=== PATIENT | male | born 1945 | race Caucasian/White ===

== ENCOUNTER 2020-10-13 09:28 | Emergency (ER) | payer MEDICAID, OTHER ==
[~2020-10-13] VITALS: Ht 177.8 cm; Wt 55.0 kg
--- NOTE | 2020-10-13 09:38 | ED Dyspnea ---
General Stated Complaint: SOA Source of Information: Patient Exam Limitations: No Limitations History of Present Illness Date Seen by Provider: Oct 13, 2020 Time Seen by Provider: 09:45 Initial Comments 75-year-old male presents with shortness of breath. Patient has known COPD and is on home oxygen. Patient started getting short of breath Tuesday. He is also not had a bowel movement since Tuesday. Patient states normally he drinks a sixpack of beer and they both get better. Patient has subjective fever last night. He reports this morning his temperature was 94.8. Patient has not uses inhalers today. No increasing cough. No nausea or vomiting. Allergies and Home Medications Allergies Coded Allergies: No Known Drug Allergies (Unverified , 10/13/20) Home Medications Albuterol Sulfate 1 Puff Puff, 2 PUFF INH Q4H 1 PUFF = 90 MCG Prescribed by: YASMIN VAUGHAN on 10/13/20 111 Azithromycin 250 Mg Tablet, 250 MG PO DAILY Prescribed by: YASMIN VAUGHAN on 10/13/20 1112 Prednisone 20 Mg Tab, 40 MG PO DAILY Prescribed by: YASMIN VAUGHAN on 10/13/20 1112 Patient Home Medication List Home Medication List Reviewed: Yes Review of Systems Review of Systems Constitutional: see HPI; No diaphoresis, No dizziness, No weakness Respiratory: cough (chronic), short of breath, wheezing Cardiovascular: No chest pain, No palpitations Gastrointestinal: No abdominal pain; constipation; No nausea, No vomiting Musculoskeletal: no symptoms reported Skin: no symptoms reported Psychiatric/Neurological: No Symptoms Reported Endocrine: No Symptoms Reported Hematologic/Lymphatic: No Symptoms Reported Past Ykfgpej-Yoaevt-Tevbag Hx Past Med/Social Hx: Reviewed Nursing Past Med/Soc Hx Physical Exam Vital Signs Vital Signs - First Documented 10/13/20 09:45 Temp 39.1 Pulse 123 Resp 24 B/P (MAP) 121/78 (92) Pulse Ox 100 O2 Delivery Nasal Cannula O2 Flow Rate 3.00 Capillary Refill : Height, Weight, BMI Height: '" Weight: lbs. oz. 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 Norm as Tested Skin: Normal Color, Warm/Dry Progress/Results/Core Measures Results/Orders Lab Results Laboratory Tests Test 10/13/20 10:00 10/13/20 10:25 Range/Units White Blood Count 10.0 4.3-11.0 10^3/uL Red Blood Count 4.05 L 4.35-5.85 10^6/uL Hemoglobin 10.8 L 13.3-17.7 G/DL Hematocrit 35 L 40-54 % Mean Corpuscular Volume 87 80-99 FL Mean Corpuscular Hemoglobin 27 25-34 PG Mean Corpuscular Hemoglobin Concent 31 L 32-36 G/DL Red Cell Distribution Width 15.8 H 10.0-14.5 % Platelet Count 161 130-400 10^3/uL Mean Platelet Volume 11.6 H 7.4-10.4 FL Immature Granulocyte % (Auto) 1 % Neutrophils (%) (Auto) 78 H 42-75 % Lymphocytes (%) (Auto) 14 12-44 % Monocytes (%) (Auto) 7 0-12 % Eosinophils (%) (Auto) 1 0-10 % Basophils (%) (Auto) 0 0-10 % Neutrophils # (Auto) 7.7 1.8-7.8 X 10^3 Lymphocytes # (Auto) 1.4 1.0-4.0 X 10^3 Monocytes # (Auto) 0.7 0.0-1.0 X 10^3 Eosinophils # (Auto) 0.1 0.0-0.3 10^3/uL Basophils # (Auto) 0.0 0.0-0.1 10^3/uL Immature Granulocyte # (Auto) 0.1 0.0-0.1 10^3/uL Sodium Level 142 135-145 MMOL/L Potassium Level 3.1 L 3.6-5.0 MMOL/L Chloride Level 103 98-107 MMOL/L Carbon Dioxide Level 27 21-32 MMOL/L Anion Gap 12 5-14 MMOL/L Blood Urea Nitrogen 8 7-18 MG/DL Creatinine 0.79 0.60-1.30 MG/DL Estimat Glomerular Filtration Rate > 60 BUN/Creatinine Ratio 10 Glucose Level 114 H 70-105 MG/DL Calcium Level 9.9 8.5-10.1 MG/DL Corrected Calcium 9.9 8.5-10.1 MG/DL Total Bilirubin 0.4 0.1-1.0 MG/DL Aspartate Amino Transf (AST/SGOT) 25 5-34 U/L Alanine Aminotransferase (ALT/SGPT) 13 0-55 U/L Alkaline Phosphatase 57 40-136 U/L C-Reactive Protein 4.43 H <0.50 MG/DL Total Protein 6.7 6.4-8.2 GM/DL Albumin 4.0 3.2-4.5 GM/DL Micro Results Microbiology 10/13/20 Influenza Types A,B Antigen (REMY) - Final, Complete My Orders Orders - YASMIN VAUGHAN L DO Albuterol/Ipra Inhalation Soln (Duoneb I (10/13/20 10:00) Dexamethasone Injection (Decadron Inje (10/13/20 10:00) Svn Small Volume Nebulizer (10/13/20 09:48) Cbc With Automated Diff (10/13/20 09:48) Comprehensive Metabolic Panel (10/13/20 09:48) Procalcitonin (Pct) (10/13/20 09:48) Ekg Tracing (10/13/20 09:48) Influenza A And B Antigens (10/13/20 09:48) Coronavirus Sars-Cov-2 So 2018 (10/13/20 09:48) Chest 1 View Ap/Pa Only (10/13/20 09:48) Abdomen (Kub) 1 View (10/13/20 09:48) Acetaminophen Tablet/Caplet (Tylenol T (10/13/20 10:45) Crp Fs (10/13/20 10:00) Medications Given in ED Current Medications Medications Dose Ordered Sig/Linda Route Start Time Stop Time Status Last Admin Dose Admin Acetaminophen 650 mg ONCE ONCE PO 10/13/20 10:45 10/13/20 10:46 DC 10/13/20 10:55 650 MG Albuterol/ Ipratropium 3 ml ONCE ONCE INH 10/13/20 10:00 10/13/20 10:01 DC 10/13/20 10:23 3 ML Dexamethasone Sodium Phosphate 10 mg ONCE ONCE IV 10/13/20 10:00 10/13/20 10:01 DC 10/13/20 10:23 10 MG Vital Signs/I&O 10/13/20 10/13/20 09:45 10:55 Temp 39.1 39.1 Pulse 123 Resp 24 B/P (MAP) 121/78 (92) Pulse Ox 100 O2 Delivery Nasal Cannula O2 Flow Rate 3.00 Progress Progress Note : Time: 10:56 Progress Note Patient felt signally better following breathing treatments. No x-ray shows no pneumonia and no significant constipation on x-ray. Patient will be discharged home with azithromycin, steroids and an albuterol MDI. He has a nebulizer but is out of his MDI. Patient should follow-up with his primary care provider in 4-5 days for recheck in today symptoms. Patient should follow COVID isolation guidelines since he was tested. Patient is discharged home in stable condition. He should continue uses home oxygen as previously prescribed Initial ECG Impression Date: Oct 13, 2020 Initial ECG Impression Time: 10:27 Initial ECG Rate: 106 Initial ECG Rhythm: S.Tach Initial ECG Intervals: Normal Comment sinus Tach, Hr 106, no acute finding Diagnostic Imaging Diagonstic Imaging: Xray Plain Films/CT/US/NM/MRI: chest, abdomen Comments [facility] [place] [place] NAME: RYDER RINCON [employer] REC#: [id number] PT STATUS: REG ER : 1945 PHYSICIAN: YASMIN VAUGHAN DO ADMIT DATE: 10/13/20/ER FS Draft Date of Exam:10/13/20 CHEST 1 VIEW AP/PA ONLY INDICATION: COPD and shortness of breath. TIME OF EXAM: 10:12 AM No prior studies are available for comparison. FINDINGS: The heart size is normal. The pulmonary vascularity is unremarkable. The lungs are clear. No infiltrate, effusion or pneumothorax is detected. IMPRESSION: No acute cardiopulmonary process is detected. Dictated on workstation # [id number] Dict: 10/13/20 1029 Trans: 10/13/20 1030 [id number] Interpreted by: DONITA HUI MD Electronically signed by: [facility] [place], [place] NAME: SERGEYRYDER [employer] REC#: [id number] PT STATUS: REG ER : 1945 PHYSICIAN: YASMIN VAUGHAN DO ADMIT DATE: 10/13/20/ER FS Draft Date of Exam:10/13/20 ABDOMEN (KUB) 1 VIEW INDICATION: Shortness of breath and constipation. TIME OF EXAM: 10:15 AM Bowel gas pattern is nonobstructed. No significant stool load is identified. There is no pathologic calcifications. No free air is identified. IMPRESSION: No acute abnormality is detected. Dictated on workstation # [id number] Dict: 10/13/20 1032 Trans: 10/13/20 1034 [id number] [id number] Interpreted by: DONITA HUI MD Electronically signed by: Reviewed: Reviewed by Me, Reviewed/Discussed Departure Impression Primary Impression: COPD exacerbation Additional Impression: Viral syndrome Disposition: 01 HOME, SELF-CARE Condition: Stable Departure-Patient Inst. Referrals: EMILE WILKS MD (PCP/Family) Primary Care Physician Patient Instructions: Chronic Obstructive Pulmonary Disease (COPD), Including Emphysema, Coronavirus Disease 2019 (COVID-19) Overview, Exacerbation of COPD (DC), Viral Upper Respiratory Infection, Adult (DC) Add. Discharge Instructions: Please follow-up with your primary care provider and 3-4 days for recheck of today symptoms Use your inhaler every 4 hours while awake for 36 hours then as needed Scripts Albuterol Sulfate (VENTOLIN HFA) 1 Puff Puff 2 PUFF INH Q4H, #1 INHALER 1 PUFF = 90 MCG Prov: YASMIN VAUGHAN DO 10/13/20 Prednisone (Prednisone) 20 Mg Tab 40 MG PO DAILY, #6 TAB 0 Refills Prov: YASMIN VAUGHAN DO 10/13/20 Azithromycin (Azithromycin) 250 Mg Tablet 250 MG PO DAILY, #4 TAB 0 Refills Prov: YASMIN VAUGHAN DO 10/13/20 YASMIN VAUGHAN DO Oct 13, 2020 09:38
[2020-10-13] MEDS ORDERED: RT-ALBUTEROL/IPRATROPIUM 3 ML (DUONEB) VIAL INH ONE (10:00)
[2020-10-13 10:22] LABS: HEMATOCRIT 35 % (40-54); HEMOGLOBIN 10.8 G/DL (13.3-17.7); LYMPHOCYTES % (AUTO) 14 % (12-44); MEAN CORPUSCULAR HEMOGLOBIN 27 PG (25-34); MEAN CORPUSCULAR HGB CONC 31 G/DL (32-36); MEAN CORPUSCULAR VOLUME 87 FL (80-99); MEAN PLATELET VOLUME 11.6 FL (7.4-10.4); MONOCYTES % (AUTO) 7 % (0-12); NEUTROPHILS % (AUTO) 78 % (42-75); PLATELET COUNT 161 10^3/uL (130-400)
[2020-10-13 10:23] LABS: BASOPHILS % (AUTO) 0 % (0-10); EOSINOPHILS # (AUTO) 0.1 10^3/uL (0.0-0.3); EOSINOPHILS % (AUTO) 1 % (0-10); LYMPHOCYTES # (AUTO) 1.4 X 10^3 (1.0-4.0); MONOCYTES # (AUTO) 0.7 X 10^3 (0.0-1.0); NEUTROPHILS # (AUTO) 7.7 X 10^3 (1.8-7.8)
--- NOTE | 2020-10-13 10:31 | Diagnostic Imaging Report ---
INDICATION: COPD and shortness of breath. TIME OF EXAM: 10:12 AM No prior studies are available for comparison. FINDINGS: The heart size is normal. The pulmonary vascularity is unremarkable. The lungs are clear. No infiltrate, effusion or pneumothorax is detected. IMPRESSION: No acute cardiopulmonary process is detected. Dictated by: Dictated on workstation # [id number]
--- NOTE | 2020-10-13 10:34 | Diagnostic Imaging Report ---
INDICATION: Shortness of breath and constipation. TIME OF EXAM: 10:15 AM Bowel gas pattern is nonobstructed. No significant stool load is identified. There is no pathologic calcifications. No free air is identified. IMPRESSION: No acute abnormality is detected. Dictated by: Dictated on workstation # [id number]
[2020-10-13 10:39] LABS: ALANINE AMINOTRANSFERASE 13 U/L (0-55); ALKALINE PHOSPHATASE 57 U/L (40-136); BILIRUBIN,TOTAL 0.4 MG/DL (0.1-1.0); BUN/CREATININE RATIO 10; CALCIUM 9.9 MG/DL (8.5-10.1); CARBON DIOXIDE 27 MMOL/L (21-32); CHLORIDE 103 MMOL/L (98-107); CREATININE SERUM 0.79 MG/DL (0.60-1.30); GFR ESTIMATED > 60; GLUCOSE 114 MG/DL (70-105); POTASSIUM 3.1 MMOL/L (3.6-5.0); SODIUM 142 MMOL/L (135-145)
[2020-10-13 10:40] LABS: TOTAL PROTEIN 6.7 GM/DL (6.4-8.2)
[2020-10-13] MEDS ORDERED: ACETAMINOPHEN 325 MG TABLET PO ONE (10:45)
[2020-10-13 11:10] VITALS: BP 114/67
[2020-10-13] MEDS ORDERED: PRD20T PO (11:12)
[2020-10-13] MEDS ORDERED: AZIT250T12 PO (11:12)
[2020-10-13] MEDS ORDERED: RT-ALBUINH INH (11:12)
== END 2020-10-13 11:10 | disposition home or self-care (01) ==
LOC: ER FS 09:31
DX: J44.1 Chronic obstructive pulmonary disease with (acute) exacerbation (principal); B34.9 Viral infection, unspecified; Z20.828 Contact with and (suspected) exposure to other viral communicable diseases; Z79.52 Long term (current) use of systemic steroids
CPT/HCPCS: 36415; 71045; 74018; 80053; 84145; 85025; 86141; 87804 ×2; 93005; 94640; 99284; U0002; 87635

== ENCOUNTER → 2021-01-26 | Outpatient (CLI) | payer MEDICAID ==
[~2021-01-26] MED LIST: AZIT250T12 PO; PRD20T PO; RT-ALBUINH INH
[2021-01-26 10:25] LABS: BUN/CREATININE RATIO 17; CARBON DIOXIDE 30 MMOL/L (21-32); CHLORIDE 101 MMOL/L (98-107); CREATININE SERUM 0.88 MG/DL (0.60-1.30); GFR ESTIMATED > 60; POTASSIUM 3.9 MMOL/L (3.6-5.0); SODIUM 140 MMOL/L (135-145)
[2021-01-26 10:26] LABS: ALANINE AMINOTRANSFERASE 16 U/L (0-55); ALBUMIN 4.2 GM/DL (3.2-4.5); ALKALINE PHOSPHATASE 51 U/L (40-136); BILIRUBIN,TOTAL 0.4 MG/DL (0.1-1.0); CALCIUM 9.5 MG/DL (8.5-10.1); GLUCOSE 108 MG/DL (70-105); TOTAL PROTEIN 6.9 GM/DL (6.4-8.2)
[2021-01-26 15:08] LABS: CHOLESTEROL 115 MG/DL (< 200); HDL CHOLESTEROL 44 MG/DL (40-60); TRIGLYCERIDES 136 MG/DL (<150); VLDL CHOLESTEROL 27 MG/DL (5-40)
== END ==
LOC: LAB FS 09:41
PROVIDERS: ATTEND Family Medicine
DX: E78.2 Mixed hyperlipidemia (principal)
CPT/HCPCS: 36415; 80053; 80061

== ENCOUNTER 2021-05-19 04:40 | Emergency (ER) | payer MEDICAID ==
[2021-05-19] MEDS ORDERED: RT-ALBUTEROL/IPRATROPIUM 3 ML (DUONEB) VIAL INH ONE (04:45)
--- NOTE | 2021-05-19 04:54 | ED Dyspnea ---
General Stated Complaint: SOB Source of Information: Patient, EMS, Old Records History of Present Illness Date Seen by Provider: May 19, 2021 Time Seen by Provider: 04:40 Initial Comments 75 yo male presenting with complaint of shortness of breath, increased cough and subjective fever/chills in last 2 days. He reports that he has been so chilled that he has been turning on the heater at home. He has had increased cough and not really bringing up much when he coughs. He has been trying breathing treatments and medication at home without significant improvement. He uses oxygen 24/7 at 3 to 4 Lpm. He has a history of a heart attack and cardiac problems. Activities at Onset: None Associated Symptoms: Anxiety, Cough, Fever, Wheezing Allergies and Home Medications Allergies Coded Allergies: No Known Drug Allergies (Unverified , 10/13/20) Home Medications Albuterol Sulfate 1 Puff Puff, 2 PUFF INH Q4H 1 PUFF = 90 MCG Prescribed by: YASMIN VAUGHAN on 10/13/20 1112 Azithromycin 250 Mg Tablet, 250 MG PO DAILY Prescribed by: GERMAIN MADDEN on 05/19/21619 Guaifenesin 1,200 Mg Tab.er.12h, 1,200 MG PO BID Prescribed by: GERMAIN VEGART on 05/19/21620 Prednisone 20 Mg Tab, 40 MG PO DAILY Prescribed by: GERMAIN VEGART on 05/19/21619 Patient Home Medication List Home Medication List Reviewed: Yes Review of Systems Review of Systems Constitutional: chills, fever EENTM: no symptoms reported Respiratory: cough, short of breath; No stridor; wheezing Cardiovascular: No chest pain Gastrointestinal: no symptoms reported Genitourinary: no symptoms reported Musculoskeletal: no symptoms reported Skin: no symptoms reported Psychiatric/Neurological: Anxiety Past Rvziwhn-Sldoiw-Roalom Hx Patient Social History Tobacco Use?: Yes Tobacco type used: Cigarettes Smoking Status: Current Everyday Smoker Past Medical History Respiratory: Yes COPD Cardiac: Yes Coronary Artery Disease, Heart Attack, High Cholesterol, Hypertension Neurological: Yes Stroke Genitourinary: No Gastrointestinal: No Musculoskeletal: Yes Arthritis Endocrine: No Physical Exam Vital Signs Vital Signs - First Documented 05/19/21 04:40 Temp 37.7 Pulse 125 Resp 26 B/P (MAP) 124/63 (83) Pulse Ox 99 O2 Delivery Nasal Cannula O2 Flow Rate 3.00 Capillary Refill : Height, Weight, BMI Height: '" Weight: lbs. oz. kg; 17.00 BMI Method: General Appearance: Anxious, Chronically ill, Moderate Distress HEENT: PERRL/EOMI, Pharynx Normal Neck: Full Range of Motion, Supple Respiratory: Chest Non Tender, Accessory Muscle Use, Decreased Breath Sounds, Wheezing Cardiovascular: Regular Rate, Rhythm, Normal Peripheral Pulses Gastrointestinal: Normal Bowel Sounds, No Pulsatile Mass, Non Tender, Soft Rectal: Deferred Extremity: Normal Capillary Refill, Normal Inspection, No Pedal Edema Neurologic/Psychiatric: Alert, Oriented x3, No Motor/Sensory Deficits Skin: Warm/Dry Focused Exam Lactate Level 05/19/21 04:55: Lactic Acid Level 1.90 Lactic Acid Level Laboratory Tests Test 05/19/21 04:55 Lactic Acid Level 1.90 MMOL/L (0.50-2.00) Progress/Results/Core Measures Results/Orders Lab Results Laboratory Tests Test 05/19/21 04:55 05/19/21 05:00 Range/Units White Blood Count 13.1 H 4.3-11.0 10^3/uL Red Blood Count 4.08 L 4.35-5.85 10^6/uL Hemoglobin 11.8 L 13.3-17.7 G/DL Hematocrit 38 L 40-54 % Mean Corpuscular Volume 93 80-99 FL Mean Corpuscular Hemoglobin 29 25-34 PG Mean Corpuscular Hemoglobin Concent 31 L 32-36 G/DL Red Cell Distribution Width 14.8 H 10.0-14.5 % Platelet Count 223 130-400 10^3/uL Mean Platelet Volume 10.8 H 7.4-10.4 FL Immature Granulocyte % (Auto) 1 % Neutrophils (%) (Auto) 73 42-75 % Lymphocytes (%) (Auto) 19 12-44 % Monocytes (%) (Auto) 7 0-12 % Eosinophils (%) (Auto) 1 0-10 % Basophils (%) (Auto) 0 0-10 % Neutrophils # (Auto) 9.5 H 1.8-7.8 X 10^3 Lymphocytes # (Auto) 2.6 1.0-4.0 X 10^3 Monocytes # (Auto) 0.9 0.0-1.0 X 10^3 Eosinophils # (Auto) 0.1 0.0-0.3 10^3/uL Basophils # (Auto) 0.0 0.0-0.1 10^3/uL Immature Granulocyte # (Auto) 0.1 0.0-0.1 10^3/uL Sodium Level 142 135-145 MMOL/L Potassium Level 3.9 3.6-5.0 MMOL/L Chloride Level 101 98-107 MMOL/L Carbon Dioxide Level 28 21-32 MMOL/L Anion Gap 13 5-14 MMOL/L Blood Urea Nitrogen 14 7-18 MG/DL Creatinine 0.71 0.60-1.30 MG/DL Estimat Glomerular Filtration Rate > 60 BUN/Creatinine Ratio 20 Glucose Level 111 H 70-105 MG/DL Lactic Acid Level 1.90 0.50-2.00 MMOL/L Calcium Level 9.3 8.5-10.1 MG/DL Corrected Calcium 9.3 8.5-10.1 MG/DL Magnesium Level 1.6 1.6-2.4 MG/DL Total Bilirubin 0.3 0.1-1.0 MG/DL Aspartate Amino Transf (AST/SGOT) 22 5-34 U/L Alanine Aminotransferase (ALT/SGPT) 23 0-55 U/L Alkaline Phosphatase 74 40-136 U/L Troponin I < 0.30 <0.30 NG/ML C-Reactive Protein 1.04 H <0.50 MG/DL Pro-B-Type Natriuretic Peptide 433.9 H <75.0 PG/ML Total Protein 6.5 6.4-8.2 GM/DL Albumin 4.0 3.2-4.5 GM/DL Blood Gas Puncture Site RT. RADIAL Blood Gas Patient Temperature 37.7 Arterial Blood pH 7.42 7.37-7.43 Arterial Blood Partial Pressure CO2 49 H 35-45 MMHG Arterial Blood Partial Pressure O2 141 H 79-93 MMHG Arterial Blood HCO3 32 H 23-27 MMOL/L Arterial Blood Total CO2 33.3 H 21.0-31.0 MMOL/L Arterial Blood Oxygen Saturation 99 94-100 % Arterial Blood Base Excess 6.2 H -2.5-2.5 MMOL/L [place] Test YES-POS Blood Gas Ventilator Setting NO Blood Gas Inspired Oxygen 3 L My Orders Orders - GERMAIN MADDEN MD Cbc With Automated Diff (05/19/21 04:45) Comprehensive Metabolic Panel (05/19/21 04:45) Blood Culture (05/19/21 04:45) Chest 1 View Ap/Pa Only (05/19/21 04:45) Albuterol/Ipra Inhalation Soln (Duoneb I (05/19/21 04:45) Magnesium (05/19/21 04:45) Ekg Tracing (05/19/21 04:45) O2 (05/19/21 04:45) Ed Iv/Invasive Line Start (05/19/21 04:45) Sputum Culture (05/19/21 04:45) Monitor-Rhythm Ecg Trace Only (05/19/21 04:45) Crp Fs (05/19/21 04:45) Lactic Acid Analyzer (05/19/21 04:45) Svn Small Volume Nebulizer (05/19/21 04:45) Troponin I Fs (05/19/21 04:45) Probnp Fs (05/19/21 04:45) Digoxin (05/19/21 04:54) Arterial Blood Gas (05/19/21 05:08) Azithromycin Tablet (Zithromax Tablet) (05/19/21 06:07) Albuterol/Ipra Inhalation Soln (Duoneb I (05/19/21 06:08) Svn Small Volume Nebulizer (05/19/21 06:08) Medications Given in ED Current Medications Medications Dose Ordered Sig/Linda Route Start Time Stop Time Status Last Admin Dose Admin Albuterol/ Ipratropium 3 ml ONCE ONCE INH 05/19/21 04:45 05/19/21 04:49 DC 05/19/21 05:00 3 ML Vital Signs/I&O 05/19/21 05/19/21 05/19/21 04:40 04:40 06:22 Temp 37.7 Pulse 125 103 Resp 26 20 B/P (MAP) 124/63 (83) 115/64 Pulse Ox 99 99 98 O2 Delivery Nasal Cannula Nasal Cannula Nasal Cannula O2 Flow Rate 3.00 3.00 Progress Progress Note #1: Progress Note Obtain labs as well as blood cultures and lactic acid since he has an elevated temperature with chills at home. His breathing has improved with the Solu- Medrol and breathing treatment by EMS but he is still coughing and having a lot of wheezing so a repeat DuoNeb breathing treatment was ordered here on arrival to the ED. Obtain a blood gas to evaluate his oxygenation and CO2 retention. Chest x-ray to look for pneumonia or mass or effusion. Electrocardiogram to loo k for myocardial infarction or arrhythmia or conduction abnormality. The differential diagnosis includes COPD exacerbation, pneumonia, sinusitis, lung cancer, myocardial infarction, CHF exacerbation, cardiac arrhythmia Progress Note #2: Time: 05:54 Progress Note pt reports feeling much better after treatments and steroid. He still has some cough but it has improved since arrival as well. Labs show mild elevation of WBC count but Lactic acid is less than 2. Troponin negative. Chemistry otherwise no acute significant abnormality. On my review of his 1 view CXR it appears similar to Oct 13, 2020 without acute infiltrate or effusion. As he is doing better and no definite pneumonia on CXR and no effusion will treat for COPD exacerbation and use Zithromax and Steroids. He plans to call [facility] about his nebulizer to make sure his machine is working properly because he feels it was not giving his breathing medicine to him. Will use Mucinex to help with cough. Check with clinic if not improving or return for worsening symptoms but he states he does not feel bad enough to go to the hospital and feels he has improved enough he could go home and use his medicine. Initial ECG Impression Date: May 19, 2021 Initial ECG Impression Time: 04:46 Initial ECG Rate: 115 Initial ECG Rhythm: S.Tach Initial ECG Comparisson: Unchanged Comment Sinus tachycardia with a heart rate of 115 bpm. CO interval 116 ms. QT interval 340 ms with a QTc interval of 471 ms. He does have some ventricular trigeminy which is new from September 2020 with his last EKG. He has no ST elevation. Diagnostic Imaging Diagonstic Imaging: Xray Plain Films/CT/US/NM/MRI: chest Comments On my review of his 1 view chest x-ray there is no acute infiltrate or effusion. Appears stable from October 13, 2020 Reviewed: Reviewed by Me Departure Impression Primary Impression: COPD exacerbation Disposition: 01 HOME, SELF-CARE Condition: Improved Departure-Patient Inst. Decision time for Depature: 06:21 Referrals: EMILE WILKS MD (PCP/Family) Primary Care Physician Patient Instructions: COPD Exacerbation, Adult ED, COPD Diet Add. Discharge Instructions: Use the Zithromax antibiotic to treat for infection that might be flaring up the COPD/Emphysema. Use the steroid to help with inflammation and your breathing. Check with [facility] about your Nebulizer machine to ensure it is working ok. Use Mucinex (Guaifenesin) twice a day to help with cough and congestion. If not improving or worsening then return or check with Dr. Wilks in clinic. Scripts Guaifenesin (Mucinex) 1,200 Mg Tab.er.12h 1200 MG PO BID for COPD exacerbation for 7 Days, #14 TAB 0 Refills Prov: GERMAIN MADDEN MD 05/19/21 Prednisone (Prednisone) 20 Mg Tab 40 MG PO DAILY for COPD exacerbation for 5 Days, #10 TAB 0 Refills Prov: GERMAIN MADDEN MD 05/19/21 Azithromycin (Azithromycin) 250 Mg Tablet 250 MG PO DAILY, #4 TAB 0 Refills Prov: GERMAIN MADDEN MD 05/19/21 GERMAIN MADDEN MD May 19, 2021 04:54
[2021-05-19 05:27] LABS: ABG BASE EXCESS 6.2 MMOL/L (-2.5-2.5); ABG OXYGEN SATURATION 99 % (94-100); ABG PCO2 49 MMHG (35-45); ABG PH 7.42 (7.37-7.43); ABG PO2 141 MMHG (79-93); ABG TCO2 33.3 MMOL/L (21.0-31.0); ALLENS TEST YES-POS
[2021-05-19 05:28] LABS: INSPIRED O2 3 L; VENTILATOR NO
[2021-05-19 05:29] LABS: PATIENT TEMP 37.7
[2021-05-19 05:32] LABS: HEMATOCRIT 38 % (40-54); HEMOGLOBIN 11.8 G/DL (13.3-17.7); MEAN CORPUSCULAR HEMOGLOBIN 29 PG (25-34); WHITE BLOOD COUNT 13.1 10^3/uL (4.3-11.0)
[2021-05-19 05:33] LABS: BASOPHILS % (AUTO) 0 % (0-10); EOSINOPHILS # (AUTO) 0.1 10^3/uL (0.0-0.3); EOSINOPHILS % (AUTO) 1 % (0-10); LYMPHOCYTES # (AUTO) 2.6 X 10^3 (1.0-4.0); LYMPHOCYTES % (AUTO) 19 % (12-44); MEAN CORPUSCULAR HGB CONC 31 G/DL (32-36); MEAN CORPUSCULAR VOLUME 93 FL (80-99); MEAN PLATELET VOLUME 10.8 FL (7.4-10.4); MONOCYTES # (AUTO) 0.9 X 10^3 (0.0-1.0); MONOCYTES % (AUTO) 7 % (0-12); NEUTROPHILS # (AUTO) 9.5 X 10^3 (1.8-7.8); NEUTROPHILS % (AUTO) 73 % (42-75); PLATELET COUNT 223 10^3/uL (130-400)
[2021-05-19 05:49] LABS: ALANINE AMINOTRANSFERASE 23 U/L (0-55); ALKALINE PHOSPHATASE 74 U/L (40-136); BILIRUBIN,TOTAL 0.3 MG/DL (0.1-1.0); BUN/CREATININE RATIO 20; CALCIUM 9.3 MG/DL (8.5-10.1); CARBON DIOXIDE 28 MMOL/L (21-32); CHLORIDE 101 MMOL/L (98-107); CREATININE SERUM 0.71 MG/DL (0.60-1.30); GFR ESTIMATED > 60; GLUCOSE 111 MG/DL (70-105); MAGNESIUM 1.6 MG/DL (1.6-2.4); POTASSIUM 3.9 MMOL/L (3.6-5.0); SODIUM 142 MMOL/L (135-145); TOTAL PROTEIN 6.5 GM/DL (6.4-8.2)
[2021-05-19] MEDS ORDERED: AZITHROMYCIN 250 MG TAB (ZITHROMAX) PO STA (06:07)
[2021-05-19] MEDS ORDERED: RT-ALBUTEROL/IPRATROPIUM 3 ML (DUONEB) VIAL INH STA (06:08)
[2021-05-19] MEDS ORDERED: PRD20T PO (06:20)
[2021-05-19] MEDS ORDERED: AZIT250T12 PO (06:20)
[2021-05-19] MEDS ORDERED: GUAI120013 PO (06:21)
[2021-05-19 06:22] VITALS: BP 115/64
--- NOTE | 2021-05-19 07:15 | Diagnostic Imaging Report ---
EXAM: CHEST 1 VIEW AP/PA ONLY INDICATION: Cough. Shortness of air. Fever. Chills. COMPARISON: Chest radiograph 10/13/2020. FINDINGS: Normal heart size and pulmonary vascularity. No dense consolidation, pleural effusion or pneumothorax. No acute osseous findings. IMPRESSION: No acute cardiopulmonary findings. Dictated by: Dictated on workstation # [id number]
== END 2021-05-19 07:06 | disposition home or self-care (01) ==
LOC: EDUNIT# 04:40 → ER FS 04:41
DX: J44.1 Chronic obstructive pulmonary disease with (acute) exacerbation (principal); I25.2 Old myocardial infarction; I10 Essential (primary) hypertension; F17.210 Nicotine dependence, cigarettes, uncomplicated; Z86.73 Personal history of transient ischemic attack (TIA), and cerebral infarction without residual deficits
CPT/HCPCS: 36415; 71045; 80053; 80162; 82805; 83605; 83735; 83880; 84484; 85025; 86141; 87040; 93005; 93041

== ENCOUNTER 2021-09-11 23:36 | Emergency (ER) | payer MEDICAID ==
[~2021-09-11] VITALS: Ht 177.8 cm; Wt 65.0 kg
[~2021-09-11 23:36] MED LIST changes: +GUAI120013 PO
--- OUTSIDE RECORDS SUMMARY | 2021-09-11 23:44 | XMS REPORT | Clinical Summary ---
Author Author [facility] Organization [facility] Address Unknown Phone Unavailable Care Team Providers [employer] Sander Tender Name Role Phone PCP Unavailable Allergies Not on File Medications Not on file Active Problems Not on file Social History Date Tobacco Use Types Packs/Day Years Used Never Assessed Sex Assigned at Date Recorded Not on file Last Filed Vital Signs Not on file Plan of Treatment Not on file Results Not on filefrom Last 3 Months
[2021-09-11] MEDS ORDERED: NS IV 1000 ML 1,000 ML IV STA (23:51)
--- NOTE | 2021-09-11 23:55 | ED Fall/Injury ---
General Chief Complaint: Trauma-Non Activation Stated Complaint: FALL Source: patient, family, old records History of Present Illness Date Seen by Provider: Sep 11, 2021 Time Seen by Provider: 23:36 Initial Comments 75 yo male presenting with family from home after he reports drinking several beers and he went to stand up to go to the bathroom and he fell to the ground. He is not sure why he fell to the ground. He denies having any chest pain, nausea, vomiting. He had some bleeding from his right elbow with a small skin tear. He states he did not think he lost consciousness. He denies headache. Initially family called 911 but rather than wait for EMS to arrive they brought him in their own vehicle to the ED. Occurred: just prior to arrival Severity: mild Injuries/Pain Location: upper extremity (small skin tear to right elbow) Context: unknown (reports falling to the ground when he had gotten up from chair to go to the bathroom after he had been drinking several beers) Loss of Consciousness: no loss of consciousness Associated Symptoms (Fall): No Abdominal Pain, No Chest Pain, No Confusion, No Dizziness, No Headache, No Lightheadedness, No Muscle Spasms, No Nausea/Vomiting, No Neck Pain, No Ringing in Ears, No Seizures, No Shortness of Air, No Slurred Speech, No Vision Changes Allergies and Home Medications Allergies Coded Allergies: No Known Drug Allergies (Unverified , 10/13/20) Patient Home Medication List Home Medication List Reviewed: Yes Albuterol Sulfate (Ventolin Hfa) 1 Puff Puff, 2 PUFF INH Q4H Prescribed by: YASMIN VAUGHAN on 10/13/20 1112 Azithromycin (Azithromycin) 250 Mg Tablet, 250 MG PO DAILY Prescribed by: GERMAIN MADDEN on 05/19/21619 Guaifenesin (Mucinex) 1,200 Mg Tab.er.12h, 1,200 MG PO BID Prescribed by: GERMAIN MADDEN on 05/19/21620 Prednisone (Prednisone) 20 Mg Tab, 40 MG PO DAILY Prescribed by: GERMAIN MADDEN on 05/19/21619 Review of Systems Review of Systems Constitutional: No chills, No fever Eyes: Denies Blurred Vision, Denies Vision Changes Ears, Nose, Mouth, Throat: no symptoms reported Respiratory: no symptoms reported Cardiovascular: No chest pain, No palpitations; syncope Gastrointestinal: No nausea, No vomiting Genitourinary: no symptoms reported Musculoskeletal: no symptoms reported Skin: see HPI Psychiatric/Neurological: Denies Headache; Weakness (general) Past Rkjrbbq-Cwxawu-Itjwbd Hx Patient Social History Tobacco Use?: Yes Alcohol Use?: Yes Alcohol type: Beer Alcohol Frequency: Daily Past Medical History Respiratory: Yes COPD Cardiac: Yes Coronary Artery Disease, Heart Attack, High Cholesterol, Hypertension Neurological: Yes Stroke Genitourinary: No Gastrointestinal: No Musculoskeletal: Yes Arthritis Endocrine: No Physical Exam Vital Signs Vital Signs - First Documented Capillary Refill : Height, Weight, BMI Height: '" Weight: lbs. oz. kg; 17.00 BMI Method: General Appearance: other (appears chronically ill) HEENT: PERRL/EOMI, pharynx normal, other (negative zuluaga sign. negative raccoon sign. no CSF otorrhea or rhinorrhea) Neck: non-tender, full range of motion, supple, normal inspection Cardiovascular: normal peripheral pulses, regular rate, rhythm Respiratory: chest non-tender, no respiratory distress, no accessory muscle use, decreased breath sounds Gastrointestinal: normal bowel sounds, non tender, soft, no pulsatile mass Extremities: normal range of motion, non-tender, normal capillary refill Neurologic/Psychiatric: certified diabetes educator II-XII nml as tested, alert, oriented x 3 Skin: warm/dry, other (2 mm skin tear to right elbow with dried blood on elbow and forearm 2 mm skin tear at wrist) Chuck Coma Score Best Eye Response: (4) Open Spontaneously Best Verbal Response: (5) Oriented Best Motor Response: (6) Obeys Commands [place] Total: 15 Progress/Results/Core Measures Results/Orders Lab Results Laboratory Tests Test 09/11/21 23:54 09/12/21 00:20 Range/Units White Blood Count 6.8 4.3-11.0 10^3/uL Red Blood Count 4.14 L 4.30-5.52 10^6/uL Hemoglobin 11.5 L 13.3-17.7 g/dL Hematocrit 37 L 40-54 % Mean Corpuscular Volume 89 80-99 fL Mean Corpuscular Hemoglobin 28 25-34 pg Mean Corpuscular Hemoglobin Concent 31 L 32-36 g/dL Red Cell Distribution Width 14.8 H 10.0-14.5 % Platelet Count 227 130-400 10^3/uL Mean Platelet Volume 10.0 9.0-12.2 fL Immature Granulocyte % (Auto) 0 % Neutrophils (%) (Auto) 59 42-75 % Lymphocytes (%) (Auto) 33 12-44 % Monocytes (%) (Auto) 7 0-12 % Eosinophils (%) (Auto) 1 0-10 % Basophils (%) (Auto) 0 0-10 % Neutrophils # (Auto) 4.1 1.8-7.8 X 10^3 Lymphocytes # (Auto) 2.2 1.0-4.0 X 10^3 Monocytes # (Auto) 0.5 0.0-1.0 X 10^3 Eosinophils # (Auto) 0.0 0.0-0.3 10^3/uL Basophils # (Auto) 0.0 0.0-0.1 10^3/uL Immature Granulocyte # (Auto) 0.0 0.0-0.1 10^3/uL Prothrombin Time 12.0 L 12.2-14.7 SEC INR Comment 0.9 0.8-1.4 Activated Partial Thromboplast Time 26 24-35 SEC Sodium Level 135 135-145 MMOL/L Potassium Level 4.3 3.6-5.0 MMOL/L Chloride Level 98 98-107 MMOL/L Carbon Dioxide Level 23 21-32 MMOL/L Anion Gap 14 5-14 MMOL/L Blood Urea Nitrogen 12 7-18 MG/DL Creatinine 0.70 0.60-1.30 MG/DL Estimat Glomerular Filtration Rate 110 BUN/Creatinine Ratio 17 Glucose Level 112 H 70-105 MG/DL Calcium Level 9.4 8.5-10.1 MG/DL Corrected Calcium 9.0 8.5-10.1 MG/DL Magnesium Level 2.0 1.6-2.4 MG/DL Total Bilirubin 0.2 0.1-1.0 MG/DL Aspartate Amino Transf (AST/SGOT) 48 H 5-34 U/L Alanine Aminotransferase (ALT/SGPT) 26 0-55 U/L Alkaline Phosphatase 73 40-136 U/L Troponin I < 0.30 <0.30 NG/ML Total Protein 7.5 6.4-8.2 GM/DL Albumin 4.5 3.2-4.5 GM/DL Lipase 44 8-78 U/L Serum Alcohol 229 H <10 MG/DL Urine Color STRAW Urine Clarity CLEAR Urine pH 5.5 5-9 Urine Specific [place] <=1.005 1.016-1.022 Urine Protein NEGATIVE NEGATIVE Urine Glucose (UA) NEGATIVE NEGATIVE Urine Ketones NEGATIVE NEGATIVE Urine Nitrite NEGATIVE NEGATIVE Urine Bilirubin NEGATIVE NEGATIVE Urine Urobilinogen 0.2 < = 1.0 MG/DL Urine Leukocyte Esterase NEGATIVE NEGATIVE Urine RBC (Auto) TRACE-I H NEGATIVE Urine RBC 2-5 H /HPF Urine WBC NONE /HPF Urine Squamous Epithelial Cells NONE /HPF Urine Crystals NONE /LPF Urine Leucine Crystals /LPF Urine Bacteria NEGATIVE /HPF Urine Casts NONE /LPF Urine Mucus NEGATIVE /LPF Urine Culture Indicated NO Urine Opiates Screen NEGATIVE NEGATIVE Urine Oxycodone Screen NEGATIVE NEGATIVE Urine Methadone Screen NEGATIVE NEGATIVE Urine Propoxyphene Screen NEGATIVE NEGATIVE Urine Barbiturates Screen NEGATIVE NEGATIVE Ur Tricyclic Antidepressants Screen NEGATIVE NEGATIVE Urine Phencyclidine Screen NEGATIVE NEGATIVE Urine Amphetamines Screen NEGATIVE NEGATIVE Urine Methamphetamines Screen NEGATIVE NEGATIVE Urine Benzodiazepines Screen NEGATIVE NEGATIVE Urine Cocaine Screen NEGATIVE NEGATIVE Urine Cannabinoids Screen NEGATIVE NEGATIVE My Orders Orders - GERMAIN MADDEN MD Cbc With Automated Diff (09/11/21 23:49) Magnesium (09/11/21 23:49) Chest 1 View Ap/Pa Only (09/11/21 23:49) Ekg Tracing (09/11/21 23:49) Comprehensive Metabolic Panel (09/11/21 23:49) Protime With Inr (09/11/21 23:49) Partial Thromboplastin Time (09/11/21 23:49) O2 (09/11/21 23:49) Monitor-Rhythm Ecg Trace Only (09/11/21 23:49) Ed Iv/Invasive Line Start (09/11/21 23:49) Lipase (09/11/21 23:49) Troponin I Fs (09/11/21 23:49) Alcohol (09/11/21 23:49) Ua Culture If Indicated (09/11/21 23:49) Drug Screen Stat (Urine) (09/11/21 23:49) Elbow 3 View Right (09/11/21 23:49) Ns Iv 1000 Ml (Sodium Chloride 0.9%) (09/11/21 23:51) Wound Dressing-Ed (09/12/21 00:34) Vital Signs/I&O 09/11/21 09/11/21 23:38 23:38 Temp 36.0 36.4 Pulse 91 100 Resp 17 16 B/P (MAP) 133/78 (96) 133/78 (96) Pulse Ox 98 98 O2 Delivery Room Air Room Air Progress Progress Note #1: Progress Note Obtain ECG with labs and troponin. Image his head and cervical spine since he reports falling and drinking beers tonight. Check alcohol level and Urine with UDS. Give 1 L NS IVF bolus for hydration. CXR to evaluate for pneumonia, effusion, cardiomegaly. Differential diagnosis includes alcohol intoxication, dehydration, stroke, heart attack, vasovagal syncope, UTI, cardiac arrhythmia Progress Note #2: Progress Note ECG appears similar to prior tracings. Pt refused head and cervical spine CT scan as he reports he can not lay flat for imaging due to long standing spine issues. He Had stable chest xray showing COPD changes but no iniltrate or effusion. He had stable CBC and chemistry without acute significant abnormality. Alcohol level was up to 229. He had no sign of infection in urine and drug screen was negative. Troponin negative. Pt did request oxygen as he states he is on it 06/06 at home. He had O2 sat 96-99% on room air here. Counseled that he likely had vasovagal episode with the high alcohol level and standing up too fast to go urinate. Advised to stand slowly and give his body a minute to adjust and compensate before he starts walking. Check back with clinic for continued concerns. Keep skin tears clean and covered until healed. Family is planning on staying with him for rest of the night to help monitor him and get him up if need be until his alcohol level comes down and he is more sober. Initial ECG Impression Date: Sep 12, 2021 Initial ECG Impression Time: 23:37 Initial ECG Rate: 97 Initial ECG Rhythm: Normal Sinus Initial ECG Comparisson: Unchanged Comment Normal sinus rhythm with a rate of 97 bpm. KS interval 146 ms. QT interval 391 ms with a borderline prolonged QTc interval of 497 ms. There is wander and artifact on the tracing. No acute ST elevation. Appears similar to prior tracings in the system Diagnostic Imaging Diagonstic Imaging: Xray Plain Films/CT/US/NM/MRI: elbow Comments On review of the 3 views of his right elbow he has no acute fracture or dislocation Reviewed: Reviewed by Me Diagonstic Imaging: Xray Plain Films/CT/US/NM/MRI: chest Comments On my review of the 1 view chest x-ray he has no acute infiltrate or effusion. Appears chronic and stable COPD changes from x-ray in May. Reviewed: Reviewed by Me Departure Impression Primary Impression: Skin tear of right elbow without complication Qualified Codes: S51.011A - Laceration without foreign body of right elbow, initial encounter Additional Impressions: Alcohol intoxication Qualified Codes: F10.920 - Alcohol use, unspecified with intoxication, uncomplicated Fall at home Qualified Codes: W19.XXXA - Unspecified fall, initial encounter; Y92.009 - Unspecified place in unspecified non-institutional (private) residence as the place of occurrence of the external cause Disposition: HOME, SELF-CARE Condition: Stable Departure-Patient Inst. Decision time for Depature: 00:33 Referrals: EMILE WILKS MD (PCP/Family) Primary Care Physician Patient Instructions: Preventing Falls ED, Alcohol Intoxication ED, Wound Care ED Add. Discharge Instructions: Do not drink alcohol to excess. Keep skin tear/abrasion on right arm clean with soap and water. May cover with a bandage/dressing to help it heal without bleeding more Check back with clinic and your primary provider for continued concerns. All discharge instructions reviewed with patient and/or family. Voiced understanding. GERMAIN MADDEN MD Sep 11, 2021 23:55
[2021-09-11 23:57] LABS: BASOPHILS % (AUTO) 0 % (0-10); EOSINOPHILS % (AUTO) 1 % (0-10); HEMATOCRIT 37 % (40-54); HEMOGLOBIN 11.5 g/dL (13.3-17.7); LYMPHOCYTES # (AUTO) 2.2 X 10^3 (1.0-4.0); LYMPHOCYTES % (AUTO) 33 % (12-44); MEAN CORPUSCULAR HEMOGLOBIN 28 pg (25-34); MEAN CORPUSCULAR HGB CONC 31 g/dL (32-36); MEAN CORPUSCULAR VOLUME 89 fL (80-99); MONOCYTES # (AUTO) 0.5 X 10^3 (0.0-1.0); MONOCYTES % (AUTO) 7 % (0-12); NEUTROPHILS # (AUTO) 4.1 X 10^3 (1.8-7.8); NEUTROPHILS % (AUTO) 59 % (42-75); PLATELET COUNT 227 10^3/uL (130-400); WHITE BLOOD COUNT 6.8 10^3/uL (4.3-11.0)
[2021-09-12 00:08] LABS: INR 0.9 (0.8-1.4)
[2021-09-12 00:16] LABS: CREATININE SERUM 0.7 MG/DL (0.60-1.30); POTASSIUM 4.3 MMOL/L (3.6-5.0)
[2021-09-12 00:17] LABS: ALBUMIN 4.5 GM/DL (3.2-4.5); BILIRUBIN,TOTAL 0.2 MG/DL (0.1-1.0); CALCIUM 9.4 MG/DL (8.5-10.1); TOTAL PROTEIN 7.5 GM/DL (6.4-8.2)
[2021-09-12 00:27] LABS: CLARITY,URINE CLEAR; COLOR,URINE STRAW
[2021-09-12 00:30] LABS: PH,URINE 5.5 (5-9)
[2021-09-12 00:31] LABS: BACTERIA,URINE NEGATIVE /HPF; BILIRUBIN,URINE NEGATIVE (NEGATIVE); GLUCOSE, URINE (UA) NEGATIVE (NEGATIVE); KETONES,URINE NEGATIVE (NEGATIVE); LEUKOCYTE ESTERASE ,URINE NEGATIVE (NEGATIVE); NITRITE,URINE NEGATIVE (NEGATIVE); PROTEIN,URINE NEGATIVE (NEGATIVE)
[2021-09-12 00:36] LABS: AMPHETAMINE SCREEN, URINE NEGATIVE (NEGATIVE); BARBITURATE SCREEN URINE NEGATIVE (NEGATIVE); BENZODIAZEPINES SCREEN URINE NEGATIVE (NEGATIVE); CANNABINOID SCREEN, URINE NEGATIVE (NEGATIVE); COCAINE SCREEN URINE NEGATIVE (NEGATIVE); METHADONE STAT NEGATIVE (NEGATIVE); METHAMPHETAMINE SCREEN URINE S NEGATIVE (NEGATIVE); OPIATE SCREEN URINE NEGATIVE (NEGATIVE); OXYCODONE STAT NEGATIVE (NEGATIVE); PROPOXYPHENE STAT NEGATIVE (NEGATIVE); TRICYCLIC ANTIDEPRESSANTS SCRE NEGATIVE (NEGATIVE)
[2021-09-12 00:55] VITALS: BP 133/78
--- NOTE | 2021-09-12 05:55 | Diagnostic Imaging Report ---
HISTORY: Syncope, injury to the right elbow TECHNIQUE: 3 views of the right elbow COMPARISON: None FINDINGS: No acute fracture or dislocation is seen in the right elbow. Alignment appears normal. Joint spaces are preserved. There is no significant joint effusion. There is an olecranon enthesophyte. IMPRESSION: 1. No acute osseous abnormality is seen in the right elbow. Dictated by: Dictated on workstation # [id number]
--- NOTE | 2021-09-12 06:45 | Diagnostic Imaging Report ---
Clinical Indication: Patient passed out and fell. Exam: Portable chest x-ray upright view. Comparisons: Chest x-ray dated 05/19/2021. Findings: Lungs/pleura: Lungs are clear. There is no pneumothorax. There is no pleural effusion. Mediastinum: Unremarkable. Pulmonary vasculature: Unremarkable. Heart: Unremarkable. Bones/extrathoracic soft tissue: Unremarkable. Impression: There is no radiographic evidence of acute cardiopulmonary process. Dictated by: Dictated on workstation # [id number]
== END 2021-09-12 00:55 | disposition home or self-care (01) ==
LOC: EDUNIT# 23:36 → ER FS 23:41
DX: S51.011A Laceration without foreign body of right elbow, initial encounter (principal); S61.511A Laceration without foreign body of right wrist, initial encounter; F10.129 Alcohol abuse with intoxication, unspecified; J44.9 Chronic obstructive pulmonary disease, unspecified; I10 Essential (primary) hypertension; I25.2 Old myocardial infarction; Z72.0 Tobacco use; Z86.73 Personal history of transient ischemic attack (TIA), and cerebral infarction without residual deficits; Z79.52 Long term (current) use of systemic steroids; W18.30XA Fall on same level, unspecified, initial encounter; Y92.009 Unspecified place in unspecified non-institutional (private) residence as the place of occurrence of the external cause
CPT/HCPCS: 36415; 71045; 73080; 80053; 80306; 81000; 83690; 83735; 84484; 85025; 85610; 85730; 93005; 93041; 99284; G0480; 80320

== ENCOUNTER 2021-12-14 11:05 | Inpatient (IN) | payer MEDICAID ==
[~2021-12-14] VITALS: Ht 177.8 cm; Wt 61.1 kg
[2021-12-14] MEDS ORDERED: NS IV 1000 ML 1,000 ML IV SCH (11:30)
--- NOTE | 2021-12-14 11:34 | ED General ---
General Chief Complaint: COVID19 Suspect/Confirmed Stated Complaint: FEVER; SOB Source of Information: Patient, Old Records History of Present Illness Date Seen by Provider: Dec 14, 2021 Time Seen by Provider: 11:08 Initial Comments 76-year-old male presenting with complaints of shortness of breath and coughing up sputum more than usual. He states this is been going on for several days. He lives by himself and was brought in by friends. He has a history of COPD and cardiac disease. He does use oxygen at 2 L/min via nasal cannula chronically and increases it at night when he is sleeping. He does not have any known ill contact exposures. He states that he had some leg swelling a few days ago. He has no nausea, vomiting, diarrhea, pain with urination. He follows with Dr. Wilks in the clinic. Timing/Duration: 3-4 Days Severity: Moderate Modifying Factors: worse with Movement (Easily winded with movement and exertio n) Associated Systoms: No Chest Pain; Cough; No Diaphoresis, No Fever/Chills; Headaches, Loss of Appetite, Malaise; No Nausea/Vomiting, No Rash, No Seizure; Shortness of Air (Chronic but worse than usual); No Syncope; Weakness (Genera lized) Allergies and Home Medications Allergies Coded Allergies: No Known Drug Allergies (Unverified , 10/13/20) Patient Home Medication List Home Medication List Reviewed: Yes Albuterol Sulfate (Ventolin Hfa) 1 Puff Puff, 2 PUFF INH Q4H Prescribed by: YASMIN VAUGHAN on 10/13/20 1112 Azithromycin (Azithromycin) 250 Mg Tablet, 250 MG PO DAILY Prescribed by: GERMAIN MADDEN on 05/19/21619 Guaifenesin (Mucinex) 1,200 Mg Tab.er.12h, 1,200 MG PO BID Prescribed by: GERMAIN MADDEN on 05/19/21620 Prednisone (Prednisone) 20 Mg Tab, 40 MG PO DAILY Prescribed by: GERMAIN MADDEN on 05/19/21619 Review of Systems Review of Systems Constitutional: see HPI EENTM: no symptoms reported Respiratory: see HPI Cardiovascular: No chest pain Gastrointestinal: see HPI Genitourinary: No dysuria Musculoskeletal: no symptoms reported Skin: No rash Psychiatric/Neurological: Weakness (Feels weak overall) Past Rgodkcv-Hgoyes-Whivzu Hx Immunizations Up To Date First/Initial COVID19 Vaccinat: na Second COVID19 Vaccination Jose: na Third COVID19 Vaccination Date: na Past Medical History Surgery/Hospitalization HX: COPD, coronary artery disease, high cholesterol, hypertension, stents in his heart, chronic O2 use Surgeries: Yes Coronary Stent Respiratory: Yes COPD Cardiac: Yes Coronary Artery Disease, Heart Attack, High Cholesterol, Hypertension Neurological: Yes Stroke Genitourinary: No Gastrointestinal: No Musculoskeletal: Yes Arthritis Endocrine: No Physical Exam Vital Signs Vital Signs - First Documented 12/14/21 11:10 Temp 37.1 Pulse 74 Resp 18 B/P (MAP) 120/59 (79) Pulse Ox 100 O2 Delivery Nasal Cannula O2 Flow Rate 3.00 FiO2 100 Capillary Refill : Height, Weight, BMI Height: '" Weight: lbs. oz. kg; 20.00 BMI Method: General Appearance: No Apparent Distress, Chronically ill, Other (Appears older than stated age) HEENT: Pharynx Normal, Moist Mucous Membranes Neck: Non Tender, Supple Respiratory: Chest Non Tender, No Accessory Muscle Use, No Respiratory Distress, Decreased Breath Sounds, Rhonci; No Stridor; Wheezing Cardiovascular: Normal Peripheral Pulses, Irregularly Irregular, Tachycardia Gastrointestinal: Normal Bowel Sounds, No Pulsatile Mass, Non Tender, Soft Rectal: Deferred Extremity: Normal Capillary Refill, Normal Inspection, No Pedal Edema Neurologic/Psychiatric: Alert, Oriented x3 Skin: Normal Color, Warm/Dry Focused Exam Lactate Level 12/14/21 11:19: Lactic Acid Level 2.22*H 12/14/21 13:36: Lactic Acid Level 0.49L Lactic Acid Level Laboratory Tests Test 12/14/21 11:19 12/14/21 13:36 Lactic Acid Level 2.22 MMOL/L (0.50-2.00) *H 0.49 MMOL/L (0.50-2.00) L Progress/Results/Core Measures Suspected Sepsis SIRS Temperature: Pulse: Respiratory Rate: Laboratory Tests 12/14/21 11:19: White Blood Count 7.8 Blood Pressure / Mean: 12/14/21 11:19: Lactic Acid Level 2.22*H 12/14/21 13:36: Lactic Acid Level 0.49L Laboratory Tests 12/14/21 11:19: Creatinine 1.39H, INR Comment 0.9, Platelet Count 191, Total Bilirubin 0.3 Results/Orders Lab Results Laboratory Tests Test 12/14/21 11:19 12/14/21 11:23 12/14/21 11:45 12/14/21 13:36 Range/Units White Blood Count 7.8 4.3-11.0 10^3/uL Red Blood Count 4.84 4.30-5.52 10^6/uL Hemoglobin 12.0 L 13.3-17.7 g/dL Hematocrit 41 40-54 % Mean Corpuscular Volume 84 80-99 fL Mean Corpuscular Hemoglobin 25 25-34 pg Mean Corpuscular Hemoglobin Concent 30 L 32-36 g/dL Red Cell Distribution Width 15.9 H 10.0-14.5 % Platelet Count 191 130-400 10^3/uL Mean Platelet Volume 10.2 9.0-12.2 fL Immature Granulocyte % (Auto) 1 % Neutrophils (%) (Auto) 71 42-75 % Lymphocytes (%) (Auto) 22 12-44 % Monocytes (%) (Auto) 6 0-12 % Eosinophils (%) (Auto) 0 0-10 % Basophils (%) (Auto) 0 0-10 % Neutrophils # (Auto) 5.5 1.8-7.8 10^3/uL Lymphocytes # (Auto) 1.7 1.0-4.0 10^3/uL Monocytes # (Auto) 0.5 0.0-1.0 10^3/uL Eosinophils # (Auto) 0.0 0.0-0.3 10^3/uL Basophils # (Auto) 0.0 0.0-0.1 10^3/uL Immature Granulocyte # (Auto) 0.0 0.0-0.1 10^3/uL Prothrombin Time 13.0 12.2-14.7 SEC INR Comment 0.9 0.8-1.4 Activated Partial Thromboplast Time 30 24-35 SEC Sodium Level 134 L 135-145 MMOL/L Potassium Level 4.3 3.6-5.0 MMOL/L Chloride Level 93 L 98-107 MMOL/L Carbon Dioxide Level 25 21-32 MMOL/L Anion Gap 16 H 5-14 MMOL/L Blood Urea Nitrogen 26 H 7-18 MG/DL Creatinine 1.39 H 0.60-1.30 MG/DL Estimat Glomerular Filtration Rate 53 BUN/Creatinine Ratio 19 Glucose Level 151 H 70-105 MG/DL Lactic Acid Level 2.22 *H 0.49 L 0.50-2.00 MMOL/L Calcium Level 10.4 H 8.5-10.1 MG/DL Corrected Calcium 10.6 H 8.5-10.1 MG/DL Total Bilirubin 0.3 0.1-1.0 MG/DL Aspartate Amino Transf (AST/SGOT) 44 H 5-34 U/L Alanine Aminotransferase (ALT/SGPT) 24 0-55 U/L Alkaline Phosphatase 51 40-136 U/L Troponin I < 0.30 <0.30 NG/ML C-Reactive Protein 5.19 H <0.50 MG/DL Pro-B-Type Natriuretic Peptide 936.1 H <75.0 PG/ML Total Protein 7.5 6.4-8.2 GM/DL Albumin 3.8 3.2-4.5 GM/DL Serum Alcohol < 10 <10 MG/DL Blood Gas Puncture Site L RADIAL Blood Gas Patient Temperature 37.1 Arterial Blood pH 7.47 H 7.37-7.43 Arterial Blood Partial Pressure CO2 38 35-45 MMHG Arterial Blood Partial Pressure O2 91 79-93 MMHG Arterial Blood HCO3 28 H 23-27 MMOL/L Arterial Blood Total CO2 28.9 21.0-31.0 MMOL/L Arterial Blood Oxygen Saturation 98 94-100 % Arterial Blood Base Excess 3.9 H -2.5-2.5 MMOL/L [place] Test NA Blood Gas Ventilator Setting NO Blood Gas Inspired Oxygen 3 L Influenza Type A Antigen NEGATIVE NEGATIVE Influenza Type B Antigen NEGATIVE NEGATIVE Urine Color YELLOW Urine Clarity CLOUDY Urine pH 6.0 5-9 Urine Specific [place] 1.020 1.016-1.022 Urine Protein 1+ H NEGATIVE Urine Glucose (UA) NEGATIVE NEGATIVE Urine Ketones 1+ H NEGATIVE Urine Nitrite NEGATIVE NEGATIVE Urine Bilirubin 2+ H NEGATIVE Urine Urobilinogen 0.2 < = 1.0 MG/DL Urine Leukocyte Esterase NEGATIVE NEGATIVE Urine RBC (Auto) NEGATIVE NEGATIVE Urine RBC 2-5 H /HPF Urine WBC 5-10 H /HPF Urine Squamous Epithelial Cells NONE /HPF Urine Crystals NONE /LPF Urine Bacteria FEW H /HPF Urine Casts PRESENT /LPF Urine Hyaline Casts >50 H /LPF Urine Granular Casts 2-5 H /LPF Urine White Blood Cell Casts RARE H /LPF Urine Mucus MODERATE H /LPF Urine Culture Indicated YES My Orders Orders - GERMAIN MADDEN MD Monitor-Rhythm Ecg Trace Only (12/14/21 11:23) Ed Iv/Invasive Line Start (12/14/21 11:23) Cbc With Automated Diff (12/14/21 11:23) Comprehensive Metabolic Panel (12/14/21 11:23) Crp Fs (12/14/21 11:23) Troponin I Fs (12/14/21 11:23) Protime With Inr (12/14/21 11:23) Partial Thromboplastin Time (12/14/21 11:23) Ekg Tracing (12/14/21 11:23) Arterial Blood Gas (12/14/21 11:23) Ns Iv 1000 Ml (Sodium Chloride 0.9%) (12/14/21 11:30) Blood Culture (12/14/21 11:23) Covid 19 Inhouse Test (12/14/21 11:23) Influenza A & B Antigens (12/14/21 11:23) O2 (12/14/21 11:23) Ua Culture If Indicated (12/14/21 11:23) Lactic Acid Analyzer (12/14/21 11:23) Isolation Central Supply Req (12/14/21 11:23) Probnp Fs (12/14/21 11:23) Dexamethasone Injection (Decadron Inje (12/14/21 11:27) Sputum Culture (12/14/21 11:27) Chest 1 View Ap/Pa Only (12/14/21 11:36) Alcohol (12/14/21 12:01) Diltiazem Injection (Cardizem Injection) (12/14/21 12:01) Ceftriaxone 1 Gm Pre-Mix (Rocephin 1 Gm (12/14/21 12:15) Azithromycin Injection (Zithromax Inject (12/14/21 12:15) Urine Culture (12/14/21 11:45) Ns Iv 1000 Ml (Sodium Chloride 0.9%) (12/14/21 12:38) Diltiazem Drip Pre-Mix (Cardizem Drip Pr (12/14/21 12:56) Enoxaparin Injection (Lovenox Injection) (12/14/21 12:56) Ed Admission (Communication) (1/31/22 12:58) Ns Iv 1000 Ml (Sodium Chloride 0.9%) (12/14/21 15:26) Vital Signs/I&O 12/14/21 12/14/21 12/14/21 12/14/21 11:10 11:10 11:21 14:36 Temp 37.1 Pulse 74 123 Resp 18 20 B/P (MAP) 120/59 (79) 104/61 Pulse Ox 100 100 O2 Delivery Nasal Cannula Nasal Cannula Nasal Cannula Room Air O2 Flow Rate 3.00 3.00 3.00 FiO2 100 Capillary Refill : Progress Note #1: Progress Note Obtain labs including blood cultures and lactic acid. Chest x-ray to look for signs of pneumonia. Blood gas to document how well he is oxygenating. Give IV fluids 1 L normal saline for hydration. Give Decadron 10 mg IV for COPD and shortness of breath. Obtain swab for Covid and influenza. If he coughs anything up will send sputum for culture. Differential diagnosis includes pneumonia, COPD exacerbation, Covid, influenza, congestive heart failure, coronary artery disease Progress Note #2: Time: 12:23 Progress Note CBC does not have acute elevation of the white blood cell count. The ABG fito ears stable for him with pH of 7.47, PCO2 of 38, PO2 of 91 on 3 L for an oxygen saturation of 99%. The influenza swab was negative. The chest x-ray shows infiltrate in the right lung. His electrocardiogram and shellacker shows atrial fibrillation which is new for him. His lactic acid came back at 2.2. Antibiotics of Rocephin and Zithromax were ordered for pneumonia. 10 mg IV bolus of diltiazem was ordered for the atrial fibrillation with tachycardia. If his heart rate and blood pressure don't improve with hydration and the diltiazem he may additionally need a diltiazem drip. Progress Note #3: Progress Note His troponin was less than 0.3. His proBNP was elevated to 936. His CRP was elevated a little over 5. His lactic acid was 2.22 so will be repeated after the fluids have been infused. His labs also show an elevated BUN and creatinine about twice what he normally runs. His BUN was 25 with a creatinine of 1.39. [address] Peck for the hospitalist service since patient follows with Dr. Wilks and he accepted patient for admission. [address] Rose for cardiology about consult and management of the new onset atrial fibrillation with RVR ECG Initial ECG Impression Date: Dec 14, 2021 Initial ECG Impression Time: 11:29 Initial ECG Rate: 165 Initial ECG Rhythm: A Fib/Flutter Initial ECG Comparisson: Changed Comment Computer read electrocardiogram as supraventricular tachycardia with a rate of 165 however it looks more like atrial fibrillation on my review of the tracing. He had no acute ST elevation. There is some artifact on the tracing. His QT interval was 274 ms with a QTc interval 454 ms. Previous tracings had been either sinus rhythm or sinus tachycardia. Diagnostic Imaging Diagonstic Imaging: Xray Plain Films/CT/US/NM/MRI: chest Comments NAME: [facility] REC#: [id number] PT STATUS: REG ER : 1945 PHYSICIAN: GERMAIN MADDEN MD ADMIT DATE: 12/14/21/ER FS Draft Date of Exam:12/14/21 CHEST 1 VIEW AP/PA ONLY INDICATION: Cough and shortness of breath Portable chest 11:44 AM There is some interstitial infiltrate in the periphery of the right lung that is new compared to prior exam dated 09/11/2021. Heart size and pulmonary vascularity are normal. There are no effusions or pneumothoraces. IMPRESSION: Interstitial infiltrate periphery of the right lung. Dictated on workstation # [id number] Dict: 12/14/21 1159 Trans: 12/14/21 1201 CV [id number] Interpreted by: CAROLYN FIKN MD Electronically signed by: Reviewed: Reviewed by Me Departure Communication (Admissions) Time/Spoke to Admitting Phy: 12:[address] Peck for the hospitalist service since patient follows with Dr. Wilks. Will admit for new onset atrial fibrillation with RVR, pneumonia, COPD exacerbation. Will consult Dr. Rose with cardiology but likely have pat ient on a diltiazem drip Time/Spoke to Consulting Phy: 12:[address] Rose for cardiology. He advised to start the patient on diltiazem drip after bolus and Lovenox at 1 mg/kg every 12 hours for anticoagulation. Impression Primary Impression: Person under investigation for COVID-19 Additional Impressions: Shortness of breath COPD exacerbation Pneumonia of right lung due to infectious organism Qualified Codes: J18.9 - Pneumonia, unspecified organism New onset atrial fibrillation Atrial fibrillation with RVR Disposition: 30 STILL A PATIENT Condition: Stable Admissions Decision to Admit Reason: Admit from ER (General) Decision to Admit/Date: Dec 14, 2021 Time/Decision to Admit Time: 12:52 Departure-Patient Inst. Referrals: EMILE WILKS MD (PCP/Family) Primary Care Physician GERMAIN MADDEN MD Dec 14, 2021 11:34
[2021-12-14 11:35] LABS: BASOPHILS % (AUTO) 0 % (0-10); EOSINOPHILS % (AUTO) 0 % (0-10); HEMATOCRIT 41 % (40-54); LYMPHOCYTES # (AUTO) 1.7 10^3/uL (1.0-4.0); LYMPHOCYTES % (AUTO) 22 % (12-44); MEAN CORPUSCULAR HEMOGLOBIN 25 pg (25-34); MEAN CORPUSCULAR HGB CONC 30 g/dL (32-36); MEAN CORPUSCULAR VOLUME 84 fL (80-99); MEAN PLATELET VOLUME 10.2 fL (9.0-12.2); MONOCYTES # (AUTO) 0.5 10^3/uL (0.0-1.0); MONOCYTES % (AUTO) 6 % (0-12); NEUTROPHILS # (AUTO) 5.5 10^3/uL (1.8-7.8); NEUTROPHILS % (AUTO) 71 % (42-75); PLATELET COUNT 191 10^3/uL (130-400); WHITE BLOOD COUNT 7.8 10^3/uL (4.3-11.0)
[2021-12-14 11:51] LABS: CLARITY,URINE CLOUDY; COLOR,URINE YELLOW; GLUCOSE, URINE (UA) NEGATIVE (NEGATIVE); KETONES,URINE 1+ (NEGATIVE); LEUKOCYTE ESTERASE ,URINE NEGATIVE (NEGATIVE); NITRITE,URINE NEGATIVE (NEGATIVE); PROTEIN,URINE 1+ (NEGATIVE)
[2021-12-14 11:58] LABS: ABG BASE EXCESS 3.9 MMOL/L (-2.5-2.5); ABG OXYGEN SATURATION 98 % (94-100); ABG PCO2 38 MMHG (35-45); ABG PH 7.47 (7.37-7.43); ABG PO2 91 MMHG (79-93); ABG TCO2 28.9 MMOL/L (21.0-31.0); INSPIRED O2 3 L
[2021-12-14 11:59] LABS: PATIENT TEMP 37.1; VENTILATOR NO
[2021-12-14 12:01] LABS: INR 0.9 (0.8-1.4)
--- NOTE | 2021-12-14 12:01 | Diagnostic Imaging Report ---
INDICATION: Cough and shortness of breath Portable chest 11:44 AM There is some interstitial infiltrate in the periphery of the right lung that is new compared to prior exam dated 09/11/2021. Heart size and pulmonary vascularity are normal. There are no effusions or pneumothoraces. IMPRESSION: Interstitial infiltrate periphery of the right lung. Dictated by: Dictated on workstation # [id number]
[2021-12-14 12:15] LABS: BACTERIA,URINE FEW /HPF
[2021-12-14] MEDS ORDERED: cefTRIAXone 1 GM PRE-MIX 50 ML IV STA (12:15)
[2021-12-14] MEDS ORDERED: AZITHROMYCIN INJECTION 500 MG in NS (IVPB) 250 ML IV STA (12:15)
[2021-12-14 12:16] LABS: HYALINE CASTS, URINE >50 /LPF; WHITE BLOOD CELL CASTS, URINE RARE /LPF
[2021-12-14 12:20] LABS: BILIRUBIN,URINE 2+ (NEGATIVE)
[2021-12-14 12:24] LABS: BUN/CREATININE RATIO 19; CARBON DIOXIDE 25 MMOL/L (21-32); CHLORIDE 93 MMOL/L (98-107); CREATININE SERUM 1.39 MG/DL (0.60-1.30); GFR ESTIMATED 53; POTASSIUM 4.3 MMOL/L (3.6-5.0); SODIUM 134 MMOL/L (135-145)
[2021-12-14 12:25] LABS: ALANINE AMINOTRANSFERASE 24 U/L (0-55); ALBUMIN 3.8 GM/DL (3.2-4.5); ALKALINE PHOSPHATASE 51 U/L (40-136); BILIRUBIN,TOTAL 0.3 MG/DL (0.1-1.0); CALCIUM 10.4 MG/DL (8.5-10.1); GLUCOSE 151 MG/DL (70-105); TOTAL PROTEIN 7.5 GM/DL (6.4-8.2)
[2021-12-14] MEDS ORDERED: NS IV 1000 ML 1,000 ML IV STA (12:38)
[2021-12-14] MEDS ORDERED: ENOXAPARIN 100 MG/1 ML (LOVENOX) SYR SC STA (12:56)
[2021-12-14] MEDS ORDERED: dilTIAZem DRIP PRE-MIX 125 ML IV STA (12:56)
[2021-12-14] MEDS ORDERED: polyethylene glycoL POWDER 17 GM (MIRALAX) PACK PO PRN (16:45)
[2021-12-14] MEDS ORDERED: ONDANSETRON 4 MG/2 ML (SDV) Z0FRAN IV PRN (16:45)
[2021-12-14] MEDS ORDERED: MELATONIN 3 MG TABLET PO PRN (16:45)
[2021-12-14] MEDS ORDERED: ONDANSETRON 4 MG (ZOFRAN) ORAL DISSOLVE TAB PO PRN (16:45)
[2021-12-14] MEDS ORDERED: ENOXAPARIN 100 MG/1 ML (LOVENOX) SYR SC SCH (16:45)
[2021-12-14] MEDS ORDERED: ANTACID SUSP 30 ML UDC (MYLANTA) PO PRN (16:45)
--- NOTE | 2021-12-14 17:37 | Tele-ICU Progress Note ---
Subjective Date Seen by a Provider: Dec 14, 2021 Time Seen by a Provider: 17:36 Sepsis Event Evaluation Height, Weight, BMI Height: '" Weight: lbs. oz. kg; 19.35 BMI Method: Focused Exam Lactate Level 12/14/21 11:19: Lactic Acid Level 2.22*H 12/14/21 13:36: Lactic Acid Level 0.49L Exam Exam Patient acknowledged, consented, and participated in this virtual visit which was conducted using real time audio/video Vital Signs Date Time Temp Pulse Resp B/P (MAP) Pulse Ox O2 Delivery O2 Flow Rate FiO2 12/14/21 17:00 37.4 130 33 109/60 97 Nasal Cannula 2.00 12/14/21 16:50 37.4 114 26 96/61 99 Nasal Cannula 2.00 12/14/21 16:50 95 Nasal Cannula 3.00 12/14/21 16:45 148 12/14/21 14:36 123 20 104/61 Room Air 12/14/21 11:21 Nasal Cannula 3.00 12/14/21 11:10 100 Nasal Cannula 3.00 100 12/14/21 11:10 37.1 74 18 120/59 (79) 100 Nasal Cannula 3.00 Height & Weight Height: '" Weight: lbs. oz. kg; 19.35 BMI Method: General Appearance: No Apparent Distress, Chronically ill, Other (Appears older than stated age) HEENT: Pharynx Normal, Moist Mucous Membranes Neck: Non Tender, Supple Respiratory: Chest Non Tender, No Accessory Muscle Use, No Respiratory Distress, Decreased Breath Sounds, Rhonci; No Stridor; Wheezing Cardiovascular: Normal Peripheral Pulses, Irregularly Irregular, Tachycardia Capillary Refill: Less Than 3 Seconds Extremity: Normal Capillary Refill, Normal Inspection, No Pedal Edema Neurologic/Psychiatric: Alert, Oriented x3 Skin: Normal Color, Warm/Dry Results Lab Laboratory Tests 12/14/21 11:19 Assessment/Plan Assessment/Plan (Tele-ICU Physician , consultation) Available chart/ vitals / labs / Images reviewed H&P is from ER notes Patient's information available about PMH, Shx, Fhx allergy reviewed in EMR. ROS as per chart and RN report Now in ICU, hemodynamically stable Video assessment done using teleICU camera, rest of exam as per RN Discussed with RN. Consultants: cards Hospital course: 12/14- to ER with SOB - new a fib RVR A/P A fib RVR - new onset - as per cards - on cardizem gtt -AC with lovenox -Echo Dyspnea - AECOPD + a fib AECOPD - prn br dilators - steroids modest dose - for possible covis and for COPD - to follow - started on ABX - tofollow OLIVERIO - gentle hydration COPD- - with chronic hypoxia - on O2 2L PUI - pending Lines : perip (Central Line Necessity Reviewed) Rao: OG: Nutrition: Analgesia: Anxiety/ delirium VTE Prophylaxis: michelle 60 bid Stress Ulcer Prophylaxis: po Plans in collaboration with bedside consultants and IM MDs. Discussd with RN to reach out if any questions or concerns A total of 31 minutes of critical care time was devoted to this patient today, required to treat and/or prevent further deterioration of critical care condition ( as above ) . KEIRA YBARRA MD Dec 14, 2021 17:37
[2021-12-14] MEDS ORDERED: PANTOPRAZOLE 40 MG (PROTONIX) TAB PO ONE ×3 (20:12→20:32)
[2021-12-14 20:21] VITALS: BP 120/59
[2021-12-14] MEDS: NS IV 1000 ML 1,000 ML IV SCH (20:25)
--- NOTE | 2021-12-14 20:34 | History & Physical-Hospitalist ---
History of Present Illness HPI/Chief Complaint David Robbins is a 76 year old male with PMH HTN, HLD, CAD, COPD, tobacco abuse, who presented with shortness of breath. He reports that a few days ago he was working and was feeling fatigued. That night he had chest pain and took a nitroglycerin which resolved his symptoms. He then had chest pain again the next night that resolved again with nitroglycerin. He also reports feeling short of breath. He has a chronic cough. He denies any change in his cough or sputum production. He denies palpitations. He reports nausea, vomiting, and diarrhea for the past month. He has not been able to eat or drink well. He is a current pack and a half per day smoker. He drinks alcohol occasionally. He does not use illicit drugs. Source: patient Exam Limitations: no limitations Date Seen 12/14/21 Time Seen by a Provider: 19:45 Attending Physician Danica Bazan MD PCP Nargis Andrea MD Referring Physician Date of Admission Dec 14, 2021 at 16:25 Home Medications & Allergies Home Medications Reviewed patient Home Medication Reconciliation performed by pharmacy medication reconciliations durability technician and/or nursing. Patients Allergies have been reviewed. Allergies Allergies Coded Allergies No Known Drug Allergies ([id number]/30/20) Past Fmcetuz-Tinnkc-Pfabkw Hx Patient Social History Tobacco Use?: Yes Smoking Status: Current Everyday Smoker Smokeless Tobacco Frequency: Never a User Use of E-Cig and/or Vaping dev: No Substance use?: No Alcohol Use?: Yes Pt feels they are or have been: No Immunizations Up To Date Date of Influenza Vaccine: Sep 02, 2021 First/Initial COVID19 Vaccinat: na Second COVID19 Vaccination Jose: na Current Status Advance Directives: No Communicates: Verbally Primary Language: Brazilian Preferred Spoken Language: Brazilian Is interpretation needed?: No Sensory deficits: Hearing impairment Past Medical History Surgeries: Coronary Stent COPD Coronary Artery Disease, Heart Attack, High Cholesterol, Hypertension Stroke Arthritis Family Medical History No Pertinent Family Hx Review of Systems Constitutional: malaise, weakness EENTM: no symptoms reported Respiratory: cough, short of breath Cardiovascular: chest pain Gastrointestinal: diarrhea, nausea, vomiting Genitourinary: no symptoms reported Musculoskeletal: no symptoms reported Skin: no symptoms reported Psychiatric/Neurological: No Symptoms Reported Physical Exam Physical Exam Vital Signs Vital Signs - First Documented 12/14/21 11:10 Temp 37.1 Pulse 74 Resp 18 B/P (MAP) 120/59 (79) Pulse Ox 100 O2 Delivery Nasal Cannula O2 Flow Rate 3.00 FiO2 100 Capillary Refill : Less Than 3 Seconds Height, Weight, BMI Height: '" Weight: lbs. oz. kg; 19.35 BMI Method: General Appearance: No Apparent Distress, Thin HEENT: PERRL/EOMI, Pharynx Normal Neck: Normal Inspection, Supple Respiratory: Decreased Breath Sounds, Wheezing Cardiovascular: No Edema, No Murmur, Irregularly Irregular, Tachycardia Gastrointestinal: Normal Bowel Sounds, Non Tender, Soft Extremity: Normal Inspection, Non Tender, No Pedal Edema Neurologic/Psychiatric: Alert, Oriented x3, Normal Mood/Affect Skin: Normal Color, Warm/Dry Results Results/Procedures Labs Laboratory Tests 12/14/21 11:19 Patient resulted labs reviewed. Imaging: Reviewed Imaging Report Assessment/Plan Admission Diagnosis AFib with RVR Admission Status: Inpatient Order (span 2 midnights) Reason for Inpatient Admission: IV antiarrhythmics Assessment and Plan AFib with RVR IV Cardizefarhan [facility] Cardiology consulted Echo COPD with acute exacerbation Chronic respiratory failure with hypoxia PNA Person under investigation of COVID-19 Decadron MAT protocol Rocephin and Azithromycin COVID pending Lactic acidosis OLIVERIO Gentle IV fluids HTN HLD CAD Continue home meds Critical Care Critically Ill Patient Diagnosis/Problems Diagnosis/Problems (1) Atrial fibrillation with RVR Status: Acute (2) COPD exacerbation Status: Acute (3) Chronic respiratory failure with hypoxia Status: Chronic (4) OLIVERIO (acute kidney injury) Status: Acute (5) Lactic acidosis Status: Acute DANICA BAZAN MD Dec 14, 2021 20:33
[2021-12-14] MEDS ORDERED: NICOTINE 14 MG (NICODERM) PATCH TD ONE (20:45)
[2021-12-14] MEDS: RT-ALBUTEROL HFA 8.5 GM INHALER IH SCH (21:43)
[2021-12-14] MEDS: RT-ALBUTEROL HFA 8.5 GM INHALER IH PRN (21:43)
[2021-12-15] MEDS ORDERED: dilTIAZem DRIP PRE-MIX 125 ML IV ONE
[2021-12-15] MEDS: dilTIAZem DRIP PRE-MIX 125 ML IV SCH ×2 (00:30→20:02)
[2021-12-15] MEDS: ENOXAPARIN 60 MG/0.6 ML (LOVENOX) SYR SC SCH ×2 (01:05→13:52)
[2021-12-15] MEDS: RT-ALBUTEROL HFA 8.5 GM INHALER IH SCH ×4 (02:38→21:34)
[2021-12-15 05:05] LABS: BASOPHILS % (AUTO) 0 % (0-10); EOSINOPHILS % (AUTO) 0 % (0-10); HEMATOCRIT 34 % (40-54); HEMOGLOBIN 10.1 g/dL (13.3-17.7); LYMPHOCYTES # (AUTO) 0.6 10^3/uL (1.0-4.0); LYMPHOCYTES % (AUTO) 18 % (12-44); MEAN CORPUSCULAR HEMOGLOBIN 25 pg (25-34); MEAN CORPUSCULAR HGB CONC 30 g/dL (32-36); MEAN CORPUSCULAR VOLUME 84 fL (80-99); MEAN PLATELET VOLUME 10.6 fL (9.0-12.2); MONOCYTES # (AUTO) 0.3 10^3/uL (0.0-1.0); MONOCYTES % (AUTO) 8 % (0-12); NEUTROPHILS # (AUTO) 2.2 10^3/uL (1.8-7.8); NEUTROPHILS % (AUTO) 73 % (42-75); PLATELET COUNT 163 10^3/uL (130-400); WHITE BLOOD COUNT 3.1 10^3/uL (4.3-11.0)
[2021-12-15 05:26] LABS: CALCIUM 8.2 MG/DL (8.5-10.1)
[2021-12-15 05:30] LABS: PHOSPHORUS 2.6 MG/DL (2.3-4.7)
[2021-12-15 05:31] LABS: CREATININE SERUM 0.82 MG/DL (0.60-1.30)
[2021-12-15 05:33] LABS: MAGNESIUM 1.8 MG/DL (1.6-2.4)
[2021-12-15] MEDS: KCL 20 MEQ TAB (K-DUR) PO SCH (05:40)
[2021-12-15] MEDS: POTASSIUM CL 10MEQ/50ML IVPB 50 ML IV SCH (05:40)
[2021-12-15] MEDS: MAGNESIUM 1 GM/100 ML IVPB 100 ML IV SCH (05:40)
[2021-12-15] MEDS: NS IV 1000 ML 1,000 ML IV STA (06:12)
[2021-12-15] MEDS: NS IV 1000 ML 1,000 ML IV SCH ×2 (06:20→16:54)
[2021-12-15] MEDS: NICOTINE 14 MG (NICODERM) PATCH TD SCH (08:13)
[2021-12-15] MEDS: CLOPIDOGREL 75 MG (PLAVIX) TABLET PO SCH (08:14)
[2021-12-15] MEDS: AZITHROMYCIN 250 MG TAB (ZITHROMAX) PO SCH (08:14)
[2021-12-15] MEDS: PANTOPRAZOLE 40 MG (PROTONIX) TAB PO SCH (08:14)
[2021-12-15] MEDS: cefTRIAXone 1 GM PRE-MIX 50 ML IV SCH (08:14)
--- NOTE | 2021-12-15 08:27 | Consultation-Cardiology ---
HPI-Cardiology Cardiology Consultation Date of Consultation 12/15/21 Date of Admission Time Seen by Provider: 08:21 Indication: Atrial fibrillation HPI 76-year-old gentleman with history of hypertension, hyperlipidemia, COPD, tobacco abuse and coronary artery disease. Patient came into the emergency room for increasing dyspnea, fatigue, and chest pain. He took nitroglycerin for his chest pain with appropriate resolution of his symptoms. On arrival to the emergency room he was noted to be in atrial fibrillation with rapid ventricular response, chest x-ray showed infiltrate, started on pneumonia protocol, tested positive for COVID-19. To limit the exposure to COVID-19, I did not walk into the room, I reviewed the record and visited with the nurse. Observed the patient but did not examine him Home Medications & Allergies Allergies: Coded Allergies: No Known Drug Allergies (Unverified , 10/13/20) Home Medication List Reviewed: Yes [id number] Hx Patient Social History Smoking Status: Current Everyday Smoker Type Used: Cigarettes 2nd Hand Smoke Exposure: Yes Have you traveled recently?: No Alcohol Use?: Yes Immunizations Up To Date Date of Influenza Vaccine: Sep 02, 2021 Past Medical History Discussed below Family Medical History Significant Family History: No Pertinent Family Hx Family Medical Hx Noncontributory Review of Systems-General Review of Systems Constitutional: malaise, weakness EENTM: no symptoms reported Respiratory: cough, short of breath Cardiovascular: chest pain Gastrointestinal: diarrhea, nausea, vomiting Genitourinary: no symptoms reported Musculoskeletal: no symptoms reported Skin: no symptoms reported Psychiatric/Neurological: No Symptoms Reported Reviewed Test Results Reviewed Test Results Lab Laboratory Tests Test 12/14/21 11:19 12/14/21 11:23 12/14/21 11:45 12/14/21 13:36 Range/Units White Blood Count 7.8 4.3-11.0 10^3/uL Red Blood Count 4.84 4.30-5.52 10^6/uL Hemoglobin 12.0 L 13.3-17.7 g/dL Hematocrit 41 40-54 % Mean Corpuscular Volume 84 80-99 fL Mean Corpuscular Hemoglobin 25 25-34 pg Mean Corpuscular Hemoglobin Concent 30 L 32-36 g/dL Red Cell Distribution Width 15.9 H 10.0-14.5 % Platelet Count 191 130-400 10^3/uL Mean Platelet Volume 10.2 9.0-12.2 fL Immature Granulocyte % (Auto) 1 % Neutrophils (%) (Auto) 71 42-75 % Lymphocytes (%) (Auto) 22 12-44 % Monocytes (%) (Auto) 6 0-12 % Eosinophils (%) (Auto) 0 0-10 % Basophils (%) (Auto) 0 0-10 % Neutrophils # (Auto) 5.5 1.8-7.8 10^3/uL Lymphocytes # (Auto) 1.7 1.0-4.0 10^3/uL Monocytes # (Auto) 0.5 0.0-1.0 10^3/uL Eosinophils # (Auto) 0.0 0.0-0.3 10^3/uL Basophils # (Auto) 0.0 0.0-0.1 10^3/uL Immature Granulocyte # (Auto) 0.0 0.0-0.1 10^3/uL Prothrombin Time 13.0 12.2-14.7 SEC INR Comment 0.9 0.8-1.4 Activated Partial Thromboplast Time 30 24-35 SEC Sodium Level 134 L 135-145 MMOL/L Potassium Level 4.3 3.6-5.0 MMOL/L Chloride Level 93 L 98-107 MMOL/L Carbon Dioxide Level 25 21-32 MMOL/L Anion Gap 16 H 5-14 MMOL/L Blood Urea Nitrogen 26 H 7-18 MG/DL Creatinine 1.39 H 0.60-1.30 MG/DL Estimat Glomerular Filtration Rate 53 BUN/Creatinine Ratio 19 Glucose Level 151 H 70-105 MG/DL Lactic Acid Level 2.22 *H 0.49 L 0.50-2.00 MMOL/L Calcium Level 10.4 H 8.5-10.1 MG/DL Corrected Calcium 10.6 H 8.5-10.1 MG/DL Total Bilirubin 0.3 0.1-1.0 MG/DL Aspartate Amino Transf (AST/SGOT) 44 H 5-34 U/L Alanine Aminotransferase (ALT/SGPT) 24 0-55 U/L Alkaline Phosphatase 51 40-136 U/L Troponin I < 0.30 <0.30 NG/ML C-Reactive Protein 5.19 H <0.50 MG/DL Pro-B-Type Natriuretic Peptide 936.1 H <75.0 PG/ML Total Protein 7.5 6.4-8.2 GM/DL Albumin 3.8 3.2-4.5 GM/DL Serum Alcohol < 10 <10 MG/DL Blood Gas Puncture Site L RADIAL Blood Gas Patient Temperature 37.1 Arterial Blood pH 7.47 H 7.37-7.43 Arterial Blood Partial Pressure CO2 38 35-45 MMHG Arterial Blood Partial Pressure O2 91 79-93 MMHG Arterial Blood HCO3 28 H 23-27 MMOL/L Arterial Blood Total CO2 28.9 21.0-31.0 MMOL/L Arterial Blood Oxygen Saturation 98 94-100 % Arterial Blood Base Excess 3.9 H -2.5-2.5 MMOL/L [place] Test NA Blood Gas Ventilator Setting NO Blood Gas Inspired Oxygen 3 L Coronavirus (COVID-19)(PCR) Positive H Negative Influenza Type A Antigen NEGATIVE NEGATIVE Influenza Type B Antigen NEGATIVE NEGATIVE Urine Color YELLOW Urine Clarity CLOUDY Urine pH 6.0 5-9 Urine Specific [place] 1.020 1.016-1.022 Urine Protein 1+ H NEGATIVE Urine Glucose (UA) NEGATIVE NEGATIVE Urine Ketones 1+ H NEGATIVE Urine Nitrite NEGATIVE NEGATIVE Urine Bilirubin 2+ H NEGATIVE Urine Urobilinogen 0.2 < = 1.0 MG/DL Urine Leukocyte Esterase NEGATIVE NEGATIVE Urine RBC (Auto) NEGATIVE NEGATIVE Urine RBC 2-5 H /HPF Urine WBC 5-10 H /HPF Urine Squamous Epithelial Cells NONE /HPF Urine Crystals NONE /LPF Urine Bacteria FEW H /HPF Urine Casts PRESENT /LPF Urine Hyaline Casts >50 H /LPF Urine Granular Casts 2-5 H /LPF Urine White Blood Cell Casts RARE H /LPF Urine Mucus MODERATE H /LPF Urine Culture Indicated YES Test 12/14/21 18:46 12/15/21 04:55 Range/Units Procalcitonin 0.15 H <0.10 NG/ML White Blood Count 3.1 L 4.3-11.0 10^3/uL Red Blood Count 4.06 L 4.30-5.52 10^6/uL Hemoglobin 10.1 L 13.3-17.7 g/dL Hematocrit 34 L 40-54 % Mean Corpuscular Volume 84 80-99 fL Mean Corpuscular Hemoglobin 25 25-34 pg Mean Corpuscular Hemoglobin Concent 30 L 32-36 g/dL Red Cell Distribution Width 15.7 H 10.0-14.5 % Platelet Count 163 130-400 10^3/uL Mean Platelet Volume 10.6 9.0-12.2 fL Immature Granulocyte % (Auto) 1 % Neutrophils (%) (Auto) 73 42-75 % Lymphocytes (%) (Auto) 18 12-44 % Monocytes (%) (Auto) 8 0-12 % Eosinophils (%) (Auto) 0 0-10 % Basophils (%) (Auto) 0 0-10 % Neutrophils # (Auto) 2.2 1.8-7.8 10^3/uL Lymphocytes # (Auto) 0.6 L 1.0-4.0 10^3/uL Monocytes # (Auto) 0.3 0.0-1.0 10^3/uL Eosinophils # (Auto) 0.0 0.0-0.3 10^3/uL Basophils # (Auto) 0.0 0.0-0.1 10^3/uL Immature Granulocyte # (Auto) 0.0 0.0-0.1 10^3/uL Sodium Level 137 135-145 MMOL/L Potassium Level 4.0 3.6-5.0 MMOL/L Chloride Level 106 98-107 MMOL/L Carbon Dioxide Level 19 L 21-32 MMOL/L Anion Gap 12 5-14 MMOL/L Blood Urea Nitrogen 20 H 7-18 MG/DL Creatinine 0.82 0.60-1.30 MG/DL Estimat Glomerular Filtration Rate 92 BUN/Creatinine Ratio 24 Glucose Level 148 H 70-105 MG/DL Calcium Level 8.2 L 8.5-10.1 MG/DL Phosphorus Level 2.6 2.3-4.7 MG/DL Magnesium Level 1.8 1.6-2.4 MG/DL B-Type Natriuretic Peptide 274.6 H <100.0 PG/ML Physical Exam Physical Exam Vital Signs Vital Signs - First Documented 12/14/21 11:10 Temp 37.1 Pulse 74 Resp 18 B/P (MAP) 120/59 (79) Pulse Ox 100 O2 Delivery Nasal Cannula O2 Flow Rate 3.00 FiO2 100 Capillary Refill : Less Than 3 Seconds Height, Weight, BMI Height: '" Weight: lbs. oz. kg; 19.35 BMI Method: General Appearance: No Apparent Distress, Thin Neck: Normal Inspection Respiratory: Wheezing Cardiovascular: No Edema, No Murmur, Irregularly Irregular, Tachycardia Rectal: Deferred Neurologic/Psychiatric: Alert Skin: Normal Color, Warm/Dry A/P-Cardiology Admission Diagnosis COVID-19 pneumonia Atrial fibrillation Hypotension Sepsis Assessment/Plan COVID-19 pneumonia with questionable superimposed bacterial infection, shortness of breath, receiving antibiotic, managed by medical team. Atrial fibrillation with rapid ventricular response, started on Lovenox and IV Cardizem, had few episodes of hypotension, we will use fluid boluses and continue on Cardizem if patient can tolerate it. COPD, active smoker, acute exacerbation due to pneumonia Sepsis, hypotension, receiving IV fluids, monitor closely Lactic acidosis, septic protocol initiated, receiving IV fluid. Continue to monitor closely Acute renal insufficiency, continue to monitor renal function Coronary artery disease by history. Clinically stable at this time. Continue to monitor Hypertension, having few episodes of hypotension while on Cardizem drip. Started on IV fluid aggressively and monitor blood pressure Questionable congestive heart failure, mild elevation in and BNP, no signs of heart failure at this time. Continue IV fluid and monitor Hyperlipidemia, monitor lipids BART MEJIA MD Dec 15, 2021 08:27
--- NOTE | 2021-12-15 09:28 | Tele-ICU Progress Note ---
Subjective Date Seen by a Provider: Dec 15, 2021 Time Seen by a Provider: 09:28 Sepsis Event Evaluation Height, Weight, BMI Height: '" Weight: lbs. oz. kg; 19.35 BMI Method: Focused Exam Lactate Level 12/14/21 11:19: Lactic Acid Level 2.22*H 12/14/21 13:36: Lactic Acid Level 0.49L Exam Exam Patient acknowledged, consented, and participated in this virtual visit which was conducted using real time audio/video Vital Signs Date Time Temp Pulse Resp B/P (MAP) Pulse Ox O2 Delivery O2 Flow Rate FiO2 12/15/21 09:00 116 18 91/71 96 Nasal Cannula 2.00 12/15/21 08:00 101 26 114/74 97 Nasal Cannula 2.00 12/15/21 07:00 96 24 89/70 97 Nasal Cannula 2.00 12/15/21 07:00 109 12/15/21 06:00 90 24 100/81 97 Nasal Cannula 2.00 12/15/21 05:15 95 27 118/70 98 Nasal Cannula 2.00 12/15/21 05:00 118 27 75/61 91 Nasal Cannula 2.00 12/15/21 04:00 98 Nasal Cannula 2.00 12/15/21 04:00 110 25 93/52 95 Nasal Cannula 2.00 12/15/21 03:30 105 14 93/72 95 Nasal Cannula 2.00 12/15/21 02:45 128 16 114/59 89 Nasal Cannula 2.00 12/15/21 02:39 95 Nasal Cannula 3.00 12/15/21 01:00 70 25 97/67 92 Nasal Cannula 2.00 12/15/21 01:00 70 12/15/21 01:00 37.0 12/15/21 00:00 112 22 103/67 95 Nasal Cannula 2.00 12/14/21 23:59 98 Nasal Cannula 2.00 12/14/21 23:00 124 10 101/88 94 Nasal Cannula 2.00 12/14/21 22:15 115 18 144/90 96 Nasal Cannula 2.00 12/14/21 21:00 123 22 109/89 94 Nasal Cannula 2.00 12/14/21 20:21 37.1 74 100 32 12/14/21 20:00 125 37 109/85 94 Nasal Cannula 2.00 12/14/21 20:00 98 Nasal Cannula 2.00 100 12/14/21 19:45 36.4 12/14/21 19:00 114 12/14/21 19:00 114 27 97/62 97 Nasal Cannula 2.00 12/14/21 18:00 151 26 108/99 94 Nasal Cannula 2.00 12/14/21 17:00 37.4 130 33 109/60 97 Nasal Cannula 2.00 12/14/21 16:50 37.4 114 26 96/61 99 Nasal Cannula 2.00 12/14/21 16:50 95 Nasal Cannula 3.00 12/14/21 16:45 148 12/14/21 14:36 123 20 104/61 Room Air 12/14/21 11:21 Nasal Cannula 3.00 12/14/21 11:10 100 Nasal Cannula 3.00 100 12/14/21 11:10 37.1 74 18 120/59 (79) 100 Nasal Cannula 3.00 I & O 12/15/21 07:00 Intake Total 780 ml Output Total 1050 ml Balance -270 ml Height & Weight Height: '" Weight: lbs. oz. kg; 19.35 BMI Method: General Appearance: No Apparent Distress, Thin Neck: Normal Inspection Respiratory: Wheezing Cardiovascular: No Edema, No Murmur, Irregularly Irregular, Tachycardia Capillary Refill: Less Than 3 Seconds Neurologic/Psychiatric: Alert Skin: Normal Color, Warm/Dry Results Lab Laboratory Tests 12/14/21 11:19 12/15/21 04:55 Assessment/Plan Assessment/Plan (Tele-ICU Physician , Progress Note ) Available chart/ vitals / labs / Images reviewed Video assessment done using teleICU camera, rest of exam as per RN Discussed with RN , EXAM PER RN Events overnight : Afebrile FiO2 - 2l I/O = Drips: Pressors: , hemodynamically stable Consultants: shantelle Hospital course: 12/14- to ER with SOB - new a fib RVR A/P A fib RVR - new onset - as per cards - on cardizem gtt -AC with lovenox -Echo Dyspnea - AECOPD + a fib COVID COVID - dx 12/14, unvaccinated - cont decadrone - cont abx for now AECOPD - prn br dilators - steroids modest dose - for possible covis and for COPD - to follow - started on ABX - tofollow OLIVERIO - gentle hydration - IMPROVED COPD- - with chronic hypoxia - on O2 2L Lines : perip (Central Line Necessity Reviewed) Rao: OG: Nutrition: Analgesia: Anxiety/ delirium VTE Prophylaxis: michelle 60 bid Stress Ulcer Prophylaxis: po Plans in collaboration with bedside consultants and IM MDs. Discussd with RN to reach out if any questions or concerns A total of 31 minutes of critical care time was devoted to this patient today, required to treat and/or prevent further deterioration of critical care condition ( as above ) . KEIRA YBARRA MD Dec 15, 2021 09:28
[2021-12-15] MEDS ORDERED: IPRA0.2S51 NEB (15:59)
[2021-12-15] MEDS ORDERED: BENZ-36 PO (15:59)
[2021-12-15] MEDS ORDERED: HYDR-700 PO (15:59)
[2021-12-15] MEDS ORDERED: ATOR40TA70 PO (15:59)
[2021-12-15] MEDS ORDERED: CLOP75TA28 PO (15:59)
[2021-12-15] MEDS ORDERED: DIGO125T3 PO (15:59)
[2021-12-15] MEDS ORDERED: BUDE10.26 INH (15:59)
[2021-12-15] MEDS ORDERED: CLOB15OI2 TOP (15:59)
[2021-12-15] MEDS ORDERED: PRED5TAB PO (15:59)
[2021-12-15] MEDS ORDERED: PANT40TA52 PO (15:59)
[2021-12-15] MEDS ORDERED: ALBU18HF2 INH (15:59)
[2021-12-15] MEDS ORDERED: BETA15CR14 TOP (15:59)
--- NOTE | 2021-12-15 18:11 | Progress Note - Hospitalist ---
Subjective HPI/CC On Admission Date Seen by Provider: Dec 15, 2021 Time Seen by Provider: 08:20 David Robbins is a 76 year old male with PMH HTN, HLD, CAD, COPD, tobacco abuse, who presented with shortness of breath. He reports that a few days ago he was working and was feeling fatigued. That night he had chest pain and took a nitrog lycerin which resolved his symptoms. He then had chest pain again the next night that resolved again with nitroglycerin. He also reports feeling short of breath. He has a chronic cough. He denies any change in his cough or sputum production. He denies palpitations. He reports nausea, vomiting, and diarrhea for the past month. He has not been able to eat or drink well. He is a current pack and a delatorre lf per day smoker. He drinks alcohol occasionally. He does not use illicit drugs. Subjective/Events-last exam He is feeling better today. He denies chest pain and palpitations. He is not short of breath. Focused Exam Lactate Level 12/14/21 11:19: Lactic Acid Level 2.22*H 12/14/21 13:36: Lactic Acid Level 0.49L Objective Exam Vital Signs Vital Signs Date Time Temp Pulse Resp B/P (MAP) Pulse Ox O2 Delivery O2 Flow Rate FiO2 12/15/21 17:00 114 36 97/88 92 Nasal Cannula 2.00 12/15/21 16:00 36.8 12/14/21 20:21 32 Capillary Refill : Less Than 3 Seconds General Appearance: No Apparent Distress, Chronically ill Respiratory: No Respiratory Distress, Decreased Breath Sounds Cardiovascular: Irregularly Irregular, Tachycardia Gastrointestinal: Normal Bowel Sounds, Soft Extremity: Normal Inspection, No Pedal Edema Neurologic/Psychiatric: Alert, Oriented x3, No Motor/Sensory Deficits, Normal Mood/Affect Skin: Normal Color, Warm/Dry Results/Procedures Lab Laboratory Tests 12/15/21 04:55 Patient resulted labs reviewed. Imaging: Reviewed Imaging Report Assessment/Plan Assessment and Plan Assess & Plan/Chief Complaint AFib with RVR IV Cardizem Lovenox Cardiology consulted COVID-19 COPD with acute exacerbation Chronic respiratory failure with hypoxia PNA Decadron MAT protocol Rocephin and Azithromycin HTN HLD CAD Continue home meds Lactic acidosis, resolved OLIVERIO, resolved Critical Care Critically Ill Patient Diagnosis/Problems Diagnosis/Problems (1) Atrial fibrillation with RVR Status: Acute (2) COPD exacerbation Status: Acute (3) Chronic respiratory failure with hypoxia Status: Chronic (4) OLIVERIO (acute kidney injury) Status: Resolved Resolution Date/Time: 12/15/21 @ 18:11 (5) Lactic acidosis Status: Resolved Resolution Date/Time: 12/15/21 @ 18:11 (6) COVID-19 Status: Acute DANICA BAZAN MD Dec 15, 2021 18:11
[2021-12-15] MEDS: ACETAMINOPHEN 325 MG TABLET PO PRN (18:59)
[2021-12-16] MEDS: RT-ALBUTEROL HFA 8.5 GM INHALER IH SCH ×4 (03:09→22:08)
[2021-12-16] MEDS: NS IV 1000 ML 1,000 ML IV SCH ×2 (03:19→12:15)
[2021-12-16] MEDS: ENOXAPARIN 60 MG/0.6 ML (LOVENOX) SYR SC SCH ×2 (03:19→13:44)
[2021-12-16] MEDS: ACETAMINOPHEN 325 MG TABLET PO PRN ×2 (03:21→08:30)
[2021-12-16] MEDS: dilTIAZem DRIP PRE-MIX 125 ML IV SCH ×3 (03:29→17:54)
[2021-12-16] MEDS: NS IV 1000 ML 1,000 ML IV STA (03:57)
[2021-12-16 05:11] LABS: BASOPHILS % (AUTO) 0 % (0-10); EOSINOPHILS % (AUTO) 0 % (0-10); HEMATOCRIT 35 % (40-54); HEMOGLOBIN 10.4 g/dL (13.3-17.7); LYMPHOCYTES # (AUTO) 0.7 10^3/uL (1.0-4.0); LYMPHOCYTES % (AUTO) 9 % (12-44); MEAN CORPUSCULAR HEMOGLOBIN 25 pg (25-34); MEAN CORPUSCULAR HGB CONC 30 g/dL (32-36); MEAN CORPUSCULAR VOLUME 82 fL (80-99); MEAN PLATELET VOLUME 10.9 fL (9.0-12.2); MONOCYTES # (AUTO) 0.5 10^3/uL (0.0-1.0); MONOCYTES % (AUTO) 6 % (0-12); NEUTROPHILS % (AUTO) 85 % (42-75); PLATELET COUNT 218 10^3/uL (130-400); WHITE BLOOD COUNT 8.2 10^3/uL (4.3-11.0)
[2021-12-16 05:30] LABS: POTASSIUM 3.8 MMOL/L (3.6-5.0)
[2021-12-16 05:31] LABS: CALCIUM 8.2 MG/DL (8.5-10.1)
[2021-12-16 05:35] LABS: PHOSPHORUS 1.3 MG/DL (2.3-4.7)
[2021-12-16 05:36] LABS: CREATININE SERUM 0.77 MG/DL (0.60-1.30)
[2021-12-16 05:38] LABS: MAGNESIUM 1.9 MG/DL (1.6-2.4)
[2021-12-16] MEDS: KCL 20 MEQ TAB (K-DUR) PO SCH (06:06)
[2021-12-16] MEDS: POTASSIUM CL 10MEQ/50ML IVPB 50 ML IV SCH (06:06)
[2021-12-16] MEDS: MAGNESIUM 1 GM/100 ML IVPB 100 ML IV SCH (06:06)
[2021-12-16] MEDS ORDERED: SODIUM PHOSPHATE INJ 15 MM in D5W 100 ML IVPB 100 ML IV ONE (08:00)
[2021-12-16] MEDS: AZITHROMYCIN 250 MG TAB (ZITHROMAX) PO SCH (08:30)
[2021-12-16] MEDS: PANTOPRAZOLE 40 MG (PROTONIX) TAB PO SCH (08:30)
[2021-12-16] MEDS: NICOTINE 14 MG (NICODERM) PATCH TD SCH (08:31)
[2021-12-16] MEDS: CLOPIDOGREL 75 MG (PLAVIX) TABLET PO SCH (08:31)
[2021-12-16] MEDS: cefTRIAXone 1 GM PRE-MIX 50 ML IV SCH (08:31)
[2021-12-16] MEDS ORDERED: meTOprolol 5 MG/5 ML (LOPRESSOR) VIAL ONE (08:59)
[2021-12-16] MEDS ORDERED: meTOprolol 5 MG/5 ML (LOPRESSOR) VIAL IV ONE (09:00)
--- NOTE | 2021-12-16 10:13 | Cardiology Progress Note ---
Subjective Date Seen by Provider: Dec 16, 2021 Time Seen by Provider: 10:10 Subjective/Events-last exam Patient was seen and examined, laying down in bed, having significant dyspnea. Having active cough. No chest pain was reported. Still borderline tachycardic Review of Systems General: No Chills, No Night Sweats; Fatigue, Malaise; No Appetite, No Other HEENT: No Head Aches, No Visual Changes, No Eye Pain, No Ear Pain, No Dysphasia, No Sinus Congestion, No Post Nasal Drip, No Sore Throat, No Other Pulmonary: Dyspnea, Cough; No Pleuritic Chest Pain, No Other Cardiovascular: No: Chest Pain, Palpitations, Orthopnea, Paroxysmal Noc. Dyspnea, Edema, Lt Headedness, Other Focused Exam Lactate Level 12/14/21 11:19: Lactic Acid Level 2.22*H 12/14/21 13:36: Lactic Acid Level 0.49L Objective-Cardiology Exam Last Set of Vital Signs Vital Signs 12/14/21 12/16/21 12/16/21 20:21 07:00 09:17 Pulse 118 Resp 27 B/P (MAP) 133/89 Pulse Ox 90 O2 Delivery Nasal Cannula O2 Flow Rate 3.00 FiO2 32 I&O Intake and Output 12/16/21 00:00 Intake Total 950 ml Output Total 1500 ml Balance -550 ml Intake Oral 950 ml Output Urine Total 1500 ml # Voids 1 # Bowel Movements 1 General: Alert, Oriented X3, Cooperative HEENT: Atraumatic, PERRLA Neck: Supple, No JVD, No Thyromegaly Lungs: Normal Air Movement, Other (Bilateral rhonchi) Heart: Normal S1, Normal S2, No Murmurs, Other (Tachycardia) Abdomen: Normal Bowel Sounds, Soft, No Tenderness, No Hepatosplenomegaly, No Masses Extremities: No Clubbing, No Cyanosis, No Edema, Normal Pulses, No Tenderness/Swelling Skin: No Rashes, No Breakdown, No Significant Lesion Neuro: Normal Gait, Normal Speech, Strength at 5/5 X4 Ext, Normal Tone, Sensation Intact Psych/Mental Status: Mental Status NL, Mood NL Results Lab Laboratory Tests 12/16/21 04:47 A/P-Cardiology Admission Diagnosis COVID-19 pneumonia Atrial fibrillation Hypotension Sepsis Assessment/Plan COVID-19 pneumonia with questionable superimposed bacterial infection, shortness of breath, receiving antibiotic, managed by medical team. Atrial fibrillation with rapid ventricular response, started on Lovenox and IV Cardizem, had few episodes of hypotension, blood pressure is better today, still having episodes of tachycardia. I will add beta-blockers and evaluate tolerance and response COPD, active smoker, acute exacerbation due to pneumonia Sepsis, hypotension, blood pressure is better today. Continue to monitor Lactic acidosis, septic protocol initiated, receiving IV fluid. Continue to monitor closely Acute renal insufficiency, continue to monitor renal function Coronary artery disease, following with a check services clerk in [place], reporting 2 myocardial infarction in the past last heart attack was in 2017. 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 Hypertension, having few episodes of hypotension while on Cardizem drip. Started on IV fluid aggressively and monitor blood pressure Questionable congestive heart failure, mild elevation in and BNP, no signs of heart failure at this time. Continue IV fluid and monitor Hyperlipidemia, monitor lipids BART MEJIA MD Dec 16, 2021 10:13
[2021-12-16] MEDS ORDERED: OXYBUTYNIN (DITROPAN) 5 MG TAB PO NR (10:30)
--- NOTE | 2021-12-16 10:52 | Tele-ICU Progress Note ---
Subjective Date Seen by a Provider: Dec 16, 2021 Time Seen by a Provider: 10:51 Sepsis Event Evaluation Height, Weight, BMI Height: '" Weight: lbs. oz. kg; 19.35 BMI Method: Focused Exam Lactate Level 12/14/21 11:19: Lactic Acid Level 2.22*H 12/14/21 13:36: Lactic Acid Level 0.49L Exam Exam Patient acknowledged, consented, and participated in this virtual visit which was conducted using real time audio/video Vital Signs Date Time Temp Pulse Resp B/P (MAP) Pulse Ox O2 Delivery O2 Flow Rate FiO2 12/16/21 10:00 96 32 130/84 93 Nasal Cannula 4.00 12/16/21 09:17 90 Nasal Cannula 3.00 12/16/21 09:00 137 138/90 74 Nasal Cannula 4.00 12/16/21 08:00 140 35 128/90 94 Nasal Cannula 4.00 12/16/21 08:00 36.5 12/16/21 07:00 118 12/16/21 07:00 121 27 133/89 93 Nasal Cannula 4.00 12/16/21 06:15 130 35 140/87 92 Nasal Cannula 4.00 12/16/21 05:00 142 15 132/85 94 Nasal Cannula 4.00 12/16/21 04:00 37.2 12/16/21 04:00 112 17 116/85 96 Nasal Cannula 4.00 12/16/21 04:00 94 Nasal Cannula 4.00 12/16/21 03:09 94 Nasal Cannula 3.00 12/16/21 03:00 122 16 110/87 92 Nasal Cannula 4.00 12/16/21 02:00 108 30 98/75 96 Nasal Cannula 4.00 12/16/21 01:00 95 12/16/21 01:00 95 19 93/55 95 Nasal Cannula 4.00 12/16/21 00:00 82 15 102/68 96 Nasal Cannula 4.00 12/15/21 23:59 97 Nasal Cannula 2.00 12/15/21 23:00 97 26 124/84 95 Nasal Cannula 4.00 12/15/21 22:00 92 32 128/82 96 Nasal Cannula 4.00 12/15/21 21:35 96 Nasal Cannula 3.00 12/15/21 21:00 101 16 133/90 96 Nasal Cannula 4.00 12/15/21 20:00 96 25 126/87 85 Nasal Cannula 4.00 12/15/21 20:00 36.6 12/15/21 20:00 97 Nasal Cannula 2.00 12/15/21 19:00 139 24 106/84 87 Nasal Cannula 4.00 12/15/21 19:00 139 12/15/21 18:00 101 23 124/82 93 Nasal Cannula 2.00 12/15/21 17:00 114 36 97/88 92 Nasal Cannula 2.00 12/15/21 16:00 97 Nasal Cannula 2.00 12/15/21 16:00 36.8 12/15/21 16:00 118 23 104/79 94 Nasal Cannula 2.00 12/15/21 15:00 135 22 113/99 94 Nasal Cannula 2.00 12/15/21 14:58 95 Nasal Cannula 2.00 12/15/21 14:00 142 20 105/78 95 Nasal Cannula 2.00 12/15/21 13:00 118 27 129/100 94 Nasal Cannula 2.00 12/15/21 12:57 131 12/15/21 12:00 125 31 104/83 97 Nasal Cannula 2.00 12/15/21 12:00 96 Nasal Cannula 2.00 12/15/21 12:00 36.8 12/15/21 11:00 130 14 115/88 97 Nasal Cannula 2.00 12/15/21 10:53 98 Nasal Cannula 2.00 I & O 12/16/21 06:59 Intake Total 1450 ml Output Total 1500 ml Balance -50 ml Height & Weight Height: '" Weight: lbs. oz. kg; 19.35 BMI Method: General Appearance: No Apparent Distress, Chronically ill Neck: Normal Inspection Respiratory: No Respiratory Distress, Decreased Breath Sounds Cardiovascular: Irregularly Irregular, Tachycardia Capillary Refill: Less Than 3 Seconds Extremity: Normal Inspection, No Pedal Edema Neurologic/Psychiatric: Alert, Oriented x3, No Motor/Sensory Deficits, Normal Mood/Affect Skin: Normal Color, Warm/Dry Results Lab Laboratory Tests 12/14/21 11:19 12/15/21 04:55 12/16/21 04:47 Assessment/Plan Assessment/Plan (Tele-ICU Physician , Progress Note ) Available chart/ vitals / labs / Images reviewed Video assessment done using teleICU camera, rest of exam as per RN Discussed with RN , EXAM PER RN Events overnight : Afebrile FiO2 - 2l I/O = Drips: Pressors: , hemodynamically stable Consultants: shantelle Hospital course: 12/14- to ER with SOB - new a fib RVR 2/2- cardizem 20 gtt, 3l O2 A/P A fib RVR - new onset - as per cards - on cardizem gtt 20 -AC with lovenox -Echo ? Hypoxia , resp insufficiency - AECOPD + a fib + COVID - stop IVF COVID - dx 12/14, unvaccinated - cont decadrone - cont abx for now AECOPD - prn br dilators - steroids modest dose - for possible covis and for COPD - to follow - started on ABX - tofollow OLIVERIO - gentle hydration- stop 12/16 - IMPROVED COPD- - with chronic hypoxia - on O2 2L Anxiety - xanax started Lines : perip (Central Line Necessity Reviewed) Rao: 12/16 OG: Nutrition: po Analgesia: Anxiety/ delirium VTE Prophylaxis: michelle 60 bid Stress Ulcer Prophylaxis: po Plans in collaboration with bedside consultants and IM MDs. Discussd with RN to reach out if any questions or concerns A total of 31 minutes of critical care time was devoted to this patient today, required to treat and/or prevent further deterioration of critical care condition ( as above ) . KEIRA YBARRA MD Dec 16, 2021 10:52
[2021-12-16] MEDS: meTOprolol TARTRATE 25 MG (LOPRESSOR) TABLET PO SCH ×2 (11:38→22:12)
[2021-12-16] MEDS ORDERED: ALPRAZolam 0.5 MG (XANAX) TAB ONE (11:44)
[2021-12-16] MEDS ORDERED: ALPRAZolam 0.5 MG (XANAX) TAB PO PRN (11:45)
[2021-12-16] MEDS ORDERED: FUROSEMIDE 40 MG/4 ML INJ (LASIX) IVP NR (13:30)
[2021-12-16 13:59] VITALS: BP 122/102
[2021-12-16 14:02] VITALS: BP 122/102
[2021-12-16 18:51] VITALS: BP 111/72
--- NOTE | 2021-12-16 18:57 | Progress Note - Hospitalist ---
Subjective HPI/CC On Admission Date Seen by Provider: Dec 16, 2021 Time Seen by Provider: 09:00 David Robbins is a 76 year old male with PMH HTN, HLD, CAD, COPD, tobacco abuse, who presented with shortness of breath. He reports that a few days ago he was working and was feeling fatigued. That night he had chest pain and took a nitrog lycerin which resolved his symptoms. He then had chest pain again the next night that resolved again with nitroglycerin. He also reports feeling short of breath. He has a chronic cough. He denies any change in his cough or sputum production. He denies palpitations. He reports nausea, vomiting, and diarrhea for the past month. He has not been able to eat or drink well. He is a current pack and a delatorre lf per day smoker. He drinks alcohol occasionally. He does not use illicit drugs. Subjective/Events-last exam He is short of breath. He denies chest pain and palpitations. He has been anxious. Focused Exam Lactate Level 12/14/21 11:19: Lactic Acid Level 2.22*H 12/14/21 13:36: Lactic Acid Level 0.49L Objective Exam Vital Signs Vital Signs Date Time Temp Pulse Resp B/P (MAP) Pulse Ox O2 Delivery O2 Flow Rate FiO2 12/16/21 18:00 73 96/78 92 NIV Bilevel 25.00 12/16/21 16:00 30 12/16/21 15:50 36.3 12/16/21 14:02 100 Capillary Refill : Less Than 3 Seconds General Appearance: Chronically ill, Mild Distress (tachypnea), Thin Respiratory: Decreased Breath Sounds, Respiratory Distress (tachypnea) Cardiovascular: Irregularly Irregular, Tachycardia Gastrointestinal: Normal Bowel Sounds, Soft Extremity: Normal Inspection, No Pedal Edema Neurologic/Psychiatric: Alert, No Motor/Sensory Deficits Skin: Normal Color, Warm/Dry Results/Procedures Lab Laboratory Tests 12/16/21 04:47 Patient resulted labs reviewed. Imaging: Reviewed Imaging Report Assessment/Plan Assessment and Plan Assess & Plan/Chief Complaint AFib with RVR IV Cardizem Lovenox Cardiology following COVID-19 COPD with acute exacerbation Chronic respiratory failure with hypoxia PNA Decadron MAT protocol Rocephin and Azithromycin TeleICU following HTN HLD CAD Continue home meds Lactic acidosis, resolved OLIVERIO, resolved Critical Care Critically Ill Patient Diagnosis/Problems Diagnosis/Problems (1) Atrial fibrillation with RVR Status: Acute (2) COPD exacerbation Status: Acute (3) Chronic respiratory failure with hypoxia Status: Chronic (4) OLIVERIO (acute kidney injury) Status: Resolved Resolution Date/Time: 12/15/21 @ 18:11 (5) Lactic acidosis Status: Resolved Resolution Date/Time: 12/15/21 @ 18:11 (6) COVID-19 Status: Acute DANICA BAZAN MD Dec 16, 2021 18:57
[2021-12-16] MEDS ORDERED: ALPRAZolam 0.5 MG (XANAX) TAB PO SCH (21:00)
[2021-12-16 22:09] VITALS: BP 141/87
[2021-12-16] MEDS: OXYBUTYNIN (DITROPAN) 5 MG TAB PO SCH (22:12)
[2021-12-17] MEDS ORDERED: LORazepam INJ 2 MG/ML (ATIVAN) VIAL ONE ×2 (00:45→01:17)
[2021-12-17] MEDS ORDERED: LORazepam 1 MG (ATIVAN) TAB PO PRN (01:15)
[2021-12-17] MEDS ORDERED: 1/2 NS IV SOLUTION 1,000 ML IV PRN (01:15)
[2021-12-17] MEDS ORDERED: LORazepam INJ 2 MG/ML (ATIVAN) VIAL IV PRN (01:15)
[2021-12-17] MEDS ORDERED: D5 1/2 NS 1000 ML IV SOLUTION 1,000 ML IV PRN (01:15)
[2021-12-17] MEDS ORDERED: LORazepam INJ 2 MG/ML (ATIVAN) VIAL IM/IV PRN (01:15)
[2021-12-17] MEDS: ENOXAPARIN 60 MG/0.6 ML (LOVENOX) SYR SC SCH ×2 (01:19→12:54)
[2021-12-17] MEDS ORDERED: HALOPERIDOL 5 MG/ML (HALDOL) VIAL ONE (01:38)
[2021-12-17] MEDS ORDERED: DexMEDEtomidine 250 ML DRIP 250 ML IV ONE ×2 (01:38→20:07)
[2021-12-17] MEDS ORDERED: DexMEDEtomidine 250 ML DRIP 250 ML IV SCH (01:45)
[2021-12-17] MEDS ORDERED: HALOPERIDOL 5 MG/ML (HALDOL) VIAL IV ONE (01:45)
[2021-12-17 02:14] LABS: ABG BASE EXCESS -2.6 MMOL/L (-2.5-2.5); ABG OXYGEN SATURATION 100 % (94-100); ABG PCO2 35 MMHG (35-45); ABG PO2 331 MMHG (79-93); ABG TCO2 22.5 MMOL/L (21.0-31.0)
[2021-12-17 02:17] LABS: ALLENS TEST POSITIVE; INSPIRED O2 100% BIPAP; PATIENT TEMP 36.8; VENTILATOR NO
[2021-12-17] MEDS: NS IV 1000 ML 1,000 ML IV SCH ×3 (03:13→16:34)
[2021-12-17 04:35] LABS: BASOPHILS % (AUTO) 0 % (0-10); EOSINOPHILS % (AUTO) 0 % (0-10); HEMATOCRIT 35 % (40-54); HEMOGLOBIN 10.2 g/dL (13.3-17.7); LYMPHOCYTES # (AUTO) 1.3 10^3/uL (1.0-4.0); LYMPHOCYTES % (AUTO) 12 % (12-44); MEAN CORPUSCULAR HEMOGLOBIN 25 pg (25-34); MEAN CORPUSCULAR HGB CONC 29 g/dL (32-36); MEAN CORPUSCULAR VOLUME 84 fL (80-99); MEAN PLATELET VOLUME 10.7 fL (9.0-12.2); MONOCYTES # (AUTO) 0.7 10^3/uL (0.0-1.0); MONOCYTES % (AUTO) 6 % (0-12); NEUTROPHILS # (AUTO) 8.6 10^3/uL (1.8-7.8); NEUTROPHILS % (AUTO) 81 % (42-75); PLATELET COUNT 227 10^3/uL (130-400); WHITE BLOOD COUNT 10.6 10^3/uL (4.3-11.0)
[2021-12-17 04:50] LABS: POTASSIUM 4.3 MMOL/L (3.6-5.0)
[2021-12-17 04:56] LABS: CREATININE SERUM 0.91 MG/DL (0.60-1.30); PHOSPHORUS 2.8 MG/DL (2.3-4.7)
[2021-12-17 04:58] LABS: MAGNESIUM 2.1 MG/DL (1.6-2.4)
[2021-12-17] MEDS: MAGNESIUM 1 GM/100 ML IVPB 100 ML IV SCH (05:00)
[2021-12-17] MEDS: KCL 20 MEQ TAB (K-DUR) PO SCH (05:00)
[2021-12-17] MEDS: POTASSIUM CL 10MEQ/50ML IVPB 50 ML IV SCH (05:00)
[2021-12-17 07:46] VITALS: BP 85/66
[2021-12-17] MEDS: RT-ALBUTEROL HFA 8.5 GM INHALER IH SCH ×5 (07:46→22:39)
[2021-12-17] MEDS: cefTRIAXone 1 GM PRE-MIX 50 ML IV SCH (08:30)
--- NOTE | 2021-12-17 09:40 | Diagnostic Imaging Report ---
EXAMINATION: Chest 1 view HISTORY: Covid-19. COMPARISON: 12/14/2021 FINDINGS: There has been an increase in the moderate airspace opacities predominantly in the right lung. No pleural effusion or pneumothorax. Heart size is normal. IMPRESSION: 1. Increase in bilateral airspace opacities predominantly in the right lung consistent with pneumonia. Dictated by: Dictated on workstation # [id number]
[2021-12-17] MEDS: meTOprolol TARTRATE 25 MG (LOPRESSOR) TABLET PO SCH ×2 (10:02→20:48)
--- NOTE | 2021-12-17 10:41 | Cardiology Progress Note ---
Subjective Date Seen by Provider: Dec 17, 2021 Time Seen by Provider: 10:39 Subjective/Events-last exam Patient had worsening dyspnea, currently on BiPAP. I did not examine the patient, I have visited with the nurse and reviewed his record today Focused Exam Lactate Level 12/14/21 11:19: Lactic Acid Level 2.22*H 12/14/21 13:36: Lactic Acid Level 0.49L Objective-Cardiology Exam Last Set of Vital Signs Vital Signs 12/17/21 12/17/21 12/17/21 12/17/21 06:00 07:46 08:00 08:30 Temp 36.0 Pulse 56 Resp 24 B/P (MAP) 102/64 Pulse Ox 97 O2 Delivery NIV Bilevel O2 Flow Rate 30.00 FiO2 30 I&O Intake and Output 12/17/21 00:00 Intake Total 1650 ml Output Total 1775 ml Balance -125 ml Intake Oral 1650 ml Output Urine Total 1775 ml # Bowel Movements 3 General: Alert, Oriented X3, Cooperative HEENT: Atraumatic, PERRLA Neck: Supple, No Thyromegaly Heart: Other (Atrial fibrillation) Extremities: No Clubbing Skin: No Significant Lesion Neuro: Normal Speech Psych/Mental Status: Other (Anxious today) Results Lab Laboratory Tests 12/17/21 04:25 A/P-Cardiology Admission Diagnosis COVID-19 pneumonia Atrial fibrillation Hypotension Sepsis Assessment/Plan COVID-19 pneumonia with questionable superimposed bacterial infection, worsening dyspnea, currently on BiPAP, managed by medical team. Atrial fibrillation, heart rate is better controlled on Cardizem drip. Continue on current medication and continue to monitor COPD, active smoker, acute exacerbation due to pneumonia Sepsis, hypotension, blood pressure is better today. Continue to monitor Lactic acidosis, septic protocol initiated, receiving IV fluid. Continue to monitor closely Acute renal insufficiency, continue to monitor renal function Coronary artery disease, following with a oil pipeline dispatcher in [place], reporting 2 myocardial infarction in the past last heart attack was in 2017. 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 Hypertension, having few episodes of hypotension while on Cardizem drip. Started on IV fluid aggressively and monitor blood pressure Questionable congestive heart failure, mild elevation in and BNP, no signs of heart failure at this time. Continue IV fluid and monitor Hyperlipidemia, monitor lipids BART MEJIA MD Dec 17, 2021 10:41
[2021-12-17] MEDS: AZITHROMYCIN 250 MG TAB (ZITHROMAX) PO SCH (10:48)
[2021-12-17] MEDS: OXYBUTYNIN (DITROPAN) 5 MG TAB PO SCH ×2 (10:48→20:48)
[2021-12-17] MEDS: PANTOPRAZOLE 40 MG (PROTONIX) TAB PO SCH (10:48)
[2021-12-17] MEDS: NICOTINE 14 MG (NICODERM) PATCH TD SCH (10:48)
[2021-12-17 11:12] VITALS: BP 98/76
--- NOTE | 2021-12-17 11:39 | Tele-ICU Progress Note ---
Subjective Date Seen by a Provider: Dec 17, 2021 Time Seen by a Provider: 10:23 Sepsis Event Evaluation Height, Weight, BMI Height: '" Weight: lbs. oz. kg; 19.35 BMI Method: Focused Exam Lactate Level 12/14/21 13:36: Lactic Acid Level 0.49L Exam Exam Patient acknowledged, consented, and participated in this virtual visit which was conducted using real time audio/video Vital Signs Date Time Temp Pulse Resp B/P (MAP) Pulse Ox O2 Delivery O2 Flow Rate FiO2 12/17/21 11:12 71 30 97 25.00 12/17/21 11:00 74 23 89/61 98 NIV Bilevel 30.00 12/17/21 10:00 73 15 116/59 85 NIV Bilevel 30.00 12/17/21 09:00 45 25 89/66 99 NIV Bilevel 30.00 12/17/21 08:30 NIV Bilevel 30 12/17/21 08:00 36.0 12/17/21 08:00 55 55 105/86 95 NIV Bilevel 30.00 12/17/21 07:46 56 24 97 30.00 12/17/21 07:00 NIV Bilevel 30.00 12/17/21 07:00 65 12/17/21 07:00 62 25 85/66 97 NIV Bilevel 30.00 12/17/21 06:00 36 28 102/64 97 NIV Bilevel 50.00 12/17/21 05:00 68 32 84/67 96 NIV Bilevel 50.00 12/17/21 04:00 90 NIV Bilevel 30 12/17/21 04:00 37.0 12/17/21 04:00 68 20 91/67 95 NIV Bilevel 50.00 12/17/21 03:00 67 33 89/62 94 NIV Bilevel 50.00 12/17/21 02:00 71 38 94/62 100 NIV Bilevel 50.00 12/17/21 01:46 81 127/108 12/17/21 01:00 94 12/17/21 01:00 90 29 99/82 92 NIV Bilevel 50.00 12/17/21 00:42 NIV Bilevel 50.00 12/17/21 00:00 79 22 113/94 92 NIV Bilevel 30.00 12/17/21 00:00 90 NIV Bilevel 50 12/17/21 00:00 36.8 12/16/21 23:00 79 22 108/79 96 NIV Bilevel 30.00 12/16/21 22:09 94 31 92 25.00 12/16/21 22:00 89 18 113/80 94 NIV Bilevel 30.00 12/16/21 21:00 84 18 118/95 93 NIV Bilevel 30.00 12/16/21 20:00 94 NIV Bilevel 25 12/16/21 20:00 87 19 101/75 94 NIV Bilevel 25.00 12/16/21 19:00 102 12/16/21 19:00 102 19 121/71 95 NIV Bilevel 25.00 12/16/21 18:51 82 34 93 25.00 12/16/21 18:00 73 96/78 92 NIV Bilevel 25.00 12/16/21 17:00 84 107/73 97 NIV Bilevel 45.00 12/16/21 16:00 71 30 106/73 95 NIV Bilevel 45.00 12/16/21 15:50 36.3 12/16/21 15:16 90 NIV Bilevel 12/16/21 15:00 73 22 134/101 81 NIV Bilevel 45.00 12/16/21 14:30 NIV Bilevel 45.00 12/16/21 14:02 36.5 69 96 100 12/16/21 14:00 69 17 151/100 80 Nasal Cannula 4.00 12/16/21 13:59 69 33 96 100.00 12/16/21 13:00 75 12/16/21 13:00 73 25 122/102 86 Nasal Cannula 4.00 12/16/21 12:00 36.5 12/16/21 12:00 90 Nasal Cannula 4.00 12/16/21 12:00 112 27 133/99 87 Nasal Cannula 4.00 I & O 12/17/21 07:00 Intake Total 1250 ml Output Total 1350 ml Balance -100 ml Height & Weight Height: '" Weight: lbs. oz. kg; 19.35 BMI Method: General Appearance: Chronically ill, Mild Distress (tachypnea), Thin Neck: Normal Inspection Respiratory: Decreased Breath Sounds, Respiratory Distress (tachypnea) Cardiovascular: Irregularly Irregular, Tachycardia Capillary Refill: Less Than 3 Seconds Extremity: Normal Inspection, No Pedal Edema Neurologic/Psychiatric: Alert, No Motor/Sensory Deficits Skin: Normal Color, Warm/Dry Results Lab Laboratory Tests 12/16/21 04:47 12/17/21 04:25 Assessment/Plan Assessment/Plan (Tele-ICU Physician , Progress Note ) Available chart/ vitals / labs / Images reviewed Video assessment done using teleICU camera, rest of exam as per RN Discussed with RN , EXAM PER RN Events overnight : agitated , started on precedex ( after having paradoxical reaction Afebrile FiO2 - I/O = Drips: Pressors: , hemodynamically stable Consultants: shantelle Hospital course: 12/14- to ER with SOB - new a fib RVR 12/16- cardizem 20 gtt, 3l O2 12/17 - severe agitation/confusion , off cardizem gtt, BIPAP 12/6 30 % rr20, tv700 MV14L A/P Agitation . confusion at 2/2 night - ? ETOH widwl vs owning - given ativan/haldol - with paradoxical increase of agitation - started on precedex -> very sedated --> off precedex now - ? seroquil tonight Acurte resp failure - 12/16 placed on BIPAP 12/6 30 % rr20, tv700 MV14L after agitation/precedex - will stop precedex and follow resp status A fib RVR - new onset - as per cards - OFF cardizem gtt -AC with lovenox -Echo ? after covid Hypoxia , resp insufficiency - AECOPD + a fib + COVID - stop IVF , monitor for today COVID - dx 12/14, unvaccinated - cont decadrone - cont abx for now AECOPD - prn br dilators - steroids dose - for covid - started on ABX - to follow OLIVERIO - normalized - gentle hydration- stop 12/16 COPD- - with chronic hypoxia - on O2 2L Anxiety - xanax started Agitation . confusion at 2/2 night - ? ETOH widwl vs sundowning - given ativan/haldol - with paradoxical increase of agitation - started on precedex -> very sedated --> off precedex now - ? seroquil tonight Lines : perip (Central Line Necessity Reviewed) Rao: 12/16 OG: Nutrition: po Analgesia: Anxiety/ delirium VTE Prophylaxis: michelle 60 bid Stress Ulcer Prophylaxis: po Plans in collaboration with bedside consultants and IM MDs. Discussd with RN to reach out if any questions or concerns A total of 35 minutes of critical care time was devoted to this patient today, required to treat and/or prevent further deterioration of critical care condition ( as above ) . KEIRA YBARRA MD Dec 17, 2021 11:39
[2021-12-17] MEDS: CLOPIDOGREL 75 MG (PLAVIX) TABLET PO SCH (12:09)
--- NOTE | 2021-12-17 17:20 | Progress Note - Hospitalist ---
Subjective HPI/CC On Admission Date Seen by Provider: Dec 17, 2021 Time Seen by Provider: 09:35 David Robbins is a 76 year old male with PMH HTN, HLD, CAD, COPD, tobacco abuse, who presented with shortness of breath. He reports that a few days ago he was working and was feeling fatigued. That night he had chest pain and took a nitrog lycerin which resolved his symptoms. He then had chest pain again the next night that resolved again with nitroglycerin. He also reports feeling short of breath. He has a chronic cough. He denies any change in his cough or sputum production. He denies palpitations. He reports nausea, vomiting, and diarrhea for the past month. He has not been able to eat or drink well. He is a current pack and a delatorre lf per day smoker. He drinks alcohol occasionally. He does not use illicit drugs. Subjective/Events-last exam He is sleeping and sedated. He is wearing BiPAP. Objective Exam Vital Signs Vital Signs Date Time Temp Pulse Resp B/P (MAP) Pulse Ox O2 Delivery O2 Flow Rate FiO2 12/17/21 16:00 36.6 12/17/21 16:00 86 28 88/55 100 Nasal Cannula 2.00 12/17/21 08:30 30 Capillary Refill : Less Than 3 Seconds General Appearance: No Apparent Distress, Thin Respiratory: Lungs Clear, No Respiratory Distress, Other (wearing BiPAP) Cardiovascular: No Murmur, Bradycardia Gastrointestinal: Normal Bowel Sounds, Soft Extremity: Normal Inspection, No Pedal Edema Skin: Normal Color, Warm/Dry Results/Procedures Lab Laboratory Tests 12/17/21 04:25 Patient resulted labs reviewed. Imaging: Reviewed Imaging Report Assessment/Plan Assessment and Plan Assess & Plan/Chief Complaint AFib with RVR IV Cardizem Lovenox Cardiology following COVID-19 COPD with acute exacerbation Acute on chronic respiratory failure with hypoxia PNA Delirium Required Ativan and Haldol overnight Now on Precedex Wearing BiPAP Decadron MAT protocol Rocephin and Azithromycin TeleICU following HTN HLD CAD Continue home meds Lactic acidosis, resolved OLIVERIO, resolved Critical Care Critically Ill Patient Diagnosis/Problems Diagnosis/Problems (1) Atrial fibrillation with RVR Status: Acute (2) COPD exacerbation Status: Acute (3) Chronic respiratory failure with hypoxia Status: Chronic (4) OLIVERIO (acute kidney injury) Status: Resolved Resolution Date/Time: 12/15/21 @ 18:11 (5) Lactic acidosis Status: Resolved Resolution Date/Time: 12/15/21 @ 18:11 (6) COVID-19 Status: Acute DANICA BAZAN MD Dec 17, 2021 17:20
[2021-12-17] MEDS: dilTIAZem DRIP PRE-MIX 125 ML IV SCH (20:48)
[2021-12-17] MEDS: ACETAMINOPHEN 325 MG TABLET PO PRN (21:21)
[2021-12-18] MEDS: ENOXAPARIN 60 MG/0.6 ML (LOVENOX) SYR SC SCH (02:03)
[2021-12-18] MEDS: RT-ALBUTEROL HFA 8.5 GM INHALER IH SCH ×6 (02:42→22:39)
[2021-12-18] MEDS: NS IV 1000 ML 1,000 ML IV SCH ×3 (04:56→23:59)
[2021-12-18 05:27] LABS: BASOPHILS % (AUTO) 0 % (0-10); EOSINOPHILS % (AUTO) 0 % (0-10); HEMATOCRIT 34 % (40-54); HEMOGLOBIN 10.1 g/dL (13.3-17.7); LYMPHOCYTES % (AUTO) 11 % (12-44); MEAN CORPUSCULAR HEMOGLOBIN 25 pg (25-34); MEAN CORPUSCULAR HGB CONC 30 g/dL (32-36); MEAN CORPUSCULAR VOLUME 84 fL (80-99); MEAN PLATELET VOLUME 10.5 fL (9.0-12.2); MONOCYTES # (AUTO) 0.4 10^3/uL (0.0-1.0); MONOCYTES % (AUTO) 5 % (0-12); NEUTROPHILS % (AUTO) 82 % (42-75); PLATELET COUNT 275 10^3/uL (130-400); WHITE BLOOD COUNT 8.5 10^3/uL (4.3-11.0)
[2021-12-18 05:29] LABS: POTASSIUM 3.4 MMOL/L (3.6-5.0)
[2021-12-18 05:31] LABS: CALCIUM 8.1 MG/DL (8.5-10.1)
[2021-12-18] MEDS: POTASSIUM CL 10MEQ/50ML IVPB 50 ML IV SCH ×2 (05:34→06:19)
[2021-12-18] MEDS: KCL 20 MEQ TAB (K-DUR) PO SCH (05:34)
[2021-12-18 05:35] LABS: CREATININE SERUM 0.76 MG/DL (0.60-1.30); PHOSPHORUS 1.6 MG/DL (2.3-4.7)
[2021-12-18 05:38] LABS: MAGNESIUM 2.1 MG/DL (1.6-2.4)
[2021-12-18] MEDS: MAGNESIUM 1 GM/100 ML IVPB 100 ML IV SCH (06:16)
[2021-12-18] MEDS: PANTOPRAZOLE 40 MG (PROTONIX) TAB PO SCH (08:36)
[2021-12-18] MEDS: cefTRIAXone 1 GM PRE-MIX 50 ML IV SCH (08:37)
[2021-12-18] MEDS: CLOPIDOGREL 75 MG (PLAVIX) TABLET PO SCH (08:37)
[2021-12-18] MEDS: AZITHROMYCIN 250 MG TAB (ZITHROMAX) PO SCH (08:37)
[2021-12-18] MEDS: NICOTINE 14 MG (NICODERM) PATCH TD SCH (08:37)
[2021-12-18] MEDS: OXYBUTYNIN (DITROPAN) 5 MG TAB PO SCH ×2 (08:37→21:37)
[2021-12-18] MEDS: meTOprolol TARTRATE 25 MG (LOPRESSOR) TABLET PO SCH ×2 (08:37→21:36)
[2021-12-18] MEDS: dilTIAZem DRIP PRE-MIX 125 ML IV SCH (09:36)
[2021-12-18] MEDS: ACETAMINOPHEN 325 MG TABLET PO PRN ×3 (09:37→21:37)
--- NOTE | 2021-12-18 10:27 | Tele-ICU Progress Note ---
Subjective Date Seen by a Provider: Dec 18, 2021 Time Seen by a Provider: 10:27 Sepsis Event Evaluation Height, Weight, BMI Height: '" Weight: lbs. oz. kg; 19.35 BMI Method: Exam Exam Patient acknowledged, consented, and participated in this virtual visit which was conducted using real time audio/video Vital Signs Date Time Temp Pulse Resp B/P (MAP) Pulse Ox O2 Delivery O2 Flow Rate FiO2 12/18/21 09:42 Nasal Cannula 2.00 12/18/21 09:37 37.8 12/18/21 09:00 95 36 97/68 97 Nasal Cannula 4.00 12/18/21 08:04 37.7 12/18/21 08:00 88 32 86/51 97 Nasal Cannula 4.00 12/18/21 07:45 91 Nasal Cannula 4.00 12/18/21 07:00 89 12/18/21 07:00 93 21 118/108 96 Nasal Cannula 4.00 12/18/21 06:00 110 35 101/93 98 Nasal Cannula 4.00 12/18/21 05:00 121 36 98/71 92 Nasal Cannula 4.00 12/18/21 04:55 37.6 12/18/21 04:00 115 31 83/62 100 Nasal Cannula 4.00 12/18/21 04:00 95 Nasal Cannula 4.00 12/18/21 03:09 37.2 Nasal Cannula 4.00 12/18/21 03:00 135 33 81/54 98 Nasal Cannula 3.00 12/18/21 02:42 94 Nasal Cannula 4.00 12/18/21 02:00 100 34 109/92 96 Nasal Cannula 3.00 12/18/21 01:00 110 12/18/21 01:00 93 33 102/60 97 Nasal Cannula 3.00 12/18/21 00:00 89 30 99/58 98 Nasal Cannula 3.00 12/17/21 23:39 96 Nasal Cannula 3.00 12/17/21 23:36 37.3 Nasal Cannula 3.00 12/17/21 23:00 85 33 103/61 100 Nasal Cannula 3.00 12/17/21 22:39 97 Nasal Cannula 4.00 12/17/21 22:00 82 32 84/57 99 Nasal Cannula 3.00 12/17/21 21:00 142 32 121/95 90 Nasal Cannula 3.00 12/17/21 20:00 98 Nasal Cannula 2.00 12/17/21 20:00 128 31 104/77 96 Nasal Cannula 3.00 12/17/21 20:00 37.5 12/17/21 19:10 97 Nasal Cannula 4.00 12/17/21 19:00 Nasal Cannula 3.00 12/17/21 19:00 150 12/17/21 19:00 146 31 95/67 93 Nasal Cannula 3.00 12/17/21 18:00 100 31 95/65 100 Nasal Cannula 2.00 12/17/21 17:00 88 28 89/57 100 Nasal Cannula 2.00 12/17/21 16:20 Nasal Cannula 2.00 12/17/21 16:00 36.6 12/17/21 16:00 86 28 88/55 100 Nasal Cannula 2.00 12/17/21 15:00 86 28 83/54 96 Nasal Cannula 2.00 12/17/21 14:44 97 Nasal Cannula 2.00 12/17/21 14:00 79 26 91/59 99 Nasal Cannula 2.00 12/17/21 13:00 79 23 95/66 91 Nasal Cannula 2.00 12/17/21 13:00 77 12/17/21 12:30 Nasal Cannula 2.00 12/17/21 12:07 98 Nasal Cannula 2.00 12/17/21 12:00 80 32 101/76 72 NIV Bilevel 30.00 12/17/21 11:12 71 30 97 25.00 12/17/21 11:00 74 23 89/61 98 NIV Bilevel 30.00 I & O 12/18/21 07:00 Intake Total 535 ml Output Total 1235 ml Balance -700 ml Height & Weight Height: '" Weight: lbs. oz. kg; 19.35 BMI Method: General Appearance: No Apparent Distress, Thin Neck: Normal Inspection Respiratory: Lungs Clear, No Respiratory Distress, Other (wearing BiPAP) Cardiovascular: No Murmur, Bradycardia Capillary Refill: Less Than 3 Seconds Extremity: Normal Inspection, No Pedal Edema Neurologic/Psychiatric: Alert, No Motor/Sensory Deficits Skin: Normal Color, Warm/Dry Results Lab Laboratory Tests 12/17/21 04:25 12/18/21 04:52 Assessment/Plan Assessment/Plan (Tele-ICU Physician , Progress Note ) Available chart/ vitals / labs / Images reviewed Video assessment done using teleICU camera, rest of exam as per RN Discussed with RN , EXAM PER RN Events overnight : Afebrile FiO2 - 4l I/O = neg 400 Drips: Pressors: , hemodynamically stable Consultants: shantelle Hospital course: 12/14- to ER with SOB - new a fib RVR 2/2- cardizem 20 gtt, 3l O2 / - severe agitation/confusion , off cardizem gtt, BIPAP 12/6 30 % rr20, tv700 MV14L 12/18 - off precedex back on cardizem - taperimng A/P Agitation . confusion at 2/2 night - ? ETOH widwl vs owning - given ativan/haldol - with paradoxical increase of agitation - started on precedex 2/3 off today -> very sedated --> off precedex now - ? seroquil tonight Acurte resp failure - 12/16 placed on BIPAP 12/6 30 % rr20, tv700 MV14L after agitation/precedex - will stop precedex and follow resp status A fib RVR - new onset - as per cards - OFF cardizem gtt -AC with lovenox -Echo ? after covid Hypoxia , resp insufficiency - AECOPD + a fib + COVID - stop IVF , monitor for today COVID - dx 12/14, unvaccinated - cont decadrone - cont abx for now AECOPD - prn br dilators - steroids dose - for covid - started on ABX - to follow OLIVERIO - normalized - gentle hydration- stop 12/16 COPD- - with chronic hypoxia - on O2 2L Anxiety - xanax started Agitation . confusion at 22 night - ? ETOH widwl vs sundowning - given ativan/haldol - with paradoxical increase of agitation - started on precedex -> very sedated --> off precedex now - ? seroquil tonight Lines : perip (Central Line Necessity Reviewed) Rao: 12/16 OG: Nutrition: po Analgesia: Anxiety/ delirium VTE Prophylaxis: michelle 60 bid Stress Ulcer Prophylaxis: po Plans in collaboration with bedside consultants and IM MDs. Discussd with RN to reach out if any questions or concerns A total of 35 minutes of critical care time was devoted to this patient today, required to treat and/or prevent further deterioration of critical care condition ( as above ) . KEIRA YBARRA MD Dec 18, 2021 10:27
[2021-12-18] MEDS ORDERED: ZINC OXIDE 40% (Butt Paste MAX/Desitin) 57 gm TOP PRN (11:45)
--- NOTE | 2021-12-18 13:25 | Cardiology Progress Note ---
Subjective Date Seen by Provider: Dec 18, 2021 Time Seen by Provider: 13:21 Subjective/Events-last exam Patient is laying down in bed, on nasal cannula, better today. Still confused. I did not examine the patient, I visited with the nurse and reviewed his record and evaluated him without entering the room Review of Systems General: Other (Did not provide review of system) Objective-Cardiology Exam Last Set of Vital Signs Vital Signs 12/17/21 12/18/21 12/18/21 12/18/21 12/18/21 08:30 10:30 12:00 12:15 12:40 Temp 37.4 Pulse 92 Resp 35 B/P (MAP) 95/46 Pulse Ox 95 O2 Delivery Nasal Cannula O2 Flow Rate 2.00 FiO2 30 I&O Intake and Output0 12/18/21 00:00 Intake Total 495 ml Output Total 1075 ml Balance -580 ml Intake Oral 320 ml IV Total 175 ml Output Urine Total 1075 ml # Bowel Movements 6 General: Alert, Oriented X3, Cooperative HEENT: Atraumatic, PERRLA Neck: Supple, No Thyromegaly Heart: Other (Atrial fibrillation) Extremities: No Clubbing Skin: No Significant Lesion Neuro: Normal Speech Psych/Mental Status: Other (Anxious today) Results Lab Laboratory Tests 12/18/21 04:52 A/P-Cardiology Admission Diagnosis COVID-19 pneumonia Atrial fibrillation Hypotension Sepsis Assessment/Plan COVID-19 pneumonia with questionable superimposed bacterial infection, was on BiPAP, currently on nasal cannula, improving slowly, managed by medical team. Atrial fibrillation, heart rate is better controlled on Cardizem drip. Was off Cardizem drip last night, restarted. Currently not requiring the drip. COPD, active smoker, acute exacerbation due to pneumonia Sepsis, status post hypotension, blood pressure is better at this time. Co ntinue to monitor Lactic acidosis, septic protocol initiated, receiving IV fluid. Continue to monitor closely Acute renal insufficiency, continue to monitor renal function Coronary artery disease, following with a picker feeder in [place], reporting 2 myocardial infarction in the past last heart attack was in 2017. 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 Hypertension, having few episodes of hypotension while on Cardizem drip. Started on IV fluid aggressively and monitor blood pressure Questionable congestive heart failure, mild elevation in and BNP, no signs of heart failure at this time. Continue IV fluid and monitor Hyperlipidemia, monitor lipids BART MEJIA MD Dec 18, 2021 13:25
[2021-12-18] MEDS: guaiFENesin/DM (ROBITUSSIN DM) 10 ML UDC PO PRN ×2 (14:30→21:38)
[2021-12-18] MEDS: LOPERAMIDE 2 MG (IMODIUM) TABLET PO PRN (18:08)
[2021-12-18] MEDS: RIVAROXABAN 20 MG TABLET (XARELTO) PO SCH (18:08)
[2021-12-18] MEDS ORDERED: DIGOXIN 0.25 MG/ML (LANOXIN) 2 ML AMP ONE (18:39)
--- NOTE | 2021-12-18 18:40 | Progress Note - Hospitalist ---
Subjective HPI/CC On Admission Date Seen by Provider: Dec 18, 2021 Time Seen by Provider: 09:20 David Robbins is a 76 year old male with PMH HTN, HLD, CAD, COPD, tobacco abuse, who presented with shortness of breath. He reports that a few days ago he was working and was feeling fatigued. That night he had chest pain and took a nitrog lycerin which resolved his symptoms. He then had chest pain again the next night that resolved again with nitroglycerin. He also reports feeling short of breath. He has a chronic cough. He denies any change in his cough or sputum production. He denies palpitations. He reports nausea, vomiting, and diarrhea for the past month. He has not been able to eat or drink well. He is a current pack and a delatorre lf per day smoker. He drinks alcohol occasionally. He does not use illicit drugs. Subjective/Events-last exam He is sleeping on my arrival. He easily awakens. He denies shortness of breath. He denies pain. Objective Exam Vital Signs Vital Signs Date Time Temp Pulse Resp B/P (MAP) Pulse Ox O2 Delivery O2 Flow Rate FiO2 12/18/21 18:00 130 12 118/71 97 Nasal Cannula 2.00 12/18/21 16:00 37.0 12/17/21 08:30 30 Capillary Refill : Less Than 3 Seconds General Appearance: No Apparent Distress, Chronically ill, Thin Respiratory: No Respiratory Distress, Decreased Breath Sounds Cardiovascular: No Murmur, Irregularly Irregular Gastrointestinal: Normal Bowel Sounds, Soft Extremity: Normal Inspection, No Pedal Edema Neurologic/Psychiatric: Alert, No Motor/Sensory Deficits, Depressed Affect Skin: Warm/Dry, Pallor Results/Procedures Lab Laboratory Tests 12/18/21 04:52 Patient resulted labs reviewed. Imaging: Reviewed Imaging Report Assessment/Plan Assessment and Plan Assess & Plan/Chief Complaint AFib with RVR IV Cardizem Xarelto Cardiology following COVID-19 COPD with acute exacerbation Acute on chronic respiratory failure with hypoxia PNA Wean off Precedex Off BiPAP Oxygen requirement at baseline Decadron MAT protocol Rocephin and Azithromycin TeleICU following HTN HLD CAD Continue home meds Lactic acidosis, resolved OLIVERIO, resolved Delirium, resolved Critical Care Critically Ill Patient Diagnosis/Problems Diagnosis/Problems (1) Atrial fibrillation with RVR Status: Acute (2) COPD exacerbation Status: Acute (3) Chronic respiratory failure with hypoxia Status: Chronic (4) OLIVERIO (acute kidney injury) Status: Resolved Resolution Date/Time: 12/15/21 @ 18:11 (5) Lactic acidosis Status: Resolved Resolution Date/Time: 12/15/21 @ 18:11 (6) COVID-19 Status: Acute DANICA BAZAN MD Dec 18, 2021 18:39
[2021-12-18] MEDS ORDERED: DIGOXIN 0.25 MG/ML (LANOXIN) 2 ML AMP IV ONE (18:45)
[2021-12-18] MEDS ORDERED: DIGOXIN 0.25 MG/ML (LANOXIN) 2 ML AMP IV PRN (19:00)
[2021-12-18] MEDS: MICONAZOLE 2% POWDER (DESENEX AF) 90 GM TOP SCH (21:37)
[2021-12-19] MEDS: dilTIAZem DRIP PRE-MIX 125 ML IV SCH ×3 (00:32→15:46)
[2021-12-19] MEDS: RT-ALBUTEROL HFA 8.5 GM INHALER IH SCH ×6 (03:09→22:02)
[2021-12-19] MEDS: guaiFENesin/DM (ROBITUSSIN DM) 10 ML UDC PO PRN ×3 (03:49→21:10)
[2021-12-19] MEDS: ACETAMINOPHEN 325 MG TABLET PO PRN ×3 (03:50→21:10)
[2021-12-19 05:41] LABS: BASOPHILS % (AUTO) 0 % (0-10); EOSINOPHILS % (AUTO) 0 % (0-10); HEMATOCRIT 30 % (40-54); LYMPHOCYTES # (AUTO) 0.7 10^3/uL (1.0-4.0); LYMPHOCYTES % (AUTO) 9 % (12-44); MEAN CORPUSCULAR HEMOGLOBIN 25 pg (25-34); MEAN CORPUSCULAR HGB CONC 30 g/dL (32-36); MEAN CORPUSCULAR VOLUME 83 fL (80-99); MEAN PLATELET VOLUME 10.6 fL (9.0-12.2); MONOCYTES # (AUTO) 0.5 10^3/uL (0.0-1.0); MONOCYTES % (AUTO) 6 % (0-12); NEUTROPHILS # (AUTO) 6.8 10^3/uL (1.8-7.8); NEUTROPHILS % (AUTO) 84 % (42-75); PLATELET COUNT 251 10^3/uL (130-400); WHITE BLOOD COUNT 8.1 10^3/uL (4.3-11.0)
[2021-12-19 05:53] LABS: POTASSIUM 3.2 MMOL/L (3.6-5.0)
[2021-12-19 05:58] LABS: PHOSPHORUS 1.4 MG/DL (2.3-4.7)
[2021-12-19 05:59] LABS: CREATININE SERUM 0.72 MG/DL (0.60-1.30)
[2021-12-19] MEDS: POTASSIUM CL 10MEQ/50ML IVPB 50 ML IV SCH (06:13)
[2021-12-19] MEDS: MAGNESIUM 1 GM/100 ML IVPB 100 ML IV SCH (06:13)
[2021-12-19] MEDS: KCL 20 MEQ TAB (K-DUR) PO SCH (06:13)
[2021-12-19] MEDS: NICOTINE 14 MG (NICODERM) PATCH TD SCH (08:50)
[2021-12-19] MEDS: PANTOPRAZOLE 40 MG (PROTONIX) TAB PO SCH (08:51)
[2021-12-19] MEDS: MICONAZOLE 2% POWDER (DESENEX AF) 90 GM TOP SCH ×2 (08:51→21:11)
[2021-12-19] MEDS: CLOPIDOGREL 75 MG (PLAVIX) TABLET PO SCH (08:51)
[2021-12-19] MEDS: OXYBUTYNIN (DITROPAN) 5 MG TAB PO SCH ×2 (08:51→21:10)
[2021-12-19] MEDS: meTOprolol TARTRATE 25 MG (LOPRESSOR) TABLET PO SCH ×2 (08:51→21:10)
[2021-12-19] MEDS ORDERED: KCL 20 MEQ TAB (K-DUR) PO ONE (09:00)
[2021-12-19] MEDS ORDERED: POTASSIUM PHOSPHATE INJ 15 MM in NS (IVPB) 250 ML IV ONE (09:30)
[2021-12-19] MEDS: NS IV 1000 ML 1,000 ML IV SCH (09:47)
--- NOTE | 2021-12-19 10:51 | Tele-ICU Progress Note ---
Subjective Date Seen by a Provider: Dec 19, 2021 Time Seen by a Provider: 09:52 Subjective/Events-last exam This virtual visit was conducted using real time audio/video. Thank you for asking us to see this patient for respiratory insufficiency due to Covid pna. Also afib w RVR. PE: VSS. O2 sat 95% on 2 LPM NC. HEENT: No obvious masses, adenopathy or JVD. Chest: clear to auscultation. Diminished. CV: Irreg. S1 S2 No murmur or added sounds. Abd: Non-tender. Bowel sounds Y. : Unremarkable. Rao N. SOCIAL SCIENCES RESEARCH SCIENTIST/psychiatric: Grossly intact. No obvious focal findings. Extremities: No edema. Capillary refill < 3 seconds. Skin: unremarkable. Results: Decreased Hb 9.0, K 3.2. CXR: B infilts. Available chart/ vitals / labs / images reviewed. Video assessment done using teleICU camera, rest of exam as per RN. A/P: Respiratory insufficiency: Continue present management with NC, PRN BDs Monitor for increasing oxygenation needs and/or need for intubation. Critical Care: critically ill patient. Cont. Cardizem, Xarelto, Dex., Rocephin, AZT, Galen. Replace K. OK to transfer once IV Cardizem finished. Discussed with RN Edna. Asked RN to reach out to eICU if any questions or concerns later. Time spent with patient/coordination of care with other health professionals (mins): 20 Sepsis Event Evaluation Height, Weight, BMI Height: '" Weight: lbs. oz. kg; 19.35 BMI Method: Exam Exam Patient acknowledged, consented, and participated in this virtual visit which was conducted using real time audio/video Vital Signs Date Time Temp Pulse Resp B/P (MAP) Pulse Ox O2 Delivery O2 Flow Rate FiO2 12/19/21 10:21 93 Nasal Cannula 2.00 12/19/21 10:00 80 24 100/65 95 Nasal Cannula 2.00 12/19/21 09:00 109 20 128/70 93 Nasal Cannula 2.00 12/19/21 08:00 94 Nasal Cannula 2.00 12/19/21 08:00 89 23 102/59 95 Nasal Cannula 2.00 12/19/21 07:58 36.2 12/19/21 07:19 92 94 28 12/19/21 07:00 87 2/5/22 07:00 84 13 102/59 95 Nasal Cannula 2.00 12/19/21 06:48 95 Nasal Cannula 2.00 12/19/21 06:00 88 24 99/46 96 Nasal Cannula 2.00 12/19/21 05:00 91 22 89/51 95 Nasal Cannula 2.00 12/19/21 04:00 96 Nasal Cannula 2.00 12/19/21 04:00 98 25 103/58 96 Nasal Cannula 2.00 12/19/21 03:09 95 Nasal Cannula 2.00 12/19/21 03:03 37.4 Nasal Cannula 2.00 12/19/21 03:00 88 19 101/61 96 Nasal Cannula 2.00 12/19/21 02:00 89 23 109/73 97 Nasal Cannula 2.00 12/19/21 01:00 101 12/19/21 01:00 94 19 100/63 95 Nasal Cannula 2.00 12/19/21 00:00 97 Nasal Cannula 2.00 12/19/21 00:00 86 17 92/64 97 Nasal Cannula 2.00 12/18/21 23:00 37.0 Nasal Cannula 2.00 12/18/21 23:00 88 16 101/66 97 Nasal Cannula 2.00 12/18/21 22:39 95 Nasal Cannula 2.00 12/18/21 22:07 37.0 12/18/21 22:00 96 16 109/66 96 Nasal Cannula 2.00 12/18/21 21:37 38.1 12/18/21 21:00 111 19 128/78 97 Nasal Cannula 2.00 12/18/21 20:00 37.8 12/18/21 20:00 113 23 111/87 94 Nasal Cannula 2.00 12/18/21 19:52 96 Nasal Cannula 2.00 12/18/21 19:00 128 12/18/21 19:00 Nasal Cannula 2.00 12/18/21 19:00 117 27 114/78 94 Nasal Cannula 2.00 12/18/21 18:51 94 Nasal Cannula 2.00 12/18/21 18:00 130 12 118/71 97 Nasal Cannula 2.00 12/18/21 17:00 124 30 113/72 98 Nasal Cannula 2.00 12/18/21 16:15 98 Nasal Cannula 2.00 12/18/21 16:00 37.0 12/18/21 16:00 116 19 118/94 96 Nasal Cannula 2.00 12/18/21 15:08 96 Nasal Cannula 2.00 12/18/21 15:00 97 38 94/73 98 Nasal Cannula 2.00 12/18/21 14:00 98 25 94/54 98 Nasal Cannula 2.00 12/18/21 13:00 91 17 102/61 98 Nasal Cannula 2.00 12/18/21 12:40 92 12/18/21 12:15 95 Nasal Cannula 2.00 12/18/21 12:00 93 35 95/46 94 Nasal Cannula 2.00 12/18/21 11:00 90 30 92/60 96 Nasal Cannula 2.00 I & O 12/19/21 07:00 Intake Total 1360 ml Output Total 1080 ml Balance 280 ml Height & Weight Height: '" Weight: lbs. oz. kg; 19.35 BMI Method: General Appearance: No Apparent Distress, Chronically ill, Thin Neck: Normal Inspection Respiratory: No Respiratory Distress, Decreased Breath Sounds Cardiovascular: No Murmur, Irregularly Irregular Capillary Refill: Less Than 3 Seconds Extremity: Normal Inspection, No Pedal Edema Neurologic/Psychiatric: Alert, No Motor/Sensory Deficits, Depressed Affect Skin: Warm/Dry, Pallor Results Lab Laboratory Tests 12/18/21 04:52 12/19/21 05:02 Assessment/Plan Assessment/Plan See free text. Critical Care: Critically Ill Patient ODILON PALMER MD Dec 19, 2021 10:51
--- NOTE | 2021-12-19 13:18 | Progress Note - Cardiology ---
Cardiology SOAP Progress Note Subjective: He has not been reporting any symptoms other than cough and diarrhea to the providers Objective: I&O/Vital Signs 12/19/21 12/19/21 12/19/21 12/19/21 02:00 03:00 03:03 03:09 Temp 37.4 Pulse 89 88 Resp 23 19 B/P (MAP) 109/73 101/61 Pulse Ox 97 96 95 O2 Delivery Nasal Cannula Nasal Cannula Nasal Cannula Nasal Cannula O2 Flow Rate 2.00 2.00 2.00 2.00 12/19/21 12/19/21 12/19/21 12/19/21 04:00 04:00 05:00 06:00 Pulse 98 91 88 Resp 25 22 24 B/P (MAP) 103/58 89/51 99/46 Pulse Ox 96 96 95 96 O2 Delivery Nasal Cannula Nasal Cannula Nasal Cannula Nasal Cannula O2 Flow Rate 2.00 2.00 2.00 2.00 12/19/21 12/19/21 12/19/21 12/19/21 06:48 07:00 07:00 07:19 Pulse 84 87 92 Resp 13 B/P (MAP) 102/59 Pulse Ox 95 95 94 O2 Delivery Nasal Cannula Nasal Cannula O2 Flow Rate 2.00 2.00 FiO2 28 12/19/21 12/19/21 12/19/21 12/19/21 07:58 08:00 08:00 09:00 Temp 36.2 Pulse 89 109 Resp 23 20 B/P (MAP) 102/59 128/70 Pulse Ox 95 94 93 O2 Delivery Nasal Cannula Nasal Cannula Nasal Cannula O2 Flow Rate 2.00 2.00 2.00 12/19/21 12/19/21 12/19/21 12/19/21 10:00 10:21 11:00 11:59 Temp 36.2 Pulse 80 79 Resp 24 24 B/P (MAP) 100/65 93/59 Pulse Ox 95 93 100 O2 Delivery Nasal Cannula Nasal Cannula Nasal Cannula O2 Flow Rate 2.00 2.00 2.00 12/19/21 12/19/21 12/19/21 12:00 12:53 13:00 Pulse 78 96 85 Resp 26 14 B/P (MAP) 97/66 100/64 Pulse Ox 95 92 O2 Delivery Nasal Cannula Nasal Cannula O2 Flow Rate 2.00 2.00 12/19/21 00:00 Intake Total 590 ml Output Total 530 ml Balance 60 ml Results/Procedures: Labs Laboratory Tests 12/19/21 05:02: White Blood Count 8.1, Red Blood Count 3.60L, Hemoglobin 9.0L, Hematocrit 30L, Mean Corpuscular Volume 83, Mean Corpuscular Hemoglobin 25, Mean Corpuscular Hemoglobin Concent 30L, Red Cell Distribution Width 16.1H, Platelet Count 251, Mean Platelet Volume 10.6, Immature Granulocyte % (Auto) 2, Neutrophils (%) (Auto) 84H, Lymphocytes (%) (Auto) 9L, Monocytes (%) (Auto) 6, Eosinophils (%) (Auto) 0, Basophils (%) (Auto) 0, Neutrophils # (Auto) 6.8, Lymphocytes # (Auto) 0.7L, Monocytes # (Auto) 0.5, Eosinophils # (Auto) 0.0, Basophils # (Auto) 0.0, Immature Granulocyte # (Auto) 0.1, Sodium Level 136, Potassium Level 3.2L, Chloride Level 103, Carbon Dioxide Level 21, Anion Gap 12, Blood Urea Nitrogen 14, Creatinine 0.72, Estimat Glomerular Filtration Rate 95, BUN/Creatinine Ratio 19, Glucose Level 138H, Calcium Level 8.0L, Phosphorus Level 1.4L, Magnesium Level 2.0 Microbiology 12/14/21 MRSA Screen - Final, Complete MRSA not isolated 12/14/21 Blood Culture - Preliminary, Resulted No growth 12/14/21 Urine Culture - Final, Complete Gram Pos Mixed Bacterial Kacie Laboratory Tests 12/18/21 04:52 12/19/21 05:02 A/P: Assessment: COVID-19 pneumonia and resp failure Atrial fibrillation of unknown age, associated with RVR - stroke prophylaxis with rivaroxaban H/o COPD due to chronic tobacco smoking Sepsis at admission Coronary artery disease, following with a food safety coordinator in [place], reporting 2 myocardial infarction in the past last heart attack was in 2017. 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 To reduce COVID-19 exposure, I did not examine the patient * He had been having a rapid vent response to A Fib yesterday. We added dig. T hat has brought the rate under control * Continue valarie 0.125 mg daily * Replenish K * Monitor labs RENE ORDOÑEZ MD FACP [facility] Dec 19, 2021 13:18
[2021-12-19] MEDS: DIGOXIN 0.125 MG (LANOXIN) TAB PO SCH (14:23)
[2021-12-19] MEDS: RT-ALBUTEROL HFA 8.5 GM INHALER IH PRN (15:17)
[2021-12-19] MEDS: RIVAROXABAN 20 MG TABLET (XARELTO) PO SCH (17:04)
--- NOTE | 2021-12-19 20:54 | Progress Note - Hospitalist ---
Subjective HPI/CC On Admission Date Seen by Provider: Dec 19, 2021 Time Seen by Provider: 10:55 David Robbins is a 76 year old male with PMH HTN, HLD, CAD, COPD, tobacco abuse, who presented with shortness of breath. He reports that a few days ago he was working and was feeling fatigued. That night he had chest pain and took a nitrog lycerin which resolved his symptoms. He then had chest pain again the next night that resolved again with nitroglycerin. He also reports feeling short of breath. He has a chronic cough. He denies any change in his cough or sputum production. He denies palpitations. He reports nausea, vomiting, and diarrhea for the past month. He has not been able to eat or drink well. He is a current pack and a delatorre lf per day smoker. He drinks alcohol occasionally. He does not use illicit drugs. Subjective/Events-last exam He has no complaints or concerns. He does not feel short of breath. He has been coughing up phlegm. Objective Exam Vital Signs Vital Signs Date Time Temp Pulse Resp B/P (MAP) Pulse Ox O2 Delivery O2 Flow Rate FiO2 12/19/21 20:26 36.6 12/19/21 19:00 114 12/19/21 18:21 92 Nasal Cannula 3.00 12/19/21 18:00 18 95/87 12/19/21 07:19 28 Capillary Refill : Less Than 3 Seconds General Appearance: No Apparent Distress, Chronically ill, Thin Respiratory: No Respiratory Distress, Decreased Breath Sounds Cardiovascular: Irregularly Irregular, Tachycardia Gastrointestinal: Normal Bowel Sounds, Soft Extremity: Normal Inspection, No Pedal Edema Neurologic/Psychiatric: Alert, No Motor/Sensory Deficits Skin: Normal Color, Warm/Dry Results/Procedures Lab Laboratory Tests 12/19/21 05:02 Patient resulted labs reviewed. Imaging: Reviewed Imaging Report Assessment/Plan Assessment and Plan Assess & Plan/Chief Complaint AFib with RVR IV Cardizem Metoprolol Digoxin Xarelto Cardiology following COVID-19 COPD with acute exacerbation Acute on chronic respiratory failure with hypoxia PNA Oxygen requirement at baseline Decadron MAT protocol Rocephin and Azithromycin TeleICU following HTN HLD CAD Continue home meds Lactic acidosis, resolved OLIVERIO, resolved Delirium, resolved Critical Care Critically Ill Patient Diagnosis/Problems Diagnosis/Problems (1) Atrial fibrillation with RVR Status: Acute (2) COPD exacerbation Status: Acute (3) Chronic respiratory failure with hypoxia Status: Chronic (4) OLIVERIO (acute kidney injury) Status: Resolved Resolution Date/Time: 12/15/21 @ 18:11 (5) Lactic acidosis Status: Resolved Resolution Date/Time: 12/15/21 @ 18:11 (6) COVID-19 Status: Acute DANICA BAZAN MD Dec 19, 2021 20:54
[2021-12-20] MEDS: RT-ALBUTEROL HFA 8.5 GM INHALER IH SCH ×5 (03:03→18:49)
[2021-12-20] MEDS: dilTIAZem DRIP PRE-MIX 125 ML IV SCH (05:06)
[2021-12-20 05:28] LABS: BASOPHILS % (AUTO) 0 % (0-10); EOSINOPHILS % (AUTO) 0 % (0-10); HEMATOCRIT 30 % (40-54); HEMOGLOBIN 8.8 g/dL (13.3-17.7); LYMPHOCYTES # (AUTO) 0.5 10^3/uL (1.0-4.0); LYMPHOCYTES % (AUTO) 7 % (12-44); MEAN CORPUSCULAR HEMOGLOBIN 25 pg (25-34); MEAN CORPUSCULAR HGB CONC 30 g/dL (32-36); MEAN CORPUSCULAR VOLUME 83 fL (80-99); MEAN PLATELET VOLUME 10.5 fL (9.0-12.2); MONOCYTES # (AUTO) 0.5 10^3/uL (0.0-1.0); MONOCYTES % (AUTO) 7 % (0-12); NEUTROPHILS # (AUTO) 6.8 10^3/uL (1.8-7.8); NEUTROPHILS % (AUTO) 85 % (42-75); PLATELET COUNT 266 10^3/uL (130-400)
[2021-12-20 05:40] LABS: POTASSIUM 3.9 MMOL/L (3.6-5.0)
[2021-12-20 05:41] LABS: CALCIUM 8.3 MG/DL (8.5-10.1)
[2021-12-20 05:45] LABS: CREATININE SERUM 0.73 MG/DL (0.60-1.30); PHOSPHORUS 1.9 MG/DL (2.3-4.7)
[2021-12-20 05:48] LABS: MAGNESIUM 2.2 MG/DL (1.6-2.4)
[2021-12-20] MEDS: MAGNESIUM 1 GM/100 ML IVPB 100 ML IV SCH (06:18)
[2021-12-20] MEDS: KCL 20 MEQ TAB (K-DUR) PO SCH (06:18)
[2021-12-20] MEDS: POTASSIUM CL 10MEQ/50ML IVPB 50 ML IV SCH (06:18)
[2021-12-20] MEDS: CLOPIDOGREL 75 MG (PLAVIX) TABLET PO SCH (07:44)
[2021-12-20] MEDS: NICOTINE 14 MG (NICODERM) PATCH TD SCH (07:44)
[2021-12-20] MEDS: OXYBUTYNIN (DITROPAN) 5 MG TAB PO SCH ×2 (07:44→20:42)
[2021-12-20] MEDS: meTOprolol TARTRATE 25 MG (LOPRESSOR) TABLET PO SCH ×2 (07:44→20:42)
[2021-12-20] MEDS: DIGOXIN 0.125 MG (LANOXIN) TAB PO SCH (07:44)
[2021-12-20] MEDS: PANTOPRAZOLE 40 MG (PROTONIX) TAB PO SCH (07:44)
[2021-12-20] MEDS: guaiFENesin/DM (ROBITUSSIN DM) 10 ML UDC PO PRN ×2 (07:44→20:43)
[2021-12-20] MEDS: MICONAZOLE 2% POWDER (DESENEX AF) 90 GM TOP SCH ×2 (07:45→20:48)
--- NOTE | 2021-12-20 10:04 | Tele-ICU Progress Note ---
Subjective Date Seen by a Provider: Dec 20, 2021 Time Seen by a Provider: 08:15 Subjective/Events-last exam This virtual visit was conducted using real time audio/video. Thank you for asking us to see this patient for respiratory insufficiency due to AE COPD,Covid pna. Also afib w RVR. PE: VSS. O2 sat 94% on 2 LPM NC. HEENT: No obvious masses, adenopathy or JVD. Chest: clear to auscultation. Diminished. CV: Irreg. 100-105. S1 S2 No murmur or added sounds. Abd: Non-tender. Bowel sounds Y. : Unremarkable. Rao N. SECTIONAL BELT MOLD ASSEMBLER/psychiatric: Grossly intact. No obvious focal findings. Extremities: No edema. Capillary refill < 3 seconds. Skin: unremarkable. Results: Decreased Hb 8.8, PO4 1.9. CXR: B infilts. Available chart/ vitals / labs / images reviewed. Video assessment done using teleICU camera, rest of exam as per RN. A/P: Respiratory insufficiency: Continue present management with NC, PRN BDs, ni cotine patch. Monitor for increasing oxygenation needs and/or need for intubation. Critical Care: critically ill patient. Cont. Cardizem, Digoxin, Xarelto, Dex., Rocephin, AZT, Galen. Replace PO4. OK to transfer once IV Cardizem finished. Discussed with YOHANNES Boggs. Asked RN to reach out to eICU if any questions or concerns later. Time spent with patient/coordination of care with other health professionals (mins): 20 Sepsis Event Evaluation Height, Weight, BMI Height: '" Weight: lbs. oz. kg; 19.35 BMI Method: Exam Exam Patient acknowledged, consented, and participated in this virtual visit which was conducted using real time audio/video Vital Signs Date Time Temp Pulse Resp B/P (MAP) Pulse Ox O2 Delivery O2 Flow Rate FiO2 12/20/21 08:00 36.4 12/20/21 08:00 115 23 110/80 96 Nasal Cannula 2.00 12/20/21 08:00 98 Nasal Cannula 2.00 12/20/21 07:00 115 12/20/21 07:00 126 23 90/61 96 Nasal Cannula 2.00 12/20/21 06:34 96 Nasal Cannula 3.00 12/20/21 06:00 101 23 102/73 92 Nasal Cannula 2.00 12/20/21 05:00 102 19 107/60 98 Nasal Cannula 2.00 12/20/21 04:24 97 Nasal Cannula 2.00 12/20/21 04:00 100 24 100/52 96 Nasal Cannula 2.00 12/20/21 03:04 98 Nasal Cannula 3.00 12/20/21 03:00 84 22 90/58 97 Nasal Cannula 2.00 12/20/21 02:00 96 22 101/59 98 Nasal Cannula 2.00 12/20/21 01:00 90 12/20/21 01:00 93 21 95/62 98 Nasal Cannula 2.00 12/20/21 00:06 36.8 Nasal Cannula 2.00 12/20/21 00:05 96 Nasal Cannula 2.00 12/20/21 00:00 89 21 101/63 98 Nasal Cannula 2.00 12/19/21 23:00 94 22 101/89 96 Nasal Cannula 2.00 12/19/21 22:02 94 Nasal Cannula 3.00 12/19/21 22:00 98 19 89/56 94 Nasal Cannula 2.00 12/19/21 21:00 113 18 121/77 95 Nasal Cannula 2.00 12/19/21 20:26 36.6 12/19/21 20:00 82 23 116/67 97 Nasal Cannula 2.00 12/19/21 20:00 95 Nasal Cannula 2.00 12/19/21 19:00 114 12/19/21 19:00 Nasal Cannula 2.00 12/19/21 19:00 96 23 123/67 93 Nasal Cannula 2.00 12/19/21 18:21 92 Nasal Cannula 3.00 12/19/21 18:00 83 18 95/87 91 Nasal Cannula 2.00 12/19/21 17:00 85 24 114/73 95 Nasal Cannula 2.00 12/19/21 16:00 103 14 108/67 91 Nasal Cannula 2.00 12/19/21 16:00 94 Nasal Cannula 2.00 12/19/21 15:52 36.3 12/19/21 15:19 95 Nasal Cannula 3.00 12/19/21 15:00 88 24 103/70 96 Nasal Cannula 2.00 12/19/21 14:00 85 27 102/64 93 Nasal Cannula 2.00 12/19/21 13:00 85 14 100/64 92 Nasal Cannula 2.00 12/19/21 12:53 96 12/19/21 12:00 94 Nasal Cannula 2.00 12/19/21 12:00 78 26 97/66 95 Nasal Cannula 2.00 12/19/21 11:59 36.2 12/19/21 11:00 79 24 93/59 100 Nasal Cannula 2.00 12/19/21 10:21 93 Nasal Cannula 2.00 I & O 12/20/21 07:00 Intake Total 2105 ml Output Total 1100 ml Balance 1005 ml Height & Weight Height: '" Weight: lbs. oz. kg; 19.35 BMI Method: General Appearance: No Apparent Distress, Chronically ill, Thin Neck: Normal Inspection Respiratory: No Respiratory Distress, Decreased Breath Sounds Cardiovascular: Irregularly Irregular, Tachycardia Capillary Refill: Less Than 3 Seconds Extremity: Normal Inspection, No Pedal Edema Neurologic/Psychiatric: Alert, No Motor/Sensory Deficits Skin: Normal Color, Warm/Dry Results Lab Laboratory Tests 12/19/21 05:02 12/20/21 05:09 Assessment/Plan Assessment/Plan See free text. Critical Care: Critically Ill Patient ODILON PALMER MD Dec 20, 2021 10:04
[2021-12-20] MEDS: RT-ALBUTEROL HFA 8.5 GM INHALER IH PRN ×2 (10:30→22:37)
[2021-12-20] MEDS ORDERED: POTASSIUM PHOSPHATE INJ 30 MM in NS (IVPB) 250 ML IV ONE (12:00)
[2021-12-20] MEDS: LOPERAMIDE 2 MG (IMODIUM) TABLET PO PRN ×2 (16:00→20:42)
[2021-12-20] MEDS: RIVAROXABAN 20 MG TABLET (XARELTO) PO SCH (16:00)
--- NOTE | 2021-12-20 16:14 | Progress Note - Cardiology ---
Cardiology SOAP Progress Note Subjective: He has not reported any new symptoms to his providers Objective: I&O/Vital Signs 12/20/21 12/20/21 12/20/21 12/20/21 04:24 05:00 06:00 06:34 Pulse 102 101 Resp 19 23 B/P (MAP) 107/60 102/73 Pulse Ox 97 98 92 96 O2 Delivery Nasal Cannula Nasal Cannula Nasal Cannula Nasal Cannula O2 Flow Rate 2.00 2.00 2.00 3.00 12/20/21 12/20/21 12/20/21 12/20/21 07:00 07:00 08:00 08:00 Pulse 126 115 115 Resp 23 23 B/P (MAP) 90/61 110/80 Pulse Ox 96 98 96 O2 Delivery Nasal Cannula Nasal Cannula Nasal Cannula O2 Flow Rate 2.00 2.00 2.00 12/20/21 12/20/21 12/20/21 12/20/21 08:00 09:00 10:00 10:31 Temp 36.4 Pulse 81 87 Resp 23 20 B/P (MAP) 98/71 101/68 Pulse Ox 96 97 97 O2 Delivery Nasal Cannula Nasal Cannula Nasal Cannula O2 Flow Rate 2.00 2.00 3.00 12/20/21 12/20/21 12/20/21 12/20/21 11:00 12:00 12:12 13:00 Temp 36.0 Pulse 87 138 97 Resp 26 31 16 B/P (MAP) 106/73 101/62 106/78 Pulse Ox 95 96 96 O2 Delivery Nasal Cannula Nasal Cannula Nasal Cannula O2 Flow Rate 2.00 2.00 2.00 12/20/21 12/20/21 12/20/21 12/20/21 13:00 14:00 14:07 15:00 Pulse 116 108 102 Resp 22 12 B/P (MAP) 93/70 105/67 Pulse Ox 96 97 O2 Delivery Nasal Cannula Nasal Cannula Nasal Cannula O2 Flow Rate 2.00 3.00 2.00 12/20/21 12/20/21 15:56 16:00 Temp 36.0 Pulse 118 Resp 19 B/P (MAP) 141/98 Pulse Ox 95 O2 Delivery Nasal Cannula O2 Flow Rate 2.00 12/19/21 23:59 Intake Total 1000 ml Output Total 575 ml Balance 425 ml Results/Procedures: Labs Laboratory Tests 12/20/21 05:09: White Blood Count 8.0, Red Blood Count 3.58L, Hemoglobin 8.8L, Hematocrit 30L, Mean Corpuscular Volume 83, Mean Corpuscular Hemoglobin 25, Mean Corpuscular Hemoglobin Concent 30L, Red Cell Distribution Width 16.3H, Platelet Count 266, Mean Platelet Volume 10.5, Immature Granulocyte % (Auto) 2, Neutrophils (%) (Auto) 85H, Lymphocytes (%) (Auto) 7L, Monocytes (%) (Auto) 7, Eosinophils (%) (Auto) 0, Basophils (%) (Auto) 0, Neutrophils # (Auto) 6.8, Lymphocytes # (Auto) 0.5L, Monocytes # (Auto) 0.5, Eosinophils # (Auto) 0.0, Basophils # (Auto) 0.0, Immature Granulocyte # (Auto) 0.1, Sodium Level 134L, Potassium Level 3.9, Chloride Level 103, Carbon Dioxide Level 22, Anion Gap 9, Blood Urea Nitrogen 17, Creatinine 0.73, Estimat Glomerular Filtration Rate 95, BUN/Creatinine Ratio 23, Glucose Level 158H, Calcium Level 8.3L, Phosphorus Level 1.9L, Magnesium Level 2.2 Microbiology 12/18/21 Stool Culture - Final, Complete 12/14/21 MRSA Screen - Final, Complete MRSA not isolated 12/14/21 Blood Culture - Preliminary, Resulted No growth 12/14/21 Urine Culture - Final, Complete Gram Pos Mixed Bacterial Kacie Laboratory Tests 12/19/21 05:02 12/20/21 05:09 A/P: Assessment: COVID-19 pneumonia and resp failure Atrial fibrillation of unknown age, associated with RVR - stroke prophylaxis with rivaroxaban H/o COPD due to chronic tobacco smoking Sepsis at admission Coronary artery disease, following with a commuter pilot in [place], reporting 2 myocardial infarction in the past last heart attack was in 2017. 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 To reduce COVID-19 exposure, I did not examine the patient * Change diltiazem to oral * Continue dig 0.125 mg daily * Monitor labs RENE ORDOÑEZ MD [facility] Dec 20, 2021 16:14
--- NOTE | 2021-12-20 21:40 | Progress Note - Hospitalist ---
Subjective HPI/CC On Admission Date Seen by Provider: Dec 20, 2021 Time Seen by Provider: 10:30 David oRbbins is a 76 year old male with PMH HTN, HLD, CAD, COPD, tobacco abuse, who presented with shortness of breath. He reports that a few days ago he was working and was feeling fatigued. That night he had chest pain and took a nitrog lycerin which resolved his symptoms. He then had chest pain again the next night that resolved again with nitroglycerin. He also reports feeling short of breath. He has a chronic cough. He denies any change in his cough or sputum production. He denies palpitations. He reports nausea, vomiting, and diarrhea for the past month. He has not been able to eat or drink well. He is a current pack and a delatorre lf per day smoker. He drinks alcohol occasionally. He does not use illicit drugs. Subjective/Events-last exam He is feeling better. He denies shortness of breath. He denies pain. Objective Exam Vital Signs Vital Signs Date Time Temp Pulse Resp B/P (MAP) Pulse Ox O2 Delivery O2 Flow Rate FiO2 12/20/21 19:29 36.0 120 15 90/72 95 Nasal Cannula 2.00 12/19/21 07:19 28 Capillary Refill : Less Than 3 Seconds General Appearance: No Apparent Distress, Chronically ill Respiratory: No Respiratory Distress, Decreased Breath Sounds Cardiovascular: Irregularly Irregular, Tachycardia Gastrointestinal: Normal Bowel Sounds, Soft Extremity: Normal Inspection, No Pedal Edema Neurologic/Psychiatric: Alert, No Motor/Sensory Deficits, Normal Mood/Affect Skin: Normal Color, Warm/Dry Results/Procedures Lab Laboratory Tests 12/20/21 05:09 Patient resulted labs reviewed. Imaging: Reviewed Imaging Report Assessment/Plan Assessment and Plan Assess & Plan/Chief Complaint AFib with RVR IV Cardizem, transitioning to oral Metoprolol Digoxin Xarelto Cardiology following COVID-19 COPD with acute exacerbation Acute on chronic respiratory failure with hypoxia PNA Oxygen requirement at baseline Decadron MAT protocol s/p Rocephin and Azithromycin TeleICU following HTN HLD CAD Continue home meds Lactic acidosis, resolved OLIVERIO, resolved Delirium, resolved Critical Care Critically Ill Patient Diagnosis/Problems Diagnosis/Problems (1) Atrial fibrillation with RVR Status: Acute (2) COPD exacerbation Status: Acute (3) Chronic respiratory failure with hypoxia Status: Chronic (4) OLIVERIO (acute kidney injury) Status: Resolved Resolution Date/Time: 12/15/21 @ 18:11 (5) Lactic acidosis Status: Resolved Resolution Date/Time: 12/15/21 @ 18:11 (6) COVID-19 Status: Acute DANICA BAZAN MD Dec 20, 2021 21:40
[2021-12-21] MEDS: RT-ALBUTEROL HFA 8.5 GM INHALER IH SCH ×6 (02:54→22:15)
[2021-12-21 04:58] LABS: BASOPHILS % (AUTO) 0 % (0-10); EOSINOPHILS % (AUTO) 0 % (0-10); HEMATOCRIT 30 % (40-54); HEMOGLOBIN 9.1 g/dL (13.3-17.7); LYMPHOCYTES # (AUTO) 0.6 10^3/uL (1.0-4.0); LYMPHOCYTES % (AUTO) 8 % (12-44); MEAN CORPUSCULAR HEMOGLOBIN 25 pg (25-34); MEAN CORPUSCULAR HGB CONC 30 g/dL (32-36); MEAN CORPUSCULAR VOLUME 83 fL (80-99); MEAN PLATELET VOLUME 10.6 fL (9.0-12.2); MONOCYTES # (AUTO) 0.6 10^3/uL (0.0-1.0); MONOCYTES % (AUTO) 8 % (0-12); NEUTROPHILS # (AUTO) 6.2 10^3/uL (1.8-7.8); NEUTROPHILS % (AUTO) 81 % (42-75); PLATELET COUNT 280 10^3/uL (130-400); WHITE BLOOD COUNT 7.6 10^3/uL (4.3-11.0)
[2021-12-21 05:22] LABS: POTASSIUM 4.2 MMOL/L (3.6-5.0)
[2021-12-21 05:23] LABS: CALCIUM 8.3 MG/DL (8.5-10.1)
[2021-12-21 05:27] LABS: PHOSPHORUS 2.6 MG/DL (2.3-4.7)
[2021-12-21] MEDS: POTASSIUM CL 10MEQ/50ML IVPB 50 ML IV SCH (05:27)
[2021-12-21 05:28] LABS: CREATININE SERUM 0.73 MG/DL (0.60-1.30)
[2021-12-21 05:30] LABS: MAGNESIUM 2.1 MG/DL (1.6-2.4)
[2021-12-21] MEDS: MAGNESIUM 1 GM/100 ML IVPB 100 ML IV SCH (05:33)
[2021-12-21] MEDS: KCL 20 MEQ TAB (K-DUR) PO SCH (05:33)
[2021-12-21] MEDS: RT-ALBUTEROL HFA 8.5 GM INHALER IH PRN ×3 (07:44→22:27)
[2021-12-21] MEDS: meTOprolol TARTRATE 25 MG (LOPRESSOR) TABLET PO SCH ×2 (09:10→21:02)
[2021-12-21] MEDS: DIGOXIN 0.125 MG (LANOXIN) TAB PO SCH (09:10)
[2021-12-21] MEDS: NICOTINE 14 MG (NICODERM) PATCH TD SCH (09:10)
[2021-12-21] MEDS: CLOPIDOGREL 75 MG (PLAVIX) TABLET PO SCH (09:11)
[2021-12-21] MEDS: OXYBUTYNIN (DITROPAN) 5 MG TAB PO SCH ×2 (09:11→21:02)
[2021-12-21] MEDS: PANTOPRAZOLE 40 MG (PROTONIX) TAB PO SCH ×2 (09:11→21:02)
[2021-12-21] MEDS: MICONAZOLE 2% POWDER (DESENEX AF) 90 GM TOP SCH ×2 (09:14→21:03)
[2021-12-21] MEDS ORDERED: NS IV 1000 ML 1,000 ML IV SCH (09:45)
--- NOTE | 2021-12-21 09:48 | Cardiology Progress Note ---
Subjective Date Seen by Provider: Dec 21, 2021 Time Seen by Provider: 09:44 Subjective/Events-last exam Patient is in bed, was not evaluated today. I visited with the nurse and reviewed his records. Reviewed telemetry Objective-Cardiology Exam Last Set of Vital Signs Vital Signs 12/19/21 12/21/21 07:19 08:00 Temp 37.2 Pulse 133 Resp 20 B/P (MAP) 95/72 Pulse Ox 98 O2 Delivery Nasal Cannula O2 Flow Rate 3.00 FiO2 28 I&O Intake and Output 12/21/21 00:00 Intake Total 1695 ml Output Total 1500 ml Balance 195 ml Intake Oral 1570 ml IV Total 125 ml Output Urine Total 1500 ml # Bowel Movements 2 General: Alert, Cooperative HEENT: Atraumatic, PERRLA Neck: Supple, No Thyromegaly Heart: Other (Atrial fibrillation) Extremities: No Clubbing Skin: No Significant Lesion Neuro: Normal Speech Psych/Mental Status: Other (Anxious today) Results Lab Laboratory Tests 12/21/21 04:04 A/P-Cardiology Admission Diagnosis COVID-19 pneumonia Atrial fibrillation Hypotension Sepsis Assessment/Plan COVID-19 pneumonia with questionable superimposed bacterial infection, was on BiPAP, currently on nasal cannula, doing better Atrial fibrillation, still borderline tachycardic, currently hypotensive, unable to tolerate beta-blockers. We will continue on digoxin, I will use normal saline bolus and monitor tolerance and response COPD, active smoker, acute exacerbation due to pneumonia Sepsis, status post hypotension, blood pressure is better at this time. Continue to monitor Acute renal insufficiency, continue to monitor renal function Coronary artery disease, following with a slackline operator in [place], reporting 2 myocardial infarction in the past last heart attack was in 2017. 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 Hypertension, having few episodes of hypotension while on Cardizem drip. Started on IV fluid aggressively and monitor blood pressure Questionable congestive heart failure, mild elevation in and BNP, no signs of heart failure at this time. Continue IV fluid and monitor Hyperlipidemia, monitor lipids BART MEJIA MD Dec 21, 2021 09:48
[2021-12-21] MEDS ORDERED: BETAMETHASONE DIPRO (AUGMENTED) 0.05% CREAM 15 GM TOP PRN (10:00)
[2021-12-21] MEDS ORDERED: NON-FORMULARY MEDICATION 1 EA EA (Clobetasol Propionate 1 APPLIC) TOP PRN (10:00)
[2021-12-21] MEDS ORDERED: hydrOXYzine (VISTARIL/ATARAX) 25 MG capsule/tablet PO PRN (10:15)
[2021-12-21] MEDS ORDERED: RT-IPRATROPIUM (ATROVENT) 0.5MG/2.5ML AMP IH SCH (11:00)
--- NOTE | 2021-12-21 11:37 | Progress Note - Hospitalist ---
KELLI HERNANDEZVANI U 12/21/21 1137: Subjective HPI/CC On Admission David Robbins is a 76 year old male with PMH HTN, HLD, CAD, COPD, tobacco abuse, who presented with shortness of breath. He reports that a few days ago he was working and was feeling fatigued. That night he had chest pain and took a nitroglycerin which resolved his symptoms. He then had chest pain again the next night that resolved again with nitroglycerin. He also reports feeling short of breath. He has a chronic cough. He denies any change in his cough or sputum production. He denies palpitations. He reports nausea, vomiting, and diarrhea for the past month. He has not been able to eat or drink well. He is a current pack and a half per day smoker. He drinks alcohol occasionally. He does not use illicit drugs. Subjective/Events-last exam Mr. Robbins is laying in bed this morning. He has a persistent productive cough and reports yellow mucous production. He has been able to eat some meals and ambulates very little. He denies chest pain, palpitations, diarrhea, constipation, nausea or vomiting this morning. He still has shortness of breath and is requiring O2 via NC. Review of Systems General: No Chills, No Night Sweats HEENT: No Head Aches, No Visual Changes Pulmonary: Dyspnea, Cough Cardiovascular: No: Chest Pain, Palpitations Gastrointestinal: No: Nausea, Vomiting, Abdominal Pain, Diarrhea, Constipation Genitourinary: No Incontinence Neurological: No: Numbness Objective Exam Vital Signs Vital Signs Date Time Temp Pulse Resp B/P (MAP) Pulse Ox O2 Delivery O2 Flow Rate FiO2 12/21/21 10:46 95 Nasal Cannula 2.00 12/21/21 08:00 37.2 133 20 95/72 12/19/21 07:19 28 Capillary Refill : Less Than 3 Seconds General Appearance: No Apparent Distress, WD/WN HEENT: PERRL/EOMI Neck: Full Range of Motion, Normal Inspection, Non Tender Respiratory: Chest Non Tender, Normal Breath Sounds Cardiovascular: No Edema, No Gallop, No Murmur, Irregularly Irregular Gastrointestinal: Normal Bowel Sounds, Non Tender, Soft Back: Normal Inspection Extremity: No Pedal Edema Neurologic/Psychiatric: Alert, Oriented x3 Skin: Normal Color, Warm/Dry Results/Procedures Lab Laboratory Tests 12/21/21 04:04 Patient resulted labs reviewed. Imaging: Reviewed Imaging Report Assessment/Plan Assessment and Plan Assess & Plan/Chief Complaint Afib with RVR - oral cardizem 240mg - metoprolol tartrate - digoxin - xarelto COPD - Albuterol - restart home atrovent and airduo - robuttusin prn PNA, COVID + - decadron IV CAD - last stent placed in 2017 - atorvastatin 40 - plavix JENNIE CASTANON DO 12/22/21 0514: Subjective HPI/CC On Admission Date Seen by Provider: Dec 21, 2021 Time Seen by Provider: 10:00 Subjective/Events-last exam Pt doing a little better Afib with RVR is still a challenge Appreciate cardiology Exacerbation of COPD managed with meds Pt is Covid positive Very debilitated hasn't been up and around and has become very weak Will initiate PT and OT to at least get in a chair Review of Systems Pulmonary: Dyspnea, Cough Cardiovascular: Palpitations Objective Exam General Appearance: No Apparent Distress, WD/WN, Anxious, Chronically ill, Thin Respiratory: Normal Breath Sounds, Decreased Breath Sounds Cardiovascular: Irregularly Irregular, Tachycardia Neurologic/Psychiatric: Alert, Oriented x3, No Motor/Sensory Deficits, Normal Mood/Affect Assessment/Plan Assessment and Plan Assess & Plan/Chief Complaint Assessment: COVID-19 pneumonia A. fib with RVR Hypoxia Severe weakness Plan: Appreciate cardiology PT and OT Supervisory-Addendum Brief Verification & Attestation Participated in pt care: history, MDM, physical Personally performed: exam, history, MDM, supervision of care Care discussed with: Medical Student Procedures: n/a Results interpretation: Verified all documentation Verification and Attestation of Medical Student E/M Service A medical student performed and documented this service in my presence. I reviewed and verified all information documented by the medical student and made modifications to such information, when appropriate. I personally performed the physical exam and medical decision making. Jennie Castanon, Dec 22, 2021,05:14 JEFFRY HERNANDEZ Dec 21, 2021 11:37 JENNIE CASTANON DO Dec 22, 2021 05:14
--- NOTE | 2021-12-21 11:51 | Occupational Therapy Eval ---
OT Evaluation-General/PLF Medical Diagnosis Admission Date Dec 14, 2021 at 16:25 Medical Diagnosis: Covid 19 + Onset Date: Dec 14, 2021 Therapy Diagnosis Therapy Diagnosis: Impaired balance, endurance, adl status Precautions Precautions/Isolations: Airborne Isolation, Contact Isolation, Aspiration, Droplet Isolation, Seizure, Fall Prevention, Standard Precautions, Pressure Ulcer Referral Referral Reason: Evaluation/Treatment Medical History Pertinent Medical History: CAD, COPD, HTN Current History Presents to ER with SOB. Found to be positive for Covid 19. Pt reports he lives alone in an apartment (ground floor with a ramp entrance). He was indep with adls and does not use any AD for ambulation. He reports that he has a "lady" that does all of his IADLs 3-4x/week, including laundry, grocery shopping, cooking, and cleaning. Reviewed History: Yes Social History Home: Apartment Current Living Status: Alone Entry Into Home: Ramp ADL-Prior Level of Function SCALE: Activities may be completed with or without assistive devices. 4-Aijtbpxwau-amkalzg completes the activity by him/herself with no assistance from a helper. 5-Set-up or Clean-up Assistance-helper sets up or cleans up; patient completes activity. [place] assists only prior to or following the activity. 4-Supervision or Touching Assistance-helper provides verbal cues and/or touching/steadying and/or contact guard assistance as patient completes activity. Assistance may be provided throughout the activity or intermittently. 3-Partial/Moderate Assistance-helper does LESS THAN HALF the effort. [place] lifts, holds or supports trunk or limbs, but provides less than half the effort. 2-Substantial/Maximal Assistance-helper does MORE THAN HALF the effort. [place] lifts or holds trunk or limbs and provides more than half the effort. 6-Mgtbsrbku-aupdks does ALL the effort. Patient does none of the effort to complete the activity. Or, the assistance of 2 or more helpers is required for the patient to complete the activity. If activity was not attempted, code reason: 7-Patient Refused. 9-Not Applicable-not attempted and the patient did not perform the activity before the current illness, exacerbation or injury. 10-Not Attempted due to Environmental Limitations-(lack of equipment, weather restraints, etc.). 88-Not Attempted due to Medical Conditions or Safety Concerns. Self Care: Independent Functional Cognition: Unknown DME/Equipment: Bath Chair, Grab Bars, Shower, Tub/Shower Drive Self: No OT Current Status Subjective Pt denies pain, requests to sit in chair. Appearance Returned to supine in bed, all needs within reach. Mental Status/Objective Patient Orientation: Person, Confused, Situation Attachments: Morin Catheter, IV, Oxygen, Telemetry Current Glasses/Contacts: Yes Hand Dominance: Right Upper Extremity ROM R shoulder flex: ~90 degrees AROM, reports pain L shoulder flex: ~90 degrees AROM, 140 degrees AAROM Elbow-distally WNL Upper Extremity Strength 3/5 grossly ADL-Treatment Oral Hygiene (QC): 4 Lower Body Dressing (QC): 1 (per clinical judgment) On/Off Footwear (QC): 1 Toileting Hygiene (QC): 1 (morin catheter) Pt resting in bed at OT arrival, requests to sit in chair. Min a, cues and extra time to sit EOB. Post transfer, HR 161 bpm. Does not recover with rest. Due to tachycardia, Pt unsafe to stand/transfer at this time. Assist to return to supine. HR in 130's at OT departure. Education OT Patient Education: Correct positioning, Disease process, Modified ADL techniques, Purpose of tx/functional activities, Safety issues, Transfer techniques Teaching Recipient: Patient Teaching Methods: Discussion Response to Teaching: Verbalize Understanding, Reinforcement Needed OT Assisted Goals Pump Attendant Goals Time Frame: Jan 08, 2022 Toileting Hygiene (QC): 4 Upper Body Dressing (QC): 4 Lower Body Dressing (QC): 4 On/Off Footwear (QC): 4 1=Demonstrate adherence to instructed precautions during ADL tasks. 2=Patient will verbalize/demonstrate understanding of assistive devices/modifications for ADL. 3=Patient will improve strength/tolerance for activity to enable patient to perform ADL's. OT Education/Plan Problem List/Assessment Assessment: Decreased Activ Tolerance, Decreased Safety Aware, Decreased UE Strength, Impaired Bed Mobility, Impaired Cognition, Impaired Funct Balance, Impaired Self-Care Skills, Restricted Funct UE ROM Discharge Recommendations Plan/Recommendations: Continue POC Therapy Discharge Recommendati: Post Acute OT Comment ongoing assessment. Pt is very weak and will likely need post acute OT Treatment Plan/Plan of Care Treatment,Training & Education: Yes Patient would benefit from OT for education, treatment and training to promote independence in ADL's, mobility, safety and/or upper extremity function for ADL's. Plan of Care: ADL Retraining, Functional Mobility, Group Exercise/Act as Ind, UE Funct Exercise/Act Treatment Duration: Jan 08, 2022 Frequency: 3 times per week (3-5x/week) Estimated Hrs Per Day: .25 hour per day Agreement: Yes Time/GCodes Start Time: 11:12 Stop Time: 11:32 Total Time Billed (hr/min): 20 Billed Treatment Time 1 visit Lyn Collier OT Dec 21, 2021 11:51
--- NOTE | 2021-12-21 14:09 | Physical Therapy Evaluation ---
PT Evaluation-General Medical Diagnosis Admission Date Dec 14, 2021 at 16:25 Medical Diagnosis: Covid 19 +, afib with RVR Onset Date: Dec 14, 2021 Therapy Diagnosis Therapy Diagnosis: impaired mobility, endurnace Precautions Precautions/Isolations: Airborne Isolation, Contact Isolation, Aspiration, Droplet Isolation, Seizure, Fall Prevention, Standard Precautions, Pressure Ulcer Referral Physician: Jennie Sevilla DO Reason for Referral: Evaluation/Treatment Medical History Pertinent Medical History: CAD, COPD, HTN Additional Medical History Past Medical History Surgeries: Coronary Stent COPD Coronary Artery Disease, Heart Attack, High Cholesterol, Hypertension Stroke Arthritis Reviewed History: Yes Social History Home: Apartment Current Living Status: Alone PT Steps Into Home: 1 Prior Prior Level of Function SCALE: Activities may be completed with or without assistive devices. 8-Pfgellmmof-oiscxki completes the activity by him/herself with no assistance from a helper. 5-Set-up or Clean-up Assistance-helper sets up or cleans up; patient completes activity. [place] assists only prior to or following the activity. 4-Supervision or Touching Assistance-helper provides verbal cues and/or touching/steadying and/or contact guard assistance as patient completes activity. Assistance may be provided throughout the activity or intermittently. 3-Partial/Moderate Assistance-helper does LESS THAN HALF the effort. [place] lifts, holds or supports trunk or limbs, but provides less than half the effort. 2-Substantial/Maximal Assistance-helper does MORE THAN HALF the effort. [place] lifts or holds trunk or limbs and provides more than half the effort. 6-Horeqiche-gqbrni does ALL the effort. Patient does none of the effort to complete the activity. Or, the assistance of 2 or more helpers is required for the patient to complete the activity. If activity was not attempted, code reason: 7-Patient Refused. 9-Not Applicable-not attempted and the patient did not perform the activity before the current illness, exacerbation or injury. 10-Not Attempted due to Environmental Limitations-(lack of equipment, weather restraints, etc.). 88-Not Attempted due to Medical Conditions or Safety Concerns. Bed Mobility: 6 Transfers (B,C,W/C): 6 Gait: 6 Stairs: 6 Indoor Mobility (Ambulation): Independent Stairs: Independent Patient does have a walker that he says he was using before he came to the hospital PT Evaluation-Current Subjective Patient in bed pre tx, agrees to PT, has 10/10 headache. Patient's HR varies from 100-145 bpm at rest during tx. Pt/Family Goals none stated Objective Patient Orientation: Person, Place, Situation Attachments: Oxygen, IV ROM/Strength ROM Lower Extremities WNL Strength Lower Extremities LLE (hip flexion 3+/5, knee flexion 4/5, knee extension 4/5, dorsiflexion 4/5), RLE (hip flexion 3+/5, knee flexion 4/5, knee extension 4/5, dorsiflexion 4/5) Sensory Vision: Wears Glasses Hearing: Functional Hand Dominance: Right Assessment/Needs Patient refuses to try to get out of the bed or even sit on the side of the bed. He says his heart races too much, patient educated on the benefits of even some light activity but he still refuses. He refuses to perform LE exercises saying he already knows what to do and has been doing them. He is shown how to perform ankle pumps, SLR and HS anyway and advised to do 20 of them 3 times in the m orning, afternoon, and evening. Patient agrees but says he can do the heel slides on the right side due to his knee and that his HR is too high. He says he might do something tomorrow if he feels better. Patient in bed post tx with nurse call, phone, tray, all needs met. Rehab Potential: Poor PT Care Home Goals Care Home Goals PT Compress Engineer Goals Time Frame: Dec 28, 2021 Roll Left & Right (QC): 6 Sit to Lying (QC): 6 Lying-Sitting on Side/Bed(QC): 6 Sit to Stand (QC): 4 Chair/Qra-dh-Ocmqd Xfer(QC): 4 Walk 10 feet (QC): 4 PT Plan Problem List Problem List: Activity Tolerance, Functional Strength, Safety, Balance, Gait, Transfer, Bed Mobility, ROM Treatment/Plan Treatment Plan: Continue Plan of Care Treatment Plan: Bed Mobility, Education, Functional Activity [place], Functional Strength, Gait, Safety, Therapeutic Exercise, Transfers Treatment Duration: Dec 28, 2021 Frequency: 6 times per week Estimated Hrs Per Day: .25 hour per day Patient and/or Family Agrees t: Yes Safety Risks/Education Patient Education: Correct Positioning, Safety Issues Teaching Recipient: Patient Teaching Methods: Demonstration, Discussion Response to Teaching: Reinforcement Needed Discharge Recommendations Plan Patient will perform bed mobility and transfer training, balance and endurance training, functional strengthening, stair training, gait training, and education, to improve functional mobility and independence at home. Therapy Discharge Recommendati: Scheduled Assistance, Home & Family, Post Acute PT Time/GCodes Time In: 1350 Time Out: 1400 Total Billed Treatment Time: 10 Total Billed Treatment 1 visit ANDREZ NARVAEZ PT Dec 21, 2021 14:08
[2021-12-21] MEDS: RIVAROXABAN 20 MG TABLET (XARELTO) PO SCH (17:29)
[2021-12-21] MEDS: ACETAMINOPHEN 325 MG TABLET PO PRN (18:27)
[2021-12-21] MEDS: RT--FLUTICASONE/SALMETEROL 232-14 (AIRDUO RespiCLICK) IH SCH (22:27)
[2021-12-22] MEDS: RT-ALBUTEROL HFA 8.5 GM INHALER IH SCH ×6 (02:13→22:03)
[2021-12-22 05:26] LABS: BASOPHILS % (AUTO) 0 % (0-10); EOSINOPHILS % (AUTO) 0 % (0-10); HEMATOCRIT 31 % (40-54); HEMOGLOBIN 9.4 g/dL (13.3-17.7); LYMPHOCYTES # (AUTO) 0.7 10^3/uL (1.0-4.0); LYMPHOCYTES % (AUTO) 8 % (12-44); MEAN CORPUSCULAR HEMOGLOBIN 25 pg (25-34); MEAN CORPUSCULAR HGB CONC 30 g/dL (32-36); MEAN CORPUSCULAR VOLUME 83 fL (80-99); MEAN PLATELET VOLUME 10.3 fL (9.0-12.2); MONOCYTES # (AUTO) 0.7 10^3/uL (0.0-1.0); MONOCYTES % (AUTO) 8 % (0-12); NEUTROPHILS % (AUTO) 80 % (42-75); PLATELET COUNT 293 10^3/uL (130-400); WHITE BLOOD COUNT 8.8 10^3/uL (4.3-11.0)
[2021-12-22 05:48] LABS: POTASSIUM 4.3 MMOL/L (3.6-5.0)
[2021-12-22 05:49] LABS: CALCIUM 8.5 MG/DL (8.5-10.1)
[2021-12-22 05:50] LABS: TOTAL PROTEIN 5.9 GM/DL (6.4-8.2)
[2021-12-22 05:52] LABS: BILIRUBIN,TOTAL 0.4 MG/DL (0.1-1.0)
[2021-12-22 05:53] LABS: PHOSPHORUS 2.8 MG/DL (2.3-4.7)
[2021-12-22 05:54] LABS: CREATININE SERUM 0.75 MG/DL (0.60-1.30)
[2021-12-22 05:56] LABS: MAGNESIUM 2.1 MG/DL (1.6-2.4)
[2021-12-22] MEDS: RT--FLUTICASONE/SALMETEROL 232-14 (AIRDUO RespiCLICK) IH SCH ×2 (07:02→22:03)
--- NOTE | 2021-12-22 08:30 | Cardiology Progress Note ---
Subjective Date Seen by Provider: Dec 22, 2021 Time Seen by Provider: 08:28 Subjective/Events-last exam Patient is in bed, I did not examine the patient, I visited with the nurse and reviewed the record of the labs. Still having some cough and mild shortness of breath. Objective-Cardiology Exam Last Set of Vital Signs Vital Signs 12/19/21 12/22/21 12/22/21 07:19 07:06 07:40 Temp 36.3 Pulse 118 Resp 20 B/P (MAP) 89/74 Pulse Ox 97 O2 Delivery Nasal Cannula O2 Flow Rate 1.00 FiO2 28 I&O Intake and Output 12/21/21 23:59 Intake Total 1400 ml Output Total 2475 ml Balance -1075 ml Intake Oral 1400 ml Output Urine Total 2475 ml # Bowel Movements 1 General: Alert, Cooperative HEENT: Atraumatic Neck: Supple Heart: Other (Atrial fibrillation) Extremities: No Clubbing Skin: No Significant Lesion Neuro: Normal Speech Psych/Mental Status: Other (Anxious today) Results Lab Laboratory Tests 12/22/21 05:15 A/P-Cardiology Admission Diagnosis COVID-19 pneumonia Atrial fibrillation Hypotension Sepsis Assessment/Plan COVID-19 pneumonia with questionable superimposed bacterial infection, was on BiPAP, currently on nasal cannula, doing better Atrial fibrillation, still tachycardic, currently hypotensive, unable to tolerate beta-blockers. I proceeded with giving him a bolus of normal saline and change Cardizem from CD 342 short acting Cardizem 30 mg every 6 hours with parameters to hold for systolic blood pressure less than 100. Monitor tolerance and response COPD, active smoker, acute exacerbation due to pneumonia Sepsis, status post hypotension, blood pressure is better at this time. Continue to monitor Acute renal insufficiency, continue to monitor renal function Coronary artery disease, following with a dairy husbandry teacher in [place], reporting 2 myocardial infarction in the past last heart attack was in 2017. 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 Hypertension, having few episodes of hypotension while on Cardizem drip. Started on IV fluid aggressively and monitor blood pressure Questionable congestive heart failure, mild elevation in and BNP, no signs of heart failure at this time. Continue IV fluid and monitor Hyperlipidemia, monitor lipids BART MEJIA MD Dec 22, 2021 08:30
[2021-12-22] MEDS ORDERED: NS IV 1000 ML 1,000 ML IV ONE (09:00)
[2021-12-22] MEDS: PANTOPRAZOLE 40 MG (PROTONIX) TAB PO SCH ×3 (09:00→20:40)
[2021-12-22] MEDS: NICOTINE 14 MG (NICODERM) PATCH TD SCH (09:00)
[2021-12-22] MEDS: CLOPIDOGREL 75 MG (PLAVIX) TABLET PO SCH (09:03)
[2021-12-22] MEDS: OXYBUTYNIN (DITROPAN) 5 MG TAB PO SCH ×2 (09:03→20:39)
[2021-12-22] MEDS: meTOprolol TARTRATE 25 MG (LOPRESSOR) TABLET PO SCH ×2 (09:03→20:40)
[2021-12-22] MEDS: DIGOXIN 0.125 MG (LANOXIN) TAB PO SCH (09:13)
[2021-12-22] MEDS: MICONAZOLE 2% POWDER (DESENEX AF) 90 GM TOP SCH ×2 (09:13→20:40)
[2021-12-22] MEDS: POTASSIUM CL 10MEQ/50ML IVPB 50 ML IV SCH (09:14)
[2021-12-22] MEDS: MAGNESIUM 1 GM/100 ML IVPB 100 ML IV SCH (09:15)
[2021-12-22] MEDS: KCL 20 MEQ TAB (K-DUR) PO SCH (09:15)
--- NOTE | 2021-12-22 09:15 | Occupational Ther Daily Note ---
OT Current Status-Daily Note Subjective Pt denies pain, difficult to understand at times secondary to mumbled speech. Appearance Left supine in bed, all needs within reach, RN in room at OT departure. Mental Status/Objective Attachments: Morin Catheter, IV, Oxygen, Telemetry ADL-Treatment Therapy Code Descriptions/Definitions Functional [place] Measure: 0=Not Assessed/NA 4=Minimal Assistance 1=Total Assistance 5=Supervision or Setup 2=Maximal Assistance 6=Modified [place] 3=Moderate Assistance 7=Complete IndependenceSCALE: Activities may be completed with or without assistive devices. 2-Xppeddtvtm-pbdplae completes the activity by him/herself with no assistance from a helper. 5-Set-up or Clean-up Assistance-helper sets up or cleans up; patient completes activity. [place] assists only prior to or following the activity. 4-Supervision or Touching Assistance-helper provides verbal cues and/or touching/steadying and/or contact guard assistance as patient completes activity. Assistance may be provided throughout the activity or intermittently. 3-Partial/Moderate Assistance-helper does LESS THAN HALF the effort. [place] lifts, holds or supports trunk or limbs, but provides less than half the effort. 2-Substantial/Maximal Assistance-helper does MORE THAN HALF the effort. [place] lifts or holds trunk or limbs and provides more than half the effort. 5-Euxfuganv-ewhpeg does ALL the effort. Patient does none of the effort to compl ete the activity. Or, the assistance of 2 or more helpers is required for the patient to complete the activity. If activity was not attempted, code reason: 7-Patient Refused. 9-Not Applicable-not attempted and the patient did not perform the activity before the current illness, exacerbation or injury. 10-Not Attempted due to Environmental Limitations-(lack of equipment, weather restraints, etc.). 88-Not Attempted due to Medical Conditions or Safety Concerns. Eating (QC): 4 Oral Hygiene (QC): 4 Toileting Hygiene (QC): 1 (omrin catheter) Pt's resting HR between 150-161 bpm. Not appropriate to transfer EOB at this time. Agreeable to grooming at bed level. Pt completed face washing and oral care (gums) with set up assist. HR 155 bpm at OT departure, RN entering room. Education OT Patient Education: Disease process, Energy conservation, Purpose of tx/functional activities, Safety issues Teaching Recipient: Patient Teaching Methods: Discussion Response to Teaching: Verbalize Understanding OT Cut Off Sawyer Goals Cut Off Sawyer Goals Time Frame: Jan 08, 2022 Toileting Hygiene (QC): 4 Upper Body Dressing (QC): 4 Lower Body Dressing (QC): 4 On/Off Footwear (QC): 4 1=Demonstrate adherence to instructed precautions during ADL tasks. 2=Patient will verbalize/demonstrate understanding of assistive devices/modifications for ADL. 3=Patient will improve strength/tolerance for activity to enable patient to perform ADL's. OT Education/Plan Problem List/Assessment Assessment: Decreased Activ Tolerance, Decreased UE Strength, Impaired Bed Mobility, Impaired Cognition, Impaired Funct Balance, Impaired Self-Care Skills, Restricted Funct UE ROM Discharge Recommendations Plan/Recommendations: Continue POC Treatment Plan/Plan of Care Treatment,Training & Education: Yes Patient would benefit from OT for education, treatment and training to promote independence in ADL's, mobility, safety and/or upper extremity function for ADL's. Plan of Care: ADL Retraining, Functional Mobility, Group Exercise/Act as Ind, UE Funct Exercise/Act Treatment Duration: Jan 08, 2022 Frequency: 3 times per week (3-5x/week) Estimated Hrs Per Day: .25 hour per day Agreement: Yes Rehab Potential: Poor Time/GCodes Start Time: 08:56 Stop Time: 09:05 Total Time Billed (hr/min): 9 Billed Treatment Time 1 visit Lyn Nava OT Dec 22, 2021 09:15
--- NOTE | 2021-12-22 09:18 | Physical Therapy Progress Note ---
Therapy Progress Note Patient refuses physical therapy today. His resting HR was 165 bpm. Patient refuses to perform any exercises in bed. Patient states he already knows what to do and in fact knows just as much as a physical therapist and isn't going to do anything with PT at this time. Will check back tomorrow and if he continues to refuse we will discharge him from PT services. ANDREZ HULL PT Dec 22, 2021 09:18
--- NOTE | 2021-12-22 11:29 | Progress Note - Hospitalist ---
KELLI HERNANDEZVANI U 12/22/21 1129: Subjective HPI/CC On Admission Date Seen by Provider: Dec 22, 2021 Time Seen by Provider: 09:30 David Robbins is a 76 year old male with PMH HTN, HLD, CAD, COPD, tobacco abuse, who presented with shortness of breath. He reports that a few days ago he was working and was feeling fatigued. That night he had chest pain and took a nitroglycerin which resolved his symptoms. He then had chest pain again the next night that resolved again with nitroglycerin. He also reports feeling short of breath. He has a chronic cough. He denies any change in his cough or sputum production. He denies palpitations. He reports nausea, vomiting, and diarrhea for the past month. He has not been able to eat or drink well. He is a current pack and a half per day smoker. He drinks alcohol occasionally. He does not use illicit drugs. Subjective/Events-last exam Pt is laying in bed still with a productive cough. He has coughed up some yellow sputum. He is still in afib with a heart rate in the 120s. He has no complaints this morning. Review of Systems General: No Chills, No Night Sweats HEENT: No Head Aches, No Visual Changes Pulmonary: Dyspnea, Cough Cardiovascular: Palpitations; No: Chest Pain Gastrointestinal: No: Nausea, Vomiting, Diarrhea, Constipation Neurological: No: Numbness Objective Exam Vital Signs Vital Signs Date Time Temp Pulse Resp B/P (MAP) Pulse Ox O2 Delivery O2 Flow Rate FiO2 12/22/21 11:18 120 20 106/65 95 Nasal Cannula 1.00 12/22/21 07:40 36.3 12/19/21 07:19 28 Capillary Refill : Less Than 3 Seconds General Appearance: No Apparent Distress, Thin HEENT: Normal ENT Inspection Neck: Full Range of Motion, Normal Inspection Respiratory: Normal Breath Sounds, No Accessory Muscle Use Cardiovascular: No Gallop, No Murmur, Irregularly Irregular Gastrointestinal: Normal Bowel Sounds, Non Tender, Soft Back: Normal Inspection Extremity: Normal Inspection, Normal Range of Motion Neurologic/Psychiatric: Alert, Oriented x3 Skin: Normal Color, Warm/Dry Results/Procedures Lab Laboratory Tests 12/22/21 05:15 Patient resulted labs reviewed. Imaging: Reviewed Imaging Report Assessment/Plan Assessment and Plan Assess & Plan/Chief Complaint Afib with RVR - oral cardizem 30mg q6h - metoprolol tartrate - digoxin - xarelto - cardiology following COPD - Albuterol - home atrovent and airduo - robuttusin prn PNA, COVID + - decadron IV CAD - last stent placed in 2016 - atorvastatin 40 - plavix JENNIE CASTANON DO 12/23/21 0536: Subjective Subjective/Events-last exam Pt is still tachycardic with afib with RVR in the 160 range Hypotension requiring a gentle IV fluid bolus per cardiology Cardizem 30 mg Q6 is given Pt on Metoprolol Has in home care 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 about discharge planning once that is completed Review of Systems General: Fatigue, Malaise Objective Exam General Appearance: No Apparent Distress, WD/WN, Chronically ill Respiratory: Lungs Clear, Normal Breath Sounds Cardiovascular: Regular Rate, Rhythm Assessment/Plan Assessment and Plan Assess & Plan/Chief Complaint Supportive care Routine Covid precautions Supervisory-Addendum Brief Verification & Attestation Participated in pt care: history, MDM, physical Personally performed: exam, history, MDM, supervision of care Care discussed with: Medical Student Procedures: n/a Results interpretation: Verified all documentation Verification and Attestation of Medical Student E/M Service A medical student performed and documented this service in my presence. I reviewed and verified all information documented by the medical student and made modifications to such information, when appropriate. I personally performed the physical exam and medical decision making. Jennie Castanon, Dec 23, 2021,05:35 JEFFRY HERNANDEZ Dec 22, 2021 11:29 JENNIE CASTANON DO Dec 23, 2021 05:36
[2021-12-22] MEDS: RIVAROXABAN 20 MG TABLET (XARELTO) PO SCH (17:04)
[2021-12-22] MEDS: BENZONATATE 100 MG (TESSALON) CAPSULE PO PRN (20:39)
[2021-12-22] MEDS: LOPERAMIDE 2 MG (IMODIUM) TABLET PO PRN (20:39)
[2021-12-22] MEDS: guaiFENesin/DM (ROBITUSSIN DM) 10 ML UDC PO PRN (20:39)
[2021-12-23] MEDS: RT-ALBUTEROL HFA 8.5 GM INHALER IH PRN (00:24)
[2021-12-23] MEDS: RT-ALBUTEROL HFA 8.5 GM INHALER IH SCH ×6 (02:58→22:10)
[2021-12-23 05:42] LABS: BASOPHILS % (AUTO) 0 % (0-10); EOSINOPHILS % (AUTO) 0 % (0-10); HEMATOCRIT 32 % (40-54); HEMOGLOBIN 9.7 g/dL (13.3-17.7); LYMPHOCYTES # (AUTO) 0.9 10^3/uL (1.0-4.0); LYMPHOCYTES % (AUTO) 11 % (12-44); MEAN CORPUSCULAR HEMOGLOBIN 25 pg (25-34); MEAN CORPUSCULAR HGB CONC 30 g/dL (32-36); MEAN CORPUSCULAR VOLUME 84 fL (80-99); MEAN PLATELET VOLUME 10.6 fL (9.0-12.2); MONOCYTES # (AUTO) 0.6 10^3/uL (0.0-1.0); MONOCYTES % (AUTO) 7 % (0-12); NEUTROPHILS # (AUTO) 6.8 10^3/uL (1.8-7.8); NEUTROPHILS % (AUTO) 77 % (42-75); PLATELET COUNT 287 10^3/uL (130-400); WHITE BLOOD COUNT 8.9 10^3/uL (4.3-11.0)
[2021-12-23 06:01] LABS: POTASSIUM 4.1 MMOL/L (3.6-5.0)
[2021-12-23 06:02] LABS: CALCIUM 8.5 MG/DL (8.5-10.1)
[2021-12-23 06:07] LABS: CREATININE SERUM 0.72 MG/DL (0.60-1.30); PHOSPHORUS 2.4 MG/DL (2.3-4.7)
[2021-12-23 06:09] LABS: MAGNESIUM 2.1 MG/DL (1.6-2.4)
[2021-12-23] MEDS: POTASSIUM CL 10MEQ/50ML IVPB 50 ML IV SCH (06:44)
[2021-12-23] MEDS: KCL 20 MEQ TAB (K-DUR) PO SCH (06:44)
[2021-12-23] MEDS: MAGNESIUM 1 GM/100 ML IVPB 100 ML IV SCH (06:44)
[2021-12-23] MEDS: PANTOPRAZOLE 40 MG (PROTONIX) TAB PO SCH ×3 (08:11→21:10)
--- NOTE | 2021-12-23 08:26 | Occ Therapy Progress Note ---
Therapy Progress Note Attempt at OT treatment. Pt not safe to transfer OOB this date due to resting heart rate of 168 bpm. Pt refuses all bed level adls and UE exercises. OT to attempt again 12-24-21 if medically appropriate. Lyn Munoz OT Dec 23, 2021 08:26
[2021-12-23] MEDS: meTOprolol TARTRATE 25 MG (LOPRESSOR) TABLET PO SCH ×2 (08:42→21:13)
[2021-12-23] MEDS: NICOTINE 14 MG (NICODERM) PATCH TD SCH (08:43)
[2021-12-23] MEDS: DIGOXIN 0.125 MG (LANOXIN) TAB PO SCH (08:43)
[2021-12-23] MEDS: CLOPIDOGREL 75 MG (PLAVIX) TABLET PO SCH (08:43)
[2021-12-23] MEDS: OXYBUTYNIN (DITROPAN) 5 MG TAB PO SCH ×2 (08:43→21:10)
[2021-12-23] MEDS: MICONAZOLE 2% POWDER (DESENEX AF) 90 GM TOP SCH ×2 (08:44→21:11)
[2021-12-23] MEDS ORDERED: NS IV 1000 ML 1,000 ML IV SCH (09:45)
--- NOTE | 2021-12-23 09:57 | Cardiology Progress Note ---
Subjective Date Seen by Provider: Dec 23, 2021 Time Seen by Provider: 09:56 Subjective/Events-last exam Patient is laying down in bed, still having shortness of breath and cough. I did not examine the patient, I visited with the nurse and reviewed the record. No new complaint were reported to me. Objective-Cardiology Exam Last Set of Vital Signs Vital Signs 12/19/21 12/23/21 12/23/21 07:19 08:15 09:00 Temp 36.3 Pulse 140 Resp 20 B/P (MAP) 98/57 Pulse Ox 98 O2 Delivery Nasal Cannula O2 Flow Rate 3.00 FiO2 28 I&O Intake and Output 12/23/21 00:00 Intake Total 2000 ml Output Total 2300 ml Balance -300 ml Intake Oral 1000 ml IV Total 1000 ml Output Urine Total 2300 ml General: Alert, Cooperative HEENT: Atraumatic Neck: Supple Heart: Other (Atrial fibrillation) Extremities: No Clubbing Skin: No Significant Lesion Neuro: Normal Speech Psych/Mental Status: Other (Anxious today) Results Lab Laboratory Tests 12/23/21 05:10 A/P-Cardiology Admission Diagnosis COVID-19 pneumonia Atrial fibrillation Hypotension Sepsis Assessment/Plan COVID-19 pneumonia with questionable superimposed bacterial infection, was on BiPAP, currently on nasal cannula, doing better Atrial fibrillation, still tachycardic, currently hypotensive, difficult to achieve adequate heart rate control. I increased Cardizem to 60 mg every 6 hours with parameters Has been maintained on digoxin 0.125 mg daily, I will evaluate dig level I added amiodarone loading dose orally Started IV fluid to support his blood pressure COPD, active smoker, acute exacerbation due to pneumonia Sepsis, status post hypotension, blood pressure is better at this time. Continue to monitor Acute renal insufficiency, continue to monitor renal function Coronary artery disease, following with a roller inspector and mender in [place], reporting 2 myocardial infarction in the past last heart attack was in 2017. 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 Hypertension, having few episodes of hypotension while on Cardizem drip. Started on IV fluid aggressively and monitor blood pressure Questionable congestive heart failure, mild elevation in and BNP, no signs of heart failure at this time. Continue IV fluid and monitor Hyperlipidemia, monitor lipids BART MEJIA MD Dec 23, 2021 09:57
[2021-12-23] MEDS: RT--FLUTICASONE/SALMETEROL 232-14 (AIRDUO RespiCLICK) IH SCH ×2 (10:10→19:02)
[2021-12-23] MEDS: AMIODARONE 200 MG (CORDARONE) TAB PO SCH ×2 (10:26→21:10)
--- NOTE | 2021-12-23 10:38 | Physical Therapy Progress Note ---
Therapy Progress Note Pt's HR is running high so RN FIELD asked pt to complete EX and pt refused. No tx rendered RICO ROSE PTA Dec 23, 2021 10:38
--- NOTE | 2021-12-23 12:35 | Progress Note - Hospitalist ---
JEFFRY HERNANDEZ U 12/23/21 1235: Subjective HPI/CC On Admission Date Seen by Provider: Dec 23, 2021 Time Seen by Provider: 10:30 David Robbins is a 76 year old male with PMH HTN, HLD, CAD, COPD, tobacco abuse, who presented with shortness of breath. He reports that a few days ago he was working and was feeling fatigued. That night he had chest pain and took a nitroglycerin which resolved his symptoms. He then had chest pain again the next night that resolved again with nitroglycerin. He also reports feeling short of breath. He has a chronic cough. He denies any change in his cough or sputum production. He denies palpitations. He reports nausea, vomiting, and diarrhea for the past month. He has not been able to eat or drink well. He is a current pack and a half per day smoker. He drinks alcohol occasionally. He does not use illicit drugs. Subjective/Events-last exam Patient is laying in bed, he has no complaint this morning. He is still unable to move around but is working with PT/OT. Review of Systems General: No Chills, No Night Sweats HEENT: No Head Aches, No Visual Changes Pulmonary: No Dyspnea; Cough Cardiovascular: No: Chest Pain, Palpitations Gastrointestinal: No: Nausea, Vomiting, Diarrhea, Constipation Genitourinary: No Dysuria, No Frequency Neurological: Weakness; No: Numbness Objective Exam Vital Signs Vital Signs Date Time Temp Pulse Resp B/P (MAP) Pulse Ox O2 Delivery O2 Flow Rate FiO2 12/23/21 12:08 139 12/23/21 10:19 96 2.00 12/23/21 09:00 Nasal Cannula 12/23/21 08:15 36.3 20 98/57 12/19/21 07:19 28 Capillary Refill : Less Than 3 Seconds General Appearance: Chronically ill, Thin HEENT: Normal ENT Inspection Neck: Full Range of Motion, Normal Inspection Respiratory: Lungs Clear, Normal Breath Sounds, No Accessory Muscle Use Cardiovascular: Irregularly Irregular Gastrointestinal: Normal Bowel Sounds, Non Tender, Soft Back: Normal Inspection Extremity: Normal Inspection, Inflammation Neurologic/Psychiatric: Alert Skin: Normal Color, Warm/Dry Results/Procedures Lab Laboratory Tests 12/23/21 05:10 Patient resulted labs reviewed. Imaging: Reviewed Imaging Report Assessment/Plan Assessment and Plan Assess & Plan/Chief Complaint Afib with RVR - oral cardizem 60mg q6h - started on oral amiodorone 400 - hold metoprolol tartrate for low bp - digoxin - xarelto - cardiology following COPD - Albuterol and airduo - hold home atrovent for now - robuttusin prn PNA, COVID + - decadron CAD - last stent placed in 2017 - atorvastatin 40 - plavix Debility - working with PT/OT JENNIE CASTANON DO 12/24/21 0526: Subjective Subjective/Events-last exam Pt about the same Cardizem was increased to 60 Q6 IV fluid initiated due to hypotension Less dyspneic PT and OT working with them HgA1C was 9.7 Overall very debilitated Review of Systems General: Fatigue Pulmonary: Dyspnea Cardiovascular: Palpitations Objective Exam General Appearance: Anxious, Chronically ill, Mild Distress Respiratory: No Accessory Muscle Use, Decreased Breath Sounds Cardiovascular: Irregularly Irregular, Tachycardia Assessment/Plan Assessment and Plan Assess & Plan/Chief Complaint Appreciate cardiology oxygen supplementation Supervisory-Addendum Brief Verification & Attestation Participated in pt care: history, MDM, physical Personally performed: exam, history, MDM, supervision of care Care discussed with: Medical Student Procedures: n/a Results interpretation: Verified all documentation Verification and Attestation of Medical Student E/M Service A medical student performed and documented this service in my presence. I reviewed and verified all information documented by the medical student and made modifications to such information, when appropriate. I personally performed the physical exam and medical decision making. Jennie Castanon, Dec 24, 2021,05:26 JEFFRY HERNANDEZ Dec 23, 2021 12:35 JENNIE CASTANON DO Dec 24, 2021 05:26
[2021-12-23] MEDS: RIVAROXABAN 20 MG TABLET (XARELTO) PO SCH (16:51)
[2021-12-23] MEDS: ACETAMINOPHEN 325 MG TABLET PO PRN (21:09)
[2021-12-23] MEDS: LOPERAMIDE 2 MG (IMODIUM) TABLET PO PRN (21:10)
[2021-12-23] MEDS: guaiFENesin/DM (ROBITUSSIN DM) 10 ML UDC PO PRN (21:11)
[2021-12-23] MEDS: BENZONATATE 100 MG (TESSALON) CAPSULE PO PRN (21:11)
[2021-12-24] MEDS: RT-ALBUTEROL HFA 8.5 GM INHALER IH SCH ×4 (03:05→21:26)
[2021-12-24 05:35] LABS: BASOPHILS % (AUTO) 0 % (0-10); EOSINOPHILS % (AUTO) 0 % (0-10); HEMATOCRIT 35 % (40-54); HEMOGLOBIN 10.4 g/dL (13.3-17.7); LYMPHOCYTES # (AUTO) 0.9 10^3/uL (1.0-4.0); LYMPHOCYTES % (AUTO) 12 % (12-44); MEAN CORPUSCULAR HEMOGLOBIN 25 pg (25-34); MEAN CORPUSCULAR HGB CONC 30 g/dL (32-36); MEAN CORPUSCULAR VOLUME 83 fL (80-99); MEAN PLATELET VOLUME 10.3 fL (9.0-12.2); MONOCYTES # (AUTO) 0.5 10^3/uL (0.0-1.0); MONOCYTES % (AUTO) 6 % (0-12); NEUTROPHILS # (AUTO) 5.7 10^3/uL (1.8-7.8); NEUTROPHILS % (AUTO) 76 % (42-75); PLATELET COUNT 283 10^3/uL (130-400); WHITE BLOOD COUNT 7.5 10^3/uL (4.3-11.0)
[2021-12-24 05:49] LABS: CHLORIDE 102 MMOL/L (98-107); POTASSIUM 3.9 MMOL/L (3.6-5.0); SODIUM 138 MMOL/L (135-145)
[2021-12-24 05:50] LABS: CALCIUM 8.5 MG/DL (8.5-10.1); GLUCOSE 117 MG/DL (70-105)
[2021-12-24 05:52] LABS: CARBON DIOXIDE 24 MMOL/L (21-32)
[2021-12-24 05:54] LABS: CREATININE SERUM 0.75 MG/DL (0.60-1.30); GFR ESTIMATED 94; PHOSPHORUS 3.3 MG/DL (2.3-4.7)
[2021-12-24 05:55] LABS: BUN/CREATININE RATIO 20
[2021-12-24 05:56] LABS: MAGNESIUM 2.2 MG/DL (1.6-2.4)
[2021-12-24] MEDS: KCL 20 MEQ TAB (K-DUR) PO SCH (06:26)
[2021-12-24] MEDS: MAGNESIUM 1 GM/100 ML IVPB 100 ML IV SCH (06:26)
[2021-12-24] MEDS: POTASSIUM CL 10MEQ/50ML IVPB 50 ML IV SCH (06:26)
[2021-12-24] MEDS: DIGOXIN 0.125 MG (LANOXIN) TAB PO SCH (08:46)
[2021-12-24] MEDS: OXYBUTYNIN (DITROPAN) 5 MG TAB PO SCH ×2 (08:46→19:58)
[2021-12-24] MEDS: NICOTINE 14 MG (NICODERM) PATCH TD SCH (08:47)
[2021-12-24] MEDS: AMIODARONE 200 MG (CORDARONE) TAB PO SCH ×2 (08:47→19:58)
[2021-12-24] MEDS: PANTOPRAZOLE 40 MG (PROTONIX) TAB PO SCH ×3 (08:47→19:58)
[2021-12-24] MEDS: CLOPIDOGREL 75 MG (PLAVIX) TABLET PO SCH (08:47)
--- NOTE | 2021-12-24 08:56 | Physical Therapy Progress Note ---
Therapy Progress Note Patient has refused physical therapy for 3 days in a row. Will discharge him from PT services at this time. ANDREZ HULL PT Dec 24, 2021 08:56
--- NOTE | 2021-12-24 09:01 | Cardiology Progress Note ---
Subjective Date Seen by Provider: Dec 24, 2021 Time Seen by Provider: 09:00 Subjective/Events-last exam Patient is in bed. No new complaint Still borderline tachycardic, has been hypotensive receiving IV fluid. Objective-Cardiology Exam Last Set of Vital Signs Vital Signs 12/19/21 12/24/21 07:19 08:00 Temp 36.3 Pulse 151 Resp 15 B/P (MAP) 102/79 Pulse Ox 95 O2 Delivery Nasal Cannula O2 Flow Rate 1.00 FiO2 28 I&O Intake and Output 12/24/21 00:00 Intake Total 1625 ml Output Total 3475 ml Balance -1850 ml Intake Oral 1625 ml Output Urine Total 3475 ml # Voids 2 # Bowel Movements 1 General: Alert, Cooperative HEENT: Atraumatic Neck: Supple Heart: Other (Atrial fibrillation) Extremities: No Clubbing Skin: No Significant Lesion Neuro: Normal Speech Psych/Mental Status: Other (Anxious today) Results Lab Laboratory Tests 12/24/21 05:15 A/P-Cardiology Admission Diagnosis COVID-19 pneumonia Atrial fibrillation Hypotension Sepsis Assessment/Plan COVID-19 pneumonia with questionable superimposed bacterial infection, was on BiPAP, currently on nasal cannula, doing better Atrial fibrillation, still tachycardic, currently hypotensive, difficult to achieve adequate heart rate control. I increased Cardizem to 60 mg every 6 hours with parameters Has been maintained on digoxin 0.125 mg daily, I will evaluate dig level Continue on amiodarone and IV fluid and monitor tolerance and response COPD, active smoker, acute exacerbation due to pneumonia Sepsis, status post hypotension, blood pressure is better at this time. Continue to monitor Acute renal insufficiency, continue to monitor renal function Coronary artery disease, following with a baffle mounter in [place], reporting 2 myocardial infarction in the past last heart attack was in 2017. 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 Still having residual weakness in his lower extr emities. Hypertension, having few episodes of hypotension while on Cardizem drip. Started on IV fluid aggressively and monitor blood pressure Questionable congestive heart failure, mild elevation in and BNP, no signs of heart failure at this time. Continue IV fluid and monitor Hyperlipidemia, monitor lipids BART MEJIA MD Dec 24, 2021 09:01
[2021-12-24] MEDS: meTOprolol TARTRATE 25 MG (LOPRESSOR) TABLET PO SCH ×2 (09:04→19:58)
[2021-12-24] MEDS: MICONAZOLE 2% POWDER (DESENEX AF) 90 GM TOP SCH ×2 (09:05→19:58)
--- NOTE | 2021-12-24 10:52 | Occupational Ther Daily Note ---
OT Current Status-Daily Note Subjective Pt denies pain, states that he wants to go home today. Appearance Left sitting in chair, all needs within reach, RN in room. ADL-Treatment Therapy Code Descriptions/Definitions Functional [place] Measure: 0=Not Assessed/NA 4=Minimal Assistance 1=Total Assistance 5=Supervision or Setup 2=Maximal Assistance 6=Modified [place] 3=Moderate Assistance 7=Complete IndependenceSCALE: Activities may be completed with or without assistive devices. 2-Jrkfnnprym-mnlncnw completes the activity by him/herself with no assistance from a helper. 5-Set-up or Clean-up Assistance-helper sets up or cleans up; patient completes activity. [place] assists only prior to or following the activity. 4-Supervision or Touching Assistance-helper provides verbal cues and/or touching/steadying and/or contact guard assistance as patient completes activity. Assistance may be provided throughout the activity or intermittently. 3-Partial/Moderate Assistance-helper does LESS THAN HALF the effort. [place] lifts, holds or supports trunk or limbs, but provides less than half the effort. 2-Substantial/Maximal Assistance-helper does MORE THAN HALF the effort. [place] lifts or holds trunk or limbs and provides more than half the effort. 3-Kcsxtzjer-vvtfqk does ALL the effort. Patient does none of the effort to complete the activity. Or, the assistance of 2 or more helpers is required for the patient to complete the activity. If activity was not attempted, code reason: 7-Patient Refused. 9-Not Applicable-not attempted and the patient did not perform the activity before the current illness, exacerbation or injury. 10-Not Attempted due to Environmental Limitations-(lack of equipment, weather restraints, etc.). 88-Not Attempted due to Medical Conditions or Safety Concerns. Lower Body Dressing (QC): 2 (per clinical judgment) On/Off Footwear: 1 Toileting Hygiene (QC): 1 Toilet Transfer (QC): 2 Pt resting in bed at OT arrival. Continues to be tachycardic but somewhat better than previous dates. HR ranging between 130's-150's throughout session. Pt's oxygen in low 70's but does not appear to be having any SOB. RN reports that she has been having a difficult time getting accurate reading and will attempt to get a different finger probe. Pt agreeable to sit EOB, min a to elevate trunk. Mild dizziness upon sitting up, but resolves with rest. Dependent to don socks. HR increases to 158 bpm. Pt able to stand with min A, second person nearby for safety. He took 3-4 steps towards recliner with min A and use of walker. Prior to sitting, BLE's knee buckling, requiring assist to remain upright. Education OT Patient Education: Correct positioning, Progress toward Goal/Update tx plan, Purpose of tx/functional activities, Safety issues, Transfer techniques Teaching Recipient: Patient Teaching Methods: Discussion Response to Teaching: Verbalize Understanding, Reinforcement Needed OT Extension Forester Goals Group Home Goals Time Frame: Jan 08, 2022 Toileting Hygiene (QC): 4 Upper Body Dressing (QC): 4 Lower Body Dressing (QC): 4 On/Off Footwear (QC): 4 1=Demonstrate adherence to instructed precautions during ADL tasks. 2=Patient will verbalize/demonstrate understanding of assistive devices/modifications for ADL. 3=Patient will improve strength/tolerance for activity to enable patient to perform ADL's. OT Education/Plan Problem List/Assessment Assessment: Decreased Activ Tolerance, Decreased Safety Aware, Decreased UE Strength, Impaired Bed Mobility, Impaired Cognition, Impaired Coordination, Impaired Funct Balance, Impaired I ADL's, Impaired Self-Care Skills Discharge Recommendations Plan/Recommendations: Continue POC Therapy Discharge Recommendati: Post Acute OT Treatment Plan/Plan of Care Treatment,Training & Education: Yes Patient would benefit from OT for education, treatment and training to promote independence in ADL's, mobility, safety and/or upper extremity function for ADL's. Plan of Care: ADL Retraining, Functional Mobility, Group Exercise/Act as Ind, UE Funct Exercise/Act Treatment Duration: Jan 08, 2022 Frequency: 3 times per week (3-5x/week) Estimated Hrs Per Day: .25 hour per day Agreement: Yes Rehab Potential: Poor Time/GCodes Start Time: 09:18 Stop Time: 09:32 Total Time Billed (hr/min): 14 Billed Treatment Time 1 visit Lyn Caputo OT Dec 24, 2021 10:52
[2021-12-24] MEDS: RT--FLUTICASONE/SALMETEROL 232-14 (AIRDUO RespiCLICK) IH SCH ×2 (11:22→21:56)
--- NOTE | 2021-12-24 12:51 | Progress Note - Hospitalist ---
JEFFRY HERNANDEZ U 12/24/21 1251: Subjective HPI/CC On Admission Date Seen by Provider: Dec 24, 2021 Time Seen by Provider: 11:00 David Robbins is a 76 year old male with PMH HTN, HLD, CAD, COPD, tobacco abuse, who presented with shortness of breath. He reports that a few days ago he was working and was feeling fatigued. That night he had chest pain and took a nitroglycerin which resolved his symptoms. He then had chest pain again the next night that resolved again with nitroglycerin. He also reports feeling short of breath. He has a chronic cough. He denies any change in his cough or sputum production. He denies palpitations. He reports nausea, vomiting, and diarrhea for the past month. He has not been able to eat or drink well. He is a current pack and a half per day smoker. He drinks alcohol occasionally. He does not use illicit drugs. Subjective/Events-last exam Patient is wanting to go home. He is still in Afib with RVR. Cardiology is following. Patient is agreeing to stay at least until Tuesday. He is continuing to work with PT/OT. Review of Systems General: No Chills, No Night Sweats HEENT: No Head Aches, No Visual Changes Pulmonary: Dyspnea; No Cough Cardiovascular: No: Chest Pain, Palpitations Gastrointestinal: No: Nausea, Vomiting, Diarrhea, Constipation Neurological: No: Numbness Objective Exam Vital Signs Vital Signs Date Time Temp Pulse Resp B/P (MAP) Pulse Ox O2 Delivery O2 Flow Rate FiO2 12/24/21 12:00 36.1 141 16 105/66 92 Nasal Cannula 2.00 12/19/21 07:19 28 Capillary Refill : Less Than 3 Seconds General Appearance: No Apparent Distress, Chronically ill, Thin HEENT: Normal ENT Inspection Neck: Normal Inspection, Non Tender Respiratory: Normal Breath Sounds, No Accessory Muscle Use Cardiovascular: Irregularly Irregular Gastrointestinal: Normal Bowel Sounds, Non Tender, Soft Back: Normal Inspection Extremity: Normal Inspection, No Pedal Edema Neurologic/Psychiatric: Alert, Oriented x3 Skin: Normal Color, Warm/Dry Results/Procedures Lab Laboratory Tests 12/24/21 05:15 Patient resulted labs reviewed. Imaging: Reviewed Imaging Report Assessment/Plan Assessment and Plan Assess & Plan/Chief Complaint Afib with RVR - oral cardizem 60mg q6h - started on oral amiodorone 400 - hold metoprolol tartrate if low bp - digoxin 0.125, dig level <0.3 - xarelto 20 - cardiology following COPD - Albuterol and airduo - hold home atrovent for now - robuttusin prn PNA, COVID + - decadron CAD - last stent placed in 2017 - atorvastatin 40 - plavix Debility - working with PT/OT JENNIE CASTANON DO 12/25/21 0521: Subjective Subjective/Events-last exam Pt is about the same Heart rate is 140s On Amiodarone, Cardizem, and Digoxin On 3L of oxygen States he will leave on Tuesday at noon, unsure if he will leave AMA or he will remain until he is medically stable Review of Systems Pulmonary: Dyspnea Objective Exam General Appearance: No Apparent Distress, WD/WN, Chronically ill, Thin Respiratory: Lungs Clear, Normal Breath Sounds Cardiovascular: Irregularly Irregular, Tachycardia Assessment/Plan Assessment and Plan Assess & Plan/Chief Complaint Appreciate cardiology Supervisory-Addendum Brief Verification & Attestation Participated in pt care: history, MDM, physical Personally performed: exam, history, MDM, supervision of care Care discussed with: Medical Student Procedures: n/a Results interpretation: Verified all documentation Verification and Attestation of Medical Student E/M Service A medical student performed and documented this service in my presence. I reviewed and verified all information documented by the medical student and made modifications to such information, when appropriate. I personally performed the physical exam and medical decision making. Jennie Castanon, Dec 25, 2021,05:20 JEFFRY HERNANDEZ Dec 24, 2021 12:51 JENNIE CASTANON DO Dec 25, 2021 05:21
[2021-12-24] MEDS: ACETAMINOPHEN 325 MG TABLET PO PRN ×2 (13:23→19:58)
[2021-12-24] MEDS: RIVAROXABAN 20 MG TABLET (XARELTO) PO SCH (17:52)
[2021-12-25] MEDS: RT-ALBUTEROL HFA 8.5 GM INHALER IH SCH ×2 (02:59→07:59)
[2021-12-25 05:10] LABS: BASOPHILS % (AUTO) 0 % (0-10); EOSINOPHILS % (AUTO) 0 % (0-10); HEMATOCRIT 35 % (40-54); HEMOGLOBIN 10.2 g/dL (13.3-17.7); LYMPHOCYTES % (AUTO) 12 % (12-44); MEAN CORPUSCULAR HEMOGLOBIN 25 pg (25-34); MEAN CORPUSCULAR HGB CONC 29 g/dL (32-36); MEAN CORPUSCULAR VOLUME 84 fL (80-99); MONOCYTES # (AUTO) 0.5 10^3/uL (0.0-1.0); MONOCYTES % (AUTO) 6 % (0-12); NEUTROPHILS # (AUTO) 6.2 10^3/uL (1.8-7.8); NEUTROPHILS % (AUTO) 79 % (42-75); PLATELET COUNT 277 10^3/uL (130-400); WHITE BLOOD COUNT 7.9 10^3/uL (4.3-11.0)
[2021-12-25] MEDS: KCL 20 MEQ TAB (K-DUR) PO SCH (05:16)
[2021-12-25] MEDS: POTASSIUM CL 10MEQ/50ML IVPB 50 ML IV SCH (05:16)
[2021-12-25] MEDS: MAGNESIUM 1 GM/100 ML IVPB 100 ML IV SCH (05:16)
[2021-12-25 05:18] LABS: CALCIUM 8.7 MG/DL (8.5-10.1)
[2021-12-25 05:23] LABS: CREATININE SERUM 0.74 MG/DL (0.60-1.30); PHOSPHORUS 3.2 MG/DL (2.3-4.7)
[2021-12-25] MEDS: RT--FLUTICASONE/SALMETEROL 232-14 (AIRDUO RespiCLICK) IH SCH ×2 (07:58→20:40)
[2021-12-25] MEDS: PANTOPRAZOLE 40 MG (PROTONIX) TAB PO SCH ×3 (08:17→19:52)
[2021-12-25] MEDS: OXYBUTYNIN (DITROPAN) 5 MG TAB PO SCH ×2 (08:18→19:52)
[2021-12-25] MEDS: AMIODARONE 200 MG (CORDARONE) TAB PO SCH ×2 (08:18→19:52)
[2021-12-25] MEDS: CLOPIDOGREL 75 MG (PLAVIX) TABLET PO SCH (08:18)
[2021-12-25] MEDS: NICOTINE 14 MG (NICODERM) PATCH TD SCH (08:19)
[2021-12-25] MEDS: MICONAZOLE 2% POWDER (DESENEX AF) 90 GM TOP SCH ×2 (08:19→19:52)
--- NOTE | 2021-12-25 08:24 | Cardiology Progress Note ---
Subjective Date Seen by Provider: Dec 25, 2021 Time Seen by Provider: 08:20 Subjective/Events-last exam Patient is in bed. I did not examine the patient, I visited with the nurse and reviewed his record and made adjustment to his medication Objective-Cardiology Exam Last Set of Vital Signs Vital Signs 12/19/21 12/25/21 07:19 07:43 Temp 35.8 Pulse 69 Resp 16 B/P (MAP) 104/71 FiO2 28 I&O Intake and Output 12/25/21 00:00 Intake Total 3190 ml Output Total 4475 ml Balance -1285 ml Intake Oral 3190 ml Output Urine Total 4475 ml General: Alert, Cooperative HEENT: Atraumatic Neck: Supple Heart: Other (Atrial fibrillation) Extremities: No Clubbing Skin: No Significant Lesion Neuro: Normal Speech Psych/Mental Status: Other (Anxious today) Results Lab Laboratory Tests 12/25/21 04:50 A/P-Cardiology Admission Diagnosis COVID-19 pneumonia Atrial fibrillation Hypotension Sepsis Assessment/Plan COVID-19 pneumonia with questionable superimposed bacterial infection, was on BiPAP, currently on nasal cannula, doing better Paroxysmal atrial fibrillation, was difficult to control with multiple medication. Appeared that he responded to amiodarone and converted to sinus rhythm. He has been on Xarelto since admission. Continue on Xarelto at this point I will stop metoprolol and digoxin Change Cardizem to Cardizem CD 120 mg daily with parameters and monitor blood pressure Labile blood pressure with hypotension probably secondary to all his medication. I am cutting down his medication and using IV fluid and monitor his tolerance and response COPD, active smoker, acute exacerbation due to pneumonia Sepsis, status post hypotension, blood pressure is better at this time. Continue to monitor Acute renal insufficiency, continue to monitor renal function Coronary artery disease, following with a application counselor in [place], reporting 2 myocardial infarction in the past last heart attack was in 2017. 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 Hypertension, having few episodes of hypotension while on Cardizem drip. Started on IV fluid aggressively and monitor blood pressure Questionable congestive heart failure, mild elevation in and BNP, no signs of heart failure at this time. Continue IV fluid and monitor Hyperlipidemia, monitor lipids BART MEJIA MD Dec 25, 2021 08:24
[2021-12-25] MEDS: ACETAMINOPHEN 325 MG TABLET PO PRN ×2 (08:34→19:52)
--- NOTE | 2021-12-25 09:55 | Occupational Ther Daily Note ---
OT Current Status-Daily Note Subjective Denies pain, requesting to sit in chair. Appearance Pt left sitting in chair, RN in room, all needs within reach. Mental Status/Objective Attachments: Morin Catheter, IV, Oxygen, Telemetry ADL-Treatment Therapy Code Descriptions/Definitions Functional [place] Measure: 0=Not Assessed/NA 4=Minimal Assistance 1=Total Assistance 5=Supervision or Setup 2=Maximal Assistance 6=Modified [place] 3=Moderate Assistance 7=Complete IndependenceSCALE: Activities may be completed with or without assistive devices. 8-Pijyhtpngc-szjbmii completes the activity by him/herself with no assistance from a helper. 5-Set-up or Clean-up Assistance-helper sets up or cleans up; patient completes activity. Miller assists only prior to or following the activity. 4-Supervision or Touching Assistance-helper provides verbal cues and/or touching/steadying and/or contact guard assistance as patient completes activity . Assistance may be provided throughout the activity or intermittently. 3-Partial/Moderate Assistance-helper does LESS THAN HALF the effort. Miller lifts, holds or supports trunk or limbs, but provides less than half the effort. 2-Substantial/Maximal Assistance-helper does MORE THAN HALF the effort. Miller lifts or holds trunk or limbs and provides more than half the effort. 5-Trcabgcus-twzepu does ALL the effort. Patient does none of the effort to complete the activity. Or, the assistance of 2 or more helpers is required for the patient to complete the activity. If activity was not attempted, code reason: 7-Patient Refused. 9-Not Applicable-not attempted and the patient did not perform the activity before the current illness, exacerbation or injury. 10-Not Attempted due to Environmental Limitations-(lack of equipment, weather restraints, etc.). 88-Not Attempted due to Medical Conditions or Safety Concerns. Upper Body Dressing (QC): 3 On/Off Footwear: 1 Toileting Hygiene (QC): 1 (morin catheter) Toilet Transfer (QC): 3 Pt requesting to sit in chair at OT arrival. Appears to have soiled gown. SBA and extra time to sit EOB. Dependent to don socks, poor effort. Sit<>stand: min A. Pt ambulated ~4-5 steps to chair with use of walker. Bilateral knees buckling x2, requiring min assist to remain upright. New gown donned while seated in chair. Pt declines all other adls. Pt's HR between 77-83 bpm during session. Difficulty getting accurate reading on o2. 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 2=Patient will verbalize/demonstrate understanding of assistive devices/modifications for ADL. 3=Patient will improve strength/tolerance for activity to enable patient to perform ADL's. OT Education/Plan Problem List/Assessment Assessment: Decreased Activ Tolerance, Decreased Safety Aware, Decreased UE Strength, Impaired Cognition, Impaired Funct Balance, Impaired I ADL's, Impaired Self-Care Skills, Restricted Funct UE ROM Discharge Recommendations Plan/Recommendations: Continue POC Treatment Plan/Plan of Care Treatment,Training & Education: Yes Patient would benefit from OT for education, treatment and training to promote independence in ADL's, mobility, safety and/or upper extremity function for ADL's. Plan of Care: ADL Retraining, Functional Mobility, Group Exercise/Act as Ind, UE Funct Exercise/Act Treatment Duration: Jan 08, 2022 Frequency: 3 times per week (3-5x/week) Estimated Hrs Per Day: .25 hour per day Agreement: Yes Rehab Potential: Poor Time/GCodes Start Time: 09:23 Stop Time: 09:34 Total Time Billed (hr/min): 11 Billed Treatment Time 1, Lyn Caputo OT Dec 25, 2021 09:55
[2021-12-25] MEDS: dilTIAZem120 MG (CARDIZEM CD) CAP PO SCH (10:50)
--- NOTE | 2021-12-25 11:50 | Progress Note - Hospitalist ---
JEFFRY HERNANDEZ U 12/25/21 1150: Subjective HPI/CC On Admission Date Seen by Provider: Dec 25, 2021 Time Seen by Provider: 10:00 David Robbins is a 76 year old male with PMH HTN, HLD, CAD, COPD, tobacco abuse, who presented with shortness of breath. He reports that a few days ago he was working and was feeling fatigued. That night he had chest pain and took a nitroglycerin which resolved his symptoms. He then had chest pain again the next night that resolved again with nitroglycerin. He also reports feeling short of breath. He has a chronic cough. He denies any change in his cough or sputum production. He denies palpitations. He reports nausea, vomiting, and diarrhea for the past month. He has not been able to eat or drink well. He is a current pack and a half per day smoker. He drinks alcohol occasionally. He does not use illicit drugs. Subjective/Events-last exam Patient is laying comfortably in bed. He still wants to go home, his heart rate is much better and he is in NSR now. No other concerns from the patient. Review of Systems General: No Chills, No Night Sweats HEENT: No Head Aches, No Visual Changes Pulmonary: No Dyspnea, No Cough Cardiovascular: No: Chest Pain, Palpitations Gastrointestinal: No: Nausea, Vomiting, Abdominal Pain, Diarrhea, Constipation Genitourinary: No Dysuria, No Frequency Neurological: No: Numbness, Confusion Objective Exam Vital Signs Vital Signs Date Time Temp Pulse Resp B/P (MAP) Pulse Ox O2 Delivery O2 Flow Rate FiO2 12/25/21 11:37 36.0 79 23 112/100 99 Nasal Cannula 1.00 12/19/21 07:19 28 Capillary Refill : Less Than 3 Seconds General Appearance: No Apparent Distress, Chronically ill HEENT: Normal ENT Inspection Neck: Full Range of Motion, Non Tender Respiratory: Lungs Clear, Normal Breath Sounds, No Accessory Muscle Use Cardiovascular: Regular Rate, Rhythm Gastrointestinal: Normal Bowel Sounds, Non Tender, Soft Rectal: Deferred Back: Normal Inspection Extremity: Normal Inspection, Normal Range of Motion Neurologic/Psychiatric: Alert, Oriented x3 Skin: Normal Color, Warm/Dry Results/Procedures Lab Laboratory Tests 12/25/21 04:50 Patient resulted labs reviewed. Imaging: Reviewed Imaging Report Assessment/Plan Assessment and Plan Assess & Plan/Chief Complaint Afib with RVR - now in NSR, HR better - oral cardizem 120mg daily - oral amiodorone 400 bid - hold metoprolol tartrate for low bps - xarelto 20 - cardiology following COPD - Albuterol and airduo - hold home atrovent for now - robuttusin prn PNA, COVID + - decadron CAD - last stent placed in 2017 - atorvastatin 40 - plavix Debility - working with PT/OT JENNIE CASTANON DO 12/26/21 0529: Subjective Subjective/Events-last exam Patient converted to sinus rhythm Reviewed for discharge tomorrow Remove catheter today Objective Exam General Appearance: No Apparent Distress, WD/WN, Chronically ill, Thin Respiratory: Lungs Clear Cardiovascular: Regular Rate, Rhythm Assessment/Plan Assessment and Plan Assess & Plan/Chief Complaint Discharge tomorrow Supervisory-Addendum Brief Verification & Attestation Participated in pt care: history, MDM, physical Personally performed: exam, history, MDM, supervision of care Care discussed with: Medical Student Procedures: n/a Results interpretation: Verified all documentation Verification and Attestation of Medical Student E/M Service A medical student performed and documented this service in my presence. I rev iewed and verified all information documented by the medical student and made modifications to such information, when appropriate. I personally performed the physical exam and medical decision making. Jennie Castanon, Dec 26, 2021,05:25 JEFFRY HERNANDEZ Dec 25, 2021 11:50 JENNIE CASTANON DO Dec 26, 2021 05:29
--- NOTE | 2021-12-25 12:00 | D/C HH Face to Face Order ---
D/C Face to Face Orders Reconcile Patient Problems Problems Reviewed?: Yes Instructions for Patient Via [facility], Patient Instructions/FollowUp: PCP 1 week Physician to follow Patient: PCP Discharge Diet for Home: No Restrictions Patient Problems: A fib COVID Patient Data-Allergies,Ht & Wt Patient Allergies: Coded Allergies: No Known Drug Allergies (Unverified , 10/13/20) Home Health Need/Face to Face Date of Face to Face: Dec 25, 2021 Clinical Findings: Generalized weakness and fatigue, Instability, Muscle weakness, Pain with ambulation, Shortness of breath, Unsteady gait I have seen Pt [id number]: Yes Discharged To: Home Diagnosis/Conditions: Debility Patient is Homebound due to: CognItive deficits, Cesar fall risk due to instabilty, Muscle weakness, Shortness of breath/distress Homebound Status Due to the above stated illness, injury or surgical procedure (medical condition or diagnosis) and associated clinical findings, the patient is homebound because of his/her inability to leave home except with aid of a supportive device and/or person AND leaving the home requires a considerable and taxing effort or is medically contraindicated. Pt req the following assistanc: Walker Home Health Nursing Orders Home Health Services Order: Nursing Services, Senior Packaging Engineer-Evaluate & Treat, Physical Therapy-Evaluate & Treat Home Health Infusion Therapy Line Start Date: Dec 14, 2021 Certify Stmt I certify that this patient is under my care and that I, a nurse practitioner or a physician; a administrative assistant working with me, had a face to face encounter that - meets the physician face to face encounter requirements with this patient as dated. DENVER CASTANON DO Dec 25, 2021 12:00
[2021-12-25] MEDS ORDERED: OXYB5TAB13 PO (12:03)
[2021-12-25] MEDS ORDERED: RIVA20TA2 PO (12:03)
[2021-12-25] MEDS ORDERED: NICO1PAT38 TD (12:03)
[2021-12-25] MEDS ORDERED: ATOR40TA70 PO (12:03)
[2021-12-25] MEDS ORDERED: AMIO200T65 PO (12:03)
[2021-12-25] MEDS ORDERED: DILT-27 PO (12:03)
[2021-12-25] MEDS: RIVAROXABAN 20 MG TABLET (XARELTO) PO SCH (16:20)
[2021-12-25] MEDS ORDERED: RT-ALBUTEROL HFA 8.5 GM INHALER IH SCH (21:00)
[2021-12-26 04:50] LABS: BASOPHILS % (AUTO) 0 % (0-10); EOSINOPHILS % (AUTO) 0 % (0-10); HEMATOCRIT 39 % (40-54); HEMOGLOBIN 11.5 g/dL (13.3-17.7); LYMPHOCYTES # (AUTO) 1.1 10^3/uL (1.0-4.0); LYMPHOCYTES % (AUTO) 13 % (12-44); MEAN CORPUSCULAR HEMOGLOBIN 25 pg (25-34); MEAN CORPUSCULAR HGB CONC 30 g/dL (32-36); MEAN CORPUSCULAR VOLUME 84 fL (80-99); MEAN PLATELET VOLUME 10.4 fL (9.0-12.2); MONOCYTES # (AUTO) 0.5 10^3/uL (0.0-1.0); MONOCYTES % (AUTO) 6 % (0-12); NEUTROPHILS # (AUTO) 6.4 10^3/uL (1.8-7.8); NEUTROPHILS % (AUTO) 79 % (42-75); PLATELET COUNT 284 10^3/uL (130-400); WHITE BLOOD COUNT 8.2 10^3/uL (4.3-11.0)
[2021-12-26 05:02] LABS: ALBUMIN 3.1 GM/DL (3.2-4.5); POTASSIUM 4.4 MMOL/L (3.6-5.0)
[2021-12-26 05:03] LABS: CALCIUM 8.9 MG/DL (8.5-10.1)
[2021-12-26 05:06] LABS: BILIRUBIN,TOTAL 0.6 MG/DL (0.1-1.0)
[2021-12-26 05:08] LABS: CREATININE SERUM 0.76 MG/DL (0.60-1.30)
[2021-12-26] MEDS: POTASSIUM CL 10MEQ/50ML IVPB 50 ML IV SCH (05:38)
[2021-12-26] MEDS: MAGNESIUM 1 GM/100 ML IVPB 100 ML IV SCH (05:39)
[2021-12-26] MEDS: KCL 20 MEQ TAB (K-DUR) PO SCH (05:39)
--- NOTE | 2021-12-26 06:41 | Discharge Summary ---
Discharge Summary Hospital Course Was the Problem List Reviewed?: Yes Problems/Dx: (1) Atrial fibrillation with RVR Status: Acute (2) COPD exacerbation Status: Acute (3) Chronic respiratory failure with hypoxia Status: Chronic (4) OLIVERIO (acute kidney injury) Status: Resolved (5) Lactic acidosis Status: Resolved (6) COVID-19 Status: Acute Hospital Course Date of Admission: Dec 14, 2021 at 16:25 Admission Diagnosis : Family Physician/Provider: Nargis Andrea MD Date of Discharge: 12/26/21 Discharge Diagnosis: A. fib with RVR, acute hypoxic respiratory failure, COVID-19 pneumonia Hospital Course: Patient had a very lengthy hospital course after he was admitted for acute hypoxic respiratory failure due to COVID-19 and atrial fibrillation with rapid ventricular response. Patient was stabilized and placed on protocol meds. Cardiology required multiple medication changes and finally converted to normal sinus rhythm the day before discharge. He was very weak and this is a chronic ongoing status of the patient and he already had home care and he was discharged in improved condition. Overall prognosis poor given his frail status. Labs and Pending Lab Test: Laboratory Tests 12/26/21 04:31: White Blood Count 8.2, Red Blood Count 4.61, Hemoglobin 11.5L, Hematocrit 39L, Mean Corpuscular Volume 84, Mean Corpuscular Hemoglobin 25, Mean Corpuscular Hemoglobin Concent 30L, Red Cell Distribution Width 16.7H, Platelet Count 284, Mean Platelet Volume 10.4, Immature Granulocyte % (Auto) 2, Neutrophils (%) (Auto) 79H, Lymphocytes (%) (Auto) 13, Monocytes (%) (Auto) 6, Eosinophils (%) (Auto) 0, Basophils (%) (Auto) 0, Neutrophils # (Auto) 6.4, Lymphocytes # (Auto) 1.1, Monocytes # (Auto) 0.5, Eosinophils # (Auto) 0.0, Basophils # (Auto) 0.0, Immature Granulocyte # (Auto) 0.2H, Sodium Level 136, Potassium Level 4.4, Chloride Level 99, Carbon Dioxide Level 27, Anion Gap 10, Blood Urea Nitrogen 2 2H, Creatinine 0.76, Estimat Glomerular Filtration Rate 94, BUN/Creatinine Ratio 29, Glucose Level 111H, Calcium Level 8.9, Corrected Calcium 9.6, Total Bilirubin 0.6, Aspartate Amino Transf (AST/SGOT) 20, Alanine Aminotransferase (ALT/SGPT) 25, Alkaline Phosphatase 54, Total Protein 6.0L, Albumin 3.1L Microbiology 12/18/21 Stool Culture - Final, Complete 12/14/21 MRSA Screen - Final, Complete MRSA not isolated 12/14/21 Blood Culture - Final, Complete No growth 12/14/21 Urine Culture - Final, Complete Gram Pos Mixed Bacterial Kacie Home Meds Active Oxybutynin Chloride 5 Mg Tablet 5 Mg PO BID Diltiazem 24Hr ER (Diltiazem HCl) 120 Mg Cap.er.24h 120 Mg PO DAILY Amiodarone HCl 200 Mg Tablet 200 Mg PO BID Xarelto Tablet (Rivaroxaban) 20 Mg Tablet 20 Mg PO DAILY@1700 Nicoderm Cq (Nicotine) 1 Each Patch.td24 14 Mg TD DAILY@0900 Atorvastatin Calcium 40 Mg Tablet 40 Mg PO HS LAST FILLED 08-07-2021 #90/90 DAY SUPPLY Reported Ventolin Hfa (Albuterol Sulfate) 18 Gm Hfa.aer.ad 2 Puff INH Q6H PRN Budesonide-Formoterol 160-4.5 (Budesonide/Formoterol Fumarate) 10.2 Gm Hfa.aer.ad 2 Puff INH BID Clopidogrel (Clopidogrel Bisulfate) 75 Mg Tablet 75 Mg PO DAILY Pantoprazole Sodium 40 Mg Tablet.dr 40 Mg PO BID Ipratropium Loop 0.2 Mg/1 Ml Solution 1 Ml NEB QID Clobetasol Propionate 15 Gm Oint...g. 1 Applic TOP BID PRN Betamethasone Dp Aug 0.05% Crm (Betamethasone/Propylene Glyc) 15 Gm Cream..g. 1 Applic TOP BID PRN Benzonatate 100 Mg Capsule 100 Mg PO TID PRN Digoxin 125 Mcg Tablet 125 Mcg PO DAILY Prednisone 5 Mg Tablet 5 Mg PO DAILY Hydroxyzine HCl 25 Mg Tablet 25 Mg PO TID PRN Assessment/Pt Instructions PCP in 1 week Discharge Planning: <30 minutes discharge planning Discharge Instructions Discharge Diet: No Restrictions Discharge Physical Examination Vital Signs Vital Signs Date Time Temp Pulse Resp B/P (MAP) Pulse Ox O2 Delivery O2 Flow Rate FiO2 12/26/21 04:00 36.3 111 15 110/87 96 Nasal Cannula 2.00 12/25/21 13:07 24 General Appearance: No Apparent Distress, WD/WN, Chronically ill, Thin Allergies: Coded Allergies: No Known Drug Allergies (Unverified , 10/13/20) Discharge Summary Date of Admission Dec 14, 2021 at 16:25 Date of Discharge Discharge Date: Dec 26, 2021 Admission Diagnosis AFib with RVR Discharge Diagnosis Discharge tomorrow (1) Atrial fibrillation with RVR Status: Acute (2) COPD exacerbation Status: Acute (3) Chronic respiratory failure with hypoxia Status: Chronic (4) OLIVERIO (acute kidney injury) Status: Resolved (5) Lactic acidosis Status: Resolved (6) COVID-19 Status: Acute DENVER CASTANON DO Dec 26, 2021 06:41
[2021-12-26] MEDS: AMIODARONE 200 MG (CORDARONE) TAB PO SCH (08:33)
[2021-12-26] MEDS: PANTOPRAZOLE 40 MG (PROTONIX) TAB PO SCH ×2 (08:33)
[2021-12-26] MEDS: OXYBUTYNIN (DITROPAN) 5 MG TAB PO SCH (08:33)
[2021-12-26] MEDS: CLOPIDOGREL 75 MG (PLAVIX) TABLET PO SCH (08:33)
[2021-12-26] MEDS: dilTIAZem120 MG (CARDIZEM CD) CAP PO SCH (08:33)
[2021-12-26] MEDS: MICONAZOLE 2% POWDER (DESENEX AF) 90 GM TOP SCH (08:34)
--- NOTE | 2021-12-29 12:52 | Physician Query Clarification ---
PQ-Uncertain Diagnosis Admission/Discharge Admission Date: Dec 14, 2021 at 16:25 Discharge Date: Dec 26, 2021 at 09:30 Dr. Sevilla, The medical record reflects the following clinical scenario: History/Risk Factors: Covid, pneumonia, acute on chronic hypoxic respiratory failure, COPDAE Clinical Findings: T 37.1, P 148, R 26, WBC 7.8, Lactic acide 2.22 Treatment: IV Cefriaxone, PO Zithromax Question: Is sepsis a clinically valid diagnosis? Sepsis was documented in Dr. Rose's consult and PN's with no further docu mentation in the medical record. Please document a response in Progress Note or Discharge Summary. 1. Yes, clinically valid, condition resolved. 2. No, condition ruled out. 3. Other, with explanation of clinical findings. 4. Undetermined, no explanation for clinical findings. PHYSICIAN RESPONSE Diagnosis clinically valid: Yes, Conditon resolved Please remember a lack of response to the above will prompt a phone page by CDI/Coding staff. In responding to this query, please exercise your independent professional judgment. The purpose of this communication is to more accurately reflect the complexity of your patients condition. The fact that a question is asked does not imply that any particular answer is desired or expected. Thank you for your timely response to this clarification. Requestors name: Isael 4 THIS PHYSICIAN QUERY FORM IS A PERMANENT PART OF THE MEDICAL RECORD ISAEL OWUSU Dec 29, 2021 12:52 DENVER SEVILLA DO Dec 29, 2021 19:05
== END 2021-12-26 09:30 | disposition home health service (06) | DRG 871 ==
LOC: EDUNIT# 11:05 → ER FS 11:07 → ICU 16:25 → CSD 12-20 18:38
PROVIDERS: ADMIT Internal Medicine; ATTEND Internal Medicine
PROC: 8E0ZXY6 Isolation (ICD-10-PCS; principal; 2021-12-14)
DX: A41.9 Sepsis, unspecified organism (principal); U07.1 COVID-19; J12.82 Pneumonia due to coronavirus disease 2019; J96.21 Acute and chronic respiratory failure with hypoxia; J44.1 Chronic obstructive pulmonary disease with (acute) exacerbation; J44.0 Chronic obstructive pulmonary disease with (acute) lower respiratory infection; N17.9 Acute kidney failure, unspecified; E87.2 Acidosis; I48.91 Unspecified atrial fibrillation; R41.0 Disorientation, unspecified; F17.210 Nicotine dependence, cigarettes, uncomplicated; I25.10 Atherosclerotic heart disease of native coronary artery without angina pectoris; E78.00 Pure hypercholesterolemia, unspecified; E78.5 Hyperlipidemia, unspecified; I10 Essential (primary) hypertension; M19.91 Primary osteoarthritis, unspecified site; H91.90 Unspecified hearing loss, unspecified ear; F41.9 Anxiety disorder, unspecified; Z99.81 Dependence on supplemental oxygen; Z95.5 Presence of coronary angioplasty implant and graft; I25.2 Old myocardial infarction; Z79.52 Long term (current) use of systemic steroids
CPT/HCPCS: 36415; 71045; 80048; 80053; 80162; 80320; 81000; 82805; 83605; 83735; 83880; 84100; 84145; 84439; 84443; 84484; 85025; 85610; 85730; 86141; 87015; 87040; 87045; 87046; 87070; 87081; 87088; 87205; 87635; 87804; 87899; 93005; 93041; 94640; 94660; 94664; 94760; 94761; 96372; 96374; 96375; 99291

== ENCOUNTER → 2022-01-18 | Outpatient (CLI) | payer MEDICAID ==
[~2022-01-18] MED LIST changes: +ALBU18HF2 INH; +AMIO200T65 PO; +ATOR40TA70 PO; +BENZ-36 PO; +BETA15CR14 TOP; +BUDE10.26 INH; +CLOB15OI2 TOP; +CLOP75TA28 PO; +DIGO125T3 PO; +DILT-27 PO; +HYDR-700 PO; +IPRA0.2S51 NEB; +NICO1PAT38 TD; +OXYB5TAB13 PO; +PANT40TA52 PO; +PRED5TAB PO; +RIVA20TA2 PO
[2022-01-18 16:45] LABS: CREATININE SERUM 0.69 MG/DL (0.60-1.30); POTASSIUM 3.5 MMOL/L (3.6-5.0)
[2022-01-18 16:46] LABS: ALBUMIN 3.3 GM/DL (3.2-4.5); BILIRUBIN,TOTAL 0.4 MG/DL (0.1-1.0); CALCIUM 8.5 MG/DL (8.5-10.1); TOTAL PROTEIN 6.9 GM/DL (6.4-8.2)
--- NOTE | 2022-01-18 17:05 | Diagnostic Imaging Report ---
EXAMINATION: Chest 2 view HISTORY: DYSPNEA COMPARISON: 12/17/2021 FINDINGS: There are coarse interstitial opacities seen within both lungs. Heart size and pulmonary vasculature are stable. Opacities are decreased on the right lung compared to 12/17/2021. No significant pleural effusion or pneumothorax. The osseous structures are intact. IMPRESSION: 1. Coarse interstitial opacities seen within the lungs. Consolidation is decreased from 12/17/2021. Findings may represent background chronic lung disease or residual edema/infection. Dictated by: Dictated on workstation # [id number]
== END ==
LOC: LAB FS 15:13
PROVIDERS: ATTEND Registered Nurse Emergency
DX: R91.8 Other nonspecific abnormal finding of lung field (principal); R06.00 Dyspnea, unspecified; R60.0 Localized edema
CPT/HCPCS: 36415; 71046; 80053; 83880; 85379

== ENCOUNTER 2022-03-12 21:55 | Inpatient (IN) | payer MEDICAID ==
[~2022-03-12] VITALS: Ht 177.8 cm; Wt 66.4 kg
[2022-03-12] MEDS ORDERED: RT-ALBUTEROL SULF 2.5 MG/3 ML PRE-MIX VIAL INH STA ×3 (21:57→22:56)
[2022-03-12] MEDS ORDERED: ASPIRIN 81 MG CHEW (CHILDREN'S ASA) PO ONE (22:00)
[2022-03-12 22:03] LABS: BASOPHILS % (AUTO) 0 % (0-10); EOSINOPHILS % (AUTO) 0 % (0-10); HEMATOCRIT 26 % (40-54); HEMOGLOBIN 7.5 g/dL (13.3-17.7); LYMPHOCYTES # (AUTO) 3.3 10^3/uL (1.0-4.0); LYMPHOCYTES % (AUTO) 43 % (12-44); MEAN CORPUSCULAR HEMOGLOBIN 23 pg (25-34); MEAN CORPUSCULAR HGB CONC 29 g/dL (32-36); MEAN CORPUSCULAR VOLUME 79 fL (80-99); MEAN PLATELET VOLUME 9.3 fL (9.0-12.2); MONOCYTES # (AUTO) 0.7 10^3/uL (0.0-1.0); MONOCYTES % (AUTO) 9 % (0-12); NEUTROPHILS # (AUTO) 3.6 10^3/uL (1.8-7.8); NEUTROPHILS % (AUTO) 48 % (42-75); PLATELET COUNT 332 10^3/uL (130-400); WHITE BLOOD COUNT 7.6 10^3/uL (4.3-11.0)
[2022-03-12 22:12] LABS: ABG OXYGEN SATURATION 98 % (94-100); ABG PCO2 33 MMHG (35-45); ABG PH 7.34 (7.37-7.43); ABG PO2 119 MMHG (79-93); ABG TCO2 18.8 MMOL/L (21.0-31.0)
[2022-03-12 22:15] LABS: INSPIRED O2 4
[2022-03-12] MEDS ORDERED: methylPREDNISolone 125 MG (Solu-MEDROL) VIAL IV STA (22:17)
[2022-03-12 22:25] LABS: PATIENT TEMP 36.7; VENTILATOR NO
[2022-03-12 22:27] LABS: POTASSIUM 4.1 MMOL/L (3.6-5.0)
[2022-03-12 22:28] LABS: ALBUMIN 4.2 GM/DL (3.2-4.5); BILIRUBIN,TOTAL 0.2 MG/DL (0.1-1.0); CALCIUM 9.7 MG/DL (8.5-10.1); CREATININE SERUM 0.8 MG/DL (0.60-1.30); MAGNESIUM 2.1 MG/DL (1.6-2.4); TOTAL PROTEIN 7.1 GM/DL (6.4-8.2)
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
[2022-03-12] MEDS ORDERED: RT-ALBUTEROL/IPRATROPIUM 3 ML (DUONEB) VIAL INH ONE (23:00)
[2022-03-12] MEDS ORDERED: RT-ALBUTEROL SULF 2.5 MG/3 ML PRE-MIX VIAL ONE (23:04)
[2022-03-13 00:10] LABS: PROTHROMBIN TIME PATIENT 13.4 SEC (12.2-14.7)
[2022-03-13] MEDS ORDERED: PANTOPRAZOLE 40 MG (PROTONIX) VIAL IV SCH (00:30)
[2022-03-13 00:43] VITALS: BP 109/54
[2022-03-13] MEDS: NS IV 1000 ML 1,000 ML IV SCH ×4 (01:15→17:10)
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
[2022-03-13 01:32] LABS: ABG BASE EXCESS -10.1 MMOL/L (-2.5-2.5); ABG OXYGEN SATURATION 64 % (94-100); ABG PCO2 32 MMHG (35-45); ABG PO2 41 MMHG (79-93); ABG TCO2 16.2 MMOL/L (21.0-31.0)
[2022-03-13 01:35] LABS: ABG PH 7.29 (7.37-7.43)
[2022-03-13 01:36] LABS: ALLENS TEST YES-POS; INSPIRED O2 2L; PATIENT TEMP 36.9; VENTILATOR NO
[2022-03-13] MEDS ORDERED: RT-ALBUTEROL SULF 2.5 MG/3 ML PRE-MIX VIAL INH PRN (02:30)
[2022-03-13 03:10] LABS: BASOPHILS % (AUTO) 0 % (0-10); EOSINOPHILS % (AUTO) 0 % (0-10); HEMATOCRIT 24 % (40-54); LYMPHOCYTES # (AUTO) 0.3 10^3/uL (1.0-4.0); LYMPHOCYTES % (AUTO) 3 % (12-44); MEAN CORPUSCULAR HEMOGLOBIN 23 pg (25-34); MEAN CORPUSCULAR HGB CONC 29 g/dL (32-36); MEAN CORPUSCULAR VOLUME 82 fL (80-99); MEAN PLATELET VOLUME 9.6 fL (9.0-12.2); MONOCYTES # (AUTO) 0.2 10^3/uL (0.0-1.0); MONOCYTES % (AUTO) 2 % (0-12); NEUTROPHILS # (AUTO) 9.9 10^3/uL (1.8-7.8); NEUTROPHILS % (AUTO) 94 % (42-75); PLATELET COUNT 283 10^3/uL (130-400); WHITE BLOOD COUNT 10.6 10^3/uL (4.3-11.0)
[2022-03-13 03:16] LABS: ABG BASE EXCESS -9.2 MMOL/L (-2.5-2.5); ABG OXYGEN SATURATION 55 % (94-100); ABG PCO2 35 MMHG (35-45); ABG PH 7.28 (7.37-7.43); ABG TCO2 17.3 MMOL/L (21.0-31.0)
[2022-03-13 03:17] LABS: ABG PO2 36 MMHG (79-93)
[2022-03-13 03:17] LABS: POTASSIUM 4.1 MMOL/L (3.6-5.0)
[2022-03-13 03:18] LABS: CALCIUM 9.3 MG/DL (8.5-10.1)
[2022-03-13 03:19] LABS: ALLENS TEST YES-POS; INSPIRED O2 4L; PATIENT TEMP 36.8; VENTILATOR NO
[2022-03-13 03:19] LABS: TOTAL PROTEIN 6.4 GM/DL (6.4-8.2)
[2022-03-13 03:21] LABS: BILIRUBIN,TOTAL 0.1 MG/DL (0.1-1.0)
[2022-03-13 03:22] LABS: PHOSPHORUS 3.3 MG/DL (2.3-4.7)
[2022-03-13 03:23] LABS: CREATININE SERUM 0.91 MG/DL (0.60-1.30)
[2022-03-13 03:25] LABS: MAGNESIUM 1.9 MG/DL (1.6-2.4)
[2022-03-13 03:36] LABS: BAND NEUTROPHILS 3 %; LYMPHOCYTES % (MANUAL) 4 %; MONOCYTES % (MANUAL) 3 %; NEUTROPHILS % (MANUAL) 90 %; POLYCHROMASIA SLIGHT
[2022-03-13] MEDS ORDERED: methylPREDNISolone 40 MG/ML (Solu-MEDROL) VIAL IV SCH (04:00)
[2022-03-13] MEDS ORDERED: RT-ALBUTEROL/IPRATROPIUM 3 ML (DUONEB) VIAL INH SCH ×2 (04:00→06:00)
[2022-03-13] MEDS: methylPREDNISolone 40 MG/ML (Solu-MEDROL) VIAL IV SCH ×4 (05:26→21:06)
[2022-03-13] MEDS: RT-ALBUTEROL SULF 2.5 MG/3 ML PRE-MIX VIAL INH SCH ×5 (06:44→21:49)
[2022-03-13] MEDS ORDERED: ENOXAPARIN 40 MG/0.4 ML (LOVENOX) SYR SC SCH (07:45)
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
[2022-03-13 08:28] LABS: ABG OXYGEN SATURATION 99 % (94-100); ABG PCO2 30 MMHG (35-45); ABG PH 7.38 (7.37-7.43); ABG PO2 122 MMHG (79-93); ABG TCO2 18.1 MMOL/L (21.0-31.0)
[2022-03-13 08:31] LABS: PATIENT TEMP 36.8; VENTILATOR NO
--- NOTE | 2022-03-13 08:38 | Diagnostic Imaging Report ---
INDICATION: Shortness of breath COMPARISON: 03/12/2022 TECHNIQUE: Single radiograph of the chest dated 03/13/2022. FINDINGS: The cardiac silhouette is within normal limits in size. No significant pulmonary vascular congestion. Chronic background interstitial lung markings are again identified. No new focal pulmonary opacity. No pleural effusion. No pneumothorax. No acute osseous abnormality. IMPRESSION: Similar-appearing examination demonstrating background chronic interstitial lung changes without adverse change when compared to prior exam. Dictated by: Dictated on workstation # [id number]
[2022-03-13] MEDS ORDERED: SODIUM BICARB 8.4% 50 MEQ/50 ML (ABBOTT) SYR IV ONE (08:45)
[2022-03-13] MEDS: PANTOPRAZOLE 40 MG (PROTONIX) TAB PO SCH (08:57)
[2022-03-13] MEDS: dilTIAZem120 MG (CARDIZEM CD) CAP PO SCH (09:56)
[2022-03-13] MEDS: AMIODARONE 200 MG (CORDARONE) TAB PO SCH ×2 (09:57→21:06)
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
[2022-03-13] MEDS: NICOTINE 14 MG (NICODERM) PATCH TD SCH (15:51)
[2022-03-13] MEDS: RIVAROXABAN 20 MG TABLET (XARELTO) PO SCH (17:10)
[2022-03-13] MEDS: inSUlin ASPART (NovoLOG) 1 UNIT/0.01 ML (CHARGE PER UNIT) SC SCH (18:31)
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
[2022-03-14] MEDS: inSUlin ASPART (NovoLOG) 1 UNIT/0.01 ML (CHARGE PER UNIT) SC SCH ×6 (00:13→20:18)
[2022-03-14] MEDS: RT-ALBUTEROL SULF 2.5 MG/3 ML PRE-MIX VIAL INH SCH ×6 (02:53→21:44)
[2022-03-14] MEDS: NS IV 1000 ML 1,000 ML IV SCH ×2 (04:43→16:27)
[2022-03-14] MEDS: methylPREDNISolone 40 MG/ML (Solu-MEDROL) VIAL IV SCH ×2 (04:43→09:38)
[2022-03-14 05:05] LABS: BASOPHILS % (AUTO) 0 % (0-10); EOSINOPHILS % (AUTO) 0 % (0-10); HEMATOCRIT 21 % (40-54); LYMPHOCYTES # (AUTO) 0.3 10^3/uL (1.0-4.0); LYMPHOCYTES % (AUTO) 4 % (12-44); MEAN CORPUSCULAR HEMOGLOBIN 23 pg (25-34); MEAN CORPUSCULAR HGB CONC 28 g/dL (32-36); MEAN CORPUSCULAR VOLUME 81 fL (80-99); MEAN PLATELET VOLUME 9.6 fL (9.0-12.2); MONOCYTES # (AUTO) 0.4 10^3/uL (0.0-1.0); MONOCYTES % (AUTO) 5 % (0-12); NEUTROPHILS # (AUTO) 7.2 10^3/uL (1.8-7.8); NEUTROPHILS % (AUTO) 90 % (42-75); PLATELET COUNT 288 10^3/uL (130-400)
[2022-03-14 05:12] LABS: ALBUMIN 3.4 GM/DL (3.2-4.5); POTASSIUM 4.2 MMOL/L (3.6-5.0)
[2022-03-14 05:14] LABS: CALCIUM 8.5 MG/DL (8.5-10.1)
[2022-03-14 05:15] LABS: TOTAL PROTEIN 5.5 GM/DL (6.4-8.2)
[2022-03-14 05:17] LABS: BILIRUBIN,TOTAL 0.2 MG/DL (0.1-1.0)
[2022-03-14 05:18] LABS: PHOSPHORUS 2.9 MG/DL (2.3-4.7)
[2022-03-14 05:19] LABS: CREATININE SERUM 0.77 MG/DL (0.60-1.30)
[2022-03-14 05:21] LABS: MAGNESIUM 2.3 MG/DL (1.6-2.4)
[2022-03-14] MEDS: PATCH REMOVAL TP SCH (08:15)
[2022-03-14] MEDS: NICOTINE 14 MG (NICODERM) PATCH TD SCH (08:15)
[2022-03-14] MEDS: PANTOPRAZOLE 40 MG (PROTONIX) TAB PO SCH (08:15)
[2022-03-14] MEDS: dilTIAZem120 MG (CARDIZEM CD) CAP PO SCH (08:15)
[2022-03-14] MEDS: AMIODARONE 200 MG (CORDARONE) TAB PO SCH ×2 (08:15→20:18)
[2022-03-14] MEDS ORDERED: NS IV 500 ML 500 ML IV SCH (09:30)
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
[2022-03-14] MEDS ORDERED: predniSONE 20 MG TAB PO ONE (10:30)
[2022-03-14] MEDS ORDERED: PANTOPRAZOLE 40 MG (PROTONIX) VIAL IV ONE (10:30)
[2022-03-14 12:12] VITALS: BP 114/67
[2022-03-14 12:27] VITALS: BP 113/62
[2022-03-14 14:20] VITALS: BP 123/32
[2022-03-14 16:15] VITALS: BP 135/68
[2022-03-14] MEDS: RIVAROXABAN 20 MG TABLET (XARELTO) PO SCH (16:29)
[2022-03-14 16:47] LABS: HEMOGLOBIN 7.3 g/dL (13.3-17.7)
[2022-03-14 20:09] VITALS: BP 139/76
[2022-03-14] MEDS: PANTOPRAZOLE 40 MG (PROTONIX) VIAL IV SCH (20:18)
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
[2022-03-15 00:32] VITALS: BP 118/61
[2022-03-15] MEDS: RT-ALBUTEROL SULF 2.5 MG/3 ML PRE-MIX VIAL INH SCH ×6 (02:02→22:10)
[2022-03-15] MEDS: SIMETHICONE 80 MG (MYLICON) CHEW PO PRN ×3 (03:01→19:59)
[2022-03-15 03:52] VITALS: BP 134/62
[2022-03-15] MEDS: inSUlin ASPART (NovoLOG) 1 UNIT/0.01 ML (CHARGE PER UNIT) SC SCH ×4 (05:34→20:04)
[2022-03-15 06:27] LABS: BASOPHILS % (AUTO) 0 % (0-10); EOSINOPHILS % (AUTO) 0 % (0-10); HEMATOCRIT 26 % (40-54); HEMOGLOBIN 7.5 g/dL (13.3-17.7); LYMPHOCYTES # (AUTO) 0.9 10^3/uL (1.0-4.0); LYMPHOCYTES % (AUTO) 8 % (12-44); MEAN CORPUSCULAR HEMOGLOBIN 24 pg (25-34); MEAN CORPUSCULAR HGB CONC 29 g/dL (32-36); MEAN CORPUSCULAR VOLUME 82 fL (80-99); MONOCYTES # (AUTO) 0.9 10^3/uL (0.0-1.0); MONOCYTES % (AUTO) 8 % (0-12); NEUTROPHILS # (AUTO) 9.6 10^3/uL (1.8-7.8); NEUTROPHILS % (AUTO) 84 % (42-75); PLATELET COUNT 302 10^3/uL (130-400); WHITE BLOOD COUNT 11.4 10^3/uL (4.3-11.0)
[2022-03-15] MEDS: NS IV 1000 ML 1,000 ML IV SCH (06:34)
[2022-03-15] MEDS: predniSONE 20 MG TAB PO SCH (06:35)
[2022-03-15 06:36] LABS: POTASSIUM 4.2 MMOL/L (3.6-5.0)
[2022-03-15 06:37] LABS: CALCIUM 8.5 MG/DL (8.5-10.1)
[2022-03-15 06:41] LABS: CREATININE SERUM 0.81 MG/DL (0.60-1.30)
[2022-03-15] MEDS: KCL 20 MEQ TAB (K-DUR) PO SCH (06:53)
[2022-03-15] MEDS: POTASSIUM CL 10MEQ/50ML IVPB 50 ML IV SCH (06:53)
[2022-03-15] MEDS: MAGNESIUM 1 GM/100 ML IVPB 100 ML IV SCH (07:16)
[2022-03-15] MEDS ORDERED: diphenhydrAMINE 50 MG/ML INJ (BENADRYL) IV PRN (08:00)
[2022-03-15] MEDS ORDERED: EPINEPHrine INJECTION 1 MG/ML AMP IM PRN (08:00)
[2022-03-15] MEDS ORDERED: RT-ALBUTEROL SULF 2.5 MG/3 ML PRE-MIX VIAL IH PRN (08:00)
[2022-03-15] MEDS ORDERED: HYDROCORTISONE 100 MG/2 ML (Solu-CORTEF) VIAL IV PRN (08:00)
[2022-03-15] MEDS ORDERED: IRON DEXTRAN INJECTION 25 MG in NS (IVPB) 5.75 ML IV ONE (08:00)
[2022-03-15 08:02] VITALS: BP 125/69
[2022-03-15] MEDS ORDERED: IRON DEXTRAN INJECTION 1,000 MG in NS (IVPB) 250 ML IV ONE (08:15)
[2022-03-15] MEDS: PANTOPRAZOLE 40 MG (PROTONIX) VIAL IV SCH ×2 (09:28→20:00)
[2022-03-15] MEDS: NICOTINE 14 MG (NICODERM) PATCH TD SCH (09:28)
[2022-03-15] MEDS: AMIODARONE 200 MG (CORDARONE) TAB PO SCH ×2 (09:29→20:00)
[2022-03-15] MEDS: dilTIAZem120 MG (CARDIZEM CD) CAP PO SCH (09:29)
[2022-03-15] MEDS: NS IV 500 ML 500 ML IV SCH (09:30)
[2022-03-15] MEDS: PATCH REMOVAL TP SCH (09:31)
[2022-03-15 11:00] VITALS: BP 125/68
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
[2022-03-15 15:22] VITALS: BP 123/68
[2022-03-15] MEDS: RIVAROXABAN 20 MG TABLET (XARELTO) PO SCH (17:35)
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
[2022-03-15 19:44] VITALS: BP 113/68
[2022-03-16 00:18] VITALS: BP 118/62
[2022-03-16] MEDS: NS IV 500 ML 500 ML IV SCH ×2 (00:40→17:13)
[2022-03-16] MEDS: RT-ALBUTEROL SULF 2.5 MG/3 ML PRE-MIX VIAL INH SCH ×4 (02:38→14:11)
[2022-03-16 04:38] VITALS: BP 102/55
[2022-03-16 04:54] LABS: BASOPHILS % (AUTO) 0 % (0-10); EOSINOPHILS % (AUTO) 0 % (0-10); HEMATOCRIT 26 % (40-54); HEMOGLOBIN 7.3 g/dL (13.3-17.7); LYMPHOCYTES # (AUTO) 0.9 10^3/uL (1.0-4.0); LYMPHOCYTES % (AUTO) 15 % (12-44); MEAN CORPUSCULAR HEMOGLOBIN 24 pg (25-34); MEAN CORPUSCULAR HGB CONC 29 g/dL (32-36); MEAN CORPUSCULAR VOLUME 83 fL (80-99); MEAN PLATELET VOLUME 9.6 fL (9.0-12.2); MONOCYTES # (AUTO) 0.5 10^3/uL (0.0-1.0); MONOCYTES % (AUTO) 7 % (0-12); NEUTROPHILS # (AUTO) 4.7 10^3/uL (1.8-7.8); NEUTROPHILS % (AUTO) 76 % (42-75); PLATELET COUNT 245 10^3/uL (130-400); WHITE BLOOD COUNT 6.2 10^3/uL (4.3-11.0)
[2022-03-16 05:04] LABS: POTASSIUM 3.4 MMOL/L (3.6-5.0)
[2022-03-16 05:05] LABS: CALCIUM 8.6 MG/DL (8.5-10.1)
[2022-03-16 05:09] LABS: CREATININE SERUM 0.75 MG/DL (0.60-1.30)
[2022-03-16] MEDS: POTASSIUM CL 10MEQ/50ML IVPB 50 ML IV SCH (05:11)
[2022-03-16] MEDS: inSUlin ASPART (NovoLOG) 1 UNIT/0.01 ML (CHARGE PER UNIT) SC SCH ×3 (05:12→17:12)
[2022-03-16] MEDS: MAGNESIUM 1 GM/100 ML IVPB 100 ML IV SCH (05:12)
[2022-03-16] MEDS: KCL 20 MEQ TAB (K-DUR) PO SCH (05:12)
[2022-03-16] MEDS: predniSONE 20 MG TAB PO SCH (05:56)
[2022-03-16 08:00] VITALS: BP 125/67
[2022-03-16] MEDS: NICOTINE 14 MG (NICODERM) PATCH TD SCH (09:07)
[2022-03-16] MEDS: dilTIAZem120 MG (CARDIZEM CD) CAP PO SCH (09:07)
[2022-03-16] MEDS: AMIODARONE 200 MG (CORDARONE) TAB PO SCH (09:07)
[2022-03-16] MEDS: PANTOPRAZOLE 40 MG (PROTONIX) VIAL IV SCH (09:07)
[2022-03-16] MEDS: PATCH REMOVAL TP SCH (09:07)
[2022-03-16] MEDS ORDERED: ACETAMINOPHEN 500 MG TAB (TYLENOL) PO PRN (09:45)
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
[2022-03-16] MEDS ORDERED: PRED10TA22 PO (11:46)
--- NOTE | 2022-03-16 11:54 | Discharge Inst-Simple/Standard ---
Discharge Inst-Standard Discharge Medications New, Converted or Re-Newed RX: Transmitted to Pharmacy Patient Instructions/Follow Up Plan of Care/Instructions/FU: Please continue to take your medications as written. Please quit smoking especially near your oxygen equipment. Please follow-up with your primary care doctor to follow-up this hospital stay. Activity as Tolerated: Yes Discharge Diet: No Restrictions Return to The Hospital For: Chest pain, shortness of breath, weakness, confusion, if you feel you are getting worse. PEGGY TIPTON MD March 16, 2022 11:54
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
[2022-03-16 12:00] VITALS: BP 103/64
[2022-03-16 16:00] VITALS: BP 120/58
[2022-03-16] MEDS: RIVAROXABAN 20 MG TABLET (XARELTO) PO SCH (17:13)
== END 2022-03-16 17:30 | disposition home or self-care (01) | DRG 917 ==
LOC: ER FS 21:55 → EDUNIT# 21:55 → ICU 23:53 → 4TH 03-14 11:09
PROVIDERS: ADMIT Internal Medicine; ATTEND Internal Medicine
DX: T59.811A Toxic effect of smoke, accidental (unintentional), initial encounter (principal); J96.21 Acute and chronic respiratory failure with hypoxia; J44.1 Chronic obstructive pulmonary disease with (acute) exacerbation; E87.1 Hypo-osmolality and hyponatremia; E87.2 Acidosis; J70.5 Respiratory conditions due to smoke inhalation; T24.211A Burn of second degree of right thigh, initial encounter; T31.0 Burns involving less than 10% of body surface; F17.210 Nicotine dependence, cigarettes, uncomplicated; R55 Syncope and collapse; I25.10 Atherosclerotic heart disease of native coronary artery without angina pectoris; E78.00 Pure hypercholesterolemia, unspecified; E78.5 Hyperlipidemia, unspecified; I10 Essential (primary) hypertension; I48.0 Paroxysmal atrial fibrillation; M19.91 Primary osteoarthritis, unspecified site; D50.9 Iron deficiency anemia, unspecified; N40.0 Benign prostatic hyperplasia without lower urinary tract symptoms; H54.7 Unspecified visual loss; Z99.81 Dependence on supplemental oxygen; Z86.16 Personal history of COVID-19; Z88.8 Allergy status to other drugs, medicaments and biological substances; Z95.5 Presence of coronary angioplasty implant and graft; X04.XXXA Exposure to ignition of highly flammable material, initial encounter; Y92.008 Other place in unspecified non-institutional (private) residence as the place of occurrence of the external cause
CPT/HCPCS: 36415; 71045; 80048; 80053; 82274; 82375; 82728; 82805; 82947; 83540; 83550; 83605; 83735; 83874; 84100; 84484; 85007; 85014; 85018; 85025; 85027; 85610; 85730; 86850; 86900; 86901; 86920; 87081; 93005; 93041; 94640; 94760; 94761

== ENCOUNTER 2022-08-25 12:35 | Inpatient (IN) | payer MEDICAID ==
[~2022-08-25] VITALS: Ht 177.8 cm; Wt 79.3 kg
[~2022-08-25 12:35] MED LIST changes: +PRED10TA22 PO
--- NOTE | 2022-08-25 12:53 | ED Chest Pain ---
General Stated Complaint: CHEST PAINS History of Present Illness Date Seen by Provider: Aug 25, 2022 Time Seen by Provider: 12:53 Initial Comments 76-year-old male with PMH of CAD with 2 stents placed in 2017/gastritis/alcoholism/chronic anemia/COPD/ CHF, is here with complaints of chest pain which has been going on for 2 weeks but has increased in intensity today. Patient states that chest pain is intermittent and on the lower left side of his chest. Patient also complains of epigastric pain and feels like it may be an extension of his chest pain. Denies SOB, fever, nausea and vomiting, diarrhea, headache, hematemesis, melena, hematochezia, dysuria or hematuria. Allergies and Home Medications Allergies Coded Allergies: No Known Drug Allergies (Unverified , 10/13/20) Patient Home Medication List Home Medication List Reviewed: Yes Albuterol Sulfate (Ventolin Hfa) 18 Gm Hfa.aer.ad, 2 PUFF INH Q6H PRN for WHEEZING, (Reported) Entered as Reported by: KO GARIBAY on 12/15/211558 Amiodarone HCl (Amiodarone HCl) 200 Mg Tablet, 200 MG PO BID Prescribed by: DENVER CASTANON on 12/25/21 1203 Benzonatate (Benzonatate) 100 Mg Capsule, 100 MG PO TID PRN for COUGH, (Reported) Entered as Reported by: KO GARIBAY on 12/15/211558 Betamethasone/Propylene Glyc (Betamethasone Dp Aug 0.05% Crm) 15 Gm Cream..g., 1 APPLIC TOP BID PRN for RASH, (Reported) Entered as Reported by: KO GARIBAY on 12/15/211558 Budesonide/Formoterol Fumarate (Budesonide-Formoterol 160-4.5) 10.2 Gm Hfa.aer.ad, 2 PUFF INH BID, (Reported) Entered as Reported by: KO GARIBAY on 12/15/211558 Clobetasol Propionate (Clobetasol Propionate) 15 Gm Oint...g., 1 APPLIC TOP BID PRN for RASH, (Reported) Entered as Reported by: KO GARIBAY on 12/15/211558 Clopidogrel Bisulfate (Clopidogrel) 75 Mg Tablet, 75 MG PO DAILY, (Reported) Entered as Reported by: KO GARIBAY on 12/15/21 155 Diltiazem HCl (Diltiazem 24Hr ER) 120 Mg Cap.er.24h, 120 MG PO DAILY Prescribed by: DENVER CASTANON on 12/25/21 120 Hydroxyzine HCl (Hydroxyzine HCl) 25 Mg Tablet, 25 MG PO TID PRN for ANXIETY, (Reported) Entered as Reported by: KO GARIBAY on 12/15/21 155 Ipratropium Jean (Ipratropium Jean) 0.2 Mg/1 Ml Solution, 1 ML NEB QID, (Reported) Entered as Reported by: KO GARIBAY on 12/15/21 155 Nicotine (Nicoderm Cq) 1 Each Patch.td24, 14 MG TD DAILY@0900 Prescribed by: DENVER CASTANON on 12/25/21 120 Oxybutynin Chloride (Oxybutynin Chloride) 5 Mg Tablet, 5 MG PO BID Prescribed by: DENVER CASTANON on 12/25/21 120 Pantoprazole Sodium (Pantoprazole Sodium) 40 Mg Tablet.dr, 40 MG PO BID, (Reported) Entered as Reported by: KO GARIBAY on 12/15/21 155 Prednisone (Prednisone) 5 Mg Tablet, 5 MG PO DAILY, (Reported) Entered as Reported by: KO GARIBAY on 12/15/211558 Prednisone (Prednisone) 10 Mg Tab.ds.pk, 10 MG PO DAILY Prescribed by: PEGGY TIPTON on 03/16/22 1146 Rivaroxaban (Xarelto Tablet) 20 Mg Tablet, 20 MG PO DAILY@1700 Prescribed by: DENVER CASTANON on 12/25/21 120 Review of Systems Review of Systems Constitutional: no symptoms reported EENTM: No Symptoms Reported Respiratory: No Symptoms Reported Cardiovascular: Chest Pain Gastrointestinal: Abdominal Pain Genitourinary: No Symptoms Reported Musculoskeletal: no symptoms reported Skin: no symptoms reported Psychiatric/Neurological: No Symptoms Reported Endocrine: No Symptoms Reported Hematologic/Lymphatic: No Symptoms Reported Past Xstwamy-Drgauq-Xqxgpa Hx Immunizations Up To Date First/Initial COVID19 Vaccinat: na Second COVID19 Vaccination Jose: na Third COVID19 Vaccination Date: na Past Medical History Surgery/Hospitalization HX: COPD, coronary artery disease, high cholesterol, hypertension, stents in his heart, chronic O2 use Surgeries: Yes Coronary Stent Respiratory: Yes COPD Cardiac: Yes Coronary Artery Disease, Heart Attack, High Cholesterol, Hypertension Neurological: Yes Stroke Genitourinary: No Gastrointestinal: No Musculoskeletal: Yes Arthritis Endocrine: No Family Medical History No Pertinent Family Hx Physical Exam Vital Signs Vital Signs - First Documented 08/25/22 12:35 Temp 36.8 Pulse 92 Resp 19 B/P (MAP) 99/49 (66) Pulse Ox 100 O2 Delivery Room Air Capillary Refill : Height, Weight, BMI Height: '" Weight: lbs. oz. kg; 21.00 BMI Method: General Appearance: Cachetic, Mild Distress, Thin HEENT: PERRL/EOMI Neck: Full Range of Motion, Normal Inspection Respiratory: Chest Non Tender, Lungs Clear, Normal Breath Sounds Cardiovascular: Regular Rate, Rhythm (intermittnetly heart rate goes into low 100's), No Edema, Normal Peripheral Pulses Gastrointestinal: Normal Bowel Sounds, Soft, Tenderness (in epigastric region) Extremity: Normal Range of Motion Neurologic/Psychiatric: Alert, Oriented x3, No Motor/Sensory Deficits Skin: Pallor Progress/Results/Core Measures Results/Orders Lab Results Laboratory Tests Test 08/25/22 12:53 08/25/22 13:19 Range/Units White Blood Count 3.2 L 4.3-11.0 10^3/uL Red Blood Count 2.37 L 4.30-5.52 10^6/uL Hemoglobin 4.6 *L 13.3-17.7 g/dL Hematocrit 18 *L 40-54 % Mean Corpuscular Volume 74 L 80-99 fL Mean Corpuscular Hemoglobin 19 L 25-34 pg Mean Corpuscular Hemoglobin Concent 26 L 32-36 g/dL Red Cell Distribution Width 19.9 H 10.0-14.5 % Platelet Count 370 130-400 10^3/uL Mean Platelet Volume 10.3 9.0-12.2 fL Immature Granulocyte % (Auto) 1 % Neutrophils (%) (Auto) 56 42-75 % Lymphocytes (%) (Auto) 30 12-44 % Monocytes (%) (Auto) 13 H 0-12 % Eosinophils (%) (Auto) 1 0-10 % Basophils (%) (Auto) 0 0-10 % Neutrophils # (Auto) 1.8 1.8-7.8 10^3/uL Lymphocytes # (Auto) 1.0 1.0-4.0 10^3/uL Monocytes # (Auto) 0.4 0.0-1.0 10^3/uL Eosinophils # (Auto) 0.0 0.0-0.3 10^3/uL Basophils # (Auto) 0.0 0.0-0.1 10^3/uL Immature Granulocyte # (Auto) 0.0 0.0-0.1 10^3/uL Prothrombin Time 22.9 H 12.2-14.7 SEC INR Comment 2.0 H 0.8-1.4 Activated Partial Thromboplast Time 48 H 24-35 SEC D-Dimer 0.31 0.00-0.49 UG/ML Sodium Level 142 135-145 MMOL/L Potassium Level 3.0 L 3.6-5.0 MMOL/L Chloride Level 101 98-107 MMOL/L Carbon Dioxide Level 25 21-32 MMOL/L Anion Gap 16 H 5-14 MMOL/L Blood Urea Nitrogen 13 7-18 MG/DL Creatinine 0.84 0.60-1.30 MG/DL Estimat Glomerular Filtration Rate 91 BUN/Creatinine Ratio 15 Glucose Level 131 H 70-105 MG/DL Calcium Level 8.6 8.5-10.1 MG/DL Corrected Calcium 8.9 8.5-10.1 MG/DL Magnesium Level 1.8 1.6-2.4 MG/DL Total Bilirubin 0.2 0.1-1.0 MG/DL Aspartate Amino Transf (AST/SGOT) 13 5-34 U/L Alanine Aminotransferase (ALT/SGPT) 11 0-55 U/L Alkaline Phosphatase 53 40-136 U/L Troponin I < 0.30 <0.30 NG/ML Pro-B-Type Natriuretic Peptide 1499.0 H <450.0 PG/ML Total Protein 5.8 L 6.4-8.2 GM/DL Albumin 3.6 3.2-4.5 GM/DL Serum Alcohol < 10 <10 MG/DL Urine Color YELLOW Urine Clarity CLEAR Urine pH 5.5 5-9 Urine Specific Lefor 1.015 L 1.016-1.022 Urine Protein NEGATIVE NEGATIVE Urine Glucose (UA) NEGATIVE NEGATIVE Urine Ketones NEGATIVE NEGATIVE Urine Nitrite NEGATIVE NEGATIVE Urine Bilirubin NEGATIVE NEGATIVE Urine Urobilinogen 0.2 < = 1.0 MG/DL Urine Leukocyte Esterase NEGATIVE NEGATIVE Urine RBC (Auto) NEGATIVE NEGATIVE Urine RBC NONE /HPF Urine WBC RARE /HPF Urine Squamous Epithelial Cells RARE /HPF Urine Crystals NONE /LPF Urine Bacteria NEGATIVE /HPF Urine Casts PRESENT /LPF Urine Hyaline Casts RARE /LPF Urine Mucus NEGATIVE /LPF Urine Culture Indicated NO Urine Opiates Screen NEGATIVE NEGATIVE Urine Oxycodone Screen NEGATIVE NEGATIVE Urine Methadone Screen NEGATIVE NEGATIVE Urine Propoxyphene Screen NEGATIVE NEGATIVE Urine Barbiturates Screen NEGATIVE NEGATIVE Ur Tricyclic Antidepressants Screen NEGATIVE NEGATIVE Urine Phencyclidine Screen NEGATIVE NEGATIVE Urine Amphetamines Screen NEGATIVE NEGATIVE Urine Methamphetamines Screen NEGATIVE NEGATIVE Urine Benzodiazepines Screen NEGATIVE NEGATIVE Urine Cocaine Screen NEGATIVE NEGATIVE Urine Cannabinoids Screen NEGATIVE NEGATIVE My Orders Orders - HUYEN VARELA MD Cbc With Automated Diff (08/25/22 12:55) Magnesium (08/25/22 12:55) Chest 1 View Ap/Pa Only (08/25/22 12:55) Ekg Tracing (08/25/22 12:55) Comprehensive Metabolic Panel (08/25/22 12:55) Protime With Inr (08/25/22 12:55) Partial Thromboplastin Time (08/25/22 12:55) O2 (08/25/22 12:55) Monitor-Rhythm Ecg Trace Only (08/25/22 12:55) Aspirin Chewable Tablet (Baby Aspirin Ch (08/25/22 13:00) Ed Iv/Invasive Line Start (08/25/22 12:55) Fibrin Degradation Products (08/25/22 12:55) Troponin I Fs (08/25/22 12:55) Probnp Fs (08/25/22 12:55) Alcohol (08/25/22 12:55) Drug Screen Stat (Urine) (08/25/22 12:55) Ua Culture If Indicated (08/25/22 12:55) Ed Iv/Invasive Line Start (08/25/22 12:58) Ns Iv 1000 Ml (Sodium Chloride 0.9%) (08/25/22 13:00) Ct Abdomen/Pelvis W (08/25/22 13:31) Occult Blood Stool (08/25/22 13:31) Fecal Occult Bedside (08/25/22 13:31) Pantoprazole Injection (Protonix Injecti (08/25/22 13:45) Ns (Ivpb) (Sodium C... W/Pantoprazole In (08/25/22 13:32) Iohexol Injection (Omnipaque 350 Mg/Ml 1 (08/25/22 13:45) Received Contrast (Hold Metformin- Contr (08/25/22 13:45) Ns (Ivpb) (Sodium Chloride 0.9% Ivpb Bag (08/25/22 13:45) Potassium Cl 10meq/50ml Ivpb (Kcl 10 Meq (08/25/22 13:48) Ed Admission (Communication) (08/25/22 14:38) Medications Given in ED Current Medications Medications Dose Ordered Sig/Linda Route Start Time Stop Time Status Last Admin Dose Admin Aspirin 324 mg ONCE ONCE PO 08/25/22 13:00 08/25/22 13:01 DC 08/25/22 13:18 324 MG Iohexol 100 ml ONCE ONCE IV 08/25/22 13:45 08/25/22 13:46 DC 08/25/22 14:16 70 ML Pantoprazole 80 mg ONCE ONCE IV 08/25/22 13:45 08/25/22 13:46 DC 08/25/22 14:29 80 MG Sodium Chloride 100 ml ONCE ONCE IV 08/25/22 13:45 08/25/22 13:46 DC 08/25/22 14:16 100 ML Vital Signs/I&O 08/25/22 12:35 Temp 36.8 Pulse 92 Resp 19 B/P (MAP) 99/49 (66) Pulse Ox 100 O2 Delivery Room Air Progress Progress Note : Progress Note 1. CHEST PAIN/ ABDOMINAL PAIN: - CXR: normal - CT ABD & PELVIS: no acute findings, see report - Troponin: undetected - BNP: 1,499 - ASA 324mg given when pt first came in presenting with only chest pain 2. ACUTE ON CHRONIC ANEMIA: - Hb is 4.6 - Pt states he had 2 transfusions recently, and does not know the reason for his anemia - BP on lower end - No known history of GI bleed - Occult blood: - Protonix bolus and drip STAT in ER - Pt needs blood transfusion as soon as possible. Will admit to ICU. Discussed with hospitalist, Dr Pekc 3. HYPOKALEMIA: - s. K is 3.0 - Potassium repletion with 20mEq iv potassium Diagnostic Imaging Diagonstic Imaging: Xray, CT Plain Films/CT/US/NM/MRI: chest, abdomen Comments [facility] [place] NAME: RYDER RINCON [facility] REC#: [id number] PT STATUS: REG ER : 1945 PHYSICIAN: HUYEN VARELA MD ADMIT DATE: 08/25/22/ER FS Draft Date of Exam:08/25/22 CT ABDOMEN/PELVIS W PROCEDURE: CT abdomen and pelvis with contrast. TECHNIQUE: Multiple contiguous axial images were obtained through the abdomen and pelvis after administration of intravenous contrast. Auto Exposure Controls were utilized during the CT exam to meet ALARA standards for radiation dose reduction. All CT scans use one or more of the following dose optimizing techniques: automated exposure control, MA and/or KvP adjustment based on patient size and exam type or iterative reconstruction. INDICATION: Abdominal pain. FINDINGS: Images of the lung bases reveal air trapping which may be due to emphysema. No suspicious hepatic, gallbladder, pancreatic, adrenal gland or splenic lesion is identified. There is mild hiatal hernia present. There is no focal renal lesion. No hydronephrosis or hydroureter is identified. There is no free fluid within the abdomen or pelvis. No pathologically enlarged adenopathy is identified. Unopacified bladder is unremarkable. IMPRESSION: No definite acute abnormality is identified, although there is mild hiatal hernia present. Note is also made of probable emphysema as visualized in the lung bases. Dictated on workstation # [id number] Dict: 08/25/22 1427 Trans: 08/25/22 1433 [id number] Interpreted by: MAGNUS SNYDER MD Electronically signed by: [facility] [place] NAME: RYDER RINCON [facility] REC#: [id number] PT STATUS: REG ER : 1945 PHYSICIAN: HUYEN VARELA MD ADMIT DATE: 08/25/22/ER FS Draft Date of Exam:08/25/22 CHEST 1 VIEW AP/PA ONLY INDICATION: Chest pain. COMPARISON: 03/13/2022. FINDINGS: Heart size is stable. The lungs are clear. No failure pattern, effusion, or pneumothorax. No change from comparison. IMPRESSION: Stable chest, no acute finding. Dictated on workstation # [id number] Dict: 08/25/22 1311 Trans: 08/25/22 1320 [id number] Interpreted by: MAGNUS MC Electronically signed by: Departure Communication (Admissions) Time/Spoke to Admitting Phy: 14:30 Dr Peck Impression Primary Impression: Severe anemia Additional Impressions: Chest pain Qualified Codes: R07.9 - Chest pain, unspecified Epigastric pain Disposition: 30 STILL A PATIENT Condition: Critical Admissions Decision to Admit Reason: Admit from ER (General) Decision to Admit/Date: Aug 25, 2022 Time/Decision to Admit Time: 13:30 Transfer Transfer Reason: Exceeds level of care Method of Transfer: EMS Departure-Patient Inst. Referrals: EMILE WILKS MD (PCP/Family) Primary Care Physician HUYEN VARELA MD Aug 25, 2022 12:53
[2022-08-25] MEDS ORDERED: NS IV 1000 ML 1,000 ML IV SCH (13:00)
[2022-08-25] MEDS ORDERED: ASPIRIN 81 MG CHEW (CHILDREN'S ASA) PO ONE (13:00)
[2022-08-25 13:14] LABS: BASOPHILS % (AUTO) 0 % (0-10); EOSINOPHILS % (AUTO) 1 % (0-10); LYMPHOCYTES % (AUTO) 30 % (12-44); MEAN CORPUSCULAR HEMOGLOBIN 19 pg (25-34); MEAN CORPUSCULAR HGB CONC 26 g/dL (32-36); MEAN CORPUSCULAR VOLUME 74 fL (80-99); MEAN PLATELET VOLUME 10.3 fL (9.0-12.2); MONOCYTES # (AUTO) 0.4 10^3/uL (0.0-1.0); MONOCYTES % (AUTO) 13 % (0-12); NEUTROPHILS # (AUTO) 1.8 10^3/uL (1.8-7.8); NEUTROPHILS % (AUTO) 56 % (42-75); PLATELET COUNT 370 10^3/uL (130-400); WHITE BLOOD COUNT 3.2 10^3/uL (4.3-11.0)
--- NOTE | 2022-08-25 13:20 | Diagnostic Imaging Report ---
INDICATION: Chest pain. COMPARISON: 03/13/2022. FINDINGS: Heart size is stable. The lungs are clear. No failure pattern, effusion, or pneumothorax. No change from comparison. IMPRESSION: Stable chest, no acute finding. Dictated by: Dictated on workstation # [id number]
[2022-08-25 13:24] LABS: HEMOGLOBIN 4.6 g/dL (13.3-17.7)
[2022-08-25 13:25] LABS: HEMATOCRIT 18 % (40-54)
[2022-08-25 13:27] LABS: BILIRUBIN,URINE NEGATIVE (NEGATIVE); CLARITY,URINE CLEAR; COLOR,URINE YELLOW; GLUCOSE, URINE (UA) NEGATIVE (NEGATIVE); KETONES,URINE NEGATIVE (NEGATIVE); LEUKOCYTE ESTERASE ,URINE NEGATIVE (NEGATIVE); NITRITE,URINE NEGATIVE (NEGATIVE); PH,URINE 5.5 (5-9); PROTEIN,URINE NEGATIVE (NEGATIVE)
[2022-08-25] MEDS ORDERED: PANTOPRAZOLE INJECTION 200 MG in NS (IVPB) 100 ML IV STA (13:32)
[2022-08-25 13:33] LABS: BACTERIA,URINE NEGATIVE /HPF; SQUAMOUS EPITHELIAL CELL,UR RARE /HPF; WBC,URINE RARE /HPF
[2022-08-25 13:34] LABS: HYALINE CASTS, URINE RARE /LPF
[2022-08-25 13:35] LABS: PROTHROMBIN TIME PATIENT 22.9 SEC (12.2-14.7)
[2022-08-25 13:36] LABS: ALBUMIN 3.6 GM/DL (3.2-4.5); BILIRUBIN,TOTAL 0.2 MG/DL (0.1-1.0); CALCIUM 8.6 MG/DL (8.5-10.1); CREATININE SERUM 0.84 MG/DL (0.60-1.30); MAGNESIUM 1.8 MG/DL (1.6-2.4); TOTAL PROTEIN 5.8 GM/DL (6.4-8.2)
[2022-08-25] MEDS ORDERED: HOLD METFORMIN - RECEIVED CONTRAST 20 ML VIAL IV SCH (13:45)
[2022-08-25] MEDS ORDERED: PANTOPRAZOLE 40 MG (PROTONIX) VIAL IV ONE (13:45)
[2022-08-25] MEDS ORDERED: NS 100 ML (IVPB) BAG IV ONE (13:45)
[2022-08-25] MEDS ORDERED: IOHEXOL 350 MG/ML 100 ML (OMNIPAQUE 350) VIAL IV ONE (13:45)
[2022-08-25 13:46] LABS: AMPHETAMINE SCREEN, URINE NEGATIVE (NEGATIVE); BARBITURATE SCREEN URINE NEGATIVE (NEGATIVE); BENZODIAZEPINES SCREEN URINE NEGATIVE (NEGATIVE); CANNABINOID SCREEN, URINE NEGATIVE (NEGATIVE); COCAINE SCREEN URINE NEGATIVE (NEGATIVE); METHADONE STAT NEGATIVE (NEGATIVE); OPIATE SCREEN URINE NEGATIVE (NEGATIVE); OXYCODONE STAT NEGATIVE (NEGATIVE); PROPOXYPHENE STAT NEGATIVE (NEGATIVE); TRICYCLIC ANTIDEPRESSANTS SCRE NEGATIVE (NEGATIVE)
[2022-08-25] MEDS ORDERED: POTASSIUM CL 10MEQ/50ML IVPB 50 ML IV STA (13:48)
--- NOTE | 2022-08-25 14:33 | Diagnostic Imaging Report ---
PROCEDURE: CT abdomen and pelvis with contrast. TECHNIQUE: Multiple contiguous axial images were obtained through the abdomen and pelvis after administration of intravenous contrast. Auto Exposure Controls were utilized during the CT exam to meet ALARA standards for radiation dose reduction. All CT scans use one or more of the following dose optimizing techniques: automated exposure control, MA and/or KvP adjustment based on patient size and exam type or iterative reconstruction. INDICATION: Abdominal pain. FINDINGS: Images of the lung bases reveal air trapping which may be due to emphysema. No suspicious hepatic, gallbladder, pancreatic, adrenal gland or splenic lesion is identified. There is mild hiatal hernia present. There is no focal renal lesion. No hydronephrosis or hydroureter is identified. There is no free fluid within the abdomen or pelvis. No pathologically enlarged adenopathy is identified. Unopacified bladder is unremarkable. IMPRESSION: No definite acute abnormality is identified, although there is mild hiatal hernia present. Note is also made of probable emphysema as visualized in the lung bases. Dictated by: Dictated on workstation # [id number]
[2022-08-25] MEDS ORDERED: NS IV 1000 ML 1,000 ML IV STA (14:41)
[2022-08-25] MEDS ORDERED: diphenhydrAMINE 25 MG TAB (BENADRYL) PO PRN (16:00)
[2022-08-25] MEDS ORDERED: MELATONIN 3 MG TABLET PO PRN (16:00)
[2022-08-25] MEDS ORDERED: ONDANSETRON 4 MG (ZOFRAN) ORAL DISSOLVE TAB PO PRN (16:00)
[2022-08-25] MEDS ORDERED: polyethylene glycoL POWDER 17 GM (MIRALAX) PACK PO PRN (16:00)
[2022-08-25] MEDS ORDERED: ONDANSETRON 4 MG/2 ML (SDV) Z0FRAN IV PRN (16:00)
[2022-08-25] MEDS ORDERED: BISACODYL 10 MG SUPP (DULCOLAX) PR PRN (16:00)
[2022-08-25] MEDS ORDERED: diphenhydrAMINE 50 MG/ML INJ (BENADRYL) IVP PRN (16:00)
[2022-08-25] MEDS ORDERED: ANTACID SUSP 30 ML UDC (MYLANTA) PO PRN (16:00)
[2022-08-25] MEDS ORDERED: NS IV 500 ML 500 ML IV PRN (16:00)
[2022-08-25] MEDS ORDERED: PANTOPRAZOLE 40 MG (PROTONIX) VIAL IV NR (16:30)
[2022-08-25] MEDS ORDERED: LIDOCAINE UROJET 2% GEL 10 ML PKG TOP ONE (16:45)
[2022-08-25] MEDS ORDERED: LIDOCAINE UROJET 2% GEL 10 ML PKG ONE (16:47)
[2022-08-25] MEDS ORDERED: NICOTINE 21 MG (NICODERM) PATCH TD NR (17:30)
[2022-08-25 18:05] VITALS: BP 119/64
--- NOTE | 2022-08-25 18:41 | History & Physical-Hospitalist ---
History of Present Illness HPI/Chief Complaint David Robbins is a 76 year old male with PMH HTN, AFib, CAD, COPD, BPH, who presented with chest pain. He reports his symptoms have been going on for about a week. He has no chest pain on my exam. He reports shortness of breath. He denies abdominal pain. He denies bloody stools. He reports having black stools for several months. He was hospitalized in March and was found to have iron deficiency anemia at that time with positive fecal occult blood. He was supposed to follow up for an outpatient colonoscopy but did not. Source: patient Exam Limitations: no limitations Date Seen 08/25/22 Time Seen by a Provider: 16:00 Attending Physician Nargis Andrea MD PCP Admitting Physician: Danica Bazan MD Attending Physician: Danica Bazan MD Referring Physician Date of Admission Aug 25, 2022 at 15:56 Home Medications & Allergies Home Medications Reviewed patient Home Medication Reconciliation performed by pharmacy medication reconciliations electromyographic technician and/or nursing. Patients Allergies have been reviewed. Allergies Allergies Coded Allergies No Known Drug Allergies (Mipwgyzxto94/30/20) Past Rquzeyv-Vjzfvd-Bbyukb Hx Patient Social History Tobacco Use?: Yes Tobacco type used: Cigarettes Smoking Status: Current Everyday Smoker Use of E-Cig and/or Vaping dev: No Substance use?: No Alcohol Use?: Yes Alcohol type: Beer Alcohol Frequency: Couple times a week Pt feels they are or have been: No Immunizations Up To Date Date of Influenza Vaccine: Sep 02, 2021 First/Initial COVID19 Vaccinat: na Second COVID19 Vaccination Jose: na Tetanus Booster (TDap): Unknown Current Status Advance Directives: No Communicates: Verbally Primary Language: Khmer Preferred Spoken Language: Khmer Is interpretation needed?: No Sensory deficits: Vision impairment Implanted or Applied Medical D: Stents Past Medical History Surgeries: Coronary Stent COPD Coronary Artery Disease, Heart Attack, High Cholesterol, Hypertension Stroke Arthritis Family Medical History No Pertinent Family Hx Review of Systems Constitutional: no symptoms reported EENTM: no symptoms reported Respiratory: short of breath Cardiovascular: chest pain Gastrointestinal: no symptoms reported Physical Exam Physical Exam Vital Signs Vital Signs - First Documented 08/25/22 08/25/22 12:35 15:15 Temp 36.8 Pulse 92 Resp 19 B/P (MAP) 99/49 (66) Pulse Ox 100 O2 Delivery Room Air O2 Flow Rate 3.00 Capillary Refill : Less Than 3 Seconds Height, Weight, BMI Height: '" Weight: lbs. oz. kg; 18.97 BMI Method: General Appearance: No Apparent Distress, Thin HEENT: PERRL/EOMI, Pharynx Normal Neck: Normal Inspection, Supple Respiratory: Chest Non Tender, Lungs Clear, No Respiratory Distress Cardiovascular: Regular Rate, Rhythm, No Murmur Gastrointestinal: Normal Bowel Sounds, Non Tender, Soft Extremity: Normal Inspection, No Pedal Edema Neurologic/Psychiatric: Alert, Oriented x3, Normal Mood/Affect Skin: Warm/Dry, Pallor Results Results/Procedures Labs Laboratory Tests 08/25/22 12:53 Patient resulted labs reviewed. Imaging: Reviewed Imaging Report Assessment/Plan Admission Diagnosis Severe anemia Admission Status: Inpatient Order (span 2 midnights) Reason for Inpatient Admission: Tranfusions GI bleed evaluation Assessment and Plan Symptomatic anemia Chronic GI bleeding Iron deficiency anemia Anticoagulated Hgb 4 on arrival Transfuse 3 units PRBC Previously FOBT positive IV PPI Surgery consulted TeleICU consulted Chest pain CAD AFib Troponin negative x2 Likely due to severe anemia Cardiology consulted Hold Xarelto COPD Unlikely exacerbation, shortness of breath likely due to anemia Reassess symptoms post-tranfusion MAT protocol DVT prophylaxis: held due to GI bleeding Critical Care Critically Ill Patient Diagnosis/Problems Diagnosis/Problems (1) Severe anemia Status: Acute (2) MEIR (iron deficiency anemia) Status: Acute (3) Chest pain Status: Acute Qualifiers: Chest pain type: unspecified Qualified Codes: R07.9 - Chest pain, unspecified (4) Symptomatic anemia Status: Acute (5) Chronic GI bleeding Status: Acute (6) Anticoagulated Status: Chronic (7) CAD (coronary artery disease) Status: Chronic (8) Afib Status: Chronic (9) COPD (chronic obstructive pulmonary disease) Status: Chronic Qualifiers: Emphysema type: other (10) Chronic respiratory failure with hypoxia Status: Chronic DANICA BAZAN MD Aug 25, 2022 18:41
--- NOTE | 2022-08-25 18:41 | Tele-ICU Consult ---
History of Present Illness History of Present Illness Date Seen by Provider: Aug 25, 2022 Time Seen by Provider: 18:39 Date of Admission . (Tele-ICU Physician , consultation) Available chart/ vitals / labs / Images reviewed H&P is from ER notes Patient's information available about PMH, Shx, Fhx allergy reviewed inEMR. ROS as per chart and RN report Now in ICU, hemodynamically stable Video assessment done using teleICU camera, rest of exam as per RN Discussed with RN. Consultants: Hospital course: A/P Suspected GIB ( on xarelto , seems off Plavix as per patient , also on daily prednisone ? - PATIENT IS NOT SURE OF MED LIST , NEED TO CONFIRM - transfusion 3u PRBC - PPI gtt - no need to reverse xarelto - monitor - SX consult ACUTE ON CHRONIC ANEMIA - follow Hb , w/up pending - transfusion 3 u PRBC Abd pain - CT ABD & PELVIS: no acute findings COPD (on baseline 2L NC) - stable - resume inhalers - need to know id prednisone dependent CP with CAD - probably due to anemia PAF - - rate controlled . 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 Discussed with RN to reach out if any questions or concerns A total of 25 minutes of critical care time was devoted to this patient today, required to treat and/or prevent further deterioration of critical care condition ( as above ) . I am remotely monitoring this patient from another state. I am unable to do the bedside exam, and history/physical and pertinent information is taken from other notes in the computer and bedside staff. I cannot take responsibility for the accuracy of this information. . Allergies and Home Medications Allergies Coded Allergies: No Known Drug Allergies (Unverified , 10/13/20) Home Medications Albuterol Sulfate 18 Gm Hfa.aer.ad, 2 PUFF INH Q6H PRN for WHEEZING, (Reported) Amiodarone HCl 200 Mg Tablet, 200 MG PO BID Prescribed by: DENVER CASTANON on 12/25/21 1203 Benzonatate 100 Mg Capsule, 100 MG PO TID PRN for COUGH, (Reported) Betamethasone/Propylene Glyc 15 Gm Cream..g., 1 APPLIC TOP BID PRN for RASH, (Reported) Budesonide/Formoterol Fumarate 10.2 Gm Hfa.aer.ad, 2 PUFF INH BID, (Reported) Clobetasol Propionate 15 Gm Oint...g., 1 APPLIC TOP BID PRN for RASH, (Reported) Clopidogrel Bisulfate 75 Mg Tablet, 75 MG PO DAILY, (Reported) Diltiazem HCl 120 Mg Cap.er.24h, 120 MG PO DAILY Prescribed by: DENVER CASTANON on 12/25/21 1203 Hydroxyzine HCl 25 Mg Tablet, 25 MG PO TID PRN for ANXIETY, (Reported) Ipratropium Vestal 0.2 Mg/1 Ml Solution, 1 ML NEB QID, (Reported) Nicotine 1 Each Patch.td24, 14 MG TD DAILY@0900 Prescribed by: DENVER CASTANON on 12/25/21 1203 Oxybutynin Chloride 5 Mg Tablet, 5 MG PO BID Prescribed by: DENVER CASTANON on 12/25/21 1203 Pantoprazole Sodium 40 Mg Tablet.dr, 40 MG PO BID, (Reported) Prednisone 5 Mg Tablet, 5 MG PO DAILY, (Reported) Prednisone 10 Mg Tab.ds.pk, 10 MG PO DAILY Take 6 tabs(60mg)daily,decrease by 1 tab(10MG)daily. Prescribed by: PEGGY TIPTON on 03/16/22 1146 Rivaroxaban 20 Mg Tablet, 20 MG PO DAILY@1700 Prescribed by: DENVER CASTANON on 12/25/21 1203 Past Medical/Social/Family Hx Patient Social History Tobacco Use?: Yes Tobacco type used: Cigarettes Smoking Status: Current Everyday Smoker Use of E-Cig and/or Vaping dev: No Substance use?: No Alcohol Use?: Yes Alcohol type: Beer Alcohol Frequency: Couple times a week Pt stated abuse/neglect: No Immunizations Up To Date Influenza Vaccine Up-to-Date: No; Not Current First/Initial COVID19 Vaccinat: na Second COVID19 Vaccination Jose: na Tetanus Booster (TDap): Unknown Current Status Advance Directives: No Communicates: Verbally Primary Language: Austrian Preferred Spoken Language: Austrian Is interpretation needed?: No Sensory deficits: Vision impairment Implanted or Applied Medical D: Stents Review of Systems Constitutional: see HPI Focused Exam Height, Weight, BMI Height: '" Weight: lbs. oz. kg; 18.97 BMI Method: Exam Exam Patient acknowledged, consented, and participated in this virtual visit which was conducted using real time audio/video Vital Signs Date Time Temp Pulse Resp B/P (MAP) Pulse Ox O2 Delivery O2 Flow Rate FiO2 08/25/22 18:05 36.8 85 22 119/64 Nasal Cannula 3.00 08/25/22 16:15 104 18 119/64 (82) 100 Nasal Cannula 3.00 08/25/22 16:10 87 08/25/22 15:15 36.8 72 21 103/54 100 Nasal Cannula 3.00 08/25/22 12:35 36.8 92 19 99/49 (66) 100 Room Air Height & Weight Height: '" Weight: lbs. oz. kg; 18.97 BMI Method: General Appearance: WD/WN, Cachetic, Mild Distress, Thin HEENT: PERRL/EOMI Neck: Full Range of Motion, Normal Inspection Respiratory: Chest Non Tender, Lungs Clear, Normal Breath Sounds Cardiovascular: Regular Rate, Rhythm (intermittnetly heart rate goes into low 100's), No Edema, Normal Peripheral Pulses Capillary Refill: Less Than 3 Seconds Extremity: Normal Range of Motion Neurologic/Psychiatric: Alert, Oriented x3, No Motor/Sensory Deficits Skin: Pallor Results Lab Laboratory Tests 08/25/22 12:53 Assessment/Plan Assessment/Plan 1 KEIRA YBARRA MD Aug 25, 2022 18:41
[2022-08-25] MEDS: ACETAMINOPHEN 325 MG TABLET PO PRN (19:45)
[2022-08-25] MEDS: DOCUSATE SODIUM 100 MG (COLACE) CAP PO SCH (19:46)
[2022-08-25 19:47] VITALS: BP 113/67
[2022-08-25 20:38] VITALS: BP 125/69
[2022-08-25 20:50] VITALS: BP 105/59
--- NOTE | 2022-08-25 21:03 | Progress Note-Pre Operative ---
Pre-Operative Progress Note Date of Available H&P: Aug 25, 2022 Date H&P Reviewed: Aug 25, 2022 Time H&P Reviewed: 22:00 History & Physical: No changes noted Pre-Operative Diagnosis: severe anemia with hx GERD and abscence from colonoscopy GRACEILA MOCTEZUMA MD Aug 25, 2022 21:03
[2022-08-25 23:19] VITALS: BP 112/70
[2022-08-25 23:48] VITALS: BP 106/60
[2022-08-26] VITALS: BP 111/60
[2022-08-26] MEDS ORDERED: FUROSEMIDE 40 MG/4 ML INJ (LASIX) ONE (00:43)
[2022-08-26] MEDS ORDERED: FUROSEMIDE 40 MG/4 ML INJ (LASIX) IVP ONE (00:45)
[2022-08-26 02:05] VITALS: BP 121/74
--- NOTE | 2022-08-26 02:26 | CONSULTATION REPORT ---
DATE OF SERVICE: 08/25/2022 ATTENDING PRIMARY CARE PHYSICIAN: Dr. Nargis Andrea. ADMITTING PHYSICIAN: Dr. Dakotah Peck. HISTORY OF PRESENT ILLNESS: The patient is a 76-year-old male with history of multiple medical problems including coronary artery disease, history of alcoholism, chronic anemia, COPD and CHF. He presented to [facility] with 2-week history of chest discomfort as well as overall weakness. He was found to be profoundly anemic with a hemoglobin of 4.6 and hematocrit of 18. The patient is currently on Xarelto for his coronary artery disease. Again, he does report the chest discomfort at times in the epigastric region, which may indicate gastroesophageal reflux disease. He does not know of any episodes of red blood per rectum nor any dark tarry stools and is also unsure if he has had a colonoscopy in the past. PAST MEDICAL HISTORY: COPD, coronary artery disease, hypercholesterolemia, hypertension, history of myocardial infarction, history of stroke, degenerative joint disease, gastroesophageal reflux disease. PAST SURGICAL HISTORY: Cardiac catheterization and stent placement. ALLERGIES: NO KNOWN DRUG ALLERGIES. MEDICATIONS: Albuterol inhaler two puffs q.6 hours p.r.n., amiodarone 200 mg b.i.d., benzonatate 100 mg t.i.d. p.r.n., betamethasone cream b.i.d. p.r.n., budesonide/formoterol 2 puffs b.i.d., clobetasol cream b.i.d. p.r.n., Plavix 75 mg daily, diltiazem 120 mg daily, hydroxyzine 25 mg t.i.d. p.r.n., ipratropium bromide 1 mL nebulizer q.i.d., nicotine patch 14 mg daily, oxybutynin 5 mg b.i.d., Protonix 40 mg b.i.d., prednisone 15 mg daily, Xarelto 20 mg daily. SOCIAL HISTORY: Positive for smoke greater than 40 pack years, does drink beer at 2 times a week. FAMILY HISTORY: Noncontributory. PHYSICAL EXAMINATION: VITAL SIGNS: Temperature 36.4, blood pressure 125/69, pulse 85, respirations 24, pulse ox 100% on 2 liters nasal cannula. REVIEW OF SYSTEMS: This is a well-nourished male currently in no acute distress. He is not experiencing any shortness of breath and difficulty breathing. No cough or sputum production. No chest pain, palpitations, diaphoresis. He does have some epigastric pain on an intermittent basis. No nausea, vomiting. No hematemesis, no coffee-ground emesis, no diarrhea nor constipation. No known red blood per rectum nor any dark tarry stools. No fever, chills, no recent inadvertent weight loss. All other review of systems negative. PHYSICAL EXAMINATION: Will be ascertained in the a.m. The patient's history was ascertained by the admitting physician as well as the patient's electronic medical records. LABORATORY DATA: WBC 3.2, hemoglobin 4.6, hematocrit 18, platelets 370. BUN 13, creatinine 0.84. Liver function enzymes normal. BNP 1499. PT 22.9. INR 2.0, PTT 48. ASSESSMENT AND PLAN: A 76-year-old male with a profound anemia with a history of multiple medical problems, however, including gastroesophageal reflux disease and absence from colonoscopy. He has been admitted and we will proceed with resuscitation with blood products and monitoring of his hemoglobin and hematocrit. 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 On this admission, we will also proceed with an EGD and colonoscopy. Job ID: [id number] DocumentID: [id number] Dictated Date: 08/25/2022 20:59:31 Veneer Cutter Date: 08/26/2022 02:25:22 Dictated By: GRACIELA MOCTEZUMA MD
[2022-08-26] MEDS: ACETAMINOPHEN 325 MG TABLET PO PRN ×3 (04:41→18:28)
[2022-08-26 05:19] LABS: HEMATOCRIT 25 % (40-54); HEMOGLOBIN 7.3 g/dL (13.3-17.7); MEAN CORPUSCULAR HEMOGLOBIN 23 pg (25-34); MEAN CORPUSCULAR HGB CONC 30 g/dL (32-36); MEAN CORPUSCULAR VOLUME 78 fL (80-99); MEAN PLATELET VOLUME 10.4 fL (9.0-12.2); PLATELET COUNT 299 10^3/uL (130-400); WHITE BLOOD COUNT 3.4 10^3/uL (4.3-11.0)
[2022-08-26 05:32] LABS: POTASSIUM 3.6 MMOL/L (3.6-5.0)
[2022-08-26 05:33] LABS: CALCIUM 8.2 MG/DL (8.5-10.1)
[2022-08-26 05:37] LABS: CREATININE SERUM 0.81 MG/DL (0.60-1.30)
[2022-08-26 05:40] LABS: MAGNESIUM 1.8 MG/DL (1.6-2.4)
[2022-08-26] MEDS: MAGNESIUM 1 GM/100 ML IVPB 100 ML IV SCH (05:41)
[2022-08-26] MEDS: POTASSIUM CL 10MEQ/50ML IVPB 50 ML IV SCH (05:41)
[2022-08-26] MEDS: KCL 20 MEQ TAB (K-DUR) PO SCH (05:41)
[2022-08-26] MEDS ORDERED: KCL 20 MEQ TAB (K-DUR) PO ONE (05:45)
[2022-08-26] MEDS: DOCUSATE SODIUM 100 MG (COLACE) CAP PO SCH ×2 (07:50→21:25)
[2022-08-26] MEDS ORDERED: RT-ALBUTEROL/IPRATROPIUM 3 ML (DUONEB) VIAL INH PRN ×2 (08:00→15:00)
[2022-08-26] MEDS ORDERED: RT-ALBUTEROL/IPRATROPIUM 3 ML (DUONEB) VIAL ONE (08:02)
[2022-08-26 08:10] VITALS: BP 118/74
[2022-08-26] MEDS: NICOTINE 21 MG (NICODERM) PATCH TD SCH (09:00)
[2022-08-26] MEDS: PANTOPRAZOLE 40 MG (PROTONIX) VIAL IV SCH ×2 (09:00→17:13)
--- NOTE | 2022-08-26 09:09 | Tele-ICU Progress Note ---
Subjective Date Seen by a Provider: Aug 26, 2022 Time Seen by a Provider: 09:08 Subjective/Events-last exam (Tele-ICU Physician , Progress Note ) Available chart/ vitals / labs / Images reviewed Video assessment done using teleICU camera, rest of exam as per RN Discussed with RN Events overnight : Afebrile hemodynamically stable Respiratory - I/O = neg Drips: Pressors- no Consultants: sx Hospital course: (08/25) 76M Admitted for chest pain/abdominal pain. CT abd: no findings. Elevated BNP. Severe anemia-chronic. Had 2 transfusions already but does not know reason for anemia. PRBC ordered. (08/26) hb 7.3 A/P Suspected GIB ( on xarelto , seems off Plavix as per patient , also on daily prednisone ? - PATIENT IS NOT SURE OF MED LIST , NEED TO CONFIRM - transfusion 3u PRBC --> 7.3 - PPI gtt - no need to reverse xarelto - monitor - Plan for EGD/Colonoscopy 08/27 ACUTE ON CHRONIC ANEMIA - follow Hb , w/up pending - s/p ransfusion 3 u PRBC Abd pain - CT ABD & PELVIS: no acute findings COPD (on baseline 2L NC) - stable on 3 l - resume home inhalers , prn nebs - need to know if prednisone dependent CP with CAD - probably due to anemia PAF - - rate controlled . 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 as per chart -follow Lines : peripg , (Central Line Necessity Reviewed) Rao: OG: Nutrition: Analgesia: Anxiety/ delirium VTE Prophylaxis: scd Stress Ulcer Prophylaxis: ppi Plans in collaboration with bedside consultants and IM MDs. Discussed with RN to reach out if any questions or concerns A total of 25 minutes of critical care time was devoted to this patient today, required to treat and/or prevent further deterioration of critical care condition ( as above ) . I am remotely monitoring this patient from another state. I am unable to do the bedside exam, and history/physical and pertinent information is taken from other notes in the computer and bedside staff. I cannot take responsibility for the accuracy of this information. Sepsis Event Evaluation Height, Weight, BMI Height: '" Weight: lbs. oz. kg; 18.06 BMI Method: Exam Exam Patient acknowledged, consented, and participated in this virtual visit which was conducted using real time audio/video Vital Signs Date Time Temp Pulse Resp B/P (MAP) Pulse Ox O2 Delivery O2 Flow Rate FiO2 08/26/22 08:10 100 08/26/22 08:08 100 Nasal Cannula 3.00 08/26/22 08:00 80 08/26/22 07:43 36.5 08/26/22 06:00 78 33 123/77 (92) 100 Nasal Cannula 3.00 08/26/22 05:00 79 17 118/72 (87) 100 Nasal Cannula 3.00 08/26/22 04:20 37.0 75 22 120/65 (83) 100 Nasal Cannula 3.00 08/26/22 04:00 92 26 120/65 (83) 92 Nasal Cannula 3.00 08/26/22 04:00 100 Nasal Cannula 3.00 08/26/22 03:00 81 21 114/74 (87) 100 Nasal Cannula 3.00 08/26/22 02:05 36.1 81 22 121/74 100 Nasal Cannula 3.00 08/26/22 02:00 36.1 81 24 121/74 (90) 100 Nasal Cannula 3.00 08/26/22 01:00 80 23 121/73 (89) 100 Nasal Cannula 3.00 08/26/22 00:55 84 08/26/22 00:00 78 24 113/69 (84) 100 Nasal Cannula 3.00 08/26/22 00:00 36.8 78 18 111/60 100 Nasal Cannula 3.00 08/25/22 23:48 37.0 80 22 106/60 100 Nasal Cannula 3.00 08/25/22 23:20 37.2 Nasal Cannula 3.00 08/25/22 23:20 100 Nasal Cannula 3.00 08/25/22 23:19 37.2 80 18 112/70 100 Nasal Cannula 3.00 08/25/22 23:00 80 21 106/60 (75) 100 Nasal Cannula 3.00 08/25/22 22:00 85 19 104/63 (77) 100 Nasal Cannula 3.00 08/25/22 21:00 86 20 97/70 (79) 100 Nasal Cannula 3.00 08/25/22 20:50 36.4 83 23 105/59 100 Nasal Cannula 3.00 08/25/22 20:38 36.4 85 24 125/69 100 Nasal Cannula 3.00 08/25/22 20:00 36.8 08/25/22 20:00 86 19 105/59 (74) 100 Nasal Cannula 3.00 08/25/22 19:47 36.3 80 20 113/67 99 Nasal Cannula 3.00 08/25/22 19:31 100 Nasal Cannula 3.00 08/25/22 19:30 99 Nasal Cannula 3.00 08/25/22 19:30 36.3 83 20 112/68 (83) 100 Nasal Cannula 3.00 08/25/22 19:06 88 08/25/22 19:00 88 16 113/67 (82) 100 Nasal Cannula 3.00 08/25/22 19:00 Nasal Cannula 3.00 08/25/22 18:05 36.8 85 22 119/64 Nasal Cannula 3.00 08/25/22 16:15 104 18 119/64 (82) 100 Nasal Cannula 3.00 08/25/22 16:10 87 08/25/22 16:00 Nasal Cannula 3.00 08/25/22 15:15 36.8 72 21 103/54 100 Nasal Cannula 3.00 08/25/22 12:35 36.8 92 19 99/49 (66) 100 Room Air I & O 08/26/22 07:00 Intake Total 3152 ml Output Total 3375 ml Balance -223 ml Height & Weight Height: '" Weight: lbs. oz. kg; 18.06 BMI Method: General Appearance: No Apparent Distress, Thin HEENT: PERRL/EOMI, Pharynx Normal Neck: Normal Inspection, Supple Respiratory: Chest Non Tender, Lungs Clear, No Respiratory Distress Cardiovascular: Regular Rate, Rhythm, No Murmur Capillary Refill: Less Than 3 Seconds Extremity: Normal Inspection, No Pedal Edema Neurologic/Psychiatric: Alert, Oriented x3, Normal Mood/Affect Skin: Warm/Dry, Pallor Results Lab Laboratory Tests 08/25/22 12:53 08/26/22 04:40 Assessment/Plan Assessment/Plan 1 KEIRA YBARRA MD Aug 26, 2022 09:09
[2022-08-26] MEDS ORDERED: RT-ALBUTEROL HFA 8.5 GM INHALER IH SCH (10:00)
--- NOTE | 2022-08-26 10:54 | Consultation-Cardiology ---
HPI-Cardiology Cardiology Consultation Date of Consultation 08/26/22 Date of Admission Time Seen by Provider: 10:49 Indication: Chest pain HPI 76-year-old gentleman with extensive cardiac history, had paroxysmal atrial fibrillation, coronary artery disease. 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 Reported that he required cardiac catheterization and or stenting but did not have the procedure done. Patient had history of GI bleed, he was scheduled for colonoscopy but did not have it done. Came into the emergency room with chest pain, shortness of breath, fatigue and loss of energy. Noted to have severe anemia, scheduled to receive blood transfusion and possible colonoscopy. On my evaluation was feeling better. No active chest pain was reported. Home Medications & Allergies Allergies: Coded Allergies: No Known Drug Allergies (Unverified , 10/13/20) Home Medication List Reviewed: Yes QHI-[id number]-[place] Hx Patient Social History Marital Status: Employed/Student: retired Smoking Status: Current Everyday Smoker Type Used: Cigarettes 2nd Hand Smoke Exposure: Yes Have you traveled recently?: No Alcohol Use?: Yes Immunizations Up To Date Date of Influenza Vaccine: Sep 02, 2021 Past Medical History Discussed below Family Medical History Significant Family History: No Pertinent Family Hx Family Medical Hx Noncontributory Review of Systems-General Review of Systems Constitutional: no symptoms reported, malaise, weakness EENTM: no symptoms reported Respiratory: see HPI; No cough, No dyspnea on exertion, No hemoptysis, No orthopnea, No phlegm; short of breath; No stridor, No wheezing, No other Cardiovascular: see HPI, chest pain; No edema, No Hx of Intervention, No palpitations, No syncope, No vascular heart diseas, No other Gastrointestinal: no symptoms reported, see HPI Genitourinary: no symptoms reported, see HPI Musculoskeletal: no symptoms reported, see HPI Skin: no symptoms reported, see HPI Psychiatric/Neurological: No Symptoms Reported, See HPI Reviewed Test Results Reviewed Test Results Lab Laboratory Tests Test 08/25/22 12:53 08/25/22 13:19 08/25/22 16:48 08/25/22 19:45 Range/Units White Blood Count 3.2 L 4.3-11.0 10^3/uL Red Blood Count 2.37 L 4.30-5.52 10^6/uL Hemoglobin 4.6 *L 13.3-17.7 g/dL Hematocrit 18 *L 40-54 % Mean Corpuscular Volume 74 L 80-99 fL Mean Corpuscular Hemoglobin 19 L 25-34 pg Mean Corpuscular Hemoglobin Concent 26 L 32-36 g/dL Red Cell Distribution Width 19.9 H 10.0-14.5 % Platelet Count 370 130-400 10^3/uL Mean Platelet Volume 10.3 9.0-12.2 fL Immature Granulocyte % (Auto) 1 % Neutrophils (%) (Auto) 56 42-75 % Lymphocytes (%) (Auto) 30 12-44 % Monocytes (%) (Auto) 13 H 0-12 % Eosinophils (%) (Auto) 1 0-10 % Basophils (%) (Auto) 0 0-10 % Neutrophils # (Auto) 1.8 1.8-7.8 10^3/uL Lymphocytes # (Auto) 1.0 1.0-4.0 10^3/uL Monocytes # (Auto) 0.4 0.0-1.0 10^3/uL Eosinophils # (Auto) 0.0 0.0-0.3 10^3/uL Basophils # (Auto) 0.0 0.0-0.1 10^3/uL Immature Granulocyte # (Auto) 0.0 0.0-0.1 10^3/uL Prothrombin Time 22.9 H 12.2-14.7 SEC INR Comment 2.0 H 0.8-1.4 Activated Partial Thromboplast Time 48 H 24-35 SEC D-Dimer 0.31 0.00-0.49 UG/ML Sodium Level 142 135-145 MMOL/L Potassium Level 3.0 L 3.6-5.0 MMOL/L Chloride Level 101 98-107 MMOL/L Carbon Dioxide Level 25 21-32 MMOL/L Anion Gap 16 H 5-14 MMOL/L Blood Urea Nitrogen 13 7-18 MG/DL Creatinine 0.84 0.60-1.30 MG/DL Estimat Glomerular Filtration Rate 91 BUN/Creatinine Ratio 15 Glucose Level 131 H 70-105 MG/DL Calcium Level 8.6 8.5-10.1 MG/DL Corrected Calcium 8.9 8.5-10.1 MG/DL Magnesium Level 1.8 1.6-2.4 MG/DL Total Bilirubin 0.2 0.1-1.0 MG/DL Aspartate Amino Transf (AST/SGOT) 13 5-34 U/L Alanine Aminotransferase (ALT/SGPT) 11 0-55 U/L Alkaline Phosphatase 53 40-136 U/L Troponin I < 0.30 < 0.028 <0.028 NG/ML Pro-B-Type Natriuretic Peptide 1499.0 H <450.0 PG/ML Total Protein 5.8 L 6.4-8.2 GM/DL Albumin 3.6 3.2-4.5 GM/DL Serum Alcohol < 10 <10 MG/DL Urine Color YELLOW Urine Clarity CLEAR Urine pH 5.5 5-9 Urine Specific [place] 1.015 L 1.016-1.022 Urine Protein NEGATIVE NEGATIVE Urine Glucose (UA) NEGATIVE NEGATIVE Urine Ketones NEGATIVE NEGATIVE Urine Nitrite NEGATIVE NEGATIVE Urine Bilirubin NEGATIVE NEGATIVE Urine Urobilinogen 0.2 < = 1.0 MG/DL Urine Leukocyte Esterase NEGATIVE NEGATIVE Urine RBC (Auto) NEGATIVE NEGATIVE Urine RBC NONE /HPF Urine WBC RARE /HPF Urine Squamous Epithelial Cells RARE /HPF Urine Crystals NONE /LPF Urine Bacteria NEGATIVE /HPF Urine Casts PRESENT /LPF Urine Hyaline Casts RARE /LPF Urine Mucus NEGATIVE /LPF Urine Culture Indicated NO Urine Opiates Screen NEGATIVE NEGATIVE Urine Oxycodone Screen NEGATIVE NEGATIVE Urine Methadone Screen NEGATIVE NEGATIVE Urine Propoxyphene Screen NEGATIVE NEGATIVE Urine Barbiturates Screen NEGATIVE NEGATIVE Ur Tricyclic Antidepressants Screen NEGATIVE NEGATIVE Urine Phencyclidine Screen NEGATIVE NEGATIVE Urine Amphetamines Screen NEGATIVE NEGATIVE Urine Methamphetamines Screen NEGATIVE NEGATIVE Urine Benzodiazepines Screen NEGATIVE NEGATIVE Urine Cocaine Screen NEGATIVE NEGATIVE Urine Cannabinoids Screen NEGATIVE NEGATIVE Stool Occult Blood Immunoassay POSITIVE H NEGATIVE Test 08/26/22 04:40 Range/Units White Blood Count 3.4 L 4.3-11.0 10^3/uL Red Blood Count 3.17 L 4.30-5.52 10^6/uL Hemoglobin 7.3 #L 13.3-17.7 g/dL Hematocrit 25 L 40-54 % Mean Corpuscular Volume 78 L 80-99 fL Mean Corpuscular Hemoglobin 23 L 25-34 pg Mean Corpuscular Hemoglobin Concent 30 L 32-36 g/dL Red Cell Distribution Width 18.2 H 10.0-14.5 % Platelet Count 299 130-400 10^3/uL Mean Platelet Volume 10.4 9.0-12.2 fL Sodium Level 140 135-145 MMOL/L Potassium Level 3.6 3.6-5.0 MMOL/L Chloride Level 103 98-107 MMOL/L Carbon Dioxide Level 29 21-32 MMOL/L Anion Gap 8 5-14 MMOL/L Blood Urea Nitrogen 14 7-18 MG/DL Creatinine 0.81 0.60-1.30 MG/DL Estimat Glomerular Filtration Rate 92 BUN/Creatinine Ratio 17 Glucose Level 112 H 70-105 MG/DL Calcium Level 8.2 L 8.5-10.1 MG/DL Magnesium Level 1.8 1.6-2.4 MG/DL Physical Exam Physical Exam Vital Signs Vital Signs - First Documented 08/25/22 08/25/22 12:35 15:15 Temp 36.8 Pulse 92 Resp 19 B/P (MAP) 99/49 (66) Pulse Ox 100 O2 Delivery Room Air O2 Flow Rate 3.00 Capillary Refill : Less Than 3 Seconds Height, Weight, BMI Height: '" Weight: lbs. oz. kg; 18.06 BMI Method: General Appearance: No Apparent Distress, Thin Eyes: Bilateral Eye Normal Inspection, Bilateral Eye PERRL, Bilateral Eye EOMI HEENT: PERRL/EOMI, Pharynx Normal Neck: Normal Inspection, Supple Respiratory: Chest Non Tender, Lungs Clear, No Respiratory Distress Cardiovascular: Regular Rate, Rhythm, No Murmur Gastrointestinal: Normal Bowel Sounds, Non Tender, Soft Back: Normal Inspection, No CVA Tenderness, No Vertebral Tenderness Extremity: Normal Inspection, No Pedal Edema Neurologic/Psychiatric: Alert, Oriented x3, Normal Mood/Affect Skin: Warm/Dry, Pallor Lymphatic: No Adenopathy A/P-Cardiology Admission Diagnosis Chest pain Anemia GI bleed Coronary artery disease Assessment/Plan Chest pain, resembling angina, known history of coronary artery disease. Most probably his chest pain is due to severe anemia, scheduled for blood transfusion. Work-up including possible colonoscopy is in progress. Coronary artery disease, following with a sprue cutting press operator in [facility] in [place]. Reporting history of 2 myocardial infarctions in the past last heart attack in 2017 and he does not recall having a stent done. Reported that he will need a cardiac catheterization in the near future and has been discussing it with his primary sprue cutting press operator. No acute myocardial infarction was noted during the work-up today. I am hesitant to consider any cardiac catheterization at this time due to his severe anemia and active bleeding. Paroxysmal atrial fibrillation, was difficult to control with multiple medication. Responded to amiodarone and converted to sinus rhythm on the previous admission Has been on Xarelto, currently oral anticoagulation are on hold due to his severe anemia. COPD, active smoker, acute exacerbation due to pneumonia History of chronic renal insufficiency, currently renal function appears to be in the low normal. 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 Hypertension, monitor blood pressure. Hyperlipidemia, monitor lipids BART MEJIA MD Aug 26, 2022 10:54
--- NOTE | 2022-08-26 12:31 | Progress Note ---
Standard Progress Note Progress Notes/Assess & Plan Date Seen by a Provider: Aug 26, 2022 Time Seen by a Provider: 10:00 Progress/Assessment & Plan PE: chest-few scattered rhales bilat. heart-reg heent-no scleratl icterus, no lymphadenopathy. extr-no LE edema, neg homans skin-warm/dry. GRACIELA MOCTEZUMA MD Aug 26, 2022 12:31
[2022-08-26] MEDS: RT-ALBUTEROL/IPRATROPIUM 3 ML (DUONEB) VIAL INH SCH ×3 (14:15→22:38)
[2022-08-26] MEDS ORDERED: NITR0.4T42 SL (14:30)
[2022-08-26] MEDS ORDERED: SUCR1TAB PO (14:30)
[2022-08-26] MEDS ORDERED: ATOR40TA70 PO (14:30)
[2022-08-26] MEDS ORDERED: AMIO200T65 PO (14:30)
[2022-08-26] MEDS ORDERED: FLUT9.9S NSEACH (14:30)
[2022-08-26] MEDS ORDERED: MULT200T12 PO (14:30)
[2022-08-26] MEDS ORDERED: BENZ200C51 PO (14:30)
[2022-08-26] MEDS ORDERED: ALBU2.5V4 NEB (14:30)
[2022-08-26] MEDS ORDERED: RIVA20TA PO (14:30)
[2022-08-26] MEDS ORDERED: FURO20TA4 PO (14:30)
[2022-08-26] MEDS ORDERED: ACET-2267 PO (14:31)
[2022-08-26] MEDS: RT--FLUTICASONE/SALMETEROL 232-14 (AIRDUO RespiCLICK) IH SCH ×2 (14:57→22:37)
--- NOTE | 2022-08-26 15:00 | Progress Note - Hospitalist ---
Subjective HPI/CC On Admission Date Seen by Provider: Aug 26, 2022 Time Seen by Provider: 09:30 David Robbins is a 76 year old male with PMH HTN, AFib, CAD, COPD, BPH, who presented with chest pain. He reports his symptoms have been going on for about a week. He has no chest pain on my exam. He reports shortness of breath. He denies abdominal pain. He denies bloody stools. He reports having black stools for several months. He was hospitalized in March and was found to have iron deficiency anemia at that time with positive fecal occult blood. He was supposed to follow up for an outpatient colonoscopy but did not. Subjective/Events-last exam He is feeling about the same. He had some chest pain this morning. He is short of breath. Objective Exam Vital Signs Vital Signs Date Time Temp Pulse Resp B/P (MAP) Pulse Ox O2 Delivery O2 Flow Rate FiO2 08/26/22 15:00 82 16 116/71 (86) 100 Nasal Cannula 3.00 08/26/22 11:53 36.6 Capillary Refill : Less Than 3 Seconds General Appearance: No Apparent Distress, Chronically ill, Thin Respiratory: No Respiratory Distress, Decreased Breath Sounds Cardiovascular: Regular Rate, Rhythm, No Murmur Gastrointestinal: Normal Bowel Sounds, Soft Extremity: Normal Inspection, No Pedal Edema Neurologic/Psychiatric: Alert, Normal Mood/Affect Results/Procedures Lab Laboratory Tests 08/26/22 04:40 Patient resulted labs reviewed. Imaging: Reviewed Imaging Report Assessment/Plan Assessment and Plan Assess & Plan/Chief Complaint Symptomatic anemia Chronic GI bleeding Iron deficiency anemia Anticoagulated Hgb 4 on arrival s/p 3 units PRBC Hgb improved to 7 Transfuse for Hgb <7 FOBT positive IV PPI Surgery following, prep today, scopes tomorrow Transfer to medical floor Chest pain CAD AFib Troponin negative Likely due to severe anemia Cardiology following Hold Xarelto Resume Amiodarone COPD MAT protocol Resume home dose steroids and inhalers DVT prophylaxis: held due to GI bleeding Diagnosis/Problems Diagnosis/Problems (1) Severe anemia Status: Acute (2) MEIR (iron deficiency anemia) Status: Acute (3) Chest pain Status: Acute Qualifiers: Chest pain type: unspecified Qualified Codes: R07.9 - Chest pain, unspecified (4) Symptomatic anemia Status: Acute (5) Chronic GI bleeding Status: Acute (6) Anticoagulated Status: Chronic (7) CAD (coronary artery disease) Status: Chronic (8) Afib Status: Chronic (9) COPD (chronic obstructive pulmonary disease) Status: Chronic Qualifiers: Emphysema type: other (10) Chronic respiratory failure with hypoxia Status: Chronic DANICA BAZAN MD Aug 26, 2022 15:00
[2022-08-26] MEDS: MILK OF MAGNESIA 400 MG/5 ML 30 ML UDC PO SCH ×9 (15:41→23:49)
[2022-08-26 16:48] VITALS: BP 110/68
[2022-08-26] MEDS: RT-ALBUTEROL HFA 8.5 GM INHALER IH SCH (17:01)
[2022-08-26] MEDS: guaiFENesin/DM (ROBITUSSIN DM) 10 ML UDC PO PRN (18:28)
[2022-08-26 19:24] VITALS: BP 146/68
[2022-08-26] MEDS ORDERED: polyethylene glycoL POWDER 17 GM (MIRALAX) PACK PO ONE (21:15)
[2022-08-27] VITALS (16 sets, daily range): BP systolic 74–128; BP diastolic 37–76
[2022-08-27] MEDS: MILK OF MAGNESIA 400 MG/5 ML 30 ML UDC PO SCH ×12 (01:32→12:37)
[2022-08-27] MEDS: RT-ALBUTEROL/IPRATROPIUM 3 ML (DUONEB) VIAL INH SCH ×6 (02:37→22:40)
[2022-08-27 06:14] LABS: HEMATOCRIT 26 % (40-54); HEMOGLOBIN 7.3 g/dL (13.3-17.7); MEAN CORPUSCULAR HEMOGLOBIN 23 pg (25-34); MEAN CORPUSCULAR HGB CONC 29 g/dL (32-36); MEAN CORPUSCULAR VOLUME 79 fL (80-99); MEAN PLATELET VOLUME 10.1 fL (9.0-12.2); PLATELET COUNT 286 10^3/uL (130-400)
[2022-08-27 06:23] LABS: POTASSIUM 4.1 MMOL/L (3.6-5.0)
[2022-08-27 06:24] LABS: CALCIUM 8.5 MG/DL (8.5-10.1)
[2022-08-27] MEDS: POTASSIUM CL 10MEQ/50ML IVPB 50 ML IV SCH (06:26)
[2022-08-27] MEDS: KCL 20 MEQ TAB (K-DUR) PO SCH (06:27)
[2022-08-27 06:28] LABS: CREATININE SERUM 0.78 MG/DL (0.60-1.30)
[2022-08-27 06:31] LABS: MAGNESIUM 2.7 MG/DL (1.6-2.4)
[2022-08-27] MEDS: MAGNESIUM 1 GM/100 ML IVPB 100 ML IV SCH (06:40)
[2022-08-27] MEDS ORDERED: ACETAMINOPHEN 325 MG TABLET ONE (08:56)
[2022-08-27] MEDS: predniSONE 5 MG TAB PO SCH (09:01)
[2022-08-27] MEDS: AMIODARONE 200 MG (CORDARONE) TAB PO SCH (09:01)
[2022-08-27] MEDS: PANTOPRAZOLE 40 MG (PROTONIX) VIAL IV SCH ×2 (09:03→18:50)
[2022-08-27] MEDS: NICOTINE 21 MG (NICODERM) PATCH TD SCH (09:04)
[2022-08-27] MEDS: NICOTINE PATCH REMOVAL TP SCH (09:07)
[2022-08-27] MEDS: DOCUSATE SODIUM 100 MG (COLACE) CAP PO SCH ×2 (09:08→21:00)
--- NOTE | 2022-08-27 10:32 | Physical Therapy Evaluation ---
PT Evaluation-General Medical Diagnosis Admission Date Aug 25, 2022 at 15:56 Medical Diagnosis: chest pain/severe anemia Onset Date: Aug 25, 2022 Therapy Diagnosis Therapy Diagnosis: generalized weakness/debility Precautions Precautions/Isolations: Fall Prevention, Standard Precautions Referral Physician: Cisco Reason for Referral: Evaluation/Treatment Medical History Pertinent Medical History: Atrial Fib, Alcoholism, CAD, COPD, Heart Failure, HTN Current History ER secondary to chest pain x 2 weeks (found to be severely anemic) Reviewed History: Yes Social History Home: Single Level Current Living Status: Friend Entry Into Home: Level Entry Prior Prior Level of Function SCALE: Activities may be completed with or without assistive devices. 8-Lqvjolsxij-dhzexaf completes the activity by him/herself with no assistance from a helper. 5-Set-up or Clean-up Assistance-helper sets up or cleans up; patient completes activity. [place] assists only prior to or following the activity. 4-Supervision or Touching Assistance-helper provides verbal cues and/or touching/steadying and/or contact guard assistance as patient completes activity. Assistance may be provided throughout the activity or intermittently. 3-Partial/Moderate Assistance-helper does LESS THAN HALF the effort. [place] lifts, holds or supports trunk or limbs, but provides less than half the effort. 2-Substantial/Maximal Assistance-helper does MORE THAN HALF the effort. [place] lifts or holds trunk or limbs and provides more than half the effort. 3-Zsyynusxt-zhqniy does ALL the effort. Patient does none of the effort to complete the activity. Or, the assistance of 2 or more helpers is required for the patient to complete the activity. If activity was not attempted, code reason: 7-Patient Refused. 9-Not Applicable-not attempted and the patient did not perform the activity before the current illness, exacerbation or injury. 10-Not Attempted due to Environmental Limitations-(lack of equipment, weather restraints, etc.). 88-Not Attempted due to Medical Conditions or Safety Concerns. Bed Mobility: 6 Transfers (B,C,W/C): 6 Gait: 6 Stairs: 6 Indoor Mobility (Ambulation): Independent Stairs: Independent Prior Devices Use: Other-see list below walking stick PT Evaluation-Current Subjective Patient agrees to PT. Objective Patient Orientation: Normal For Age Attachments: Oxygen, Rao Catheter ROM/Strength ROM Lower Extremities bilateral LE WFL Strength Lower Extremities 4-/5 grossly bilateral LE all planes Integumentary/Posture Integumentary refer to nursing notes Bladder Incontinence: Rao Cath Posture slightly kyphotic Neuromuscular (Tone, Coordination, Reflexes) grossly intact Sensory Vision: Functional Hearing: Impaired Transfers Lying to Sitting/Side of Bed(Q: 4 Sit to Stand (QC): 4 Chair/Vtr-pu-Lgmut Xfer(QC): 4 Gait Mode of Locomotion: Walk Walk 10 feet (QC): 4 Walk 50 ft with 2 Turns(QC): 4 Walk 150 ft (QC): 4 Distance: 400' Gait Assistive Device: FWW Comments/Gait Description 2 episodes of left knee "buckling" with self correct Balance Sitting Static: Normal Sitting Dynamic: Normal Standing Static: Normal Standing Dynamic: Normal Assessment/Needs Patient will be seen short term by skilled PT to address functional strength and mobility to ensure safe return to home at maximum LOF. Rehab Potential: Fair PT Physician Specialist Goals Group Home Goals PT Group Home Goals Time Frame: Sep 04, 2022 Roll Left & Right (QC): 6 Sit to Lying (QC): 6 Lying-Sitting on Side/Bed(QC): 6 Sit to Stand (QC): 6 Chair/Zje-kl-Pezdg Xfer(QC): 6 Toilet Transfer (QC): 6 Walk 10 feet (QC): 6 Walk 50ft with 2 Turns (QC): 6 Walk 150 ft (QC): 6 PT Plan Problem List Problem List: Activity Tolerance, Functional Strength, Safety, Balance Treatment/Plan Treatment Plan: Continue Plan of Care Treatment Plan: Education, Functional Activity Betsy, Functional Strength, Gait, Safety, Therapeutic Exercise, Transfers Treatment Duration: Sep 04, 2022 Frequency: 6 times per week Estimated Hrs Per Day: .25 hour per day Time/GCodes Time In: 933 Time Out: 948 Total Billed Treatment Time: 15 Total Billed Treatment 1 visit EVMod 15 min GEMA CALDERON PT Aug 27, 2022 10:32
[2022-08-27] MEDS: RT--FLUTICASONE/SALMETEROL 232-14 (AIRDUO RespiCLICK) IH SCH ×2 (10:38→22:40)
[2022-08-27] MEDS ORDERED: LACTATED RINGERS 1,000 ML IV STA (11:39)
--- NOTE | 2022-08-27 11:43 | Cardiology Progress Note ---
Subjective Date Seen by Provider: Aug 27, 2022 Time Seen by Provider: 11:41 Subjective/Events-last exam Patient was seen at bedside, laying down comfortably, scheduled for endoscopy Review of Systems General: No Chills, No Night Sweats, No Fatigue, No Malaise, No Appetite, No Other HEENT: No Head Aches, No Visual Changes, No Eye Pain, No Ear Pain, No Dysphasia, No Sinus Congestion, No Post Nasal Drip, No Sore Throat, No Other Pulmonary: No Dyspnea, No Cough, No Pleuritic Chest Pain, No Other Cardiovascular: No: Chest Pain, Palpitations, Orthopnea, Paroxysmal Noc. Dyspnea, Edema, Lt Headedness, Other Objective-Cardiology Exam Last Set of Vital Signs Vital Signs 08/27/22 08/27/22 08:29 10:37 Temp 36.5 Pulse 89 Resp 21 B/P (MAP) 93/58 (70) Pulse Ox 99 O2 Delivery Nasal Cannula O2 Flow Rate 3.00 I&O Intake and Output 08/27/22 00:00 Intake Total 3045 ml Output Total 4175 ml Balance -1130 ml Intake Oral 2775 ml Other 270 ml Output Urine Total 4175 ml # Voids 1 # Bowel Movements 2 General: Alert, Oriented X3, Cooperative HEENT: Atraumatic, PERRLA Neck: Supple, No JVD, No Thyromegaly Lungs: Clear to Auscultation, Normal Air Movement Heart: Regular Rate, Normal S1, Normal S2, No Murmurs Abdomen: Normal Bowel Sounds, Soft, No Tenderness, No Hepatosplenomegaly, No Masses Extremities: No Clubbing, No Cyanosis, No Edema, Normal Pulses, No Tenderness/Swelling Skin: No Rashes, No Breakdown, No Significant Lesion Neuro: Normal Gait, Normal Speech, Strength at 5/5 X4 Ext, Normal Tone, Sensation Intact Psych/Mental Status: Mental Status NL, Mood NL Results Lab Laboratory Tests 08/27/22 05:43 A/P-Cardiology Admission Diagnosis Chest pain Anemia GI bleed Coronary artery disease Assessment/Plan Chest pain, resembling angina, known history of coronary artery disease. Reporting improvement after blood transfusion Continue to monitor Anemia, recurrent drop in H&H, recurrent GI bleed Needing colonoscopy. Scheduled probably today. Coronary artery disease, following with a public safety director in [facility] in [place]. Reporting history of 2 myocardial infarctions in the past last heart attack in 2017 and he does not recall having a stent done. Reported that he will need a cardiac catheterization in the near future and has been discussing it with his primary public safety director. No acute myocardial infarction was noted during the work-up today. Cannot tolerate long-term intervention after coronary angiogram or stenting. Conservative management is recommended Paroxysmal atrial fibrillation, was difficult to control with multiple medication. Responded to amiodarone and converted to sinus rhythm on the previous admission Has been on Xarelto, currently oral anticoagulation are on hold due to his severe anemia. COPD, active smoker, acute exacerbation due to pneumonia History of chronic renal insufficiency, currently renal function appears to be in the low normal. 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 Hypertension, monitor blood pressure. Hyperlipidemia, monitor lipids BART MEJIA MD Aug 27, 2022 11:43
[2022-08-27] MEDS ORDERED: LIDOCAINE JELLY 2% 6 ML SYRINGE MM PRN (11:45)
[2022-08-27] MEDS ORDERED: LACTATED RINGERS 1,000 ML IV ONE (12:18)
[2022-08-27] MEDS: HURRICAINE EXT TUBE (BENZOCAINE) XX PRN (13:40)
[2022-08-27] MEDS ORDERED: PROPOFOL INJECTION 50 ML IV ONE ×2 (13:42→14:25)
[2022-08-27] MEDS ORDERED: ROCURONIUM 10 MG/ML 5 ML SYRINGE IV ONE (15:26)
[2022-08-27] MEDS ORDERED: LIDOCAINE PF 2% 5 ML (XYLOCAINE) VIAL ONE (15:26)
[2022-08-27] MEDS ORDERED: proPOfol 200 MG/20 ML (DIPRIVAN) VIAL IV ONE (15:26)
--- NOTE | 2022-08-27 15:28 | Progress Note - Hospitalist ---
Subjective HPI/CC On Admission Date Seen by Provider: Aug 27, 2022 Time Seen by Provider: 10:40 David Robbins is a 76 year old male with PMH HTN, AFib, CAD, COPD, BPH, who presented with chest pain. He reports his symptoms have been going on for about a week. He has no chest pain on my exam. He reports shortness of breath. He denies abdominal pain. He denies bloody stools. He reports having black stools for several months. He was hospitalized in March and was found to have iron deficiency anemia at that time with positive fecal occult blood. He was supposed to follow up for an outpatient colonoscopy but did not. Subjective/Events-last exam He is feeling about the same. His stools were not as dark. He reports completing his prep. He denies pain. Objective Exam Vital Signs Vital Signs Date Time Temp Pulse Resp B/P (MAP) Pulse Ox O2 Delivery O2 Flow Rate FiO2 08/27/22 12:02 36.8 82 20 95/55 (68) 99 Nasal Cannula 2.00 Capillary Refill : Less Than 3 Seconds General Appearance: No Apparent Distress, Chronically ill, Thin Respiratory: No Respiratory Distress, Decreased Breath Sounds Cardiovascular: Regular Rate, Rhythm, No Murmur Gastrointestinal: Normal Bowel Sounds, Soft Extremity: Normal Inspection, No Pedal Edema Neurologic/Psychiatric: Alert, Normal Mood/Affect Skin: Normal Color, Warm/Dry Results/Procedures Lab Laboratory Tests 08/27/22 05:43 Patient resulted labs reviewed. Imaging: Reviewed Imaging Report Assessment/Plan Assessment and Plan Assess & Plan/Chief Complaint Symptomatic anemia Chronic GI bleeding Iron deficiency anemia Anticoagulated Hgb 4 on arrival s/p 3 units PRBC Hgb improved to 7, stable Transfuse for Hgb <7 FOBT positive IV PPI Surgery following, scopes today Chest pain CAD AFib Troponin negative Likely due to severe anemia Cardiology following Hold Xarelto Continue Amiodarone COPD MAT protocol Continue home dose steroids and inhalers DVT prophylaxis: held due to GI bleeding Diagnosis/Problems Diagnosis/Problems (1) Severe anemia Status: Acute (2) MEIR (iron deficiency anemia) Status: Acute (3) Chest pain Status: Acute Qualifiers: Chest pain type: unspecified Qualified Codes: R07.9 - Chest pain, unspecified (4) Symptomatic anemia Status: Acute (5) Chronic GI bleeding Status: Acute (6) Anticoagulated Status: Chronic (7) CAD (coronary artery disease) Status: Chronic (8) Afib Status: Chronic (9) COPD (chronic obstructive pulmonary disease) Status: Chronic Qualifiers: Emphysema type: other (10) Chronic respiratory failure with hypoxia Status: Chronic DANICA BAZAN MD Aug 27, 2022 15:28
[2022-08-27] MEDS ORDERED: PIPERACILLIN SODIUM/TAZOBACTAM 4.5 GM in NS (IVPB) 100 ML IV ONE (15:30)
[2022-08-27] MEDS ORDERED: HYDROCORTISONE 100 MG/2 ML (Solu-CORTEF) VIAL IV PRN (15:30)
[2022-08-27] MEDS ORDERED: EPINEPHrine INJECTION 1 MG/ML AMP IM PRN (15:30)
[2022-08-27] MEDS ORDERED: RT-ALBUTEROL SULF 2.5 MG/3 ML PRE-MIX VIAL IH PRN (15:30)
[2022-08-27] MEDS ORDERED: diphenhydrAMINE 50 MG/ML INJ (BENADRYL) IV PRN (15:30)
[2022-08-27] MEDS ORDERED: NS IV 500 ML 500 ML IV SCH ×2 (15:30→19:00)
[2022-08-27] MEDS ORDERED: IRON DEXTRAN INJECTION 25 MG in NS (IVPB) 5.75 ML IV ONE (15:45)
[2022-08-27] MEDS ORDERED: IRON DEXTRAN INJECTION 1,000 MG in NS (IVPB) 250 ML IV ONE (16:00)
[2022-08-27] MEDS ORDERED: ONDANSETRON 4 MG/2 ML (SDV) Z0FRAN ONE (16:20)
[2022-08-27] MEDS ORDERED: PHENYLEPHRINE 100 MCG/ML 10 ML (ANESTHESIA) SYR ONE (16:20)
[2022-08-27] MEDS ORDERED: SEVOFLURANE (ULTANE) 15 ML INHAL SOLN ONE (16:21)
--- NOTE | 2022-08-27 16:21 | Progress Note-Post Operative ---
Post-Operative Progess Note Surgeon (s)/Couples Therapist (s) Surgeon GRACIELA MOCTEZUMA MD Couples Therapist: none Pre-Operative Diagnosis severe anemia with hx GERD and abscence from colonoscopy Post-Operative Diagnosis reflux esophagitis(grade C), mild dist esoph stricture, mod-severe gastritis with small healed antral ulcer. chronic stage 2 ext and int hemorrhids, perforation colon. Procedure & Operative Findings Date of Procedure 08/27/22 Procedure Performed/Findings EGD with bx. colonoscopy. Anesthesia Type mac Estimated Blood Loss Estimated blood loss (mL): minimal Specimens/Packing Specimens Removed ge jxn, antrum GRACIELA MOCTEZUMA MD Aug 27, 2022 16:21
--- NOTE | 2022-08-27 16:24 | Progress Note-Post Operative ---
Post-Operative Progess Note Surgeon (s)/Scales Inspector (s) Surgeon GRACIELA MOCTEZUMA MD Scales Inspector: none Pre-Operative Diagnosis iatrogenic perforated colon. Post-Operative Diagnosis iatrogenic perforated sigmoid colon. Procedure & Operative Findings Date of Procedure 08/27/22 Procedure Performed/Findings exploratory laparotomy, segmental sigmoid colon resection, left sc central venous cath. Anesthesia Type get Estimated Blood Loss Estimated blood loss (mL): minimal Specimens/Packing Specimens Removed full thickness perforation prepped colon >50% in axial direction. GRACIELA MOCTEZUMA MD Aug 27, 2022 16:24
[2022-08-27] MEDS ORDERED: GLYCOPYRROLATE 0.2 MG/ML (ROBINUL) 2 ML VIAL ONE (16:27)
[2022-08-27] MEDS ORDERED: NEOSTIGMINE (BLOXIVERZ ) 1 MG/1ML 10 ML VIAL ONE (16:27)
[2022-08-27] MEDS ORDERED: fentaNYL INJ 100 MCG/2 ML AMP ONE ×3 (16:36→22:43)
[2022-08-27] MEDS ORDERED: fentaNYL PCA 1,000 MCG/100 ML IV SCH (16:45)
--- NOTE | 2022-08-27 17:41 | Diagnostic Imaging Report ---
EXAMINATION: Chest 1 view. HISTORY: Postoperative evaluation. COMPARISON: 08/25/2022. FINDINGS: Heart size is stable. There is prominence of the pulmonary vasculature. There are diffuse interstitial opacities seen throughout the lungs. No significant pleural effusion or pneumothorax. The osseous structures are intact. There is finding of free air under the right hemidiaphragm. IMPRESSION: 1. Findings of free air under the right hemidiaphragm. This may be postoperative. If there is clinical concern for hollow viscus perforation, CT abdomen and pelvis could be performed. 2. Diffuse interstitial opacities throughout the lungs which could be seen with pulmonary edema or pneumonia. CRITICAL FINDING Report was called to patient's ICU nurse, Sofia, at 5:21 p.m. by aidan (for ). Dictated by: Dictated on workstation # [id number]
[2022-08-27] MEDS: LACTATED RINGERS 1,000 ML IV SCH ×2 (18:13→19:36)
--- NOTE | 2022-08-27 18:13 | Tele-ICU Progress Note ---
Subjective Date Seen by a Provider: Aug 27, 2022 Time Seen by a Provider: 18:08 Subjective/Events-last exam (Tele-ICU Physician , Progress Note ) Available chart/ vitals / labs / Images reviewed Video assessment done using teleICU camera, rest of exam as per RN Discussed with RN Events overnight : Afebrile hemodynamically stable Respiratory - 3 L nc I/O = EBL 100 cc Drips: LR Pressors- no Consultants: sx Hospital course: (08/25) 76M Admitted for chest pain/abdominal pain. CT abd: no findings. Elevat ed BNP. Severe anemia-chronic. Had 2 transfusions already but does not know reason for anemia. PRBC ordered. (08/26) hb 7.3 08/27/22= EGD/ scop - esophagitis, mild dist esoph stricture, mod-severe gastritis with small healed antral ulcer.. 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 --PPI IV -Colonoscopy 08/27/22 :chronic stage 2 ext and int hemorrhids, ---> perforation colon ACUTE ON CHRONIC ANEMIA - follow Hb - s/p ransfusion 3 u PRBC COPD (on baseline 2L NC) - stable on 3 l - resume home inhalers , prn nebs - prednisone po 5 daily CP with CAD - probably due to anemia \\- card follow PAF - - rate controlled . on amio [employer] TE[employer] - was on Xarelto - ON HOLD Lines : left sc central venous cath. 08/27 , (Central Line Necessity Reviewed) Rao: + OG: Nutrition: npo Analgesia: Anxiety/ delirium VTE Prophylaxis: scd Stress Ulcer Prophylaxis: ppi Plans in collaboration with bedside consultants and IM MDs. Discussed with RN to reach out if any questions or concerns A total of 31 minutes of critical care time was devoted to this patient today, required to treat and/or prevent further deterioration of critical care condition ( as above ) . I am remotely monitoring this patient from another state. I am unable to do the bedside exam, and history/physical and pertinent information is taken from other notes in the computer and bedside staff. I cannot take responsibility for the accuracy of this information. Sepsis Event Evaluation Height, Weight, BMI Height: '" Weight: lbs. oz. kg; 18.22 BMI Method: Exam Exam Patient acknowledged, consented, and participated in this virtual visit which was conducted using real time audio/video Vital Signs Date Time Temp Pulse Resp B/P (MAP) Pulse Ox O2 Delivery O2 Flow Rate FiO2 08/27/22 17:42 86 08/27/22 17:30 36.8 24 74/39 (51) 94 OxyMask 4.00 08/27/22 17:20 22 75/61 (66) 95 OxyMask 4.00 08/27/22 17:10 24 80/54 (63) 94 OxyMask 4.00 08/27/22 17:00 24 84/44 (57) 93 OxyMask 4.00 08/27/22 16:50 24 82/54 (63) 95 OxyMask 4.00 08/27/22 16:45 36.7 16 84/37 (53) 100 OxyMask 6.00 08/27/22 16:45 OxyMask 6.00 08/27/22 12:02 36.8 82 20 95/55 (68) 99 Nasal Cannula 2.00 08/27/22 10:37 99 Nasal Cannula 3.00 08/27/22 09:00 Nasal Cannula 3.00 08/27/22 08:29 36.5 89 21 93/58 (70) 100 Nasal Cannula 2.00 08/27/22 04:00 36.7 102 16 98/55 (69) 95 Nasal Cannula 2.00 08/27/22 02:38 98 Nasal Cannula 3.00 08/27/22 00:30 37.1 84 18 128/76 (93) 99 Nasal Cannula 3.00 08/26/22 22:38 99 Nasal Cannula 3.00 08/26/22 20:59 100 Nasal Cannula 3.00 08/26/22 19:24 37.0 90 19 146/68 (94) 100 Nasal Cannula 3.00 08/26/22 18:51 98 Nasal Cannula 3.00 I & O 08/27/22 07:00 Intake Total 2425 ml Output Total 2050 ml Balance 375 ml Height & Weight Height: '" Weight: lbs. oz. kg; 18.22 BMI Method: General Appearance: No Apparent Distress, Chronically ill, Thin HEENT: PERRL/EOMI, Pharynx Normal Neck: Normal Inspection, Supple Respiratory: No Respiratory Distress, Decreased Breath Sounds Cardiovascular: Regular Rate, Rhythm, No Murmur Capillary Refill: Less Than 3 Seconds Extremity: Normal Inspection, No Pedal Edema Neurologic/Psychiatric: Alert, Normal Mood/Affect Skin: Normal Color, Warm/Dry Lymphatic: No Adenopathy Results Lab Laboratory Tests 08/26/22 04:40 08/27/22 05:43 Assessment/Plan Assessment/Plan 1 KEIRA YBARRA MD Aug 27, 2022 18:13
[2022-08-27] MEDS: fentaNYL INJ 100 MCG/2 ML AMP IVP PRN ×2 (18:14→21:12)
[2022-08-27 18:28] LABS: HEMATOCRIT 23 % (40-54); MEAN CORPUSCULAR HEMOGLOBIN 23 pg (25-34); MEAN CORPUSCULAR HGB CONC 29 g/dL (32-36); MEAN CORPUSCULAR VOLUME 80 fL (80-99); PLATELET COUNT 247 10^3/uL (130-400)
[2022-08-27 18:35] LABS: HEMOGLOBIN 6.8 g/dL (13.3-17.7); WHITE BLOOD COUNT 0.8 10^3/uL (4.3-11.0)
[2022-08-27 18:44] LABS: POTASSIUM 4.4 MMOL/L (3.6-5.0)
[2022-08-27 18:50] LABS: CREATININE SERUM 0.77 MG/DL (0.60-1.30)
[2022-08-27 18:52] LABS: MAGNESIUM 2.5 MG/DL (1.6-2.4)
[2022-08-27] MEDS ORDERED: fentaNYL INJ 100 MCG/2 ML AMP IVP ONE (22:30)
--- NOTE | 2022-08-27 23:21 | OPERATIVE REPORT ---
DATE OF SERVICE: 08/27/2022 ATTENDING PRIMARY CARE PHYSICIAN: Dr. Nargis Andrea. PREOPERATIVE DIAGNOSIS: Severe anemia. POSTOPERATIVE DIAGNOSES: Reflux esophagitis, [place] grade C, moderate to large size hiatal hernia approximately 3.5 cm in size, moderate to severe gastritis with a healed antral ulcer, no active bleeding. Chronic stage II external and internal hemorrhoids. The colonoscopy was completed; however, there was a perforation identified at the sigmoid colon, and was brought directly to the operating room. PROCEDURE: Colonoscopy. SURGEON: Graciela Moctezuma MD INDICATIONS: This is a 76-year-old male, who was admitted for lethargy as well as shortness of breath and exacerbation of CHF. The patient's initial hemoglobin was 4.7. Upon further questioning, he reports that history of gastroesophageal reflux disease as well as history of ulcers. He also reports his last colonoscopy was greater than 10 years ago. DESCRIPTION OF PROCEDURE: The patient was brought to the endoscopy suite, laid in the left lateral decubitus position. After adequate IV pain and sedative medications and monitored anesthesia care, the mouthpiece was applied. The endoscope was placed in the mouth, visualizing the pharynx and hypopharyngeal region. Vocal cords, epiglottis and vallecula identified and appeared to be normal. Endoscope was then gently abated the esophageal opening and esophagus insufflated. The endoscope was then advanced through the first, second and third portion of esophagus at the level of the GE junction, reflux esophagitis [place] grade C identified. There was also a distal esophageal stricture identified. A biopsy was taken with forceps with visualization of good hemostasis. The endoscope was then advanced in the stomach and endoscope retroflexed, visualizing a moderate to large size hiatal hernia approximately 3.5 cm in size. There was a moderate to severe gastritis with a healed antral ulcer, no active bleeding with an overlying fibrin clot. A biopsy was taken at the edge of the ulcer with visualization of good hemostasis. The endoscope was then advanced through the pylorus and the first and second portion of the duodenum, which appeared normal. A digital rectal examination was performed. Chronic stage II external and internal hemorrhoids were identified, which were not actively edematous nor inflamed and no bleeding. Normal sphincter tone was felt and there were no palpable masses. Prostate gland was palpable and appeared normal. The endoscope was then intubated into the anus and rectum gently insufflated. The endoscope was then advanced through the valves of Fuller of the rectum with no polyps or any neoplasms identified. We then proceeded through the sigmoid colon where no diverticulosis identified. We then proceeded to advance the scope to approximately the hepatic flexure and multiple attempts were made; however, a loop was identified. We were able to get to the cecum. However, upon withdrawing the scope, a full-thickness perforation appeared to be either ascending or sigmoid colon was identified. The patient will be directly taken to the operating room for repair of the perforation as well as a central line. Job ID: [id number] DocumentID: [id number] Dictated Date: 08/27/2022 14:48:36 Admissions Dean Date: 08/27/2022 23:21:13 Dictated By: GRACIELA MOCTEZUMA MD
[2022-08-27] MEDS: PIPERACILLIN SODIUM/TAZOBACTAM 4.5 GM in NS (IVPB) 100 ML IV SCH (23:41)
--- NOTE | 2022-08-28 00:01 | OPERATIVE REPORT ---
DATE OF SERVICE: 08/27/2022 ATTENDING PRIMARY CARE PHYSICIAN: Nargis Andrea MD. ADMITTING PHYSICIAN: Dr. Peck. PREOPERATIVE DIAGNOSIS: Iatrogenic perforated colon. POSTOPERATIVE DIAGNOSES: Iatrogenic perforated sigmoid colon. PROCEDURE: Exploratory laparotomy, segmental resection sigmoid colon with primary anastomosis. Placement of left subclavian central venous catheter. SURGEON: Graciela Moctezuma MD ANESTHESIA: General endotracheal. ESTIMATED BLOOD LOSS: Minimal. FINDINGS: Perforation along the sigmoid colon in an axial direction likely secondary to the shearing forces of the colonoscope. The full entity of the colon and small bowel were examined with no masses or neoplasms identified. DISPOSITION: The patient tolerated the procedure well. INDICATIONS: The patient is a 76-year-old male with multiple medical problems including coronary artery disease, history of alcoholism, chronic anemia, COPD and CHF. He presented to [facility] with a 2-week history of chest discomfort and overall weakness and shortness of breath. He was found to be profoundly anemic with hemoglobin of 4.6 and hematocrit of 18. The patient is also currently on Xarelto and Plavix for his coronary artery disease. He also does continue to smoke. He reports that he has had some issues with gastroesophageal reflux disease and states his last colonoscopy was greater than 10 years ago. The patient underwent an EGD and was found to have a reflux esophagitis, [place] grade C with a distal esophageal stricture, moderate size hiatal hernia approximately 3.5 cm in size with moderate to severe gastritis with a healed small antral ulcer with an overlying clot. Colonoscopy identified chronic stage II external and internal hemorrhoids. There was difficulty getting to the cecum; however, we eventually did; however, on the withdrawal, there appeared to be a full-thickness laceration of the left side of the colon. The patient was brought emergently to the operating room for resection of the perforated portion of the colon and primary repair due to the fact that he had a colonic preparation. DESCRIPTION OF PROCEDURE: The patient was brought to the operating room, laid supine on the table. After adequate IV pain and sedative medications and general endotracheal intubation, a left subclavian central venous catheter was placed in the chest and neck were prepped and draped in standard surgical fashion. A 1% lidocaine was used to anesthetize overlying skin in the left subclavian region and the left subclavian vein was then cannulated with drawing of venous blood and the guidewire was inserted without any resistance. The cannulating needle removed and a skin incision made using 11 blade. A tract was then created using a venous dilator and through this opening, a triple lumen central venous catheter was placed over the guidewire and the guidewire removed. All three ports elke venous blood and saline pushed in without any resistance. The catheter was then sutured to the skin using 3-0 silk suture and cleaned and covered with Op-Site. The abdomen was then prepped and draped in standard surgical fashion. The patient was placed in modified lithotomy position. A midline infraumbilical skin incision was then made using a 15 blade. Subcutaneous tissue and the fascia opened using electrocautery. The peritoneal lining was then tented anteriorly using pickups and the peritoneal lining was then opened under direct visualization using electrocautery and the remainder of the peritoneal lining was then opened to the length of the skin incision under direct visualization. A 4-quadrant abdominal exploration was performed. The perforation was identified of the sigmoid colon and was greater than 50% of the diameter of the colon and was axial likely secondary to the shearing forces of the colonoscope. The remainder of the colon was palpated with no masses identified. The small bowel was run and no masses identified in the small bowel. Liver appeared normal. We then proceeded with segmental resection of the perforated portion of the sigmoid colon and the mesentery was freed of any attachments using Metzenbaum scissors. The mesentery to the sigmoid colon was then opened distal to the perforation and a GREGORIA-75 mm blue load was placed and the sigmoid colon stapled and transected. We then proceeded proximal to the perforation and created a window in the mesentery and a GREGORIA same stapler placed and the staple load fired. The mesentery was then cauterized and cut using a Sonicision with visualization of good hemostasis. We then proceeded with [id number] anastomosis of the sigmoid colon with adequate length and again the colon was completely prepped for the colonoscopy. The sides were placed together and sutured with 3-0 silk interrupted sutures. The corners of the proximal and distal bowel, colon were then opened and a GREGORIA-75 mm stapler was used to proceed with a [id number] anastomosis. The open end was then reapproximated using 3-0 silk interrupted sutures and this end was closed using a GREGORIA-75 mm blue load with visualization of good hemostasis. We then proceeded with copious irrigation of the peritoneal cavity with 4 liters of warm saline solution and suctioned out. A 19-Lithuanian YVES drain was then placed near the area of the anastomosis and brought out in the left upper abdominal quadrant and sutured the skin using 3-0 nylon suture. The fascia was then closed starting superiorly and inferiorly using #1 looped PDS suture and tied in the middle. The skin was then closed using skin radha. The patient tolerated the procedure well. We will admit him back to the ICU and proceed with DVT prophylaxis with calf SCDs as well as his normal anticoagulation regimen. We will also proceed with early ambulation. Once he does develop some bowel function, we will start a clear liquid diet and advance as tolerated. We will also proceed with adequate pain control with a DESKTOP SUPPORT ASSOCIATE pump. Job ID: [id number] DocumentID: [id number] Dictated Date: 08/27/2022 16:33:48 Hotel Breakfast Attendant Date: 08/28/2022 00:00:59 Dictated By: GRACIELA MOCTEZUMA MD
[2022-08-28] MEDS: NOREPINEPHRINE 8 MG/250 ML 250 ML IV SCH ×2 (00:41→14:41)
[2022-08-28] MEDS: fentaNYL INJ 100 MCG/2 ML AMP IVP PRN ×5 (01:25→14:18)
[2022-08-28] MEDS: RT-ALBUTEROL/IPRATROPIUM 3 ML (DUONEB) VIAL INH SCH ×6 (02:19→22:33)
[2022-08-28 03:00] LABS: HEMATOCRIT 27 % (40-54); HEMOGLOBIN 7.9 g/dL (13.3-17.7); MEAN CORPUSCULAR HEMOGLOBIN 24 pg (25-34); MEAN CORPUSCULAR HGB CONC 30 g/dL (32-36); MEAN CORPUSCULAR VOLUME 81 fL (80-99); MEAN PLATELET VOLUME 9.5 fL (9.0-12.2); PLATELET COUNT 220 10^3/uL (130-400)
[2022-08-28 03:05] LABS: WHITE BLOOD COUNT 0.7 10^3/uL (4.3-11.0)
[2022-08-28 03:21] LABS: CALCIUM 8.2 MG/DL (8.5-10.1); CREATININE SERUM 0.8 MG/DL (0.60-1.30); MAGNESIUM 2.2 MG/DL (1.6-2.4); PHOSPHORUS 2.5 MG/DL (2.3-4.7); POTASSIUM 4.3 MMOL/L (3.6-5.0)
[2022-08-28] MEDS: LACTATED RINGERS 1,000 ML IV SCH ×2 (04:50→15:01)
[2022-08-28] MEDS: MAGNESIUM 1 GM/100 ML IVPB 100 ML IV SCH (05:10)
[2022-08-28] MEDS: KCL 20 MEQ TAB (K-DUR) PO SCH (05:10)
[2022-08-28] MEDS: POTASSIUM CL 10MEQ/50ML IVPB 50 ML IV SCH (05:10)
--- NOTE | 2022-08-28 08:30 | Anesthesia-General Post-Op ---
General Patient Condition Mental Status/LOC: Same as Preop Cardiovascular: Satisfactory Nausea/Vomiting: Absent Respiratory: Satisfactory Pain: Controlled Complications: Absent Post Op Complications Complications None Follow Up Care/Instructions Patient Instructions None needed. Anesthesia/Patient Condition Patient Condition Patient is doing well, no complaints, stable vital signs, no apparent adverse anesthesia problems. No complications reported per nursing. JÚNIOR SIMS CRNA Aug 28, 2022 08:30
[2022-08-28] MEDS: DOCUSATE SODIUM 100 MG (COLACE) CAP PO SCH ×2 (08:54→20:31)
[2022-08-28] MEDS: predniSONE 5 MG TAB PO SCH (08:54)
[2022-08-28] MEDS: PANTOPRAZOLE 40 MG (PROTONIX) VIAL IV SCH ×2 (08:55→18:09)
[2022-08-28] MEDS: AMIODARONE 200 MG (CORDARONE) TAB PO SCH (08:55)
[2022-08-28] MEDS: NICOTINE 21 MG (NICODERM) PATCH TD SCH (08:55)
[2022-08-28] MEDS: PIPERACILLIN SODIUM/TAZOBACTAM 4.5 GM in NS (IVPB) 100 ML IV SCH ×3 (08:56→23:32)
--- NOTE | 2022-08-28 09:14 | Progress Note - Surgery ---
DESHAWN CHADWICK 08/28/22 0914: Subjective Date Seen by a Provider: Aug 28, 2022 Time Seen by a Provider: 08:45 Subjective/Events-last exam 76 M with PMH of HTN A fibb CAD COPD BPH s/p sigmoid perforation repair with associated symptomatic sever anemia. Pt reports diffuse lower abdominal pain matthieu t is characterized as sharp stabbing and rated 10/10. Pt denies any associated n/v chills fever lightheadedness. Nothing makes the pain better and movement increases pain intensity. Pt claims increases thirst but no appetite. Pt was able to void without complaint but has not had BM since arrival. Pt resting in bed clenching pillow Review of Systems General: No Chills, No Night Sweats HEENT: No Head Aches, No Visual Changes Pulmonary: Cough; No Pleuritic Chest Pain Cardiovascular: No: Chest Pain, Edema, Lt Headedness Gastrointestinal: Abdominal Pain; No: Nausea, Vomiting Genitourinary: No Dysuria, No Frequency Musculoskeletal: No: back pain, leg pain Neurological: No: Weakness, Numbness Objective Exam Vital Signs Date Time Temp Pulse Resp B/P (MAP) Pulse Ox O2 Delivery O2 Flow Rate FiO2 08/28/22 08:00 110 23 97/56 (70) 97 Nasal Cannula 2.00 08/28/22 07:54 37.2 08/28/22 07:13 95 Nasal Cannula 2.00 08/28/22 07:00 109 22 91/56 (68) 94 Nasal Cannula 2.00 08/28/22 07:00 108 08/28/22 06:42 109 90/56 08/28/22 06:00 109 25 92/54 (67) 94 Nasal Cannula 2.00 08/28/22 05:58 95 Nasal Cannula 2.00 08/28/22 05:03 110 76/42 08/28/22 05:00 110 24 90/50 (63) 98 OxyMask 3.00 08/28/22 04:41 112 83/48 08/28/22 04:23 37.3 08/28/22 04:00 110 34 83/46 (58) 98 OxyMask 3.00 08/28/22 04:00 96 OxyMask 3.00 08/28/22 03:00 113 26 91/55 (67) 96 OxyMask 3.00 08/28/22 02:20 96 OxyMask 3.00 08/28/22 02:00 121 25 91/55 (67) 95 OxyMask 3.00 08/28/22 01:00 118 08/28/22 01:00 117 29 95/55 (68) 98 OxyMask 3.00 08/28/22 00:41 113 76/61 08/28/22 00:00 116 23 92/55 (67) 96 OxyMask 3.00 08/27/22 23:59 95 OxyMask 3.00 08/27/22 23:42 38.1 08/27/22 23:00 112 30 80/62 (68) 95 OxyMask 3.00 08/27/22 22:51 37.1 113 33 76/61 OxyMask 3.00 08/27/22 22:41 92 OxyMask 3.00 08/27/22 22:00 110 30 76/61 (66) 84 OxyMask 3.00 08/27/22 21:30 36.5 101 23 96/56 94 OxyMask 3.00 08/27/22 21:15 36.4 96 19 93/53 95 OxyMask 3.00 08/27/22 21:00 92 26 96/50 (65) 93 OxyMask 3.00 08/27/22 21:00 36.6 92 25 90/49 OxyMask 3.00 08/27/22 20:53 36.2 93 22 88/45 (59) 94 OxyMask 3.00 08/27/22 20:46 36.6 94 29 88/45 94 OxyMask 3.00 08/27/22 20:31 36.4 92 27 89/47 93 OxyMask 3.00 08/27/22 20:00 92 25 88/45 (59) 96 OxyMask 3.00 08/27/22 20:00 93 OxyMask 3.00 08/27/22 19:00 87 08/27/22 19:00 100 OxyMask 3.00 08/27/22 19:00 89 17 84/48 (60) 98 OxyMask 3.00 08/27/22 18:00 87 18 86/47 (60) 94 OxyMask 4.00 08/27/22 17:42 86 08/27/22 17:40 94 OxyMask 4.50 08/27/22 17:30 36.8 24 74/39 (51) 94 OxyMask 4.00 08/27/22 17:30 OxyMask 4.00 08/27/22 17:20 22 75/61 (66) 95 OxyMask 4.00 08/27/22 17:15 OxyMask 4.00 08/27/22 17:10 24 80/54 (63) 94 OxyMask 4.00 08/27/22 17:00 87 85/58 (67) 91 OxyMask 4.00 08/27/22 17:00 24 84/44 (57) 93 OxyMask 4.00 08/27/22 17:00 OxyMask 4.00 08/27/22 16:50 24 82/54 (63) 95 OxyMask 4.00 08/27/22 16:45 36.7 16 84/37 (53) 100 OxyMask 6.00 08/27/22 16:45 OxyMask 6.00 08/27/22 12:02 36.8 82 20 95/55 (68) 99 Nasal Cannula 2.00 08/27/22 10:37 99 Nasal Cannula 3.00 I & O 08/28/22 07:00 Intake Total 3125 ml Output Total 910 ml Balance 2215 ml Capillary Refill : Less Than 3 Seconds General Appearance: No Apparent Distress, Chronically ill, Thin HEENT: PERRL/EOMI; No Photophobia Neck: Non Tender, Supple Respiratory: No Accessory Muscle Use, No Respiratory Distress, Crackles (diffus e LL griffin), Decreased Breath Sounds Cardiovascular: No Edema, No Murmur, Irregularly Irregular (mildly ) Peripheral Pulses: 3+ Dorsalis Pedis (R), 3+ Left Dors-Pedis (L), 3+ Radial Pulses (R), 3+ Radial Pulses (L) Gastrointestinal: no pulsatile mass, abnormal bowel sounds (hypoactive), tenderness (RLQ LLQ) Extremity: Non Tender, No Calf Tenderness, No Pedal Edema Neurologic/Psychiatric: Alert, Normal Mood/Affect Skin: Normal Color, Warm/Dry Lymphatic: No Adenopathy Results Lab Laboratory Tests 08/27/22 18:20: White Blood Count 0.8*L, Red Blood Count 2.91L, Hemoglobin 6.8*L, Hematocrit 23L , Mean Corpuscular Volume 80, Mean Corpuscular Hemoglobin 23L, Mean Corpuscular Hemoglobin Concent 29L, Red Cell Distribution Width 19.5H, Platelet Count 247, Mean Platelet Volume 10.0, Sodium Level 136, Potassium Level 4.4, Chloride Level 105, Carbon Dioxide Level 26, Anion Gap 5, Blood Urea Nitrogen 10, Creatinine 0.77, Estimat Glomerular Filtration Rate 93, BUN/Creatinine Ratio 13, Glucose Level 167H, Calcium Level 8.0L, Magnesium Level 2.5H 08/28/22 02:50: White Blood Count 0.7*L, Red Blood Count 3.31L, Hemoglobin 7.9L, Hematocrit 27L, Mean Corpuscular Volume 81, Mean Corpuscular Hemoglobin 24L, Mean Corpuscular Hemoglobin Concent 30L, Red Cell Distribution Width 19.1H, Platelet Count 220, Mean Platelet Volume 9.5, Sodium Level 138, Potassium Level 4.3, Chloride Level 105, Carbon Dioxide Level 24, Anion Gap 9, Blood Urea Nitrogen 12, Creatinine 0.80, Estimat Glomerular Filtration Rate 92, BUN/Creatinine Ratio 15, Glucose Level 129H, Calcium Level 8.2L, Magnesium Level 2.2, Phosphorus Level 2.5 Microbiology 08/25/22 MRSA Screen - Final, Complete MRSA not isolated Assessment/Plan Assessment/Plan Admission Diagonsis sigmoid perforation with associated severe anemia Assessment/Plan anemia sigmoid perforation repair COPD pneumoperitenium per CXR mild contaminated pelvis continue to monitor Hgb and transfuse is falls below 7 continue IV zoysn therapy continue clear liquid diet pain control IV hydration hold xarelto continue amiodorone continue MAT protocol with O2 and steriods repeat CXR in 24 hrs or sooner if necessary Final Diagnosis sigmoid perforation with associated anemia RODOLFO ACHARYA DO 08/28/22 1220: Subjective Subjective/Events-last exam Pain not controlled, but Fentanyl RESISTANCE WELDING 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 Rao in place. On clears. Using IS. No flatus or bm. On Levophed. Objective Exam General Appearance: No Apparent Distress, Chronically ill HEENT: PERRL/EOMI Neck: Non Tender, Supple Respiratory: Chest Non Tender (central line left subclavian), No Accessory Muscle Use, No Respiratory Distress Cardiovascular: No JVD, Tachycardia Gastrointestinal: non tender, soft, tenderness (diffuse, incsion bandage with some blood) Extremity: Non Tender, No Calf Tenderness Neurologic/Psychiatric: Alert, Normal Mood/Affect Skin: Normal Color, Warm/Dry Lymphatic: No Adenopathy Assessment/Plan Assessment/Plan Assessment/Plan severe anemia iatrogenic sigmoid perforation s/p exlap and resection with side to side anastamosis COPD mild contaminated pelvis continue to monitor Hgb and transfuse is falls below 7 continue IV zoysn therapy continue clear liquid diet pain control IV hydration hold xarelto continue amiodorone continue MAT protocol on steroids for copd Supervisory-Addendum Brief Verification & Attestation Participated in pt care: history, MDM, physical Personally performed: exam, history, MDM, supervision of care Care discussed with: Medical Student Procedures: n/a Results interpretation: Verified all documentation Verification and Attestation of Medical Student E/M Service A medical student performed and documented this service in my presence. I reviewed and verified all information documented by the medical student and made modifications to such information, when appropriate. I personally performed the physical exam and medical decision making. Rodolfo Acharya, Aug 28, 2022,12:20 DESHAWN CHADWICK Aug 28, 2022 09:14 RODOLFO ACHARYA DO Aug 28, 2022 12:20
[2022-08-28] MEDS: NICOTINE PATCH REMOVAL TP SCH (09:15)
--- NOTE | 2022-08-28 09:26 | Tele-ICU Progress Note ---
Subjective Date Seen by a Provider: Aug 28, 2022 Time Seen by a Provider: 09:26 Subjective/Events-last exam Tele-ICU Physician , Progress Note ) Available chart/ vitals / labs / Images reviewed Video assessment done using teleICU camera, rest of exam as per RN Discussed with RN Events overnight : Afebrile hemodynamically stable Respiratory - I/O =2225/950 Drips: Pressors- levo Consultants: Hospital course:, he had perforated colon during colonoscopy and underwent simoid resection. POD #1 A/P CVS/HTN on levo Rhythem afib chronic Echo Respiratory System. on N/C 2l GI Post op changes Kidneys. bun12, cr 0.8 . HEME wbc down to 0.7, due to sepsis, hb 7.9 post transfusion 4 units of prbc's DRY CLEANING MANAGER/MENTAL STATUS awake alert. - Lines : Left subclavian CVC present Rao: yes OG: Nutrition: npo Analgesia: Anxiety/ delirium pain. Fentanyl healthcare consultant VTE Prophylaxis: scd's Stress Ulcer Prophylaxis: protonix Plans in collaboration with bedside consultants and IM MDs. Discussed with RN to reach out if any questions or concerns Sepsis Event Evaluation Height, Weight, BMI Height: '" Weight: lbs. oz. kg; 19.92 BMI Method: Exam Exam Patient acknowledged, consented, and participated in this virtual visit which was conducted using real time audio/video Vital Signs Date Time Temp Pulse Resp B/P (MAP) Pulse Ox O2 Delivery O2 Flow Rate FiO2 08/28/22 08:00 110 23 97/56 (70) 97 Nasal Cannula 2.00 08/28/22 07:54 37.2 08/28/22 07:13 95 Nasal Cannula 2.00 08/28/22 07:00 109 22 91/56 (68) 94 Nasal Cannula 2.00 08/28/22 07:00 108 08/28/22 06:42 109 90/56 08/28/22 06:00 109 25 92/54 (67) 94 Nasal Cannula 2.00 08/28/22 05:58 95 Nasal Cannula 2.00 08/28/22 05:03 110 76/42 08/28/22 05:00 110 24 90/50 (63) 98 OxyMask 3.00 08/28/22 04:41 112 83/48 08/28/22 04:23 37.3 08/28/22 04:00 110 34 83/46 (58) 98 OxyMask 3.00 08/28/22 04:00 96 OxyMask 3.00 08/28/22 03:00 113 26 91/55 (67) 96 OxyMask 3.00 08/28/22 02:20 96 OxyMask 3.00 08/28/22 02:00 121 25 91/55 (67) 95 OxyMask 3.00 08/28/22 01:00 118 08/28/22 01:00 117 29 95/55 (68) 98 OxyMask 3.00 08/28/22 00:41 113 76/61 08/28/22 00:00 116 23 92/55 (67) 96 OxyMask 3.00 08/27/22 23:59 95 OxyMask 3.00 08/27/22 23:42 38.1 08/27/22 23:00 112 30 80/62 (68) 95 OxyMask 3.00 08/27/22 22:51 37.1 113 33 76/61 OxyMask 3.00 08/27/22 22:41 92 OxyMask 3.00 08/27/22 22:00 110 30 76/61 (66) 84 OxyMask 3.00 08/27/22 21:30 36.5 101 23 96/56 94 OxyMask 3.00 08/27/22 21:15 36.4 96 19 93/53 95 OxyMask 3.00 08/27/22 21:00 92 26 96/50 (65) 93 OxyMask 3.00 08/27/22 21:00 36.6 92 25 90/49 OxyMask 3.00 08/27/22 20:53 36.2 93 22 88/45 (59) 94 OxyMask 3.00 08/27/22 20:46 36.6 94 29 88/45 94 OxyMask 3.00 08/27/22 20:31 36.4 92 27 89/47 93 OxyMask 3.00 08/27/22 20:00 92 25 88/45 (59) 96 OxyMask 3.00 08/27/22 20:00 93 OxyMask 3.00 08/27/22 19:00 87 08/27/22 19:00 100 OxyMask 3.00 08/27/22 19:00 89 17 84/48 (60) 98 OxyMask 3.00 08/27/22 18:00 87 18 86/47 (60) 94 OxyMask 4.00 08/27/22 17:42 86 08/27/22 17:40 94 OxyMask 4.50 08/27/22 17:30 36.8 24 74/39 (51) 94 OxyMask 4.00 08/27/22 17:30 OxyMask 4.00 08/27/22 17:20 22 75/61 (66) 95 OxyMask 4.00 08/27/22 17:15 OxyMask 4.00 08/27/22 17:10 24 80/54 (63) 94 OxyMask 4.00 08/27/22 17:00 87 85/58 (67) 91 OxyMask 4.00 08/27/22 17:00 24 84/44 (57) 93 OxyMask 4.00 08/27/22 17:00 OxyMask 4.00 08/27/22 16:50 24 82/54 (63) 95 OxyMask 4.00 08/27/22 16:45 36.7 16 84/37 (53) 100 OxyMask 6.00 08/27/22 16:45 OxyMask 6.00 08/27/22 12:02 36.8 82 20 95/55 (68) 99 Nasal Cannula 2.00 08/27/22 10:37 99 Nasal Cannula 3.00 I & O 08/28/22 07:00 Intake Total 3125 ml Output Total 910 ml Balance 2215 ml Height & Weight Height: '" Weight: lbs. oz. kg; 19.92 BMI Method: General Appearance: No Apparent Distress, Chronically ill, Thin HEENT: PERRL/EOMI; No Photophobia Neck: Non Tender, Supple Respiratory: No Accessory Muscle Use, No Respiratory Distress, Crackles (diffuse LL griffin), Decreased Breath Sounds Cardiovascular: No Edema, No Murmur, Irregularly Irregular (mildly ) Capillary Refill: Less Than 3 Seconds Peripheral Pulses: 3+ Dorsalis Pedis (R), 3+ Left Dors-Pedis (L), 3+ Radial Pulses (R), 3+ Radial Pulses (L) Gastrointestinal: no pulsatile mass, abnormal bowel sounds (hypoactive), tenderness (RLQ LLQ) Extremity: Non Tender, No Calf Tenderness, No Pedal Edema Neurologic/Psychiatric: Alert, Normal Mood/Affect Skin: Normal Color, Warm/Dry Lymphatic: No Adenopathy Results Lab Laboratory Tests 08/27/22 05:43 08/27/22 18:20 08/28/22 02:50 Assessment/Plan Assessment/Plan as above Critical Care: Critically Ill Patient Time spent with patient (mins): 20 YANELI MODI MD Aug 28, 2022 09:26
--- NOTE | 2022-08-28 09:28 | Cardiology Progress Note ---
Subjective Date Seen by Provider: Aug 28, 2022 Time Seen by Provider: 09:25 Subjective/Events-last exam Patient was seen at bedside, sitting comfortably Had perforated colon with repair yesterday. Was hypotensive and on Levophed. Review of Systems General: No Chills, No Night Sweats; Fatigue, Malaise; No Appetite, No Other HEENT: No Head Aches, No Visual Changes, No Eye Pain, No Ear Pain, No Dysphasia, No Sinus Congestion, No Post Nasal Drip, No Sore Throat, No Other Pulmonary: Dyspnea; No Cough, No Pleuritic Chest Pain, No Other Cardiovascular: No: Chest Pain, Palpitations, Orthopnea, Paroxysmal Noc. Dyspnea, Edema, Lt Headedness, Other Objective-Cardiology Exam Last Set of Vital Signs Vital Signs 08/28/22 08/28/22 07:54 08:00 Temp 37.2 Pulse 110 Resp 23 B/P (MAP) 97/56 (70) Pulse Ox 97 O2 Delivery Nasal Cannula O2 Flow Rate 2.00 I&O Intake and Output 08/28/22 00:00 Intake Total 2225 ml Output Total 950 ml Balance 1275 ml Intake Oral 225 ml IV Total 1300 ml Other 700 ml Output Urine Total 775 ml Drainage Total 175 ml # Bowel Movements 7 General: Alert, Oriented X3, Cooperative HEENT: Atraumatic, PERRLA Neck: Supple, No JVD, No Thyromegaly Lungs: Clear to Auscultation, Normal Air Movement Heart: Regular Rate, Normal S1, Normal S2, No Murmurs Abdomen: Soft, No Tenderness, No Hepatosplenomegaly, No Masses, Other (Absent bowel sounds) Extremities: No Clubbing, No Cyanosis, No Edema, Normal Pulses, No Tenderness/Swelling Skin: No Rashes, No Breakdown, No Significant Lesion Neuro: Normal Gait, Normal Speech, Strength at 5/5 X4 Ext, Normal Tone, Sensation Intact Psych/Mental Status: Mental Status NL, Mood NL Results Lab Laboratory Tests 08/27/22 18:20 08/28/22 02:50 A/P-Cardiology Admission Diagnosis Chest pain Anemia GI bleed Coronary artery disease Assessment/Plan Hypotensive shock, maintained on Levophed Being weaned off slowly. Continue to monitor Status post perforated colon during colonoscopy on August 27, 2022 Emergency surgical repair, improving Still having absent bowel sounds, managed by surgical team. Chest pain, resembling angina, known history of coronary artery disease. Reporting improvement after blood transfusion Continue to monitor Anemia, recurrent drop in H&H, recurrent GI bleed Underwent endoscopy which showed healing antral ulcer, gastritis Colonoscopy resulted in perforation as described above. Received blood transfusion postoperatively Continue to monitor H&H Coronary artery disease, following with a steel die printer in [facility] in [place]. Reporting history of 2 myocardial infarctions in the past last heart attack in 2017 and he does not recall having a stent done. Reported that he will need a cardiac catheterization in the near future and has been discussing it with his primary steel die printer. No acute myocardial infarction was noted during the work-up today. Cannot tolerate long-term intervention after coronary angiogram or stenting. Conservative management is recommended Paroxysmal atrial fibrillation, was difficult to control with multiple medication. Responded to amiodarone and converted to sinus rhythm on the previous admission Has been on Xarelto, currently oral anticoagulation are on hold due to his severe anemia. COPD, active smoker, acute exacerbation due to pneumonia History of chronic renal insufficiency, currently renal function appears to be in the low normal. 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 Hypertension, monitor blood pressure. Hyperlipidemia, monitor lipids BART MEJIA MD Aug 28, 2022 09:28
[2022-08-28] MEDS: RT--FLUTICASONE/SALMETEROL 232-14 (AIRDUO RespiCLICK) IH SCH ×2 (10:44→18:56)
--- NOTE | 2022-08-28 11:31 | Physical Therapy Progress Note ---
Therapy Progress Note Pt. transfer of care to ICU from 4th. We will need new orders for PT. PRIYA NATHAN PT Aug 28, 2022 11:31
[2022-08-28] MEDS: HYDROCORTISONE 100 MG/2 ML (Solu-CORTEF) VIAL IV SCH ×2 (14:18→21:09)
--- NOTE | 2022-08-28 17:55 | Progress Note - Hospitalist ---
Subjective HPI/CC On Admission Date Seen by Provider: Aug 28, 2022 Time Seen by Provider: 09:25 David Robbins is a 76 year old male with PMH HTN, AFib, CAD, COPD, BPH, who presented with chest pain. He reports his symptoms have been going on for about a week. He has no chest pain on my exam. He reports shortness of breath. He denies abdominal pain. He denies bloody stools. He reports having black stools for several months. He was hospitalized in March and was found to have iron deficiency anemia at that time with positive fecal occult blood. He was supposed to follow up for an outpatient colonoscopy but did not. Subjective/Events-last exam He is in bed. He is awake. He has some abdominal pain. He denies shortness of breath. Objective Exam Vital Signs Vital Signs Date Time Temp Pulse Resp B/P (MAP) Pulse Ox O2 Delivery O2 Flow Rate FiO2 08/28/22 17:00 105 22 107/54 (71) 94 Nasal Cannula 2.00 08/28/22 15:55 36.8 Capillary Refill : Less Than 3 Seconds General Appearance: No Apparent Distress, Chronically ill, Thin Respiratory: No Respiratory Distress, Decreased Breath Sounds Cardiovascular: No Murmur, Tachycardia Gastrointestinal: Normal Bowel Sounds, Soft, Tenderness Extremity: Normal Inspection, No Pedal Edema Neurologic/Psychiatric: Alert, Disoriented (oriented to person, place, year, disoriented to month) Skin: Normal Color, Warm/Dry Results/Procedures Lab Laboratory Tests 08/27/22 18:20 08/28/22 02:50 Patient resulted labs reviewed. Imaging: Reviewed Imaging Report Assessment/Plan Assessment and Plan Assess & Plan/Chief Complaint Sigmoid colon perforation Colonoscopy complication s/p partial colectomy Gastric ulcer Gastritis and esophagitis Esophageal stricture GERD Symptomatic anemia Chronic GI bleeding Iron deficiency anemia Anticoagulated EGD/colonoscopy with healing gastric ulcer, esophageal stricture, gastri tis/esophagitis, hemorrhoids Complicated by bowel perforation s/p partial colectomy 08/27 IV PPI Pain regimen TeleICU consulted Surgery following s/p 4 units PRBC Transfuse for Hgb <7 Chest pain CAD AFib Troponin negative Likely due to severe anemia Cardiology following Hold Xarelto Continue Amiodarone COPD MAT protocol Continue home dose steroids and inhalers DVT prophylaxis: held due to GI bleeding Critical Care Critically Ill Patient Diagnosis/Problems Diagnosis/Problems (1) Severe anemia Status: Acute (2) MEIR (iron deficiency anemia) Status: Acute (3) Chest pain Status: Acute Qualifiers: Chest pain type: unspecified Qualified Codes: R07.9 - Chest pain, unspecified (4) Symptomatic anemia Status: Acute (5) Chronic GI bleeding Status: Acute (6) Anticoagulated Status: Chronic (7) CAD (coronary artery disease) Status: Chronic (8) Afib Status: Chronic (9) COPD (chronic obstructive pulmonary disease) Status: Chronic Qualifiers: Emphysema type: other (10) Chronic respiratory failure with hypoxia Status: Chronic (11) Perforated sigmoid colon Status: Acute (12) Perforation of colon as colonoscopy complication Status: Acute (13) S/P partial colectomy Status: Acute (14) Gastric ulcer Status: Acute Qualifiers: Gastric ulcer chronicity: acute Gastric ulcer complication status: with hemorrhage Qualified Codes: K25.0 - Acute gastric ulcer with hemorrhage (15) Esophagitis with gastritis Status: Acute (16) Stricture of esophagus Status: Acute (17) GERD (gastroesophageal reflux disease) Status: Acute Qualifiers: Esophagitis presence: with esophagitis Esophagitis bleeding: with hemorrhage Qualified Codes: K21.01 - Gastro-esophageal reflux disease with esophagitis, with bleeding DANICA BAZAN MD Aug 28, 2022 17:55
[2022-08-29] MEDS: LACTATED RINGERS 1,000 ML IV SCH ×3 (00:22→18:10)
[2022-08-29 02:25] LABS: BASOPHILS % (AUTO) 0 % (0-10); EOSINOPHILS % (AUTO) 0 % (0-10); HEMATOCRIT 26 % (40-54); HEMOGLOBIN 7.6 g/dL (13.3-17.7); LYMPHOCYTES # (AUTO) 0.4 10^3/uL (1.0-4.0); LYMPHOCYTES % (AUTO) 4 % (12-44); MEAN CORPUSCULAR HEMOGLOBIN 24 pg (25-34); MEAN CORPUSCULAR HGB CONC 30 g/dL (32-36); MEAN CORPUSCULAR VOLUME 81 fL (80-99); MEAN PLATELET VOLUME 9.8 fL (9.0-12.2); MONOCYTES # (AUTO) 0.7 10^3/uL (0.0-1.0); MONOCYTES % (AUTO) 6 % (0-12); NEUTROPHILS # (AUTO) 9.3 10^3/uL (1.8-7.8); NEUTROPHILS % (AUTO) 87 % (42-75); PLATELET COUNT 196 10^3/uL (130-400); WHITE BLOOD COUNT 10.7 10^3/uL (4.3-11.0)
[2022-08-29 02:36] LABS: POTASSIUM 4.6 MMOL/L (3.6-5.0)
[2022-08-29 02:37] LABS: CALCIUM 8.5 MG/DL (8.5-10.1)
[2022-08-29 02:41] LABS: PHOSPHORUS 2.8 MG/DL (2.3-4.7)
[2022-08-29 02:42] LABS: CREATININE SERUM 0.8 MG/DL (0.60-1.30)
[2022-08-29 02:44] LABS: MAGNESIUM 2.2 MG/DL (1.6-2.4)
[2022-08-29] MEDS: RT-ALBUTEROL/IPRATROPIUM 3 ML (DUONEB) VIAL INH SCH ×6 (02:53→22:10)
[2022-08-29] MEDS: NOREPINEPHRINE 8 MG/250 ML 250 ML IV SCH (03:06)
[2022-08-29 03:14] LABS: ATYPICAL LYMPHOCYTES 1 %; BAND NEUTROPHILS 65 %; LYMPHOCYTES % (MANUAL) 10 %; MONOCYTES % (MANUAL) 4 %; NEUTROPHILS % (MANUAL) 18 %; PROLYMPHOCYTE % 2 %
[2022-08-29 03:15] LABS: ELLIPT/OVALOCYTES SLIGHT; MICROCYTOSIS SLIGHT; POLYCHROMASIA SLIGHT
[2022-08-29] MEDS: MAGNESIUM 1 GM/100 ML IVPB 100 ML IV SCH (05:28)
[2022-08-29] MEDS: KCL 20 MEQ TAB (K-DUR) PO SCH (05:28)
[2022-08-29] MEDS: POTASSIUM CL 10MEQ/50ML IVPB 50 ML IV SCH (05:28)
[2022-08-29] MEDS: HYDROCORTISONE 100 MG/2 ML (Solu-CORTEF) VIAL IV SCH ×3 (05:55→21:52)
[2022-08-29] MEDS ORDERED: AMIODARONE 200 MG (CORDARONE) TAB PO ONE (06:45)
[2022-08-29] MEDS: RT--FLUTICASONE/SALMETEROL 232-14 (AIRDUO RespiCLICK) IH SCH ×2 (06:54→22:10)
[2022-08-29] MEDS ORDERED: AMIODARONE FOR BOLUS 150 MG in NS (IVPB) 100 ML IV ONE (07:15)
[2022-08-29 07:35] VITALS: BP 94/61
--- NOTE | 2022-08-29 07:47 | Progress Note - Surgery ---
WALDOSAM Medardo 08/29/22 0747: Subjective Date Seen by a Provider: Aug 29, 2022 Time Seen by a Provider: 07:42 Subjective/Events-last exam 76 M with PMH of HTN A fibb CAD COPD BPH s/p sigmoid perforation repair with associated symptomatic sever anemia. 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 Pt had episode of afib rvr this morning, started on IV amiodarone. Pt denies any associated n/v chills fever lightheadedness. P able to void without complaint but has not had BM since arrival. Pt resting in bed. Focused Exam Respiratory: Chest Non Tender, Lungs Clear Cardiovascular: No JVD, Irregularly Irregular Skin: normal color, warm/dry Objective Exam Vital Signs Date Time Temp Pulse Resp B/P (MAP) Pulse Ox O2 Delivery O2 Flow Rate FiO2 08/29/22 06:58 Nasal Cannula 1.00 08/29/22 06:54 92 Nasal Cannula 1.00 08/29/22 06:00 97 25 104/62 (76) 92 Nasal Cannula 2.00 08/29/22 05:00 100 21 102/60 (74) 94 Nasal Cannula 2.00 08/29/22 04:00 104 22 103/61 (75) 91 Nasal Cannula 2.00 08/29/22 04:00 90 Nasal Cannula 2.00 08/29/22 03:50 37.3 08/29/22 03:06 105 94/54 08/29/22 03:00 100 22 97/52 (67) 93 Nasal Cannula 2.00 08/29/22 02:53 90 Nasal Cannula 2.00 08/29/22 02:00 125 24 97/57 (70) 91 Nasal Cannula 2.00 08/29/22 01:00 102 08/29/22 01:00 102 21 100/58 (72) 91 Nasal Cannula 2.00 08/29/22 00:00 105 23 94/54 (67) 91 Nasal Cannula 2.00 08/28/22 23:59 92 Nasal Cannula 2.00 08/28/22 23:31 37.5 08/28/22 23:00 105 23 95/58 (70) 92 Nasal Cannula 2.00 08/28/22 22:34 91 Nasal Cannula 2.00 08/28/22 22:00 102 19 96/54 (68) 92 Nasal Cannula 2.00 08/28/22 21:56 37.1 08/28/22 21:00 27 08/28/22 21:00 103 21 103/61 (75) 91 Nasal Cannula 2.00 08/28/22 20:37 36.3 08/28/22 20:00 103 22 105/59 (74) 92 Nasal Cannula 2.00 08/28/22 19:49 93 Nasal Cannula 2.00 08/28/22 19:44 36.4 08/28/22 19:00 102 26 114/59 (77) 100 Nasal Cannula 2.00 08/28/22 19:00 102 08/28/22 18:54 93 Nasal Cannula 2.00 08/28/22 18:00 102 22 114/58 (76) 94 Nasal Cannula 2.00 08/28/22 17:00 105 22 107/54 (71) 94 Nasal Cannula 2.00 08/28/22 16:10 96 Nasal Cannula 2.00 08/28/22 16:00 104 27 111/58 (75) 100 Nasal Cannula 2.00 08/28/22 15:55 36.8 08/28/22 15:42 99 Nasal Cannula 2.00 08/28/22 15:00 105 27 96/57 (70) 100 Nasal Cannula 2.00 08/28/22 14:41 107 86/74 08/28/22 14:00 107 25 96/52 (67) 98 Nasal Cannula 2.00 08/28/22 13:00 111 23 91/49 (63) 97 Nasal Cannula 2.00 08/28/22 12:53 27 08/28/22 12:47 107 08/28/22 12:00 97 Nasal Cannula 2.00 08/28/22 12:00 106 23 100/58 (72) 99 Nasal Cannula 2.00 08/28/22 11:00 105 23 100/64 (76) 100 Nasal Cannula 2.00 08/28/22 10:42 98 Nasal Cannula 2.00 08/28/22 10:00 105 28 101/61 (74) 99 Nasal Cannula 2.00 08/28/22 09:00 105 24 98/57 (71) 100 Nasal Cannula 2.00 08/28/22 08:00 110 23 97/56 (70) 97 Nasal Cannula 2.00 08/28/22 08:00 100 Nasal Cannula 2.00 08/28/22 07:54 37.2 I & O 08/29/22 07:00 Intake Total 3740 ml Output Total 1775 ml Balance 1965 ml Capillary Refill : Less Than 3 Seconds General Appearance: No Apparent Distress, Chronically ill, Thin HEENT: PERRL/EOMI; No Photophobia Neck: Non Tender, Supple Respiratory: No Respiratory Distress, Decreased Breath Sounds Cardiovascular: No Murmur, Irregularly Irregular, Tachycardia Peripheral Pulses: 3+ Dorsalis Pedis (R), 3+ Left Dors-Pedis (L), 3+ Radial Pulses (R), 3+ Radial Pulses (L) Gastrointestinal: no pulsatile mass, abnormal bowel sounds (hypoactive), tenderness (RLQ LLQ) Extremity: Normal Inspection, No Pedal Edema Neurologic/Psychiatric: Alert, Disoriented (oriented to person, place, year, disoriented to month) Skin: Normal Color, Warm/Dry Lymphatic: No Adenopathy Results Lab Laboratory Tests 08/29/22 02:18: White Blood Count 10.7, Red Blood Count 3.15L, Hemoglobin 7.6L, Hematocrit 26L, Mean Corpuscular Volume 81, Mean Corpuscular Hemoglobin 24L, Mean Corpuscular Hemoglobin Concent 30L, Red Cell Distribution Width 19.8H, Platelet Count 196, Mean Platelet Volume 9.8, Immature Granulocyte % (Auto) 2, Neutrophils (%) (Auto) 87H, Lymphocytes (%) (Auto) 4L, Monocytes (%) (Auto) 6, Eosinophils (%) (Auto) 0, Basophils (%) (Auto) 0, Neutrophils # (Auto) 9.3H, Lymphocytes # (Auto) 0.4L, Monocytes # (Auto) 0.7, Eosinophils # (Auto) 0.0, Basophils # (Auto ) 0.0, Immature Granulocyte # (Auto) 0.3H, Neutrophils % (Manual) 18, Lymphocytes % (Manual) 10, Prolymphocyte % 2, Monocytes % (Manual) 4, Band Neutrophils 65, Atypical Lymphocytes 1, Polychromasia SLIGHT, Microcytosis SLIGHT, Elliptocytes SLIGHT, Sodium Level 135, Potassium Level 4.6, Chloride Level 103, Carbon Dioxide Level 24, Anion Gap 8, Blood Urea Nitrogen 13, Creatinine 0.80, Estimat Glomerular Filtration Rate 92, BUN/Creatinine Ratio 16, Glucose Level 148H, Calcium Level 8.5, Phosphorus Level 2.8, Magnesium Level 2.2 Microbiology 08/25/22 MRSA Screen - Final, Complete MRSA not isolated Assessment/Plan Assessment/Plan Assessment/Plan severe anemia iatrogenic sigmoid perforation s/p exlap and resection with side to side anastamosis COPD mild contaminated pelvis continue to monitor Hgb and transfuse is falls below 7 continue IV zoysn therapy continue clear liquid diet pain control IV hydration hold xarelto continue amiodorone continue MAT protocol on steroids for copd RODOLFO WATKINS DO 08/29/22 1415: Subjective Subjective/Events-last exam Pain better controlled. Tolerating clears. No flatus or bm. Still requiring levophed. Afib Rvr last night. Denies n/v fever sweats chills shortness of breath or chest pain. Objective Exam General Appearance: No Apparent Distress, Chronically ill HEENT: PERRL/EOMI, Normal ENT Inspection Neck: Non Tender, Supple Respiratory: Chest Non Tender, No Accessory Muscle Use, No Respiratory Distress Cardiovascular: Irregularly Irregular, Tachycardia Gastrointestinal: soft, distended (mildly), tenderness (RLQ LLQ, incision is clean dry intact, drain sersang) Extremity: Normal Inspection, Non Tender Neurologic/Psychiatric: Alert, Oriented x3 (answers ), Disoriented (oriented to person, place, year, disoriented to month) Skin: Normal Color, Warm/Dry Lymphatic: No Adenopathy Assessment/Plan Assessment/Plan Assessment/Plan severe anemia iatrogenic sigmoid perforation s/p exlap and resection with side to side anastamosis COPD mild contaminated pelvis afib rvr continue to monitor Hgb and transfuse is falls below 7 continue IV zoysn therapy continue clear liquid diet-awaiting bowel function pain control IV hydration hold xarelto continue amiodorone wean levophed as tolerates continue MAT protocol on steroids for copd morin for accurate i/0 Supervisory-Addendum Brief Verification & Attestation Participated in pt care: history, MDM, physical Personally performed: exam, history, MDM, supervision of care Care discussed with: Medical Student Procedures: n/a Results interpretation: Verified all documentation Verification and Attestation of Medical Student E/M Service A medical student performed and documented this service in my presence. I reviewed and verified all information documented by the medical student and made modifications to such information, when appropriate. I personally performed the physical exam and medical decision making. Rodolfo Watkins, Aug 29, 2022,14:15 SAM HAAS Aug 29, 2022 07:47 RODOLFO WATKINS DO Aug 29, 2022 14:15
[2022-08-29] MEDS ORDERED: LACTATED RINGERS 1,000 ML IV SCH (09:15)
--- NOTE | 2022-08-29 09:42 | Cardiology Progress Note ---
Subjective Date Seen by Provider: Aug 29, 2022 Time Seen by Provider: 09:41 Subjective/Events-last exam Patient was seen at bedside, laying down comfortably No new complaint Became tachycardic this morning Review of Systems General: No Chills, No Night Sweats; Fatigue, Malaise; No Appetite, No Other HEENT: No Head Aches, No Visual Changes, No Eye Pain, No Ear Pain, No Dysphasia, No Sinus Congestion, No Post Nasal Drip, No Sore Throat, No Other Pulmonary: No Dyspnea, No Cough, No Pleuritic Chest Pain, No Other Cardiovascular: No: Chest Pain, Palpitations, Orthopnea, Paroxysmal Noc. Dyspnea, Edema, Lt Headedness, Other Objective-Cardiology Exam Last Set of Vital Signs Vital Signs 08/29/22 08/29/22 08/29/22 07:35 07:57 09:00 Temp 37.3 Pulse 125 Resp 24 B/P (MAP) 108/74 (85) Pulse Ox 95 O2 Delivery Nasal Cannula O2 Flow Rate 2.00 FiO2 24 I&O Intake and Output 08/29/22 00:00 Intake Total 3040 ml Output Total 1745 ml Balance 1295 ml Intake Oral 490 ml IV Total 2550 ml Output Urine Total 1450 ml Drainage Total 295 ml General: Alert, Oriented X3, Cooperative HEENT: Atraumatic, PERRLA Neck: Supple, No JVD, No Thyromegaly Lungs: Clear to Auscultation, Normal Air Movement Heart: Normal S1, Normal S2, No Murmurs, Other (Atrial fibrillation) Abdomen: Soft, No Tenderness, No Hepatosplenomegaly, No Masses, Other (Absent bowel sounds) Extremities: No Clubbing, No Cyanosis, No Edema, Normal Pulses, No Tenderness/Swelling Skin: No Rashes, No Breakdown, No Significant Lesion Neuro: Normal Gait, Normal Speech, Strength at 5/5 X4 Ext, Normal Tone, Sensation Intact Psych/Mental Status: Mental Status NL, Mood NL Results Lab Laboratory Tests 08/29/22 02:18 A/P-Cardiology Admission Diagnosis Chest pain Anemia GI bleed Coronary artery disease Assessment/Plan Hypotensive shock, improving Still borderline hypotensive. Continue to monitor blood pressure Paroxysmal atrial fibrillation, previously was very difficult to control with multiple medication Responded to amiodarone in the past and converted to sinus rhythm. Currently Xarelto is on hold. I will add Cardizem 30 mg every 6 hours, planning for electrical cardioversion in the morning if he did not convert spontaneously. Status post perforated colon during colonoscopy on August 27, 2022 Emergency surgical repair, improving Still having absent bowel sounds, managed by surgical team. Chest pain, resembling angina, known history of coronary artery disease. Reporting improvement after blood transfusion Continue to monitor Anemia, recurrent drop in H&H, recurrent GI bleed Underwent endoscopy which showed healing antral ulcer, gastritis Colonoscopy resulted in perforation as described above. Received blood transfusion postoperatively Continue to monitor H&H Coronary artery disease, following with a robot technician in [facility] in [place]. Reporting history of 2 myocardial infarctions in the past last heart attack in 2017 and he does not recall having a stent done. Reported that he will need a cardiac catheterization in the near future and has been discussing it with his primary robot technician. No acute myocardial infarction was noted during the work-up today. Cannot tolerate long-term intervention after coronary angiogram or stenting. Conservative management is recommended COPD, active smoker, acute exacerbation due to pneumonia History of chronic renal insufficiency, currently renal function appears to be in the low normal. 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 Hypertension, monitor blood pressure. Hyperlipidemia, monitor lipids BART MEJIA MD Aug 29, 2022 09:42
--- NOTE | 2022-08-29 09:59 | Tele-ICU Progress Note ---
Subjective Date Seen by a Provider: Aug 29, 2022 Subjective/Events-last exam This virtual visit was conducted using real time audio/video. Thank you for asking us to see this patient for respiratory insufficiency due to COPD, on 2 LPM home O2. Admitted with cp, severe anemia. Recent events: s/p sigmoid perf., ex lap. Overnight afib/RVR. SH: smoking history: current. PE: Comfortable on camera. V O2 sat 92% on 2 LPM NC. HEENT: No obvious masses, adenopathy or JVD. Chest: diminished on auscultation. CV: Irreg afib S1 S2 No murmur or added sounds. Abd: Non-tender. Bowel sounds Y. : Unremarkable. Rao Y. CHOKER HOOKER/psychiatric: Grossly intact. No obvious focal findings. Extremities: No edema. Capillary refill < 3 seconds. Skin: unremarkable. Results: Elevated BG 148. Decreased HB 7.6. CXR: Hyperinflated, B int infilts. Available chart/ vitals / labs / images reviewed. Video assessment done using teleICU camera, rest of exam as per RN. A/P: Respiratory insufficiency: Continue present management with O2, airduo, duonebs, pred., Nicoderm. Monitor for increasing oxygenation needs and/or need for intubation. Critical Care: critically ill patient. Cont. PPI, abx, PRN Levo., s.cortef, amiod., statin. Discussed with YOHANNES Gibson. Asked RN to reach out to eICU if any questions or concerns later. Time spent with patient/coordination of care with other health professionals (mins): 30 Sepsis Event Evaluation Height, Weight, BMI Height: '" Weight: lbs. oz. kg; 20.30 BMI Method: Exam Exam Patient acknowledged, consented, and participated in this virtual visit which was conducted using real time audio/video Vital Signs Date Time Temp Pulse Resp B/P (MAP) Pulse Ox O2 Delivery O2 Flow Rate FiO2 08/29/22 09:00 125 24 108/74 (85) 95 Nasal Cannula 2.00 08/29/22 08:00 129 22 100/70 (80) 94 Nasal Cannula 2.00 08/29/22 07:58 138 97/59 08/29/22 07:57 37.3 08/29/22 07:35 37.3 115 92 24 08/29/22 07:00 123 10/16/22 07:00 125 19 103/59 (74) 97 Nasal Cannula 2.00 08/29/22 06:58 Nasal Cannula 1.00 08/29/22 06:54 92 Nasal Cannula 1.00 08/29/22 06:00 97 25 104/62 (76) 92 Nasal Cannula 2.00 08/29/22 05:00 100 21 102/60 (74) 94 Nasal Cannula 2.00 08/29/22 04:00 104 22 103/61 (75) 91 Nasal Cannula 2.00 08/29/22 04:00 90 Nasal Cannula 2.00 08/29/22 03:50 37.3 08/29/22 03:06 105 94/54 08/29/22 03:00 100 22 97/52 (67) 93 Nasal Cannula 2.00 08/29/22 02:53 90 Nasal Cannula 2.00 08/29/22 02:00 125 24 97/57 (70) 91 Nasal Cannula 2.00 08/29/22 01:00 102 08/29/22 01:00 102 21 100/58 (72) 91 Nasal Cannula 2.00 08/29/22 00:00 105 23 94/54 (67) 91 Nasal Cannula 2.00 08/28/22 23:59 92 Nasal Cannula 2.00 08/28/22 23:31 37.5 08/28/22 23:00 105 23 95/58 (70) 92 Nasal Cannula 2.00 08/28/22 22:34 91 Nasal Cannula 2.00 08/28/22 22:00 102 19 96/54 (68) 92 Nasal Cannula 2.00 08/28/22 21:56 37.1 08/28/22 21:00 27 08/28/22 21:00 103 21 103/61 (75) 91 Nasal Cannula 2.00 08/28/22 20:37 36.3 08/28/22 20:00 103 22 105/59 (74) 92 Nasal Cannula 2.00 08/28/22 19:49 93 Nasal Cannula 2.00 08/28/22 19:44 36.4 08/28/22 19:00 102 26 114/59 (77) 100 Nasal Cannula 2.00 08/28/22 19:00 102 08/28/22 18:54 93 Nasal Cannula 2.00 08/28/22 18:00 102 22 114/58 (76) 94 Nasal Cannula 2.00 08/28/22 17:00 105 22 107/54 (71) 94 Nasal Cannula 2.00 08/28/22 16:10 96 Nasal Cannula 2.00 08/28/22 16:00 104 27 111/58 (75) 100 Nasal Cannula 2.00 08/28/22 15:55 36.8 08/28/22 15:42 99 Nasal Cannula 2.00 08/28/22 15:00 105 27 96/57 (70) 100 Nasal Cannula 2.00 08/28/22 14:41 107 86/74 08/28/22 14:00 107 25 96/52 (67) 98 Nasal Cannula 2.00 08/28/22 13:00 111 23 91/49 (63) 97 Nasal Cannula 2.00 08/28/22 12:53 27 08/28/22 12:47 107 08/28/22 12:00 97 Nasal Cannula 2.00 08/28/22 12:00 106 23 100/58 (72) 99 Nasal Cannula 2.00 08/28/22 11:00 105 23 100/64 (76) 100 Nasal Cannula 2.00 08/28/22 10:42 98 Nasal Cannula 2.00 08/28/22 10:00 105 28 101/61 (74) 99 Nasal Cannula 2.00 I & O 08/29/22 07:00 Intake Total 3740 ml Output Total 1775 ml Balance 1965 ml Height & Weight Height: '" Weight: lbs. oz. kg; 20.30 BMI Method: General Appearance: No Apparent Distress, Chronically ill, Thin HEENT: PERRL/EOMI; No Photophobia Neck: Non Tender, Supple Respiratory: No Respiratory Distress, Decreased Breath Sounds Cardiovascular: No Murmur, Irregularly Irregular, Tachycardia Capillary Refill: Less Than 3 Seconds Peripheral Pulses: 3+ Dorsalis Pedis (R), 3+ Left Dors-Pedis (L), 3+ Radial Pulses (R), 3+ Radial Pulses (L) Gastrointestinal: no pulsatile mass, abnormal bowel sounds (hypoactive), tenderness (RLQ LLQ) Extremity: Normal Inspection, No Pedal Edema Neurologic/Psychiatric: Alert, Disoriented (oriented to person, place, year, disoriented to month) Skin: Normal Color, Warm/Dry Lymphatic: No Adenopathy Results Lab Laboratory Tests 08/27/22 18:20 08/28/22 02:50 08/29/22 02:18 Assessment/Plan Assessment/Plan See free text. Critical Care: Critically Ill Patient ODILON PALMER MD Aug 29, 2022 09:59
[2022-08-29] MEDS: AMIODARONE 200 MG (CORDARONE) TAB PO SCH (10:08)
[2022-08-29] MEDS: predniSONE 5 MG TAB PO SCH (10:08)
[2022-08-29] MEDS: DOCUSATE SODIUM 100 MG (COLACE) CAP PO SCH ×2 (10:08→21:31)
[2022-08-29] MEDS: NICOTINE 21 MG (NICODERM) PATCH TD SCH (10:09)
[2022-08-29] MEDS: PANTOPRAZOLE 40 MG (PROTONIX) VIAL IV SCH ×2 (10:09→18:10)
[2022-08-29] MEDS: PIPERACILLIN SODIUM/TAZOBACTAM 4.5 GM in NS (IVPB) 100 ML IV SCH ×3 (10:09→23:24)
[2022-08-29] MEDS: NICOTINE PATCH REMOVAL TP SCH (11:35)
[2022-08-29] MEDS ORDERED: LACTATED RINGERS 500 ML IV SCH (13:45)
--- NOTE | 2022-08-29 20:52 | Progress Note - Hospitalist ---
Subjective HPI/CC On Admission Date Seen by Provider: Aug 29, 2022 Time Seen by Provider: 09:40 David Robbins is a 76 year old male with PMH HTN, AFib, CAD, COPD, BPH, who presented with chest pain. He reports his symptoms have been going on for about a week. He has no chest pain on my exam. He reports shortness of breath. He denies abdominal pain. He denies bloody stools. He reports having black stools for several months. He was hospitalized in March and was found to have iron deficiency anemia at that time with positive fecal occult blood. He was supposed to follow up for an outpatient colonoscopy but did not. Subjective/Events-last exam He has no complaints. He still has some abdominal pain. He denies shortness of breath. Focused Exam Lactate Level 08/29/22 10:37: Lactic Acid Level 2.19*H 08/29/22 12:37: Lactic Acid Level 2.03*H Objective Exam Vital Signs Vital Signs Date Time Temp Pulse Resp B/P (MAP) Pulse Ox O2 Delivery O2 Flow Rate FiO2 08/29/22 18:45 96 Nasal Cannula 3.00 08/29/22 18:00 105 17 96/61 (73) 08/29/22 11:51 36.9 08/29/22 07:35 24 Capillary Refill : Less Than 3 Seconds General Appearance: No Apparent Distress, Chronically ill, Thin Respiratory: No Respiratory Distress, Decreased Breath Sounds Cardiovascular: Regular Rate, Rhythm, No Murmur Gastrointestinal: Normal Bowel Sounds, Soft Extremity: Normal Inspection, No Pedal Edema Neurologic/Psychiatric: Alert, Normal Mood/Affect Skin: Normal Color, Warm/Dry Results/Procedures Lab Laboratory Tests 08/29/22 02:18 Patient resulted labs reviewed. Imaging: Reviewed Imaging Report Assessment/Plan Assessment and Plan Assess & Plan/Chief Complaint Sigmoid colon perforation Colonoscopy complication s/p partial colectomy Gastric ulcer Gastritis and esophagitis Esophageal stricture GERD Symptomatic anemia Chronic GI bleeding Iron deficiency anemia Anticoagulated SIRS Lactic acidosis EGD/colonoscopy with healing gastric ulcer, esophageal stricture, gastritis/esophagitis, hemorrhoids Complicated by bowel perforation s/p partial colectomy 08/27 IV PPI Pain regimen TeleICU following Surgery following s/p 4 units PRBC Transfuse for Hgb <7 Blood cultures IV fluids Chest pain CAD AFib Troponin negative Likely due to severe anemia Cardiology following Hold Xarelto Continue Amiodarone COPD MAT protocol Continue home dose steroids and inhalers DVT prophylaxis: held due to GI bleeding Critical Care Critically Ill Patient Diagnosis/Problems Diagnosis/Problems (1) Severe anemia Status: Acute (2) MEIR (iron deficiency anemia) Status: Acute (3) Chest pain Status: Acute Qualifiers: Chest pain type: unspecified Qualified Codes: R07.9 - Chest pain, unspecified (4) Symptomatic anemia Status: Acute (5) Chronic GI bleeding Status: Acute (6) Anticoagulated Status: Chronic (7) CAD (coronary artery disease) Status: Chronic (8) Afib Status: Chronic (9) COPD (chronic obstructive pulmonary disease) Status: Chronic Qualifiers: Emphysema type: other (10) Chronic respiratory failure with hypoxia Status: Chronic (11) Perforated sigmoid colon Status: Acute (12) Perforation of colon as colonoscopy complication Status: Acute (13) S/P partial colectomy Status: Acute (14) Gastric ulcer Status: Acute Qualifiers: Gastric ulcer chronicity: acute Gastric ulcer complication status: with hemorrhage Qualified Codes: K25.0 - Acute gastric ulcer with hemorrhage (15) Esophagitis with gastritis Status: Acute (16) Stricture of esophagus Status: Acute (17) GERD (gastroesophageal reflux disease) Status: Acute Qualifiers: Esophagitis presence: with esophagitis Esophagitis bleeding: with hemorrhage Qualified Codes: K21.01 - Gastro-esophageal reflux disease with esophagitis, with bleeding DANICA BAZAN MD Aug 29, 2022 20:52
[2022-08-29] MEDS: fentaNYL INJ 100 MCG/2 ML AMP IVP PRN (21:53)
[2022-08-30] MEDS: RT-ALBUTEROL/IPRATROPIUM 3 ML (DUONEB) VIAL INH SCH ×6 (02:48→20:48)
[2022-08-30] MEDS: LACTATED RINGERS 1,000 ML IV SCH ×2 (03:11→15:48)
[2022-08-30] MEDS: fentaNYL INJ 100 MCG/2 ML AMP IVP PRN ×2 (03:11→05:11)
[2022-08-30 04:47] LABS: BASOPHILS % (AUTO) 0 % (0-10); EOSINOPHILS % (AUTO) 0 % (0-10); HEMATOCRIT 25 % (40-54); HEMOGLOBIN 7.3 g/dL (13.3-17.7); LYMPHOCYTES # (AUTO) 0.7 10^3/uL (1.0-4.0); LYMPHOCYTES % (AUTO) 5 % (12-44); MEAN CORPUSCULAR HEMOGLOBIN 24 pg (25-34); MEAN CORPUSCULAR HGB CONC 29 g/dL (32-36); MEAN CORPUSCULAR VOLUME 82 fL (80-99); MEAN PLATELET VOLUME 10.7 fL (9.0-12.2); MONOCYTES # (AUTO) 0.9 10^3/uL (0.0-1.0); MONOCYTES % (AUTO) 7 % (0-12); NEUTROPHILS % (AUTO) 87 % (42-75); PLATELET COUNT 166 10^3/uL (130-400); WHITE BLOOD COUNT 13.7 10^3/uL (4.3-11.0)
[2022-08-30 05:04] LABS: CALCIUM 8.8 MG/DL (8.5-10.1)
[2022-08-30 05:08] LABS: CREATININE SERUM 0.7 MG/DL (0.60-1.30)
[2022-08-30] MEDS: KCL 20 MEQ TAB (K-DUR) PO SCH (05:08)
[2022-08-30] MEDS: POTASSIUM CL 10MEQ/50ML IVPB 50 ML IV SCH (05:08)
[2022-08-30 05:10] LABS: MAGNESIUM 1.9 MG/DL (1.6-2.4)
[2022-08-30] MEDS: HYDROCORTISONE 100 MG/2 ML (Solu-CORTEF) VIAL IV SCH ×3 (05:11→22:35)
[2022-08-30] MEDS: MAGNESIUM 1 GM/100 ML IVPB 100 ML IV SCH (05:42)
[2022-08-30] MEDS: RT--FLUTICASONE/SALMETEROL 232-14 (AIRDUO RespiCLICK) IH SCH ×2 (06:40→20:49)
--- NOTE | 2022-08-30 07:42 | Physical Therapy Progress Note ---
Therapy Progress Note Pt. transfer of care to ICU from 4th. We will need new orders for PT. GEMA CALDERON PT Aug 30, 2022 07:42
--- NOTE | 2022-08-30 08:06 | Diagnostic Imaging Report ---
Indication: Hypoxia. Compared with study 08/27. Findings: Left subclavian catheter projects just below the level of the innominate junction. There is no pneumothorax. Pneumoperitoneum present on prior can no longer be clearly identified. Left lower lobe consolidation medially has progressed obscuring the left hemidiaphragm however the more diffuse 5 lobe interstitial opacities have improved. Impression: Increased consolidation left lower lobe however reduction in diffuse interstitial edema or interstitial pneumonia. No pneumothorax. Dictated by: Dictated on workstation # [id number]
[2022-08-30] MEDS: PANTOPRAZOLE 40 MG (PROTONIX) VIAL IV SCH ×2 (08:11→17:08)
[2022-08-30] MEDS: PIPERACILLIN SODIUM/TAZOBACTAM 4.5 GM in NS (IVPB) 100 ML IV SCH ×2 (08:11→15:49)
[2022-08-30] MEDS: DOCUSATE SODIUM 100 MG (COLACE) CAP PO SCH ×2 (08:12→22:36)
[2022-08-30] MEDS: NICOTINE 21 MG (NICODERM) PATCH TD SCH (08:12)
[2022-08-30] MEDS: NICOTINE PATCH REMOVAL TP SCH (08:12)
[2022-08-30] MEDS: AMIODARONE 200 MG (CORDARONE) TAB PO SCH (08:12)
[2022-08-30] MEDS: predniSONE 5 MG TAB PO SCH (08:12)
--- NOTE | 2022-08-30 08:46 | Cardiology Progress Note ---
Subjective Date Seen by Provider: Aug 30, 2022 Time Seen by Provider: 08:45 Subjective/Events-last exam Patient was seen at bedside, laying down comfortably Tachycardic and hypotensive Review of Systems General: No Chills, No Night Sweats; Fatigue; No Malaise, No Appetite, No Other HEENT: No Head Aches, No Visual Changes, No Eye Pain, No Ear Pain, No Dysphasia, No Sinus Congestion, No Post Nasal Drip, No Sore Throat, No Other Pulmonary: No Dyspnea, No Cough, No Pleuritic Chest Pain, No Other Cardiovascular: No: Chest Pain, Palpitations, Orthopnea, Paroxysmal Noc. Dyspnea, Edema, Lt Headedness, Other Focused Exam Lactate Level 08/29/22 10:37: Lactic Acid Level 2.19*H 08/29/22 12:37: Lactic Acid Level 2.03*H Objective-Cardiology Exam Last Set of Vital Signs Vital Signs 08/29/22 08/30/22 08/30/22 07:35 03:18 08:00 Temp 36.5 Pulse 115 Resp 21 B/P (MAP) 108/66 (80) Pulse Ox 95 O2 Delivery Nasal Cannula O2 Flow Rate 3.00 FiO2 24 I&O Intake and Output 08/30/22 00:00 Intake Total 7483 ml Output Total 2055 ml Balance 5428 ml Intake Oral 2330 ml IV Total 5153 ml Output Urine Total 1925 ml Drainage Total 130 ml General: Alert, Oriented X3, Cooperative HEENT: Atraumatic, PERRLA Neck: Supple, No JVD, No Thyromegaly Lungs: Clear to Auscultation, Normal Air Movement Heart: Normal S1, Normal S2, No Murmurs, Other (Atrial fibrillation) Abdomen: Soft, No Tenderness, No Hepatosplenomegaly, No Masses, Other (Absent bowel sounds) Extremities: No Clubbing, No Cyanosis, No Edema, Normal Pulses, No Tenderness/Swelling Skin: No Rashes, No Breakdown, No Significant Lesion Neuro: Normal Gait, Normal Speech, Strength at 5/5 X4 Ext, Normal Tone, Sensation Intact Psych/Mental Status: Mental Status NL, Mood NL Results Lab Laboratory Tests 08/30/22 04:38 A/P-Cardiology Admission Diagnosis Chest pain Anemia GI bleed Coronary artery disease Assessment/Plan Hypotensive shock, improving Still borderline hypotensive. Continue to monitor blood pressure Paroxysmal atrial fibrillation, previously was very difficult to control with multiple medication Responded to amiodarone in the past and converted to sinus rhythm. Currently Xarelto is on hold. Patient is tachycardic and hypotensive, currently unstable. Atrial fibrillation has been for 24 hours. I will proceed with electrical cardioversion and give him Lovenox for today and monitor H&H Status post perforated colon during colonoscopy on August 27, 2022 Emergency surgical repair, improving Still having absent bowel sounds, managed by surgical team. Pulmonary infiltrate, questionable early pneumonia, managed by medical team Chest pain, resembling angina, known history of coronary artery disease. Reporting improvement after blood transfusion Continue to monitor Anemia, recurrent drop in H&H, recurrent GI bleed Underwent endoscopy which showed healing antral ulcer, gastritis Colonoscopy resulted in perforation as described above. Received blood transfusion postoperatively Continue to monitor H&H Coronary artery disease, following with a roving technician in [facility] in [place]. Reporting history of 2 myocardial infarctions in the past last heart attack in 2017 and he does not recall having a stent done. Reported that he will need a cardiac catheterization in the near future and has been discussing it with his primary roving technician. No acute myocardial infarction was noted during the work-up today. Cannot tolerate long-term intervention after coronary angiogram or stenting. Conservative management is recommended COPD, active smoker, acute exacerbation due to pneumonia History of chronic renal insufficiency, currently renal function appears to be in the low normal. 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 Hypertension, monitor blood pressure. Hyperlipidemia, monitor lipids BART MEJIA MD Aug 30, 2022 08:46
[2022-08-30] MEDS ORDERED: proPOfol 200 MG/20 ML (DIPRIVAN) VIAL IV ONE (08:54)
[2022-08-30] MEDS ORDERED: ENOXAPARIN 60 MG/0.6 ML (LOVENOX) SYR SC NR (09:00)
--- NOTE | 2022-08-30 09:04 | Cardioversion ---
Cardioversion PROCEDURE PHYSICIAN: Bart Rose DATE OF PROCEDURE: 08/30/22 DIRECT EXTERNAL ELECTRICAL CARDIOVERSION: Indications: Atrial Fibrillation with rapid ventricular rate Preoperative diagnoses: Atrial Fibrillation with rapid ventricular rate Postoperative diagnosis: Atrial fibrillation Anesthesia: By Anesthesia services Complications: None Specimen: None Contrast: 0 Flouroscopy: none Procedure Details: The patient was brought the foundry laborer coreroom after informed consent was taken, all the risks and complications were explained including the risk of stroke. Electrical cardioversion was carried out with anesthesia support with propofol. 200 joules of synchronized shock was delivered through external patches which promptly restored sinus rhythm, lasted for less than 1 minute and patient returned to atrial fibrillation. A second shock was delivered with 200 J and failed to restore sinus rhythm Conclusions: Failed 2 attempts for cardioversion. BART ROSE MD Aug 30, 2022 09:04
[2022-08-30] MEDS ORDERED: AMIODARONE FOR BOLUS 150 MG in NS (IVPB) 100 ML IV ONE (09:30)
--- NOTE | 2022-08-30 09:40 | Tele-ICU Progress Note ---
Subjective Date Seen by a Provider: Aug 30, 2022 Time Seen by a Provider: 09:40 Subjective/Events-last exam (Tele-ICU Physician , Progress Note ) Available chart/ vitals / labs / Images reviewed Video assessment done using teleICU camera, rest of exam as per RN Discussed with RN Events overnight : Afebrile hemodynamically stable Respiratory - 3 L nc I/O = EBL 100 cc Drips: LR Pressors- no Consultants: sx Hospital course: (08/25) 76M Admitted for chest pain/abdominal pain. CT abd: no findings. Elevated BNP. Severe anemia-chronic. Had 2 transfusions already but does not know reason for anemia. PRBC ordered. (08/26) hb 7.3 08/27/22= EGD/ scop - esophagitis, mild dist esoph stricture, mod-severe ga stritis with small healed antral ulcer.. 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 --PPI IV -Colonoscopy 08/27/22 :chronic stage 2 ext and int hemorrhids, ---> perforation colon - Hb stabl;e ACUTE ON CHRONIC ANEMIA - follow Hb - s/p ransfusion 3 u PRBC 08/25 s/p transfusion1 u pRBC 08/27 COPD (on baseline 2L NC) - stable on 3 l - resume home inhalers , prn nebs - prednisone po 5 daily ->on Solucortef NOW CP with CAD - probably due to anemia card follow PAF - - s/p attempt for cardiovesion 08/30 on amio - was on Xarelto - ON HOLD - on LOVENOX x1 08/30 Lines : left sc central venous cath. 08/27 , (Central Line Necessity Reviewed) Rao: + OG: Nutrition: as per sx Analgesia: Anxiety/ delirium VTE Prophylaxis: lovenoc x1 as per cards , scd Stress Ulcer Prophylaxis: ppi Plans in collaboration with bedside consultants and IM MDs. Discussed with RN to reach out if any questions or concerns A total of 31 minutes of critical care time was devoted to this patient today, required to treat and/or prevent further deterioration of critical care condition ( as above ) . I am remotely monitoring this patient from another state. I am unable to do the bedside exam, and history/physical and pertinent information is taken from other notes in the computer and bedside staff. I cannot take responsibility for the accuracy of this information. Sepsis Event Evaluation Height, Weight, BMI Height: '" Weight: lbs. oz. kg; 20.75 BMI Method: Focused Exam Lactate Level 08/29/22 10:37: Lactic Acid Level 2.19*H 08/29/22 12:37: Lactic Acid Level 2.03*H Exam Exam Patient acknowledged, consented, and participated in this virtual visit which was conducted using real time audio/video Vital Signs Date Time Temp Pulse Resp B/P (MAP) Pulse Ox O2 Delivery O2 Flow Rate FiO2 08/30/22 08:00 115 21 108/66 (80) 95 Nasal Cannula 3.00 08/30/22 08:00 36.8 08/30/22 07:00 122 08/30/22 07:00 129 25 108/65 (79) 97 Nasal Cannula 3.00 08/30/22 06:41 96 Nasal Cannula 3.00 08/30/22 06:15 106 14 105/52 (70) 99 Nasal Cannula 3.00 08/30/22 06:00 104 15 92/66 (70) Nasal Cannula 3.00 08/30/22 05:00 116 18 104/72 (86) 97 Nasal Cannula 3.00 08/30/22 04:00 115 16 103/61 (70) Nasal Cannula 3.00 08/30/22 03:19 94 Nasal Cannula 3.00 08/30/22 03:18 36.5 Nasal Cannula 3.00 08/30/22 03:15 110 15 93/63 (75) 94 Nasal Cannula 2.00 08/30/22 02:48 95 Nasal Cannula 2.00 08/30/22 02:30 112 20 99/64 (76) 92 Nasal Cannula 2.00 08/30/22 01:15 108 27 100/69 (76) 93 Nasal Cannula 2.00 08/30/22 01:00 111 08/30/22 00:00 94 Nasal Cannula 2.00 08/30/22 00:00 120 21 103/69 (85) 95 Nasal Cannula 2.00 08/30/22 00:00 36.2 Nasal Cannula 2.00 08/29/22 23:00 113 18 98/60 (71) 95 Nasal Cannula 2.00 08/29/22 22:11 95 Nasal Cannula 2.00 08/29/22 22:00 114 21 87/66 (70) 94 Nasal Cannula 2.00 08/29/22 21:00 27 08/29/22 21:00 117 23 104/64 (76) 96 Nasal Cannula 2.00 08/29/22 20:00 37.1 Nasal Cannula 2.00 08/29/22 20:00 94 Nasal Cannula 2.00 08/29/22 20:00 111 20 89/60 (72) 95 Nasal Cannula 2.00 08/29/22 19:00 115 08/29/22 19:00 115 22 91/62 (69) 98 Nasal Cannula 2.00 08/29/22 18:45 96 Nasal Cannula 3.00 08/29/22 18:00 105 17 96/61 (73) 97 Nasal Cannula 2.00 08/29/22 17:00 121 16 97/64 (75) 97 Nasal Cannula 2.00 08/29/22 16:30 94 Nasal Cannula 2.00 08/29/22 16:00 133 34 91/61 (71) 97 Nasal Cannula 2.00 08/29/22 15:00 133 21 96/66 (76) 94 Nasal Cannula 2.00 08/29/22 14:31 93 Nasal Cannula 2.00 08/29/22 14:00 133 21 96/66 (76) 94 Nasal Cannula 2.00 08/29/22 13:00 114 23 103/60 (74) Nasal Cannula 2.00 08/29/22 12:49 115 08/29/22 12:30 93 Nasal Cannula 2.00 08/29/22 12:00 108 20 105/66 (79) 92 Nasal Cannula 2.00 08/29/22 11:51 36.9 08/29/22 11:00 110 17 92/65 (74) 94 Nasal Cannula 2.00 08/29/22 10:14 95 Nasal Cannula 2.00 08/29/22 10:00 115 19 112/53 (72) 94 Nasal Cannula 2.00 I & O 08/30/22 07:00 Intake Total 7083 ml Output Total 2120 ml Balance 4963 ml Height & Weight Height: '" Weight: lbs. oz. kg; 20.75 BMI Method: General Appearance: No Apparent Distress, Chronically ill, Thin HEENT: PERRL/EOMI, Normal ENT Inspection Neck: Non Tender, Supple Respiratory: No Respiratory Distress, Decreased Breath Sounds Cardiovascular: Regular Rate, Rhythm, No Murmur Capillary Refill: Less Than 3 Seconds Peripheral Pulses: 3+ Dorsalis Pedis (R), 3+ Left Dors-Pedis (L), 3+ Radial Pulses (R), 3+ Radial Pulses (L) Gastrointestinal: soft, distended (mildly), tenderness (RLQ LLQ, incision is clean dry intact, drain sersang) Extremity: Normal Inspection, No Pedal Edema Neurologic/Psychiatric: Alert, Normal Mood/Affect Skin: Normal Color, Warm/Dry Lymphatic: No Adenopathy Results Lab Laboratory Tests 08/29/22 02:18 08/30/22 04:38 Assessment/Plan Assessment/Plan 1 KEIRA YBARRA MD Aug 30, 2022 09:40
--- NOTE | 2022-08-30 11:41 | Physical Therapy Evaluation ---
PT Evaluation-General Medical Diagnosis Admission Date Aug 25, 2022 at 15:56 Medical Diagnosis: chest pain/severe anemia Onset Date: Aug 25, 2022 Therapy Diagnosis Therapy Diagnosis: generalized weakness/debility Precautions Precautions/Isolations: Fall Prevention, Standard Precautions Referral Physician: Keshav Reason for Referral: Evaluation/Treatment Medical History Pertinent Medical History: Atrial Fib, Alcoholism, CAD, COPD, Heart Failure, HTN Current History s/p J drain placement Reviewed History: Yes Social History Home: Single Level Current Living Status: Friend Entry Into Home: Level Entry Prior Prior Level of Function SCALE: Activities may be completed with or without assistive devices. 1-Fdkhopsgca-ldwivfu completes the activity by him/herself with no assistance from a helper. 5-Set-up or Clean-up Assistance-helper sets up or cleans up; patient completes activity. [place] assists only prior to or following the activity. 4-Supervision or Touching Assistance-helper provides verbal cues and/or touching/steadying and/or contact guard assistance as patient completes activity. Assistance may be provided throughout the activity or intermittently. 3-Partial/Moderate Assistance-helper does LESS THAN HALF the effort. [place] lifts, holds or supports trunk or limbs, but provides less than half the effort. 2-Substantial/Maximal Assistance-helper does MORE THAN HALF the effort. [place] lifts or holds trunk or limbs and provides more than half the effort. 6-Yopulzwdv-hhmlxg does ALL the effort. Patient does none of the effort to complete the activity. Or, the assistance of 2 or more helpers is required for the patient to complete the activity. If activity was not attempted, code reason: 7-Patient Refused. 9-Not Applicable-not attempted and the patient did not perform the activity before the current illness, exacerbation or injury. 10-Not Attempted due to Environmental Limitations-(lack of equipment, weather restraints, etc.). 88-Not Attempted due to Medical Conditions or Safety Concerns. Bed Mobility: 6 Transfers (B,C,W/C): 6 Gait: 6 Stairs: 6 Indoor Mobility (Ambulation): Independent Stairs: Independent Prior Devices Use: Other-see list below Prior Device Use: walking stick PT Evaluation-Current Subjective Patient initially declined PT. Required much encouragement to participate with PT. Objective Patient Orientation: Confused Attachments: Oxygen, Drains, Rao Catheter, IV ROM/Strength ROM Lower Extremities bilateral LE WFL Strength Lower Extremities 3-/5 grossly bilateral LE all planes Integumentary/Posture Integumentary refer to nursing notes Bladder Incontinence: Rao Cath Posture kyphotic Neuromuscular (Tone, Coordination, Reflexes) grossly intact Sensory Vision: Functional Hearing: Functional Transfers Lying to Sitting/Side of Bed(Q: 2 Sit to Stand (QC): 2 Chair/Ihr-wn-Axeew Xfer(QC): 3 Gait Mode of Locomotion: Walk Anticipated Mode of Locomotion: Walk Walk 10 feet (QC): 3 Walk 50 ft with 2 Turns(QC): 88 Walk 150 ft (QC): 88 Distance: 10' Gait Assistive Device: FWW Comments/Gait Description shuffle gait sequence Balance Sitting Static: Normal Sitting Dynamic: Normal Standing Static: Fair Standing Dynamic: Fair Assessment/Needs Patient states after up to recliner ,"I'm tired of you fucking with me. You can leave." RN notified that patient is up to recliner. Patient will benefit from skilled PT to address functional strength and mobility to improve current LOF. Patient is questionable as if he will participate. Rehab Potential: Guarded PT Merchandise Flow Team Leader Goals Care Home Goals PT Merchandise Flow Team Leader Goals Time Frame: Sep 11, 2022 Roll Left & Right (QC): 6 Sit to Lying (QC): 6 Lying-Sitting on Side/Bed(QC): 6 Sit to Stand (QC): 6 Chair/Ogz-ma-Qtkpe Xfer(QC): 6 Toilet Transfer (QC): 6 Walk 10 feet (QC): 6 Walk 50ft with 2 Turns (QC): 6 Walk 150 ft (QC): 6 PT Plan Treatment/Plan Treatment Plan: Continue Plan of Care Treatment Plan: Education, Functional Activity Betsy, Functional Strength, Gait, Safety, Therapeutic Exercise, Transfers Treatment Duration: Sep 11, 2022 Frequency: 6 times per week Estimated Hrs Per Day: .25 hour per day Time/GCodes Time In: 1111 Time Out: 1130 Total Billed Treatment Time: 19 Total Billed Treatment 1 visit EVModC 19 min GEMA CALDERON PT Aug 30, 2022 11:41
[2022-08-30] MEDS ORDERED: HALOPERIDOL 5 MG/ML (HALDOL) VIAL IV PRN (18:45)
[2022-08-30] MEDS ORDERED: HALOPERIDOL 5 MG/ML (HALDOL) VIAL ONE (19:04)
[2022-08-30] MEDS: NOREPINEPHRINE 8 MG/250 ML 250 ML IV SCH (23:38)
[2022-08-31] MEDS: PIPERACILLIN SODIUM/TAZOBACTAM 4.5 GM in NS (IVPB) 100 ML IV SCH ×4 (00:08→23:48)
[2022-08-31] MEDS: LACTATED RINGERS 1,000 ML IV SCH (02:55)
[2022-08-31 04:56] LABS: BASOPHILS % (AUTO) 0 % (0-10); EOSINOPHILS % (AUTO) 0 % (0-10); HEMATOCRIT 24 % (40-54); HEMOGLOBIN 7.2 g/dL (13.3-17.7); LYMPHOCYTES # (AUTO) 0.6 10^3/uL (1.0-4.0); LYMPHOCYTES % (AUTO) 6 % (12-44); MEAN CORPUSCULAR HEMOGLOBIN 24 pg (25-34); MEAN CORPUSCULAR HGB CONC 30 g/dL (32-36); MEAN CORPUSCULAR VOLUME 81 fL (80-99); MEAN PLATELET VOLUME 10.7 fL (9.0-12.2); MONOCYTES # (AUTO) 0.6 10^3/uL (0.0-1.0); MONOCYTES % (AUTO) 7 % (0-12); NEUTROPHILS # (AUTO) 7.9 10^3/uL (1.8-7.8); NEUTROPHILS % (AUTO) 86 % (42-75); PLATELET COUNT 143 10^3/uL (130-400); WHITE BLOOD COUNT 9.2 10^3/uL (4.3-11.0)
[2022-08-31] MEDS: RT-ALBUTEROL/IPRATROPIUM 3 ML (DUONEB) VIAL INH SCH ×6 (05:00→23:03)
[2022-08-31 05:10] LABS: POTASSIUM 3.7 MMOL/L (3.6-5.0)
[2022-08-31 05:11] LABS: CALCIUM 8.7 MG/DL (8.5-10.1)
[2022-08-31 05:16] LABS: CREATININE SERUM 0.66 MG/DL (0.60-1.30)
[2022-08-31 05:18] LABS: MAGNESIUM 1.9 MG/DL (1.6-2.4)
[2022-08-31] MEDS: KCL 20 MEQ TAB (K-DUR) PO SCH (05:57)
[2022-08-31] MEDS: MAGNESIUM 1 GM/100 ML IVPB 100 ML IV SCH (05:57)
[2022-08-31] MEDS: POTASSIUM CL 10MEQ/50ML IVPB 50 ML IV SCH (05:57)
[2022-08-31] MEDS: HYDROCORTISONE 100 MG/2 ML (Solu-CORTEF) VIAL IV SCH ×2 (06:12→17:14)
[2022-08-31] MEDS: RT--FLUTICASONE/SALMETEROL 232-14 (AIRDUO RespiCLICK) IH SCH ×2 (07:02→23:03)
[2022-08-31] MEDS: NICOTINE 21 MG (NICODERM) PATCH TD SCH (08:22)
[2022-08-31] MEDS: DOCUSATE SODIUM 100 MG (COLACE) CAP PO SCH ×2 (08:22→20:00)
[2022-08-31] MEDS: AMIODARONE 200 MG (CORDARONE) TAB PO SCH (08:22)
[2022-08-31] MEDS: PANTOPRAZOLE 40 MG (PROTONIX) VIAL IV SCH ×2 (08:22→17:14)
[2022-08-31] MEDS: predniSONE 5 MG TAB PO SCH (08:22)
[2022-08-31] MEDS: NICOTINE PATCH REMOVAL TP SCH (08:27)
--- NOTE | 2022-08-31 08:55 | Cardiology Progress Note ---
Subjective Date Seen by Provider: Aug 31, 2022 Time Seen by Provider: 08:53 Subjective/Events-last exam Patient was seen at bedside, sitting comfortably, feeling better. Still tachycardic. Review of Systems General: No Chills, No Night Sweats, No Fatigue, No Malaise, No Appetite, No Other HEENT: No Head Aches, No Visual Changes, No Eye Pain, No Ear Pain, No Dysphasi a, No Sinus Congestion, No Post Nasal Drip, No Sore Throat, No Other Pulmonary: Dyspnea; No Cough, No Pleuritic Chest Pain, No Other Cardiovascular: No: Chest Pain, Palpitations, Orthopnea, Paroxysmal Noc. Dyspnea, Edema, Lt Headedness, Other Focused Exam Lactate Level 08/29/22 10:37: Lactic Acid Level 2.19*H 08/29/22 12:37: Lactic Acid Level 2.03*H Objective-Cardiology Exam Last Set of Vital Signs Vital Signs 08/29/22 08/31/22 08/31/22 08/31/22 08/31/22 07:35 06:00 07:02 07:23 08:00 Temp 36.1 Pulse 112 Resp 20 B/P (MAP) 109/72 (84) Pulse Ox 98 O2 Delivery Nasal Cannula O2 Flow Rate 1.00 FiO2 24 I&O Intake and Output 08/31/22 00:00 Intake Total 3603 ml Output Total 1890 ml Balance 1713 ml Intake Oral 1200 ml IV Total 2403 ml Output Urine Total 1700 ml Drainage Total 190 ml General: Alert, Oriented X3, Cooperative HEENT: Atraumatic, PERRLA Neck: Supple, No JVD, No Thyromegaly Lungs: Clear to Auscultation, Normal Air Movement Heart: Normal S1, Normal S2, No Murmurs, Other (Atrial fibrillation) Abdomen: Soft, No Tenderness, No Hepatosplenomegaly, No Masses, Other (Absent bowel sounds) Extremities: No Clubbing, No Cyanosis, No Edema, Normal Pulses, No Tend erness/Swelling Skin: No Rashes, No Breakdown, No Significant Lesion Neuro: Normal Gait, Normal Speech, Strength at 5/5 X4 Ext, Normal Tone, Sensation Intact Psych/Mental Status: Mental Status NL, Mood NL Results Lab Laboratory Tests 08/31/22 04:35 A/P-Cardiology Admission Diagnosis Chest pain Anemia GI bleed Coronary artery disease Assessment/Plan Hypotensive shock, improving Blood pressure is better today. Continue to monitor Paroxysmal atrial fibrillation, previously was very difficult to control with multiple medication Responded to amiodarone in the past and converted to sinus rhythm. Currently Xarelto is on hold. Patient is tachycardic and hypotensive, currently unstable. Electrical cardioversion was done twice on August 30, 2022, patient failed to maintain sinus rhythm. Loaded with amiodarone Continue with oral amiodarone and monitor Status post perforated colon during colonoscopy on August 27, 2022 Emergency surgical repair, improving Still having absent bowel sounds, managed by surgical team. Pulmonary infiltrate, questionable early pneumonia, managed by medical team Chest pain, resembling angina, known history of coronary artery disease. Reporting improvement after blood transfusion Continue to monitor Anemia, recurrent drop in H&H, recurrent GI bleed Underwent endoscopy which showed healing antral ulcer, gastritis Colonoscopy resulted in perforation as described above. Received blood transfusion postoperatively I would like to restart oral anticoagulation and monitor if okay with general surgery Coronary artery disease, following with a tooth cutter spur in [facility] in [facility]. Reporting history of 2 myocardial infarctions in the past last heart attack in 2017 and he does not recall having a stent done. Reported that he will need a cardiac catheterization in the near future and has been discussing it with his primary tooth cutter spur. No acute myocardial infarction was noted during the work-up today. Cannot tolerate long-term intervention after coronary angiogram or stenting. Conservative management is recommended COPD, active smoker, acute exacerbation due to pneumonia History of chronic renal insufficiency, currently renal function appears to be in the low normal. 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 Hypertension, monitor blood pressure. Hyperlipidemia, monitor lipids BART MEJIA MD Aug 31, 2022 08:54
--- NOTE | 2022-08-31 09:03 | Physical Therapy Daily Note ---
PT Daily Note-Current Subjective Patient agrees to PT. Pain Section J - Health Conditions 1. Rarely or not at all 2. Occasionally 3. Frequently 4. Almost constantly 8. Unable to answer Pain Effect on Sleep: 2 Pain Interference with Therapy: 2 Pain Interference w/Day-to-Day: 2 Mental Status Patient Orientation: Person, Time Attachments: Oxygen, Drains, IV Transfers SCALE: Activities may be completed with or without assistive devices. 7-Gbzlqwufuy-iqrtcpq completes the activity by him/herself with no assistance from a helper. 5-Set-up or Clean-up Assistance-helper sets up or cleans up; patient completes activity. [place] assists only prior to or following the activity. 4-Supervision or Touching Assistance-helper provides verbal cues and/or touching/steadying and/or contact guard assistance as patient completes activity. Assistance may be provided throughout the activity or intermittently. 3-Partial/Moderate Assistance-helper does LESS THAN HALF the effort. [place] lifts, holds or supports trunk or limbs, but provides less than half the effort. 2-Substantial/Maximal Assistance-helper does MORE THAN HALF the effort. [place] lifts or holds trunk or limbs and provides more than half the effort. 5-Swebovnhd-knhkgc does ALL the effort. Patient does none of the effort to complete the activity. Or, the assistance of 2 or more helpers is required for the patient to complete the activity. If activity was not attempted, code reason: 7-Patient Refused. 9-Not Applicable-not attempted and the patient did not perform the activity before the current illness, exacerbation or injury. 10-Not Attempted due to Environmental Limitations-(lack of equipment, weather restraints, etc.). 88-Not Attempted due to Medical Conditions or Safety Concerns. Lying to Sitting/Side of Bed(Q: 4 Sit to Stand (QC): 4 Chair/Gtu-ya-Cyilk Xfer(QC): 4 Gait Training Distance: 10' x 2 Walk 10 feet (QC): 4 Gait Assistive Device: FWW improved with gross motor skills and mobility/ functional gait sequence Exercises Seated Therapy Exercises: Ankle pumps, Long arc quads Seated Reps: 12 Assessment Patient ceased treatment due to wanting to drink his coffee. PT to increase activity as tolerated or allowed by patient. Patient up in recliner with chair alarm activated. PT Senior Care Goals Senior Care Goals PT Tax Economist Goals Time Frame: Sep 11, 2022 Roll Left & Right (QC): 6 Sit to Lying (QC): 6 Lying-Sitting on Side/Bed(QC): 6 Sit to Stand (QC): 6 Chair/Aqi-ig-Zbtls Xfer(QC): 6 Toilet Transfer (QC): 6 Walk 10 feet (QC): 6 Walk 50ft with 2 Turns (QC): 6 Walk 150 ft (QC): 6 PT Plan Treatment/Plan Treatment Plan: Continue Plan of Care Treatment Plan: Education, Functional Activity Betsy, Functional Strength, Gait, Safety, Therapeutic Exercise, Transfers Treatment Duration: Sep 11, 2022 Frequency: 6 times per week Estimated Hrs Per Day: .25 hour per day Time/GCodes Time In: 725 Time Out: 738 Total Billed Treatment Time: 13 Total Billed Treatment 1 visit FA 13 min GEMA CALDERON PT Aug 31, 2022 09:03
--- NOTE | 2022-08-31 09:12 | Tele-ICU Progress Note ---
Subjective Date Seen by a Provider: Aug 31, 2022 Time Seen by a Provider: 09:12 Subjective/Events-last exam (Tele-ICU Physician , Progress Note ) Available chart/ vitals / labs / Images reviewed Video assessment done using teleICU camera, rest of exam as per RN Discussed with RN Events overnight : Afebrile hemodynamically stable Respiratory - 3 L nc I/O = Drips: LR Pressors- no Consultants: sx Hospital course: (08/25) 76M Admitted for chest pain/abdominal pain. CT abd: no findings. Elevated BNP. Severe anemia-chronic. Had 2 transfusions already but does not know reason for anemia. PRBC ordered. (08/26) hb 7.3 08/27/22= EGD/ scop - esophagitis, mild dist esoph stricture, mod-severe gastritis with small healed antral ulcer.. Colonoscopy :chronic stage 2 ext and int hemorrhids---> perforation colon--> ex lap , sigmoid resection 101 08/30 - s/p attempt for cardiovesion 08/30 - amio gtt started A/P PAF - - s/p attempt for cardiovesion 08/30 on amio , in a fib ,, rate controlled - was on Xarelto - ON HOLD - on LOVENOX x1 08/30 - AC PER CARDS AND SX Perforation sigmoid colon08/27/22 during colonoscopy -exploratory laparotomy, segmental sigmoid colon resection - -cont ABX as per sx- Zosyn -pain control Shock ( septic -OFF PRESSORS - sterss dose steroids 0 SC 50 q8 now - HR control , Tx infection GIB ( [employer] on xarelto , on daily prednisone - transfusion 3u PRBC 08/25 --> 7.3 - EGD1 - EGD/ scop - esophagitis, mild dist esoph stricture, mod-sev ere gastritis with small healed antral ulcer.. --PPI IV -Colonoscopy 08/27/22 :chronic stage 2 ext and int hemorrhids, ---> perforation colon - Hb stabl;e ACUTE ON CHRONIC ANEMIA - follow Hb - s/p ransfusion 3 u PRBC 08/25 s/p transfusion1 u pRBC 08/27 COPD (on baseline 2L NC) - stable on 3 l - resume home inhalers , prn nebs - prednisone po 5 daily ->on Solucortef NOW - DECREASED DOSE TODAY - TO CHANGE TO PO TOMORROW WITH FAST WEAN OFF CP with CAD - probably due to anemia card follow Lines : left sc central venous cath. 08/27 , (Central Line Necessity Reviewed) Rao: + OG: Nutrition: as per sx Analgesia: Anxiety/ delirium VTE Prophylaxis: per cards , scd Stress Ulcer Prophylaxis: ppi Plans in collaboration with bedside consultants and IM MDs. Discussed with RN to reach out if any questions or concerns A total of 22 minutes of critical care time was devoted to this patient today, required to treat and/or prevent further deterioration of critical care condition ( as above ) . I am remotely monitoring this patient from another state. I am unable to do the bedside exam, and history/physical and pertinent information is taken from other notes in the computer and bedside staff. I cannot take responsibility for the accuracy of this information. Sepsis Event Evaluation Height, Weight, BMI Height: '" Weight: lbs. oz. kg; 22.52 BMI Method: Focused Exam Lactate Level 08/29/22 10:37: Lactic Acid Level 2.19*H 08/29/22 12:37: Lactic Acid Level 2.03*H Exam Exam Patient acknowledged, consented, and participated in this virtual visit which was conducted using real time audio/video Vital Signs Date Time Temp Pulse Resp B/P (MAP) Pulse Ox O2 Delivery O2 Flow Rate FiO2 08/31/22 08:00 36.1 08/31/22 07:23 112 08/31/22 07:02 98 Nasal Cannula 1.00 08/31/22 06:00 101 20 109/72 (84) 93 Nasal Cannula 1.00 08/31/22 05:00 98 Nasal Cannula 1.00 08/31/22 05:00 112 23 109/77 (86) 98 Nasal Cannula 1.00 08/31/22 04:00 97 Nasal Cannula 1.00 08/31/22 04:00 108 10 105/84 (90) 97 Nasal Cannula 1.00 08/31/22 03:00 112 17 94/77 (83) 98 Nasal Cannula 1.00 08/31/22 02:00 116 20 109/72 (85) 97 Nasal Cannula 1.00 08/31/22 01:00 110 19 101/79 (87) 97 Nasal Cannula 1.00 08/31/22 01:00 110 08/31/22 00:17 98 Nasal Cannula 1.00 08/31/22 00:00 116 19 102/74 (81) 99 Nasal Cannula 1.00 08/30/22 23:00 108 19 100/76 (86) 98 Nasal Cannula 1.00 08/30/22 22:00 123 18 96/69 (77) 99 Nasal Cannula 1.00 08/30/22 21:23 17 08/30/22 21:00 121 22 109/62 (70) 95 Nasal Cannula 1.00 08/30/22 20:49 100 Nasal Cannula 1.00 08/30/22 20:00 107 14 108/81 (87) 97 Nasal Cannula 1.00 08/30/22 20:00 97 Nasal Cannula 1.00 08/30/22 20:00 36.3 08/30/22 19:00 126 23 97/78 (80) Nasal Cannula 1.00 08/30/22 19:00 126 08/30/22 18:14 97 Nasal Cannula 1.00 08/30/22 18:00 115 20 106/74 (85) 87 Nasal Cannula 1.00 08/30/22 17:00 122 22 103/70 (81) 100 Nasal Cannula 1.00 08/30/22 16:19 Nasal Cannula 1.00 08/30/22 16:00 105 18 98/78 (85) 90 Nasal Cannula 3.00 08/30/22 16:00 36.9 08/30/22 16:00 99 Nasal Cannula 1.00 08/30/22 15:10 96 Nasal Cannula 1.00 08/30/22 15:00 110 17 99/75 (83) 99 Nasal Cannula 3.00 08/30/22 14:00 120 15 95/74 (81) 97 Nasal Cannula 3.00 08/30/22 13:00 112 17 104/76 (85) 93 Nasal Cannula 3.00 08/30/22 13:00 105 08/30/22 12:00 36.7 08/30/22 12:00 120 17 107/67 (80) 91 Nasal Cannula 3.00 08/30/22 12:00 96 Nasal Cannula 1.00 08/30/22 11:00 103 14 102/71 (81) 92 Nasal Cannula 3.00 08/30/22 10:52 96 Nasal Cannula 1.00 08/30/22 10:00 114 19 111/71 (84) 95 Nasal Cannula 3.00 08/30/22 09:44 115 108/66 I & O 08/31/22 07:00 Intake Total 2553 ml Output Total 1925 ml Balance 628 ml Height & Weight Height: '" Weight: lbs. oz. kg; 22.52 BMI Method: General Appearance: No Apparent Distress, Chronically ill, Thin HEENT: PERRL/EOMI, Normal ENT Inspection Neck: Non Tender, Supple Respiratory: No Respiratory Distress, Decreased Breath Sounds Cardiovascular: Regular Rate, Rhythm, No Murmur Capillary Refill: Less Than 3 Seconds Peripheral Pulses: 3+ Dorsalis Pedis (R), 3+ Left Dors-Pedis (L), 3+ Radial Pulses (R), 3+ Radial Pulses (L) Gastrointestinal: soft, distended (mildly), tenderness (RLQ LLQ, incision is clean dry intact, drain sersang) Extremity: Normal Inspection, No Pedal Edema Neurologic/Psychiatric: Alert, Normal Mood/Affect Skin: Normal Color, Warm/Dry Lymphatic: No Adenopathy Results Lab Laboratory Tests 08/30/22 04:38 08/31/22 04:35 Assessment/Plan Assessment/Plan 1 KEIRA YBARRA MD Aug 31, 2022 09:12
--- NOTE | 2022-08-31 09:53 | Progress Note - Hospitalist ---
Subjective HPI/CC On Admission Date Seen by Provider: Aug 30, 2022 David Robbins is a 76 year old male with PMH HTN, AFib, CAD, COPD, BPH, who presented with chest pain. He reports his symptoms have been going on for about a week. He has no chest pain on my exam. He reports shortness of breath. He denies abdominal pain. He denies bloody stools. He reports having black stools for several months. He was hospitalized in March and was found to have iron defi ciency anemia at that time with positive fecal occult blood. He was supposed to follow up for an outpatient colonoscopy but did not. Subjective/Events-last exam LATE ENTRY NOTE: Pt reports doing well. Hopeful to speak with SW today to discuss LONGTERM placement. No other complaints. RN reports still on pressors. Focused Exam Lactate Level 08/29/22 10:37: Lactic Acid Level 2.19*H 08/29/22 12:37: Lactic Acid Level 2.03*H Objective Exam Vital Signs Vital Signs Date Time Temp Pulse Resp B/P (MAP) Pulse Ox O2 Delivery O2 Flow Rate FiO2 08/31/22 09:00 123 19 103/76 (85) 100 Nasal Cannula 1.00 08/31/22 08:00 36.1 08/29/22 07:35 24 Capillary Refill : Less Than 3 Seconds General Appearance: No Apparent Distress, Chronically ill, Thin Cardiovascular: Regular Rate, Rhythm, No Murmur Gastrointestinal: Normal Bowel Sounds, Soft Neurologic/Psychiatric: Alert, Oriented x3 Results/Procedures Lab Laboratory Tests 08/31/22 04:35 Patient resulted labs reviewed. Imaging: Reviewed Imaging Report Assessment/Plan Assessment and Plan Assess & Plan/Chief Complaint Sigmoid colon perforation Colonoscopy complication s/p partial colectomy Gastric ulcer Gastritis and esophagitis Esophageal stricture GERD Symptomatic anemia Chronic GI bleeding Iron deficiency anemia Anticoagulated SIRS Lactic acidosis EGD/colonoscopy with healing gastric ulcer, esophageal stricture, gastritis/esophagitis, hemorrhoids Complicated by bowel perforation s/p partial colectomy 08/27 IV PPI Pain regimen TeleICU following Surgery following s/p 4 units PRBC Transfuse for Hgb <7 Blood cultures IV fluids Wean pressors Chest pain CAD AFib Troponin negative Likely due to severe anemia Cardiology following Hold Xarelto Continue Amiodarone COPD MAT protocol Continue home dose steroids and inhalers DVT prophylaxis: held due to GI bleeding Critical Care Critically Ill Patient DANUTA,PEGGY M MD Aug 31, 2022 09:53
--- NOTE | 2022-08-31 09:54 | Progress Note - Hospitalist ---
Subjective HPI/CC On Admission Date Seen by Provider: Aug 31, 2022 David Robbins is a 76 year old male with PMH HTN, AFib, CAD, COPD, BPH, who presented with chest pain. He reports his symptoms have been going on for about a week. He has no chest pain on my exam. He reports shortness of breath. He denies abdominal pain. He denies bloody stools. He reports having black stools for several months. He was hospitalized in March and was found to have iron defi ciency anemia at that time with positive fecal occult blood. He was supposed to follow up for an outpatient colonoscopy but did not. Subjective/Events-last exam Pt reports doing well. NO complaints. Only concern is about his weakness. Encouraged him to work with PT. (Declined working with PT yesterday.) Focused Exam Lactate Level 08/29/22 10:37: Lactic Acid Level 2.19*H 08/29/22 12:37: Lactic Acid Level 2.03*H Objective Exam Vital Signs Vital Signs Date Time Temp Pulse Resp B/P (MAP) Pulse Ox O2 Delivery O2 Flow Rate FiO2 08/31/22 09:00 123 19 103/76 (85) 100 Nasal Cannula 1.00 08/31/22 08:00 36.1 08/29/22 07:35 24 Capillary Refill : Less Than 3 Seconds General Appearance: No Apparent Distress, Chronically ill Respiratory: Lungs Clear, No Respiratory Distress Cardiovascular: Regular Rate, Rhythm, No Murmur Neurologic/Psychiatric: Alert, Oriented x3 Results/Procedures Lab Laboratory Tests 08/31/22 04:35 Patient resulted labs reviewed. Imaging: Reviewed Imaging Report Assessment/Plan Assessment and Plan Assess & Plan/Chief Complaint Sigmoid colon perforation Colonoscopy complication s/p partial colectomy Gastric ulcer Gastritis and esophagitis Esophageal stricture GERD Symptomatic anemia Chronic GI bleeding Iron deficiency anemia Anticoagulated SIRS Lactic acidosis EGD/colonoscopy with healing gastric ulcer, esophageal stricture, gastr itis/esophagitis, hemorrhoids Complicated by bowel perforation s/p partial colectomy 08/27 IV PPI Pain regimen TeleICU following Surgery following- advanced diet s/p 4 units PRBC Transfuse for Hgb <7 Blood cultures Off pressors Transfer to [facility] Chest pain CAD AFib Troponin negative Likely due to severe anemia Cardiology following Hold Xarelto Continue Amiodarone COPD MAT protocol Continue home dose steroids and inhalers DVT prophylaxis: held due to GI bleeding Critical Care Critically Ill Patient PEGGY TIPTON MD Aug 31, 2022 09:54
[2022-08-31 13:31] VITALS: BP 123/64
--- NOTE | 2022-08-31 15:22 | Progress Note ---
Subjective Date Seen by a Provider: Aug 31, 2022 Time Seen by a Provider: 14:00 Subjective/Events-last exam doing well. tolerating dys3 diet and has had multiple BM's. labs normalized. no fever/chills. ambulating better. Focused Exam Lactate Level 08/29/22 10:37: Lactic Acid Level 2.19*H 08/29/22 12:37: Lactic Acid Level 2.03*H Objective Exam Vital Signs Date Time Temp Pulse Resp B/P (MAP) Pulse Ox O2 Delivery O2 Flow Rate FiO2 08/31/22 14:37 99 Nasal Cannula 1.00 08/31/22 13:43 97 Nasal Cannula 2.00 08/31/22 13:31 36.7 94 18 123/64 (83) 97 Nasal Cannula 2.00 08/31/22 13:30 36.7 94 18 123/64 (83) 97 Nasal Cannula 2.00 08/31/22 13:12 113 08/31/22 12:00 115 19 112/79 (90) 98 Nasal Cannula 1.00 08/31/22 12:00 96 Nasal Cannula 1.00 08/31/22 11:00 97 13 87/63 (71) 98 Nasal Cannula 1.00 08/31/22 10:41 98 Nasal Cannula 1.00 08/31/22 10:00 112 20 93/61 (72) 97 Nasal Cannula 1.00 08/31/22 09:00 123 19 103/76 (85) 100 Nasal Cannula 1.00 08/31/22 08:00 96 Nasal Cannula 1.00 08/31/22 08:00 108 23 103/73 (83) 100 Nasal Cannula 1.00 08/31/22 08:00 36.1 08/31/22 07:23 112 08/31/22 07:02 98 Nasal Cannula 1.00 08/31/22 07:00 111 20 112/80 (91) 94 Nasal Cannula 1.00 08/31/22 07:00 17 08/31/22 06:00 101 20 109/72 (84) 93 Nasal Cannula 1.00 08/31/22 05:00 98 Nasal Cannula 1.00 08/31/22 05:00 112 23 109/77 (86) 98 Nasal Cannula 1.00 08/31/22 04:00 97 Nasal Cannula 1.00 08/31/22 04:00 108 10 105/84 (90) 97 Nasal Cannula 1.00 08/31/22 03:00 112 17 94/77 (83) 98 Nasal Cannula 1.00 08/31/22 02:00 116 20 109/72 (85) 97 Nasal Cannula 1.00 08/31/22 01:00 110 19 101/79 (87) 97 Nasal Cannula 1.00 08/31/22 01:00 110 08/31/22 00:17 98 Nasal Cannula 1.00 08/31/22 00:00 116 19 102/74 (81) 99 Nasal Cannula 1.00 08/30/22 23:00 108 19 100/76 (86) 98 Nasal Cannula 1.00 08/30/22 22:00 123 18 96/69 (77) 99 Nasal Cannula 1.00 08/30/22 21:23 17 08/30/22 21:00 121 22 109/62 (70) 95 Nasal Cannula 1.00 08/30/22 20:49 100 Nasal Cannula 1.00 08/30/22 20:00 107 14 108/81 (87) 97 Nasal Cannula 1.00 08/30/22 20:00 97 Nasal Cannula 1.00 08/30/22 20:00 36.3 08/30/22 19:00 126 23 97/78 (80) Nasal Cannula 1.00 08/30/22 19:00 126 08/30/22 18:14 97 Nasal Cannula 1.00 08/30/22 18:00 115 20 106/74 (85) 87 Nasal Cannula 1.00 08/30/22 17:00 122 22 103/70 (81) 100 Nasal Cannula 1.00 08/30/22 16:19 Nasal Cannula 1.00 08/30/22 16:00 105 18 98/78 (85) 90 Nasal Cannula 3.00 08/30/22 16:00 36.9 08/30/22 16:00 99 Nasal Cannula 1.00 I & O 08/31/22 07:00 Intake Total 2553 ml Output Total 1925 ml Balance 628 ml Capillary Refill : Less Than 3 Seconds General Appearance: No Apparent Distress HEENT: PERRL/EOMI Neck: Full Range of Motion Respiratory: Decreased Breath Sounds, Wheezing Cardiovascular: Regular Rate, Rhythm Gastrointestinal: normal bowel sounds, soft, tenderness Extremity: Normal Capillary Refill Neurologic/Psychiatric: Alert, Oriented x3 Skin: Normal Color Lymphatic: No Adenopathy Results Lab Laboratory Tests 08/31/22 04:35: White Blood Count 9.2, Red Blood Count 3.01L, Hemoglobin 7.2L, Hematocrit 24L, Mean Corpuscular Volume 81, Mean Corpuscular Hemoglobin 24L, Mean Corpuscular Hemoglobin Concent 30L, Red Cell Distribution Width 19.9H, Platelet Count 143, Mean Platelet Volume 10.7, Immature Granulocyte % (Auto) 1, Neutrophils (%) (Auto) 86H, Lymphocytes (%) (Auto) 6L, Monocytes (%) (Auto) 7, Eosinophils (%) (Auto) 0, Basophils (%) (Auto) 0, Neutrophils # (Auto) 7.9H, Lymphocytes # (Auto) 0.6L, Monocytes # (Auto) 0.6, Eosinophils # (Auto) 0.0, Basophils # (Auto) 0.0, Immature Granulocyte # (Auto) 0.1, Sodium Level 134L, Potassium Level 3.7, Chloride Level 103, Carbon Dioxide Level 24, Anion Gap 7, Blood Urea Nitrogen 13, Creatinine 0.66, Estimat Glomerular Filtration Rate 98, BUN/Creatinine Ratio 20, Glucose Level 120H, Calcium Level 8.7, Magnesium Level 1.9 Microbiology 08/29/22 Blood Culture - Preliminary, Resulted No growth 08/25/22 MRSA Screen - Final, Complete MRSA not isolated Assessment/Plan Assessment/Plan Assess & Plan/Chief Complaint anemia s/p EGD, colonoscopy and segmental sigmoid colon resection. increase ambulation. transfer to floor. ok for home when baseline medical status reached. likely assisted living. GRACIELA MOCTEZUMA MD Aug 31, 2022 15:22
[2022-08-31 15:46] VITALS: BP 121/68
[2022-08-31 17:08] VITALS: BP 110/66
[2022-08-31 19:57] VITALS: BP 111/67
[2022-08-31] MEDS: ACETAMINOPHEN 325 MG TABLET PO PRN (20:00)
[2022-08-31 23:46] VITALS: BP 114/58
[2022-09-01] VITALS (12 sets, daily range): BP systolic 94–137; BP diastolic 64–121
[2022-09-01] MEDS: RT-ALBUTEROL/IPRATROPIUM 3 ML (DUONEB) VIAL INH SCH ×6 (02:16→22:49)
[2022-09-01] MEDS: HYDROCORTISONE 100 MG/2 ML (Solu-CORTEF) VIAL IV SCH ×2 (05:25→17:41)
[2022-09-01 05:36] LABS: EOSINOPHILS % (AUTO) 0 % (0-10)
[2022-09-01 05:38] LABS: BASOPHILS % (AUTO) 0 % (0-10); HEMATOCRIT 24 % (40-54); LYMPHOCYTES # (AUTO) 0.9 10^3/uL (1.0-4.0); LYMPHOCYTES % (AUTO) 16 % (12-44); MEAN CORPUSCULAR HEMOGLOBIN 24 pg (25-34); MEAN CORPUSCULAR HGB CONC 29 g/dL (32-36); MEAN CORPUSCULAR VOLUME 81 fL (80-99); MEAN PLATELET VOLUME 10.7 fL (9.0-12.2); MONOCYTES # (AUTO) 0.6 10^3/uL (0.0-1.0); MONOCYTES % (AUTO) 11 % (0-12); NEUTROPHILS # (AUTO) 4.1 10^3/uL (1.8-7.8); NEUTROPHILS % (AUTO) 71 % (42-75); WHITE BLOOD COUNT 5.8 10^3/uL (4.3-11.0)
[2022-09-01 05:49] LABS: PLATELET COUNT 128 10^3/uL (130-400)
[2022-09-01 05:51] LABS: HEMOGLOBIN 6.9 g/dL (13.3-17.7)
[2022-09-01 06:03] LABS: CALCIUM 8.3 MG/DL (8.5-10.1); CREATININE SERUM 0.71 MG/DL (0.60-1.30); MAGNESIUM 1.7 MG/DL (1.6-2.4); POTASSIUM 3.1 MMOL/L (3.6-5.0)
[2022-09-01] MEDS: POTASSIUM CL 10MEQ/50ML IVPB 50 ML IV SCH (06:08)
[2022-09-01] MEDS: KCL 20 MEQ TAB (K-DUR) PO SCH (06:08)
[2022-09-01] MEDS: MAGNESIUM 1 GM/100 ML IVPB 100 ML IV SCH ×3 (06:08→07:50)
[2022-09-01] MEDS: RT--FLUTICASONE/SALMETEROL 232-14 (AIRDUO RespiCLICK) IH SCH ×2 (06:48→19:13)
[2022-09-01] MEDS ORDERED: KCL 20 MEQ TAB (K-DUR) PO ONE ×2 (07:00→09:00)
[2022-09-01] MEDS ORDERED: NS IV 500 ML 500 ML IV SCH ×2 (07:45)
[2022-09-01] MEDS: predniSONE 5 MG TAB PO SCH (07:48)
[2022-09-01] MEDS: AMIODARONE 200 MG (CORDARONE) TAB PO SCH (07:48)
[2022-09-01] MEDS: DOCUSATE SODIUM 100 MG (COLACE) CAP PO SCH ×2 (07:48→19:41)
[2022-09-01] MEDS: PANTOPRAZOLE 40 MG (PROTONIX) VIAL IV SCH ×2 (07:48→17:41)
[2022-09-01] MEDS: NICOTINE PATCH REMOVAL TP SCH (07:50)
[2022-09-01] MEDS: NICOTINE 21 MG (NICODERM) PATCH TD SCH (07:50)
[2022-09-01] MEDS: fentaNYL INJ 100 MCG/2 ML AMP IVP PRN ×2 (09:09→23:32)
--- NOTE | 2022-09-01 09:25 | Progress Note - Hospitalist ---
Subjective HPI/CC On Admission Date Seen by Provider: Sep 01, 2022 David Robbins is a 76 year old male with PMH HTN, AFib, CAD, COPD, BPH, who presented with chest pain. He reports his symptoms have been going on for about a week. He has no chest pain on my exam. He reports shortness of breath. He denies abdominal pain. He denies bloody stools. He reports having black stools for several months. He was hospitalized in March and was found to have iron defi ciency anemia at that time with positive fecal occult blood. He was supposed to follow up for an outpatient colonoscopy but did not. Subjective/Events-last exam Pt reports doing well. Discussed Hgb results and need for another unit of blood. Encouraged to continue to work with PT on strengthening. Focused Exam Lactate Level 08/29/22 10:37: Lactic Acid Level 2.19*H 08/29/22 12:37: Lactic Acid Level 2.03*H Objective Exam Vital Signs Vital Signs Date Time Temp Pulse Resp B/P (MAP) Pulse Ox O2 Delivery O2 Flow Rate FiO2 09/01/22 08:00 97 Nasal Cannula 2.00 09/01/22 07:51 36.7 110 18 104/70 (81) 08/29/22 07:35 24 Capillary Refill : Less Than 3 Seconds General Appearance: No Apparent Distress, Chronically ill, Thin Respiratory: Lungs Clear, No Respiratory Distress Cardiovascular: Regular Rate, Rhythm, No Murmur Gastrointestinal: Normal Bowel Sounds, Non Tender, Soft Neurologic/Psychiatric: Alert, Oriented x3 Results/Procedures Lab Laboratory Tests 09/01/22 05:22 Patient resulted labs reviewed. Imaging: Reviewed Imaging Report Assessment/Plan Assessment and Plan Assess & Plan/Chief Complaint Sigmoid colon perforation Colonoscopy complication s/p partial colectomy Gastric ulcer Gastritis and esophagitis Esophageal stricture GERD Symptomatic anemia Chronic GI bleeding Iron deficiency anemia Anticoagulated SIRS Lactic acidosis EGD/colonoscopy with healing gastric ulcer, esophageal stricture, gastritis/esophagitis, hemorrhoids Complicated by bowel perforation s/p partial colectomy 08/27 IV PPI Pain regimen TeleICU following Surgery following- advanced diet s/p 4 units PRBC Transfuse for Hgb <7- 1 more unit today for Hgb 6.9 Chest pain CAD AFib Troponin negative Likely due to severe anemia Cardiology following Hold Xarelto Continue Amiodarone COPD MAT protocol Continue home dose steroids and inhalers DVT prophylaxis: held due to GI bleeding Critical Care Critically Ill Patient PEGGY TIPTON MD Sep 01, 2022 09:25
[2022-09-01] MEDS ORDERED: guaiFENesin (MUCINEX) 600 MG TAB PO NR (09:30)
--- NOTE | 2022-09-01 09:37 | Cardiology Progress Note ---
Subjective Date Seen by Provider: Sep 01, 2022 Time Seen by Provider: 08:25 Subjective/Events-last exam Patient is in bed, complaining of abdominal pain, denies any chest pain. Review of Systems General: No Chills, No Night Sweats, No Fatigue, No Malaise, No Appetite, No Other HEENT: No Head Aches, No Visual Changes, No Eye Pain, No Ear Pain, No Dysphasia, No Sinus Congestion, No Post Nasal Drip, No Sore Throat, No Other Pulmonary: No Dyspnea, No Cough, No Pleuritic Chest Pain, No Other Cardiovascular: No: Chest Pain, Palpitations, Orthopnea, Paroxysmal Noc. Dyspnea, Edema, Lt Headedness, Other Focused Exam Lactate Level Objective-Cardiology Exam Last Set of Vital Signs Vital Signs 08/29/22 09/01/22 09/01/22 09/01/22 07:35 11:46 12:42 13:09 Temp 36.1 Pulse 109 Resp 18 B/P (MAP) 117/71 (86) Pulse Ox 100 O2 Delivery Nasal Cannula O2 Flow Rate 3.00 FiO2 24 I&O Intake and Output 09/01/22 00:00 Intake Total 2362.5 ml Output Total 1595 ml Balance 767.5 ml Intake Oral 1230 ml IV Total 1132.5 ml Output Urine Total 1350 ml Drainage Total 245 ml General: Alert, Oriented X3, Cooperative HEENT: Atraumatic, PERRLA Neck: Supple, No JVD, No Thyromegaly Lungs: Clear to Auscultation, Normal Air Movement Heart: Normal S1, Normal S2, No Murmurs, Other (Atrial fibrillation) Abdomen: Soft, No Tenderness, No Hepatosplenomegaly, No Masses, Other (Absent bowel sounds) Extremities: No Clubbing, No Cyanosis, No Edema, Normal Pulses, No Tenderness/S welling Skin: No Rashes, No Breakdown, No Significant Lesion Neuro: Normal Gait, Normal Speech, Strength at 5/5 X4 Ext, Normal Tone, Sensation Intact Psych/Mental Status: Mental Status NL, Mood NL Results Lab Laboratory Tests 09/01/22 05:22 A/P-Cardiology Admission Diagnosis Chest pain Anemia GI bleed Coronary artery disease Assessment/Plan Hypotensive shock, improving Blood pressure is better today. Continue to monitor Paroxysmal atrial fibrillation, previously was very difficult to control with multiple medication Responded to amiodarone in the past and converted to sinus rhythm. Currently Xarelto is on hold. Patient is tachycardic and hypotensive, currently unstable. Electrical cardioversion was done twice on August 30, 2022, patient failed to maintain sinus rhythm. Loaded with amiodarone Continue with oral amiodarone and monitor Status post perforated colon during colonoscopy on August 27, 2022 Emergency surgical repair, improving Still having absent bowel sounds, managed by surgical team. Pulmonary infiltrate, questionable early pneumonia, managed by medical team Chest pain, resembling angina, known history of coronary artery disease. Reporting improvement after blood transfusion Continue to monitor Anemia, recurrent drop in H&H, recurrent GI bleed Underwent endoscopy which showed healing antral ulcer, gastritis Colonoscopy resulted in perforation as described above. Received blood transfusion postoperatively I would like to restart oral anticoagulation and monitor if once okay with general surgery once H&H are more stable Coronary artery disease, following with a crew leader gluing in [facility] in [place]. Reporting history of 2 myocardial infarctions in the past last heart attack in 2017 and he does not recall having a stent done. Reported that he will need a cardiac catheterization in the near future and has been discussing it with his primary crew leader gluing. No acute myocardial infarction was noted during the work-up today. Cannot tolerate long-term intervention after coronary angiogram or stenting. Conservative management is recommended COPD, active smoker, acute exacerbation due to pneumonia History of chronic renal insufficiency, currently renal function appears to be in the low normal. 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 Hypertension, monitor blood pressure. Hyperlipidemia, monitor lipids Supervisory-Addendum Brief Supervisory Addendum Participated in pt care: history, MDM, physical Personally performed: exam, history, MDM Care discussed with: ROSALIA Results interpretation: Verified all documentation Notes: Patient was seen and evaluated with Kirill, examination performed, management plan was discussed, agree with the current scribed note, I made few changes to the note using Italic font Patient was seen at bedside, laying down comfortably Still having generalized fatigue and loss of energy Receiving blood transfusion Heart rate is better controlled Continue to monitor heart rate and blood pressure, monitor H&H KIRILL BREWER Sep 01, 2022 09:37 BART MEJIA MD Sep 01, 2022 13:58
[2022-09-01] MEDS: ACETAMINOPHEN 325 MG TABLET PO PRN (09:50)
--- NOTE | 2022-09-01 13:44 | Progress Note ---
Subjective Date Seen by a Provider: Sep 01, 2022 Time Seen by a Provider: 13:00 Subjective/Events-last exam doing well. still physically weak. working with PT. tolerating diet and having BM's Objective Exam Vital Signs Date Time Temp Pulse Resp B/P (MAP) Pulse Ox O2 Delivery O2 Flow Rate FiO2 09/01/22 12:42 114 117/71 (86) 09/01/22 11:46 36.1 109 18 98/70 100 Nasal Cannula 3.00 09/01/22 11:27 36.5 107 18 110/73 (85) 99 Nasal Cannula 2.00 09/01/22 11:23 36.6 116 18 102/70 100 09/01/22 10:49 98 Nasal Cannula 1.00 09/01/22 08:00 97 Nasal Cannula 2.00 09/01/22 07:51 36.7 110 18 104/70 (81) 100 Nasal Cannula 2.00 09/01/22 07:20 113 09/01/22 06:49 99 Nasal Cannula 1.00 09/01/22 03:51 36.4 102 18 101/65 (77) 100 Nasal Cannula 2.00 09/01/22 01:00 114 08/31/22 23:46 36.6 109 20 114/58 (76) 100 Nasal Cannula 2.00 08/31/22 23:03 97 Nasal Cannula 1.00 08/31/22 20:20 Nasal Cannula 2.00 08/31/22 19:57 36.7 125 20 111/67 (82) 100 Nasal Cannula 2.00 08/31/22 19:00 124 08/31/22 18:24 97 Nasal Cannula 1.00 08/31/22 17:08 111 110/66 (81) 08/31/22 15:46 36.8 114 24 121/68 (85) 100 Nasal Cannula 2.00 08/31/22 14:37 99 Nasal Cannula 1.00 I & O 09/01/22 07:00 Intake Total 2112.5 ml Output Total 1275 ml Balance 837.5 ml Capillary Refill : Less Than 3 Seconds General Appearance: No Apparent Distress HEENT: PERRL/EOMI Neck: Full Range of Motion Respiratory: Decreased Breath Sounds, Wheezing Cardiovascular: Regular Rate, Rhythm Gastrointestinal: normal bowel sounds, soft, tenderness Extremity: Normal Capillary Refill Neurologic/Psychiatric: Alert, Oriented x3 Skin: Normal Color Lymphatic: No Adenopathy Results Lab Laboratory Tests 09/01/22 05:22: White Blood Count 5.8, Red Blood Count 2.91L, Hemoglobin 6.9*L, Hematocrit 24L, Mean Corpuscular Volume 81, Mean Corpuscular Hemoglobin 24L, Mean Corpuscular Hemoglobin Concent 29L, Red Cell Distribution Width 20.3H, Platelet Count 128L, Mean Platelet Volume 10.7, Immature Granulocyte % (Auto) 2, Neutrophils (%) (Auto) 71, Lymphocytes (%) (Auto) 16, Monocytes (%) (Auto) 11, Eosinophils (%) (Auto) 0, Basophils (%) (Auto) 0, Neutrophils # (Auto) 4.1, Lymphocytes # (Auto) 0.9L, Monocytes # (Auto) 0.6, Eosinophils # (Auto) 0.0, Basophils # (Auto) 0.0, Immature Granulocyte # (Auto) 0.1, Percent Immature Platelet Fraction 4.5, Sodium Level 140, Potassium Level 3.1L, Chloride Level 106, Carbon Dioxide Level 26, Anion Gap 8, Blood Urea Nitrogen 15, Creatinine 0.71, Estimat Glomerular Filtration Rate 96, BUN/Creatinine Ratio 21, Glucose Level 113H, Calcium Level 8.3L, Magnesium Level 1.7 Microbiology 08/29/22 Blood Culture - Preliminary, Resulted No growth 08/25/22 MRSA Screen - Final, Complete MRSA not isolated Assessment/Plan Assessment/Plan Assess & Plan/Chief Complaint anemia s/p EGD, colonoscopy and segmental sigmoid colon resection. increase ambulation. transfer to floor. ok for home when baseline medical status reached. likely assisted living. GRACIELA MOCTEZUMA MD Sep 01, 2022 13:44
--- NOTE | 2022-09-01 14:04 | Physical Therapy Progress Note ---
Therapy Progress Note Pt sitting up in bed upon arrival. EDUCATION NURSE encourages pt to go on walk and pt declines so Seated & Supine EX are requested and pt again declines stating "I'm too tired to do anything right now and I just want to go back to sleep". PT departs and will try pt again tomorrow. 1 visit, no tx rendered RICO ROSE PTA Sep 01, 2022 14:04
[2022-09-01] MEDS: guaiFENesin (MUCINEX) 600 MG TAB PO SCH (19:41)
[2022-09-01] MEDS: guaiFENesin/DM (ROBITUSSIN DM) 10 ML UDC PO PRN ×2 (19:41→23:37)
[2022-09-02] VITALS (8 sets, daily range): BP systolic 106–130; BP diastolic 64–78
[2022-09-02] MEDS: RT-ALBUTEROL/IPRATROPIUM 3 ML (DUONEB) VIAL INH SCH ×4 (03:08→15:09)
[2022-09-02] MEDS: HYDROCORTISONE 100 MG/2 ML (Solu-CORTEF) VIAL IV SCH (05:06)
[2022-09-02] MEDS: fentaNYL INJ 100 MCG/2 ML AMP IVP PRN ×2 (05:06→09:08)
[2022-09-02] MEDS: guaiFENesin/DM (ROBITUSSIN DM) 10 ML UDC PO PRN ×2 (05:06→09:19)
[2022-09-02 05:22] LABS: BASOPHILS % (AUTO) 0 % (0-10); EOSINOPHILS % (AUTO) 0 % (0-10)
[2022-09-02 05:24] LABS: HEMATOCRIT 31 % (40-54); HEMOGLOBIN 8.9 g/dL (13.3-17.7); LYMPHOCYTES # (AUTO) 1.3 10^3/uL (1.0-4.0); LYMPHOCYTES % (AUTO) 18 % (12-44); MEAN CORPUSCULAR HEMOGLOBIN 24 pg (25-34); MEAN CORPUSCULAR HGB CONC 29 g/dL (32-36); MEAN CORPUSCULAR VOLUME 82 fL (80-99); MEAN PLATELET VOLUME 10.8 fL (9.0-12.2); MONOCYTES # (AUTO) 0.9 10^3/uL (0.0-1.0); MONOCYTES % (AUTO) 11 % (0-12); NEUTROPHILS # (AUTO) 5.1 10^3/uL (1.8-7.8); NEUTROPHILS % (AUTO) 68 % (42-75); PLATELET COUNT 137 10^3/uL (130-400); WHITE BLOOD COUNT 7.6 10^3/uL (4.3-11.0)
[2022-09-02 05:48] LABS: CALCIUM 8.8 MG/DL (8.5-10.1); CREATININE SERUM 0.7 MG/DL (0.60-1.30); POTASSIUM 3.7 MMOL/L (3.6-5.0)
[2022-09-02] MEDS: POTASSIUM CL 10MEQ/50ML IVPB 50 ML IV SCH (05:49)
[2022-09-02] MEDS: MAGNESIUM 1 GM/100 ML IVPB 100 ML IV SCH (05:49)
[2022-09-02] MEDS: KCL 20 MEQ TAB (K-DUR) PO SCH (05:50)
[2022-09-02] MEDS: RT--FLUTICASONE/SALMETEROL 232-14 (AIRDUO RespiCLICK) IH SCH (06:52)
[2022-09-02] MEDS: PANTOPRAZOLE 40 MG (PROTONIX) VIAL IV SCH (08:50)
[2022-09-02] MEDS: predniSONE 5 MG TAB PO SCH (08:50)
[2022-09-02] MEDS: NICOTINE 21 MG (NICODERM) PATCH TD SCH (08:51)
[2022-09-02] MEDS: AMIODARONE 200 MG (CORDARONE) TAB PO SCH (08:51)
[2022-09-02] MEDS: DOCUSATE SODIUM 100 MG (COLACE) CAP PO SCH (08:51)
[2022-09-02] MEDS: guaiFENesin (MUCINEX) 600 MG TAB PO SCH (08:51)
[2022-09-02] MEDS: NICOTINE PATCH REMOVAL TP SCH (08:52)
--- NOTE | 2022-09-02 08:59 | Cardiology Progress Note ---
Subjective Date Seen by Provider: Sep 02, 2022 Time Seen by Provider: 08:58 Subjective/Events-last exam Patient was seen at bedside, laying down comfortably, complaining of fatigue and tiredness, still borderline tachycardic. Review of Systems General: No Chills, No Night Sweats, No Fatigue, No Malaise, No Appetite, No Other HEENT: No Head Aches, No Visual Changes, No Eye Pain, No Ear Pain, No Dysphasia, No Sinus Congestion, No Post Nasal Drip, No Sore Throat, No Other Pulmonary: No Dyspnea, No Cough, No Pleuritic Chest Pain, No Other Cardiovascular: No: Chest Pain, Palpitations, Orthopnea, Paroxysmal Noc. Dyspnea, Edema, Lt Headedness, Other Objective-Cardiology Exam Last Set of Vital Signs Vital Signs 09/01/22 09/02/22 20:22 07:41 Temp 36.8 Pulse 111 Resp 18 B/P (MAP) 130/78 (95) Pulse Ox 99 O2 Delivery Nasal Cannula O2 Flow Rate 2.00 FiO2 32 I&O Intake and Output 09/02/22 00:00 Intake Total 950 ml Output Total 1080 ml Balance -130 ml Intake Oral 950 ml Output Urine Total 900 ml Drainage Total 180 ml General: Alert, Oriented X3, Cooperative HEENT: Atraumatic, PERRLA Neck: Supple, No JVD, No Thyromegaly Lungs: Clear to Auscultation, Normal Air Movement Heart: Normal S1, Normal S2, No Murmurs, Other (Atrial fibrillation) Abdomen: Soft, No Tenderness, No Hepatosplenomegaly, No Masses, Other (Absent bowel sounds) Extremities: No Clubbing, No Cyanosis, No Edema, Normal Pulses, No Tenderness/Swelling Skin: No Rashes, No Breakdown, No Significant Lesion Neuro: Normal Gait, Normal Speech, Strength at 5/5 X4 Ext, Normal Tone, Sensation Intact Psych/Mental Status: Mental Status NL, Mood NL Results Lab Laboratory Tests 09/02/22 05:10 A/P-Cardiology Admission Diagnosis Chest pain Anemia GI bleed Coronary artery disease Assessment/Plan Hypotensive shock, improving Blood pressure is better today. Continue to monitor Paroxysmal atrial fibrillation, previously was very difficult to control with multiple medication Responded to amiodarone in the past and converted to sinus rhythm. Currently Xarelto is on hold. Patient is tachycardic and hypotensive, currently unstable. Electrical cardioversion was done twice on August 30, 2022, patient failed to maintain sinus rhythm. Loaded with amiodarone Continue with oral amiodarone and increase Cardizem and monitor heart rate Unable to tolerate anticoagulation at this time due to recurrent severe anemia and active bleeding. Received blood transfusion on 09/01/2022. Continue to monitor H&H Status post perforated colon during colonoscopy on August 27, 2022 Emergency surgical repair, improving Still having absent bowel sounds, managed by surgical team. Pulmonary infiltrate, questionable early pneumonia, managed by medical team Chest pain, resembling angina, known history of coronary artery disease. Reporting improvement after blood transfusion Continue to monitor Anemia, recurrent drop in H&H, recurrent GI bleed Underwent endoscopy which showed healing antral ulcer, gastritis Colonoscopy resulted in perforation as described above. Received blood transfusion postoperatively I would like to restart oral anticoagulation and monitor if once okay with general surgery once H&H are more stable Coronary artery disease, following with a leverman in [facility] in [place]. Reporting history of 2 myocardial infarctions in the past last heart attack in 2017 and he does not recall having a stent done. Reported that he will need a cardiac catheterization in the near future and has been discussing it with his primary leverman. No acute myocardial infarction was noted during the work-up today. Cannot tolerate long-term intervention after coronary angiogram or stenting. Conservative management is recommended COPD, active smoker, acute exacerbation due to pneumonia History of chronic renal insufficiency, currently renal function appears to be in the low normal. 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 Hypertension, monitor blood pressure. Hyperlipidemia, monitor lipids BART MEJIA MD Sep 02, 2022 08:59
[2022-09-02] MEDS ORDERED: AMIODARONE 200 MG (CORDARONE) TAB PO SCH (09:00)
[2022-09-02] MEDS: ACETAMINOPHEN 325 MG TABLET PO PRN (09:08)
--- NOTE | 2022-09-02 10:15 | Physical Therapy Daily Note ---
PT Daily Note-Current Subjective Patient agrees to PT. Pain Section J - Health Conditions 1. Rarely or not at all 2. Occasionally 3. Frequently 4. Almost constantly 8. Unable to answer Pain Effect on Sleep: 2 Pain Interference with Therapy: 2 Pain Interference w/Day-to-Day: 2 Mental Status Patient Orientation: Person Attachments: Drains Transfers SCALE: Activities may be completed with or without assistive devices. 2-Mzefvawoli-vuzozde completes the activity by him/herself with no assistance from a helper. 5-Set-up or Clean-up Assistance-helper sets up or cleans up; patient completes activity. [place] assists only prior to or following the activity. 4-Supervision or Touching Assistance-helper provides verbal cues and/or touching/steadying and/or contact guard assistance as patient completes activi ty. Assistance may be provided throughout the activity or intermittently. 3-Partial/Moderate Assistance-helper does LESS THAN HALF the effort. [place] lifts, holds or supports trunk or limbs, but provides less than half the effort. 2-Substantial/Maximal Assistance-helper does MORE THAN HALF the effort. [place] lifts or holds trunk or limbs and provides more than half the effort. 7-Npgjxstfy-vlvqdb does ALL the effort. Patient does none of the effort to complete the activity. Or, the assistance of 2 or more helpers is required for the patient to complete the activity. If activity was not attempted, code reason: 7-Patient Refused. 9-Not Applicable-not attempted and the patient did not perform the activity before the current illness, exacerbation or injury. 10-Not Attempted due to Environmental Limitations-(lack of equipment, weather restraints, etc.). 88-Not Attempted due to Medical Conditions or Safety Concerns. Sit to Stand (QC): 4 Gait Training Distance: 75' Walk 10 feet (QC): 4 Walk 50 ft with 2 Turns(QC): 4 Walk 150 ft (QC): 4 Gait Assistive Device: FWW slow, functional gait sequence Assessment Increase SOA with minimal activity with SAO2 >90% 1L. Patient is up in recliner with needs met. Patient improving slowly with gross motor skills. PT Halfway Goals Rfid Engineer Goals PT Rfid Engineer Goals Time Frame: Sep 11, 2022 Roll Left & Right (QC): 6 Sit to Lying (QC): 6 Lying-Sitting on Side/Bed(QC): 6 Sit to Stand (QC): 6 Chair/Che-hd-Ayjch Xfer(QC): 6 Toilet Transfer (QC): 6 Walk 10 feet (QC): 6 Walk 50ft with 2 Turns (QC): 6 Walk 150 ft (QC): 6 PT Plan Treatment/Plan Treatment Plan: Continue Plan of Care Treatment Plan: Education, Functional Activity Betsy, Functional Strength, Gait, Safety, Therapeutic Exercise, Transfers Treatment Duration: Sep 11, 2022 Frequency: 6 times per week Estimated Hrs Per Day: .25 hour per day Time/GCodes Time In: 914 Time Out: 927 Total Billed Treatment Time: 13 Total Billed Treatment 1 visit FA 13 min GEMA CALDERON PT Sep 02, 2022 10:15
--- NOTE | 2022-09-02 13:24 | Discharge Inst-Skilled Nursing ---
Discharge Inst-Skilled NF Chief Complaint Dvaid Robbins is a 76 year old male with PMH HTN, AFib, CAD, COPD, BPH, who presented with chest pain. He reports his symptoms have been going on for about a week. He has no chest pain on my exam. He reports shortness of breath. He denies abdominal pain. He denies bloody stools. He reports having black stools for several months. He was hospitalized in March and was found to have iron deficiency anemia at that time with positive fecal occult blood. He was supposed to follow up for an outpatient colonoscopy but did not. Consult/Follow Up/Orders Follow Up Appt.: [address] Andrea[address] Alston. 2 weeks with his panel builder. Skilled NF Admit to: [facility] Certification (SNF) I certify that SNF services are required to be given on an inpatient basis because of the above named patient's need for senior living care on a continuing basis for the conditions(s) for which he/she was receiving inpatient hospital services prior to his/her transfer to the SNF. [facility] Facility Order: Nursing Services, Supervisor [place]-Evaluate & Treat, Physical Therapy-Evaluate & Treat Oxygen Delivery Method: Nasal Cannula Discharge Diet: No Restrictions Daily Activity as Tolerated: Yes Resuscitation Status: Full Code New & Resume Previous Orders Peggy Parr Sep 02, 2022 13:22 PEGGY PARR MD Sep 02, 2022 13:24
--- NOTE | 2022-09-02 14:41 | Discharge Summary ---
Diagnosis/Chief Complaint Date of Admission Aug 25, 2022 at 15:56 Date of Discharge Discharge Date: Sep 02, 2022 Admission Diagnosis Severe anemia Primary Care Nargis Andrea MD Discharge Diagnosis (1) Severe anemia Status: Acute (2) MEIR (iron deficiency anemia) Status: Acute (3) Chest pain Status: Acute (4) Symptomatic anemia Status: Acute (5) Chronic GI bleeding Status: Acute (6) Anticoagulated Status: Chronic (7) CAD (coronary artery disease) Status: Chronic (8) Afib Status: Chronic (9) COPD (chronic obstructive pulmonary disease) Status: Chronic (10) Chronic respiratory failure with hypoxia Status: Chronic (11) Perforated sigmoid colon Status: Acute (12) Perforation of colon as colonoscopy complication Status: Acute (13) S/P partial colectomy Status: Acute (14) Gastric ulcer Status: Acute (15) Esophagitis with gastritis Status: Acute (16) Stricture of esophagus Status: Acute (17) GERD (gastroesophageal reflux disease) Status: Acute Discharge Summary Discharge Physical Exam Allergies: Coded Allergies: No Known Drug Allergies (Unverified , 10/13/20) Vitals & I&Os Vital Signs Date Time Temp Pulse Resp B/P (MAP) Pulse Ox O2 Delivery O2 Flow Rate FiO2 09/02/22 12:30 109 18 117/76 (90) 98 Nasal Cannula 2.00 09/02/22 11:32 36.8 09/01/22 20:22 32 Hospital Course Labs (last 24 hrs) Laboratory Tests 09/02/22 05:10: White Blood Count 7.6, Red Blood Count 3.70L, Hemoglobin 8.9#L, Hematocrit 31L, Mean Corpuscular Volume 82, Mean Corpuscular Hemoglobin 24L, Mean Corpuscular Hemoglobin Concent 29L, Red Cell Distribution Width 19.7H, Platelet Count 137, Mean Platelet Volume 10.8, Immature Granulocyte % (Auto) 3, Neutrophils (%) (Auto) 68, Lymphocytes (%) (Auto) 18, Monocytes (%) (Auto) 11, Eosinophils (%) (Auto) 0, Basophils (%) (Auto) 0, Neutrophils # (Auto) 5.1, Lymphocytes # (Auto) 1.3, Monocytes # (Auto) 0.9, Eosinophils # (Auto) 0.0, Basophils # (Auto) 0.0, Immature Granulocyte # (Auto) 0.3H, Percent Immature Platelet Fraction 5.6, Sodium Level 140, Potassium Level 3.7, Chloride Level 106, Carbon Dioxide Level 25, Anion Gap 9, Blood Urea Nitrogen 14, Creatinine 0.70, Estimat Glomerular Filtration Rate 96, BUN/Creatinine Ratio 20, Glucose Level 113H, Calcium Level 8.8, Magnesium Level 2.0 Microbiology 08/29/22 Blood Culture - Preliminary, Resulted No growth 08/25/22 MRSA Screen - Final, Complete MRSA not isolated Patient resulted labs reviewed. Imaging: Reviewed Imaging Report Discharge Home Medications: Active Scripts Active Reported Tylenol Extra Strength (Acetaminophen) 500 Mg Tablet 500-1,000 Mg PO Q8H PRN Multivitamin Gummies (Multivit-Minerals/Folic Acid) 200 Mcg Tab.chew 1 Ea PO DAILY Sucralfate 1 Gram Tablet 1 Gm PO BID PRN Nitroglycerin 0.4 Mg Tab.subl 0.4 Mg SL UD PRN Furosemide 20 Mg Tablet 20 Mg PO DAILY Flonase Allergy Relief (Fluticasone Propionate) 50 Mcg/Actuation Comfort.susp 1 Comfort NSEACH DAILY Benzonatate 200 Mg Capsule 200 Mg PO TID PRN Atorvastatin Calcium 40 Mg Tablet 40 Mg PO HS Amiodarone HCl 200 Mg Tablet 200 Mg PO DAILY Albuterol Sulfate 2.5 Mg/3 Ml (0.083 %) Vial.neb 3 Ml NEB Q6H PRN Ventolin Hfa (Albuterol Sulfate) 90 Mcg Hfa.aer.ad 2 Puff INH Q6H PRN Budesonide-Formoterol 160-4.5 (Budesonide/Formoterol Fumarate) 10.2 Gm Hfa.aer.ad 2 Puff INH BID Pantoprazole Sodium 40 Mg Tablet.dr 40 Mg PO BID Ipratropium [place] 0.2 Mg/Ml (0.02 %) Solution 1 Ml NEB QID PRN Prednisone 5 Mg Tablet 5 Mg PO DAILY Hydroxyzine HCl 25 Mg Tablet 25 Mg PO TID PRN Instructions to patient/family Please see electronic discharge instructions given to patient. Problem Qualifiers (1) Chest pain: Chest pain type: unspecified Qualified Codes: R07.9 - Chest pain, unspecified (2) COPD (chronic obstructive pulmonary disease): Emphysema type: other (3) Gastric ulcer: Gastric ulcer chronicity: acute Gastric ulcer complication status: with hemorrhage Qualified Codes: K25.0 - Acute gastric ulcer with hemorrhage (4) GERD (gastroesophageal reflux disease): Esophagitis presence: with esophagitis Esophagitis bleeding: with hemorrhage Qualified Codes: K21.01 - Gastro-esophageal reflux disease with esophagitis, with bleeding PEGGY TIPTON MD Sep 02, 2022 14:41
--- NOTE | 2022-09-02 15:30 | Progress Note ---
Subjective Date Seen by a Provider: Sep 02, 2022 Time Seen by a Provider: 13:00 Subjective/Events-last exam doing well. pain controlled and ambulating well. tolerating diet and passing flatus. minimal SS YVES output. Objective Exam Vital Signs Date Time Temp Pulse Resp B/P (MAP) Pulse Ox O2 Delivery O2 Flow Rate FiO2 09/02/22 15:10 97 Room Air 09/02/22 13:00 123 09/02/22 12:30 109 18 117/76 (90) 98 Nasal Cannula 2.00 09/02/22 11:32 36.8 120 18 111/68 (82) 96 Nasal Cannula 2.00 09/02/22 10:43 94 Room Air 09/02/22 09:57 36.8 106 18 118/75 (89) 99 Nasal Cannula 2.00 09/02/22 08:00 94 Room Air 2.00 09/02/22 07:41 111 09/02/22 07:41 36.8 114 18 130/78 (95) 99 Nasal Cannula 2.00 09/02/22 06:49 99 Nasal Cannula 1.00 09/02/22 04:06 36.3 112 18 119/75 (90) 99 Nasal Cannula 2.00 09/02/22 03:08 Nasal Cannula 1.00 09/02/22 01:00 124 09/02/22 00:04 36.7 115 18 110/77 (88) 98 Nasal Cannula 2.00 09/01/22 22:50 Nasal Cannula 1.00 09/01/22 20:22 36.8 114 68 32 09/01/22 20:10 97 Nasal Cannula 2.00 09/01/22 19:13 Nasal Cannula 1.00 09/01/22 19:02 36.8 106 18 137/78 (97) 100 Nasal Cannula 2.00 09/01/22 19:00 122 09/01/22 15:34 36.3 108 20 112/64 (80) 99 Nasal Cannula 2.00 I & O 09/02/22 07:00 Intake Total 1450 ml Output Total 1170 ml Balance 280 ml Capillary Refill : Less Than 3 Seconds General Appearance: No Apparent Distress HEENT: PERRL/EOMI Neck: Full Range of Motion Respiratory: Chest Non Tender Cardiovascular: Regular Rate, Rhythm Gastrointestinal: normal bowel sounds, soft, tenderness, other (wound clean/dry) Extremity: Normal Capillary Refill Neurologic/Psychiatric: Alert, Oriented x3 Skin: Normal Color Lymphatic: No Adenopathy Results Lab Laboratory Tests 09/02/22 05:10: White Blood Count 7.6, Red Blood Count 3.70L, Hemoglobin 8.9#L, Hematocrit 31L, Mean Corpuscular Volume 82, Mean Corpuscular Hemoglobin 24L, Mean Corpuscular Hemoglobin Concent 29L, Red Cell Distribution Width 19.7H, Platelet Count 137, Mean Platelet Volume 10.8, Immature Granulocyte % (Auto) 3, Neutrophils (%) (Auto) 68, Lymphocytes (%) (Auto) 18, Monocytes (%) (Auto) 11, Eosinophils (%) (Auto) 0, Basophils (%) (Auto) 0, Neutrophils # (Auto) 5.1, Lymphocytes # (Auto) 1.3, Monocytes # (Auto) 0.9, Eosinophils # (Auto) 0.0, Basophils # (Auto) 0.0, Immature Granulocyte # (Auto) 0.3H, Percent Immature Platelet Fraction 5.6, Sodium Level 140, Potassium Level 3.7, Chloride Level 106, Carbon Dioxide Level 25, Anion Gap 9, Blood Urea Nitrogen 14, Creatinine 0.70, Estimat Glomerular Filtration Rate 96, BUN/Creatinine Ratio 20, Glucose Level 113H, Calcium Level 8.8, Magnesium Level 2.0 Microbiology 08/29/22 Blood Culture - Preliminary, Resulted No growth 08/25/22 MRSA Screen - Final, Complete MRSA not isolated Assessment/Plan Assessment/Plan Assess & Plan/Chief Complaint anemia s/p EGD, colonoscopy and segmental sigmoid colon resection. increase ambulation. transfer to floor. ok for home when baseline medical status reached. patient going to SNF first. GRACIELA MOCTEZUMA MD Sep 02, 2022 15:30
--- NOTE | 2022-09-03 11:38 | Physician Query Clarification ---
PQ-Further Specificity Admission/Discharge Admission Date: Aug 25, 2022 at 15:56 Discharge Date: Sep 02, 2022 at 16:15 , The medical record reflects the following clinical scenario: History/Risk Factors: iron deficiency anemia, GIB Clinical Findings: EGD - healed antral ulcer with fibrin clot Treatment: transfuse 5 units PRBC's Question: Can you further specify the cause of the GIB and iron def anemia per the clinical indicators above? Please document a response in the Progress Notes or Discharge Summary. 1. acute antral ulcer with bleeding 2. cause of GIB undetermined 3. Other, with explanation of the clinical findings. 4. Clinically undetermined, no explanation for the clinical findings. PHYSICIAN RESPONSE Can you specify per above: Other, explanation/clinical finding Explanation/Clinical Findings cause for anemia due to antral ulcer which was more of a chronic process which was healing and not actively bleeding upon endoscopy. In responding to this query, please exercise your independent professional judgment. The purpose of this communication is to more accurately reflect the complexity of your patients condition. The fact that a question is asked does not imply that any particular answer is desired or expected. Thank you for your timely response to this clarification. Requestors name: Isael THIS PHYSICIAN QUERY FORM IS A PERMANENT PART OF THE MEDICAL RECORD ISAEL OWUSU Sep 03, 2022 11:38 GRACIELA MOCTEZUMA MD Sep 03, 2022 11:59
== END 2022-09-02 16:15 | DRG 329 ==
LOC: EDUNIT# 12:35 → ER FS 12:37 → ICU 15:56 → 4TH 08-26 15:37 → ICU 08-27 17:13 → 4TH 08-31 13:05
PROVIDERS: ADMIT Internal Medicine; ATTEND Internal Medicine
PROC: 0DB78ZX Excision of Stomach, Pylorus, Via Natural or Artificial Opening Endoscopic, Diagnostic (ICD-10-PCS; 2022-08-27)
PROC: 0DJD8ZZ Inspection of Lower Intestinal Tract, Via Natural or Artificial Opening Endoscopic (ICD-10-PCS; 2022-08-27)
PROC: 0DBN0ZZ Excision of Sigmoid Colon, Open Approach (ICD-10-PCS; principal; 2022-08-27 13:38)
PROC: 0DB48ZX Excision of Esophagogastric Junction, Via Natural or Artificial Opening Endoscopic, Diagnostic (ICD-10-PCS; 2022-08-27 13:38)
PROC: 5A2204Z Restoration of Cardiac Rhythm, Single (ICD-10-PCS; 2022-08-30)
DX: K25.4 Chronic or unspecified gastric ulcer with hemorrhage (principal); R57.8 Other shock; J96.11 Chronic respiratory failure with hypoxia; K91.71 Accidental puncture and laceration of a digestive system organ or structure during a digestive system procedure; E87.20 Acidosis, unspecified; D50.0 Iron deficiency anemia secondary to blood loss (chronic); I48.0 Paroxysmal atrial fibrillation; E87.6 Hypokalemia; I25.10 Atherosclerotic heart disease of native coronary artery without angina pectoris; K22.2 Esophageal obstruction; K44.9 Diaphragmatic hernia without obstruction or gangrene; K21.00 Gastro-esophageal reflux disease with esophagitis, without bleeding; K29.70 Gastritis, unspecified, without bleeding; K64.1 Second degree hemorrhoids; I11.0 Hypertensive heart disease with heart failure; I50.9 Heart failure, unspecified; J44.9 Chronic obstructive pulmonary disease, unspecified; E78.00 Pure hypercholesterolemia, unspecified; N40.0 Benign prostatic hyperplasia without lower urinary tract symptoms; F17.210 Nicotine dependence, cigarettes, uncomplicated; H54.7 Unspecified visual loss; I25.2 Old myocardial infarction; Z95.5 Presence of coronary angioplasty implant and graft
CPT/HCPCS: 36415; 71045; 74177; 80048; 80053; 80306; 80320; 81000; 82274; 82728; 83540; 83550; 83605; 83735; 83880; 84100; 84484; 85007; 85025; 85027; 85379; 85610; 85730; 86850; 86900; 86901; 86920; 87040; 87081; 93005; 93041; 94640; 94760; 96361; 96374; Q9967

== ENCOUNTER 2022-09-07 12:38 | Emergency (ER) | payer MEDICAID ==
[~2022-09-07] VITALS: Ht 177.8 cm; Wt 51.7 kg
[~2022-09-07 12:38] MED LIST changes: +ACET-2267 PO; +ALBU2.5V4 NEB; +BENZ200C51 PO; +FLUT9.9S NSEACH; +FURO20TA4 PO; +MULT200T12 PO; +NITR0.4T42 SL; +RIVA20TA PO; +SUCR1TAB PO
[2022-09-07 12:55] LABS: BASOPHILS % (AUTO) 0 % (0-10); EOSINOPHILS % (AUTO) 0 % (0-10); HEMATOCRIT 31 % (40-54); HEMOGLOBIN 9.2 g/dL (13.3-17.7); LYMPHOCYTES # (AUTO) 0.6 10^3/uL (1.0-4.0); LYMPHOCYTES % (AUTO) 6 % (12-44); MEAN CORPUSCULAR HEMOGLOBIN 24 pg (25-34); MEAN CORPUSCULAR HGB CONC 30 g/dL (32-36); MEAN CORPUSCULAR VOLUME 82 fL (80-99); MEAN PLATELET VOLUME 10.8 fL (9.0-12.2); MONOCYTES # (AUTO) 0.4 10^3/uL (0.0-1.0); MONOCYTES % (AUTO) 4 % (0-12); NEUTROPHILS # (AUTO) 8.9 10^3/uL (1.8-7.8); NEUTROPHILS % (AUTO) 89 % (42-75); PLATELET COUNT 265 10^3/uL (130-400)
--- NOTE | 2022-09-07 12:56 | ED Abdominal Pain ---
General Stated Complaint: ABN SURGICAL WOUND Source of Information: Patient Exam Limitations: No Limitations History of Present Illness Date Seen by Provider: Sep 07, 2022 Time Seen by Provider: 12:38 Initial Comments 76-year-old male presents to the emergency department today for postop abdominal pain, drainage from his incisions. He had his surgery on 08/27. It sounds as though complications from an upper and lower endoscopy because the need for resection. He denies any fevers or chills. He has diffuse abdominal pain with rotation of his incisions. He tells me that he had a large volume of fluid drai nage yesterday that per nursing report was foul-smelling. He has continued to have significant amount of drainage since that time. Last bowel movement was 3 days ago. No nausea or vomiting. No changes in urination. Allergies and Home Medications Allergies Coded Allergies: No Known Drug Allergies (Unverified , 10/13/20) Patient Home Medication List Home Medication List Reviewed: Yes Acetaminophen (Tylenol Extra Strength) 500 Mg Tablet, 500-1,000 MG PO Q8H PRN for PAIN-MILD (1-4), (Reported) Entered as Reported by: KO GARIBAY on 08/26/22 1431 Albuterol Sulfate (Ventolin Hfa) 90 Mcg Hfa.aer.ad, 2 PUFF INH Q6H PRN for SHORTNESS OF BREATH, (Reported) Entered as Reported by: KO GARIBAY on 12/15/21 1559 Albuterol Sulfate (Albuterol Sulfate) 2.5 Mg/3 Ml (0.083 %) Vial.neb, 3 ML NEB Q6H PRN for SHORTNESS OF BREATH, (Reported) Entered as Reported by: KO GARIBAY on 08/26/22 1430 Amiodarone HCl (Amiodarone HCl) 200 Mg Tablet, 200 MG PO DAILY, (Reported) Entered as Reported by: KO GARIBAY on 08/26/22 1430 Atorvastatin Calcium (Atorvastatin Calcium) 40 Mg Tablet, 40 MG PO HS, (Reported) Entered as Reported by: KO GARIBAY on 08/26/22 1430 Benzonatate (Benzonatate) 200 Mg Capsule, 200 MG PO TID PRN for COUGH, (Reported) Entered as Reported by: KO GARIBAY on 08/26/22 1430 Budesonide/Formoterol Fumarate (Budesonide-Formoterol 160-4.5) 10.2 Gm Hfa.aer.ad, 2 PUFF INH BID, (Reported) Entered as Reported by: KO GARIBAY on 12/15/211558 Fluticasone Propionate (Flonase Allergy Relief) 50 Mcg/Actuation [place].susp, 1 SPRAY NSEACH DAILY, (Reported) Entered as Reported by: KO GARIBAY on 08/26/22 143 Furosemide (Furosemide) 20 Mg Tablet, 20 MG PO DAILY, (Reported) Entered as Reported by: KO GARIBAY on 08/26/221429 Hydroxyzine HCl (Hydroxyzine HCl) 25 Mg Tablet, 25 MG PO TID PRN for ANXIETY, (Reported) Entered as Reported by: KO GARIBAY on 12/15/211558 Ipratropium Durand (Ipratropium Durand) 0.2 Mg/Ml (0.02 %) Solution, 1 ML NEB QID PRN for SHORTNESS OF BREATH, (Reported) Entered as Reported by: KO GARIBAY on 12/15/211558 Multivit-Minerals/Folic Acid (Multivitamin Gummies) 200 Mcg Tab.chew, 1 EA PO DAILY, (Reported) Entered as Reported by: KO GARIBAY on 08/26/221429 Nitroglycerin (Nitroglycerin) 0.4 Mg Tab.subl, 0.4 MG SL UD PRN for CHEST PAIN (ANGINA), (Reported) Entered as Reported by: KO GARIBAY on 08/26/221429 Pantoprazole Sodium (Pantoprazole Sodium) 40 Mg Tablet.dr, 40 MG PO BID, (Reported) Entered as Reported by: KO GARIBAY on 12/15/211558 Prednisone (Prednisone) 5 Mg Tablet, 5 MG PO DAILY, (Reported) Entered as Reported by: KO GARIBAY on 12/15/211558 Sucralfate (Sucralfate) 1 Gram Tablet, 1 GM PO BID PRN for ULCER FLARE, (Reported) Entered as Reported by: KO GARIBAY on 08/26/221429 Discontinued Medications Clopidogrel Bisulfate (Clopidogrel) 75 Mg Tablet, 75 MG PO DAILY, (Reported) Entered as Reported by: KO GARIBAY on 2/1/22 1559 Rivaroxaban (Xarelto) 20 Mg Tablet, 20 MG PO DAILY, (Reported) Entered as Reported by: KO GARIBAY on 08/26/22 1430 Review of Systems Review of Systems Constitutional: no symptoms reported EENTM: No Symptoms Reported Respiratory: No Symptoms Reported Cardiovascular: No Symptoms Reported Gastrointestinal: Abdomen Distended, Abdominal Pain Genitourinary: No Symptoms Reported Musculoskeletal: no symptoms reported Skin: no symptoms reported Psychiatric/Neurological: No Symptoms Reported Endocrine: No Symptoms Reported Hematologic/Lymphatic: No Symptoms Reported Past Xxtaeor-Zveyid-Scrbnv Hx Patient Social History Tobacco Use?: No Use of E-Cig and/or Vaping dev: No Substance use?: No Alcohol Use?: No Immunizations Up To Date First/Initial COVID19 Vaccinat: na Second COVID19 Vaccination Jose: na Third COVID19 Vaccination Date: na Past Medical History Surgery/Hospitalization HX: COPD, coronary artery disease, high cholesterol, hypertension, stents in his heart, chronic O2 use Surgeries: Yes Coronary Stent Respiratory: Yes COPD Currently Using CPAP: No Currently Using BIPAP: No Cardiac: Yes Coronary Artery Disease, Heart Attack, High Cholesterol, Hypertension Neurological: Yes Stroke Genitourinary: No Gastrointestinal: No Musculoskeletal: Yes Arthritis Endocrine: No Family Medical History Reviewed Nursing Family Hx No Pertinent Family Hx Physical Exam Vital Signs Vital Signs - First Documented 09/07/22 12:40 Temp 37.1 Pulse 86 Resp 18 B/P (MAP) 105/62 (76) Pulse Ox 96 O2 Delivery Room Air Capillary Refill : Height/Weight/BMI Height: '" Weight: lbs. oz. kg; 22.52 BMI Method: General Appearance: WD/WN, no apparent distress HEENT: normal ENT inspection, pharynx normal Neck: non-tender, full range of motion, supple, normal inspection Respiratory: chest non-tender, lungs clear, normal breath sounds, no respir atory distress, no accessory muscle use Cardiovascular: regular rate, rhythm, no edema, no gallop, no JVD, no murmur Gastrointestinal: normal bowel sounds, no organomegaly, tenderness (Tenderness to palpation along the suture line the anterior abdominal wall. There is some distention in this area. No fluid drainage at present. There are some erythema surrounding incisions.) Extremities: normal range of motion, non-tender, normal inspection, no pedal edema, no calf tenderness Skin: warm/dry, other (Erythema surrounding radha and spreading laterally about 2 cm. As discussed.) Progress/Results/Core Measures Results/Orders Lab Results Laboratory Tests Test 09/07/22 12:45 Range/Units White Blood Count 10.0 4.3-11.0 10^3/uL Red Blood Count 3.77 L 4.30-5.52 10^6/uL Hemoglobin 9.2 L 13.3-17.7 g/dL Hematocrit 31 L 40-54 % Mean Corpuscular Volume 82 80-99 fL Mean Corpuscular Hemoglobin 24 L 25-34 pg Mean Corpuscular Hemoglobin Concent 30 L 32-36 g/dL Red Cell Distribution Width 21.2 H 10.0-14.5 % Platelet Count 265 130-400 10^3/uL Mean Platelet Volume 10.8 9.0-12.2 fL Immature Granulocyte % (Auto) 1 % Neutrophils (%) (Auto) 89 H 42-75 % Lymphocytes (%) (Auto) 6 L 12-44 % Monocytes (%) (Auto) 4 0-12 % Eosinophils (%) (Auto) 0 0-10 % Basophils (%) (Auto) 0 0-10 % Neutrophils # (Auto) 8.9 H 1.8-7.8 10^3/uL Lymphocytes # (Auto) 0.6 L 1.0-4.0 10^3/uL Monocytes # (Auto) 0.4 0.0-1.0 10^3/uL Eosinophils # (Auto) 0.0 0.0-0.3 10^3/uL Basophils # (Auto) 0.0 0.0-0.1 10^3/uL Immature Granulocyte # (Auto) 0.1 0.0-0.1 10^3/uL Neutrophils % (Manual) 82 % Lymphocytes % (Manual) 6 % Monocytes % (Manual) 3 % Eosinophils % (Manual) 2 % Band Neutrophils 7 % Platelet Estimate NORMAL Hypochromasia MODERATE Poikilocytosis SLIGHT Microcytosis 1+ Macrocytosis 1+ Elliptocytes SLIGHT Sodium Level 140 135-145 MMOL/L Potassium Level 2.8 L 3.6-5.0 MMOL/L Chloride Level 100 98-107 MMOL/L Carbon Dioxide Level 29 21-32 MMOL/L Anion Gap 11 5-14 MMOL/L Blood Urea Nitrogen 7 7-18 MG/DL Creatinine 0.68 0.60-1.30 MG/DL Estimat Glomerular Filtration Rate 97 BUN/Creatinine Ratio 10 Glucose Level 119 H 70-105 MG/DL Calcium Level 8.3 L 8.5-10.1 MG/DL Corrected Calcium 9.4 8.5-10.1 MG/DL Total Bilirubin 0.4 0.1-1.0 MG/DL Aspartate Amino Transf (AST/SGOT) 18 5-34 U/L Alanine Aminotransferase (ALT/SGPT) 16 0-55 U/L Alkaline Phosphatase 54 40-136 U/L Total Protein 5.6 L 6.4-8.2 GM/DL Albumin 2.6 L 3.2-4.5 GM/DL My Orders Orders - MIYA CORNELIUS DO Cbc With Automated Diff (09/07/22 12:46) Comprehensive Metabolic Panel (09/07/22 12:46) Ct Abdomen/Pelvis W (09/07/22 12:46) Blood Culture (09/07/22 12:47) Ed Iv/Invasive Line Start (09/07/22 12:47) O2 (09/07/22 12:47) Fentanyl Inj (Sublimaze Injection) (09/07/22 13:00) Iohexol Injection (Omnipaque 350 Mg/Ml 1 (09/07/22 13:00) Received Contrast (Hold Metformin- Contr (09/07/22 13:00) Ns (Ivpb) (Sodium Chloride 0.9% Ivpb Bag (09/07/22 13:00) Manual Differential (09/07/22 12:45) Levofloxacin Tablet (Levaquin Tablet) (09/07/22 14:45) Medications Given in ED Current Medications Medications Dose Ordered Sig/Linda Route Start Time Stop Time Status Last Admin Dose Admin Fentanyl Citrate 50 mcg ONCE ONCE IVP 09/07/22 13:00 09/07/22 13:01 DC 09/07/22 12:59 50 MCG Iohexol 100 ml ONCE ONCE IV 09/07/22 13:00 09/07/22 13:01 DC 09/07/22 13:36 75 ML Sodium Chloride 100 ml ONCE ONCE IV 09/07/22 13:00 09/07/22 13:01 DC 09/07/22 13:36 100 ML Vital Signs/I&O 09/07/22 12:40 Temp 37.1 Pulse 86 Resp 18 B/P (MAP) 105/62 (76) Pulse Ox 96 O2 Delivery Room Air Diagnostic Imaging Diagonstic Imaging: CT Plain Films/CT/US/NM/MRI: abdomen Comments [facility] [place], [place] NAME: RYDER RINCON [facility] REC#: [id number] PT STATUS: REG ER : 1945 PHYSICIAN: MIYA CORNELIUS DO ADMIT DATE: 09/07/22/ER FS Draft Date of Exam:09/07/22 CT ABDOMEN/PELVIS W PROCEDURE: CT abdomen and pelvis with contrast. TECHNIQUE: Multiple contiguous axial images were obtained through the abdomen and pelvis after administration of intravenous contrast. Auto Exposure Controls were utilized during the CT exam to meet ALARA standards for radiation dose reduction. All CT scans use one or more of the following dose optimizing techniques: Automated exposure control, MA and/or KvP adjustment based on patient size and exam type or iterative reconstruction. INDICATION: 76-year-old male, recent surgery with abdominal swelling, pain, and drainage. CORRELATION STUDY: CT 08/25/2022. FINDINGS: LOWER THORAX: Development of a moderate left pleural effusion layering dependently with a very small right pleural effusion. Associated consolidation or atelectasis at the left lower lung. Small esophageal hernia. Heart size is within normal limits with small pericardial effusion. Maximum thickness anteriorly 8 mm. LIVER: Tiny low-density foci, likely small cysts. GALLBLADDER: Mildly distended. No definitive gallstones or bile duct dilatation. SPLEEN: A few calcified granulomas. Normal in size. PANCREAS: Unremarkable. ADRENAL GLANDS: Unremarkable. KIDNEYS: Normal configuration. No calcification or obstruction. Either small cleft or perhaps small angiomyolipoma in the right inferior renal pole. ABDOMINAL AORTA: Mild wall calcification, nonaneurysmal. No pathologically enlarged aortocaval lymph nodes. GASTROINTESTINAL TRACT: Interval surgical changes at the sigmoid colon. Anastomotic suture line has a relatively unremarkable appearance. There is presence of a small amount of pelvic fluid, immediately adjacent to the suture line. Slight generalized haziness in the mesentery. Scattered areas of small bowel wall thickening without transition or evidence for obstruction. Skin radha low midline abdominal wall. Very small fluid collection, approximately 15 x 5 mm, adjacent to the abdominal wall suture line likely at the level of the umbilicus. No significant free intraperitoneal air. URINARY BLADDER: Very small density in the bladder base could be reflective of a very tiny amount of contrast versus bladder stones. REPRODUCTIVE: Prostate gland unremarkable. OSSEOUS STRUCTURES: Negative for acute abnormality. OTHER: None. IMPRESSION: 1. Apparent interval surgical changes at the sigmoid colon. While the anastomotic suture line has a relatively unremarkable appearance, there is a very small fluid collection immediately adjacent to the suture line. While it could be reactive and of inflammatory or infectious etiology, possibility of a low-grade leak cannot be excluded by CT findings. 2. Question of very small fluid collection adjacent to the abdominal wall surgical clips. 3. Diffuse small bowel wall thickening could be reflective of underlying reactive ileus. 4. Development of moderate left and trace right pleural effusions. Associated consolidation with atelectasis or infiltrate in the left lower lobe. Also presence of a very small pericardial effusion, which appears a change from prior. Dictated on workstation # [id number] Dict: 09/07/22 1340 Trans: 09/07/22 1428 [id number] Interpreted by: JANE VILLARREAL DO Electronically signed by: Departure Communication (Admissions) Patient is hemodynamically stable. Nonsurgical abdominal exam. CT scan shows possible small fluid collection at the surgical anastomotic site, reactive versus possible infectious. He has no infectious symptoms at this time. He did have a large amount of drainage 1 time and has had small moderate amount of drainage since then. He has had no drainage since seen here in the emergency department, but 2 hours or so. I believe he had a seroma that drained. I spoke with Dr. Alston about presentation and imaging findings. He request to place him on broad-spectrum antibiotics and see him in the clinic on Tuesday. Does not see any need for admission at this time and I agree with this assessment. Impression Primary Impression: Drainage from surgical wound Disposition: 01 HOME, SELF-CARE Condition: Stable Departure-Patient Inst. Referrals: EMILE WILKS MD (PCP) Primary Care Physician Patient Instructions: Acute Pain, Adult Add. Discharge Instructions: Please take the antibiotics as prescribed until they are gone. Call Dr. Alston's office to schedule follow-up appointment. I spoke with him and he wants to see you on Tuesday. Return to the emergency department for any severe concerns. Follow-up with your primary doctor for any nonemergent needs. Scripts Levofloxacin (Levofloxacin) 500 Mg Tablet 500 MG PO DAILY for 7 Days, #7 TAB Prov: MIYA CORNELIUS DO 09/07/22 MIYA CORNELIUS DO Sep 07, 2022 12:56
[2022-09-07] MEDS ORDERED: fentaNYL INJ 100 MCG/2 ML AMP IVP ONE (13:00)
[2022-09-07] MEDS ORDERED: HOLD METFORMIN - RECEIVED CONTRAST 20 ML VIAL IV SCH (13:00)
[2022-09-07] MEDS ORDERED: NS 100 ML (IVPB) BAG IV ONE (13:00)
[2022-09-07] MEDS ORDERED: IOHEXOL 350 MG/ML 100 ML (OMNIPAQUE 350) VIAL IV ONE (13:00)
[2022-09-07 13:15] LABS: BILIRUBIN,TOTAL 0.4 MG/DL (0.1-1.0); CALCIUM 8.3 MG/DL (8.5-10.1); CREATININE SERUM 0.68 MG/DL (0.60-1.30); POTASSIUM 2.8 MMOL/L (3.6-5.0)
[2022-09-07 13:16] LABS: ALBUMIN 2.6 GM/DL (3.2-4.5); TOTAL PROTEIN 5.6 GM/DL (6.4-8.2)
[2022-09-07 13:23] LABS: BAND NEUTROPHILS 7 %; EOSINOPHILS % (MANUAL) 2 %; HYPOCHROMASIA MODERATE; LYMPHOCYTES % (MANUAL) 6 %; MICROCYTOSIS 1+; MONOCYTES % (MANUAL) 3 %; NEUTROPHILS % (MANUAL) 82 %; PLATELET ESTIMATE NORMAL
[2022-09-07 13:24] LABS: ELLIPT/OVALOCYTES SLIGHT; POIKILOCYTOSIS SLIGHT
--- NOTE | 2022-09-07 14:28 | Diagnostic Imaging Report ---
PROCEDURE: CT abdomen and pelvis with contrast. TECHNIQUE: Multiple contiguous axial images were obtained through the abdomen and pelvis after administration of intravenous contrast. Auto Exposure Controls were utilized during the CT exam to meet ALARA standards for radiation dose reduction. All CT scans use one or more of the following dose optimizing techniques: Automated exposure control, MA and/or KvP adjustment based on patient size and exam type or iterative reconstruction. INDICATION: 76-year-old male, recent surgery with abdominal swelling, pain, and drainage. CORRELATION STUDY: CT 08/25/2022. FINDINGS: LOWER THORAX: Development of a moderate left pleural effusion layering dependently with a very small right pleural effusion. Associated consolidation or atelectasis at the left lower lung. Small esophageal hernia. Heart size is within normal limits with small pericardial effusion. Maximum thickness anteriorly 8 mm. LIVER: Tiny low-density foci, likely small cysts. GALLBLADDER: Mildly distended. No definitive gallstones or bile duct dilatation. SPLEEN: A few calcified granulomas. Normal in size. PANCREAS: Unremarkable. ADRENAL GLANDS: Unremarkable. KIDNEYS: Normal configuration. No calcification or obstruction. Either small cleft or perhaps small angiomyolipoma in the right inferior renal pole. ABDOMINAL AORTA: Mild wall calcification, nonaneurysmal. No pathologically enlarged aortocaval lymph nodes. GASTROINTESTINAL TRACT: Interval surgical changes at the sigmoid colon. Anastomotic suture line has a relatively unremarkable appearance. There is presence of a small amount of pelvic fluid, immediately adjacent to the suture line. Slight generalized haziness in the mesentery. Scattered areas of small bowel wall thickening without transition or evidence for obstruction. Skin radha low midline abdominal wall. Very small fluid collection, approximately 15 x 5 mm, adjacent to the abdominal wall suture line likely at the level of the umbilicus. No significant free intraperitoneal air. URINARY BLADDER: Very small density in the bladder base could be reflective of a very tiny amount of contrast versus bladder stones. REPRODUCTIVE: Prostate gland unremarkable. OSSEOUS STRUCTURES: Negative for acute abnormality. OTHER: None. IMPRESSION: 1. Apparent interval surgical changes at the sigmoid colon. While the anastomotic suture line has a relatively unremarkable appearance, there is a very small fluid collection immediately adjacent to the suture line. While it could be reactive and of inflammatory or infectious etiology, possibility of a low-grade leak cannot be excluded by CT findings. 2. Question of very small fluid collection adjacent to the abdominal wall surgical clips. 3. Diffuse small bowel wall thickening could be reflective of underlying reactive ileus. 4. Development of moderate left and trace right pleural effusions. Associated consolidation with atelectasis or infiltrate in the left lower lobe. Also presence of a very small pericardial effusion, which appears a change from prior. Dictated by: Dictated on workstation # [id number]
[2022-09-07] MEDS ORDERED: LEVO-55 PO (14:39)
[2022-09-07 14:49] VITALS: BP 115/81
== END 2022-09-07 15:32 | disposition home or self-care (01) ==
LOC: EDUNIT# 12:38 → ER FS 12:38
DX: T81.89XA Other complications of procedures, not elsewhere classified, initial encounter (principal); Z28.310 Unvaccinated for COVID-19
CPT/HCPCS: 36415; 74177; 80053; 85007; 85027; 87040; Q9967

== ENCOUNTER 2023-01-05 10:53 | Observation (INO) | payer MEDICAID ==
[~2023-01-05] VITALS: Ht 175.3 cm; Wt 65.9 kg
[~2023-01-05 10:53] MED LIST changes: +LEVO-55 PO
[2023-01-05] MEDS ORDERED: NS IV 1000 ML 1,000 ML IV STA (11:08)
[2023-01-05 11:14] LABS: BASOPHILS % (AUTO) 0 % (0-10); EOSINOPHILS % (AUTO) 1 % (0-10); HEMATOCRIT 24 % (40-54); LYMPHOCYTES % (AUTO) 15 % (12-44); MEAN CORPUSCULAR HEMOGLOBIN 23 pg (25-34); MEAN CORPUSCULAR HGB CONC 29 g/dL (32-36); MEAN CORPUSCULAR VOLUME 78 fL (80-99); MEAN PLATELET VOLUME 9.5 fL (9.0-12.2); MONOCYTES # (AUTO) 0.7 10^3/uL (0.0-1.0); MONOCYTES % (AUTO) 11 % (0-12); NEUTROPHILS # (AUTO) 4.8 10^3/uL (1.8-7.8); NEUTROPHILS % (AUTO) 73 % (42-75); PLATELET COUNT 245 10^3/uL (130-400); WHITE BLOOD COUNT 6.6 10^3/uL (4.3-11.0)
[2023-01-05] MEDS ORDERED: PANTOPRAZOLE 40 MG (PROTONIX) VIAL IV ONE (11:15)
[2023-01-05 11:16] LABS: ALBUMIN 3.3 GM/DL (3.2-4.5)
[2023-01-05 11:18] LABS: CALCIUM 8.4 MG/DL (8.5-10.1)
[2023-01-05 11:19] LABS: TOTAL PROTEIN 6.2 GM/DL (6.4-8.2)
[2023-01-05 11:21] LABS: BILIRUBIN,TOTAL 0.4 MG/DL (0.1-1.0)
[2023-01-05 11:22] LABS: CREATININE SERUM 1.09 MG/DL (0.60-1.30)
[2023-01-05 11:24] LABS: INR 1.1 (0.8-1.4); PROTHROMBIN TIME PATIENT 14.7 SEC (12.2-14.7)
--- NOTE | 2023-01-05 11:25 | ED Abdominal Pain ---
General Chief Complaint: Rect Problems Stated Complaint: GI BLEED Nursing Triage Note: PT TO ROOM 04 VIA [facility] FROM [facility] IN [place], [place] WITH C/O RECTAL BLEEDING "AT LEAST 2 WEEKS". PT REPORTS HAVING COLON SURGERY AT THIS HOSPITAL X2-3 MONTHS AGO. PT DENIES N/V. Source of Information: Patient Exam Limitations: No Limitations (GEOVANNY LEIJA) History of Present Illness Date Seen by Provider: Jan 05, 2023 Time Seen by Provider: 11:22 Initial Comments Patient is a 77-year-old male with a history of colon perforation with surgical resection done by Dr. Alston in August 2022, COPD requiring oxygen, coronary artery disease, A-fib, GERD who Presents to ED from assisted living for lower abdominal pain bloody stools. Patient states he has had bright red blood in his stools for the past 2 weeks. Initially was constipated and started to take Maalox and reports diarrhea at this time. Noted bright red streaking in his stool. Patient reports increased weakness over the past 2 or 3 days. Currently on Plavix.. Patient denies of any urinary symptoms, fever, chest pain, headache. Patient is slightly hypotensive. Patient Was brought to ED by EMS and was given a liter of fluid. Patient does report a chronic cough and reports nebulizer treatment daily. Not currently on prednisone. Denies of any NSAID use. Denies of any urinary symptoms. (GEOVANNY LEIJA) Allergies and Home Medications Allergies Coded Allergies: No Known Drug Allergies (Unverified , 10/13/20) Patient Home Medication List Home Medication List Reviewed: Yes (GEOVANNY LEIJA) Acetaminophen (Tylenol Extra Strength) 500 Mg Tablet, 500-1,000 MG PO Q8H PRN for PAIN-MILD (1-4), (Reported) Entered as Reported by: KO GARIBAY on 08/26/22 1431 Albuterol Sulfate (Ventolin Hfa) 90 Mcg Hfa.aer.ad, 2 PUFF INH Q6H PRN for SHORTNESS OF BREATH, (Reported) Entered as Reported by: KO GARIBAY on 12/15/21 1559 Albuterol Sulfate (Albuterol Sulfate) 2.5 Mg/3 Ml (0.083 %) Vial.neb, 3 ML NEB Q6H PRN for SHORTNESS OF BREATH, (Reported) Entered as Reported by: KO GARIBAY on 08/26/22 143 Amiodarone HCl (Amiodarone HCl) 200 Mg Tablet, 200 MG PO DAILY, (Reported) Entered as Reported by: KO GARIBAY on 08/26/22 143 Atorvastatin Calcium (Atorvastatin Calcium) 40 Mg Tablet, 40 MG PO HS, (Reported) Entered as Reported by: KO GARIBAY on 08/26/22 143 Benzonatate (Benzonatate) 200 Mg Capsule, 200 MG PO TID PRN for COUGH, (Reported) Entered as Reported by: KO GARIBAY on 08/26/22 143 Budesonide/Formoterol Fumarate (Budesonide-Formoterol 160-4.5) 10.2 Gm Hfa.aer.ad, 2 PUFF INH BID, (Reported) Entered as Reported by: KO GARIBAY on 12/15/21 155 Fluticasone Propionate (Flonase Allergy Relief) 50 Mcg/Actuation [place].susp, 1 SPRAY NSEACH DAILY, (Reported) Entered as Reported by: KO GARIBAY on 08/26/22 143 Furosemide (Furosemide) 20 Mg Tablet, 20 MG PO DAILY, (Reported) Entered as Reported by: KO GARIBAY on 08/26/22 143 Hydroxyzine HCl (Hydroxyzine HCl) 25 Mg Tablet, 25 MG PO TID PRN for ANXIETY, (Reported) Entered as Reported by: KO GARIBAY on 12/15/21 155 Ipratropium [place] (Ipratropium [place]) 0.2 Mg/Ml (0.02 %) Solution, 1 ML NEB QID PRN for SHORTNESS OF BREATH, (Reported) Entered as Reported by: KO GARIBAY on 12/15/21 155 Levofloxacin (Levofloxacin) 500 Mg Tablet, 500 MG PO DAILY Prescribed by: MIYA CORNELIUS MD on 09/07/22 143 Multivit-Minerals/Folic Acid (Multivitamin Gummies) 200 Mcg Tab.chew, 1 EA PO DAILY, (Reported) Entered as Reported by: KO GARIBAY on 08/26/22 143 Nitroglycerin (Nitroglycerin) 0.4 Mg Tab.subl, 0.4 MG SL UD PRN for CHEST PAIN (ANGINA), (Reported) Entered as Reported by: KO GARIBAY on 08/26/22 1430 Pantoprazole Sodium (Pantoprazole Sodium) 40 Mg Tablet.dr, 40 MG PO BID, (Repo rted) Entered as Reported by: KO GARIBAY on 12/15/21 1559 Prednisone (Prednisone) 5 Mg Tablet, 5 MG PO DAILY, (Reported) Entered as Reported by: KO GARIBAY on 12/15/21 1559 Sucralfate (Sucralfate) 1 Gram Tablet, 1 GM PO BID PRN for ULCER FLARE, (Reported) Entered as Reported by: KO GARIBAY on 08/26/22 1430 Review of Systems Review of Systems Constitutional: No chills, No diaphoresis, No malaise, No weakness EENTM: No Double Vision, No Eye Pain Respiratory: Denies Cough, Denies Orthopnea, Denies Shortness of Air Cardiovascular: Denies Chest Pain Gastrointestinal: Abdominal Pain, Diarrhea Genitourinary: Denies Burning, Denies Discharge, Denies Flank Pain, Denies Hematuria Musculoskeletal: No back pain, No joint pain Skin: No change in color, No change in hair/nails (GEOVANNY LEIJA) All Other Systems Reviewed Negative Unless Noted: Yes (GEOVANNY LEIJA) Past Edxkphu-Cqgjlv-Uwmjuc Hx Patient Social History Tobacco Use?: No Smoking Status: Former Smoker Smokeless Tobacco Frequency: Never a User Use of E-Cig and/or Vaping dev: No Use of E-Cig and/or Vaping Chon: Never a User Substance use?: No Alcohol Use?: No Pt feels they are or have been: No (GEOVANNY LEIJA) Immunizations Up To Date First/Initial COVID19 Vaccinat: na Second COVID19 Vaccination Jose: na Third COVID19 Vaccination Date: na (GEOVANNY LEIJA) Past Medical History Surgery/Hospitalization HX: COPD, coronary artery disease, high cholesterol, hypertension, stents in his heart, chronic O2 use Surgeries: Yes Coronary Stent Respiratory: Yes COPD Currently Using CPAP: No Currently Using BIPAP: No Cardiac: Yes Coronary Artery Disease, Heart Attack, High Cholesterol, Hypertension Neurological: Yes Stroke Genitourinary: No Gastrointestinal: No Musculoskeletal: Yes Arthritis Endocrine: No (GEOVANNY LEIJA) Family Medical History No Pertinent Family Hx (GEOVANNY LEIJA) Physical Exam Vital Signs Vital Signs - First Documented 01/05/23 10:53 Temp 36.2 Pulse 88 Resp 16 B/P (MAP) 96/55 (69) Pulse Ox 98 O2 Delivery Nasal Cannula O2 Flow Rate 2.00 (SCOTT PERES MD) Vital Signs Capillary Refill : Less Than 3 Seconds (GEOVANNY LEIJA) Height/Weight/BMI Height: '" Weight: lbs. oz. kg; 19.00 BMI Method: General Appearance: WD/WN, no apparent distress HEENT: PERRL/EOMI, normal ENT inspection, TMs normal, pharynx normal Neck: non-tender, full range of motion, supple Respiratory: chest non-tender, lungs clear, normal breath sounds, no respiratory distress, no accessory muscle use Cardiovascular: regular rate, rhythm, no edema, no gallop, no JVD Gastrointestinal: normal bowel sounds, soft, other (Suprapubic tenderness with healed surgical scar.) Extremities: normal range of motion, non-tender, normal inspection, no pedal edema Back: normal inspection, no CVA tenderness, no vertebral tenderness Neurologic/Psychiatric: labor arbitrator hearing office II-XII nml as tested, no motor/sensory deficits, alert, normal mood/affect, oriented x 3 Skin: normal color, warm/dry (GEOVANNY LEIJA) Progress/Results/Core Measures Results/Orders Lab Results Laboratory Tests Test 01/05/23 10:58 01/05/23 12:46 Range/Units White Blood Count 6.6 4.3-11.0 10^3/uL Red Blood Count 3.11 L 4.30-5.52 10^6/uL Hemoglobin 7.0 L 13.3-17.7 g/dL Hematocrit 24 L 40-54 % Mean Corpuscular Volume 78 L 80-99 fL Mean Corpuscular Hemoglobin 23 L 25-34 pg Mean Corpuscular Hemoglobin Concent 29 L 32-36 g/dL Red Cell Distribution Width 15.6 H 10.0-14.5 % Platelet Count 245 130-400 10^3/uL Mean Platelet Volume 9.5 9.0-12.2 fL Immature Granulocyte % (Auto) 1 % Neutrophils (%) (Auto) 73 42-75 % Lymphocytes (%) (Auto) 15 12-44 % Monocytes (%) (Auto) 11 0-12 % Eosinophils (%) (Auto) 1 0-10 % Basophils (%) (Auto) 0 0-10 % Neutrophils # (Auto) 4.8 1.8-7.8 10^3/uL Lymphocytes # (Auto) 1.0 1.0-4.0 10^3/uL Monocytes # (Auto) 0.7 0.0-1.0 10^3/uL Eosinophils # (Auto) 0.0 0.0-0.3 10^3/uL Basophils # (Auto) 0.0 0.0-0.1 10^3/uL Immature Granulocyte # (Auto) 0.1 0.0-0.1 10^3/uL Prothrombin Time 14.7 12.2-14.7 SEC INR Comment 1.1 0.8-1.4 Activated Partial Thromboplast Time 35 24-35 SEC Sodium Level 135 135-145 MMOL/L Potassium Level 4.0 3.6-5.0 MMOL/L Chloride Level 101 98-107 MMOL/L Carbon Dioxide Level 25 21-32 MMOL/L Anion Gap 9 5-14 MMOL/L Blood Urea Nitrogen 24 H 7-18 MG/DL Creatinine 1.09 0.60-1.30 MG/DL Estimat Glomerular Filtration Rate 70 BUN/Creatinine Ratio 22 Glucose Level 119 H 70-105 MG/DL Calcium Level 8.4 L 8.5-10.1 MG/DL Corrected Calcium 9.0 8.5-10.1 MG/DL Total Bilirubin 0.4 0.1-1.0 MG/DL Aspartate Amino Transf (AST/SGOT) 34 5-34 U/L Alanine Aminotransferase (ALT/SGPT) 27 0-55 U/L Alkaline Phosphatase 55 40-136 U/L Total Protein 6.2 L 6.4-8.2 GM/DL Albumin 3.3 3.2-4.5 GM/DL Urine Color YELLOW Urine Clarity CLEAR Urine pH 5.5 5-9 Urine Specific [place] <=1.005 1.016-1.022 Urine Protein NEGATIVE NEGATIVE Urine Glucose (UA) NEGATIVE NEGATIVE Urine Ketones NEGATIVE NEGATIVE Urine Nitrite NEGATIVE NEGATIVE Urine Bilirubin NEGATIVE NEGATIVE Urine Urobilinogen 0.2 < = 1.0 MG/DL Urine Leukocyte Esterase NEGATIVE NEGATIVE Urine RBC (Auto) NEGATIVE NEGATIVE Urine RBC NONE /HPF Urine WBC NONE /HPF Urine Squamous Epithelial Cells RARE /HPF Urine Crystals NONE /LPF Urine Bacteria NEGATIVE /HPF Urine Casts NONE /LPF Urine Mucus NEGATIVE /LPF Urine Culture Indicated NO (SCOTT PERES MD) Medications Given in ED Current Medications Medications Dose Ordered Sig/Linda Route Start Time Stop Time Status Last Admin Dose Admin Iohexol 100 ml ONCE ONCE IV 01/05/23 11:45 01/05/23 11:46 DC 01/05/23 12:07 72 ML Pantoprazole 80 mg ONCE ONCE IV 01/05/23 11:15 01/05/23 11:16 DC 01/05/23 11:15 80 MG Sodium Chloride 100 ml ONCE ONCE IV 01/05/23 11:45 01/05/23 11:46 DC 01/05/23 12:07 80 ML (SCOTT PERES MD) Vital Signs/I&O 01/05/23 01/05/23 01/05/23 10:53 12:38 12:43 Temp 36.2 36.2 36.0 Pulse 88 88 88 Resp 16 16 16 B/P (MAP) 96/55 (69) 94/58 99/56 Pulse Ox 98 100 100 O2 Delivery Nasal Cannula Nasal Cannula Nasal Cannula O2 Flow Rate 2.00 2.00 (SCOTT PERES MD) Blood Pressure Mean: 69 Departure Communication (PCP) Patient with bright red blood. History of a severe anemia. History of gastric ulcers and esophagitis. Hemoccult positive. Patient Was given 80 mg IV Protonix. Patient was hypotensive by EMS and was started on a liter of fluid. Patient was not tachycardic or febrile. Reports lower abdominal discomfort. Slightly bloated and distended. Reports loose stools but was constipated prior. History of abdominal surgery by Dr. Alston last August secondary to colonic perf oration. Urinalysis was negative infection. Normal white blood count. Hemoglobin 7. Was started on 1 unit packed red blood cell. Was started on a second liter of fluid. Urinalysis unremarkable. Slight elevated BUN at 24 but otherwise normal kidney function. Coags within normal limits. Patient is a full code. Patient lives in assisted living. Noted Plavix. History of cor onary artery disease, A-fib, COPD does wear oxygen daily. Not requiring increased oxygen. CT abdomen pelvis shows moderate stool without any acute abnormality. This was discussed with Dr. Alston who recommended clear liquid diet and will evaluate patient. Patient was admitted to Dr. Parr. He has 2 large IVs started. Blood pressure continued to improve. Patient is alert and lizzeth ented. Does not appear toxic. Patient will be admitted for further evaluation to the ICU. Patient was accepted (GEOVANNY LEIJA) Impression Primary Impression: Rectal bleeding Additional Impression: Hypotension Disposition: ADMITTED INPATIENT Condition: Stable Admissions Decision to Admit Reason: Admit from ER (General) Decision to Admit/Date: Jan 05, 2023 Time/Decision to Admit Time: 12:58 (GEOVANNY LEIJA) Departure-Patient Inst. Referrals: EMILE WILKS MD (PCP/Family) Primary Care Physician ATTENDING PHYSICIAN NOTE: I was physically present as attending physician in the emergency department during the care of this patient, but I was not directly involved in the decision making or delivery of care for this patient. (SCOTT PERES MD) GEOVANNY LEIJA Jan 05, 2023 11:25 SCOTT PERES MD Jan 05, 2023 20:54
[2023-01-05] MEDS ORDERED: IOHEXOL 350 MG/ML 100 ML (OMNIPAQUE 350) VIAL IV ONE (11:45)
[2023-01-05] MEDS ORDERED: NS 100 ML (IVPB) BAG IV ONE (11:45)
[2023-01-05] MEDS ORDERED: HOLD METFORMIN - RECEIVED CONTRAST 20 ML VIAL IV SCH (11:45)
--- NOTE | 2023-01-05 12:24 | Diagnostic Imaging Report ---
PROCEDURE: CT abdomen and pelvis with contrast. TECHNIQUE: Multiple contiguous axial images were obtained through the abdomen and pelvis after administration of intravenous contrast. Auto Exposure Controls were utilized during the CT exam to meet ALARA standards for radiation dose reduction. All CT scans use one or more of the following dose optimizing techniques: automated exposure control, MA and/or KvP adjustment based on patient size and exam type or iterative reconstruction. INDICATION: Rectal bleeding. Recent colon surgery. COMPARISON: None FINDINGS: Included portions of the lung bases show interval resolution of bilateral pleural effusions. Small hiatal hernia is noted. CT ABDOMEN: Patient is status post previous partial left colon resection. Moderate amount of air and stool is noted scattered throughout the remainder of the colon. Normal appendix cannot be adequately identified, but there is no pericecal inflammation. The kidneys, adrenal glands, spleen, pancreas, and liver have a normal CT appearance. There is no loculated fluid collection, free fluid or free air within the abdomen. No abnormal mesenteric or retroperitoneal adenopathy is seen. Moderate scattered calcified aortic arch atherosclerosis is present. Osseous structures show no acute abnormalities. CT PELVIS: Urinary bladder is unopacified. No calculi are seen within urinary bladder. There is no loculated fluid collection, free fluid or free air. No abnormal lymph nodes are seen. Osseous structures show no acute abnormalities. IMPRESSION: 1. No acute abnormalities seen within the abdomen or pelvis. 2. Moderate colonic air and stool. Please correlate for constipation. Dictated by: Dictated on workstation # [id number]
[2023-01-05 12:38] VITALS: BP 94/58
[2023-01-05 12:43] VITALS: BP 99/56
[2023-01-05 12:51] LABS: BILIRUBIN,URINE NEGATIVE (NEGATIVE); CLARITY,URINE CLEAR; COLOR,URINE YELLOW; GLUCOSE, URINE (UA) NEGATIVE (NEGATIVE); KETONES,URINE NEGATIVE (NEGATIVE); LEUKOCYTE ESTERASE ,URINE NEGATIVE (NEGATIVE); NITRITE,URINE NEGATIVE (NEGATIVE); PH,URINE 5.5 (5-9); PROTEIN,URINE NEGATIVE (NEGATIVE)
[2023-01-05 13:06] LABS: BACTERIA,URINE NEGATIVE /HPF; SQUAMOUS EPITHELIAL CELL,UR RARE /HPF
[2023-01-05 13:57] VITALS: BP 100/56
[2023-01-05] MEDS ORDERED: CALCIUM CARBONATE 500 MG (TUMS) TAB.CHEW PO PRN (14:00)
[2023-01-05] MEDS ORDERED: MELATONIN 3 MG TABLET PO PRN (14:00)
[2023-01-05] MEDS ORDERED: ONDANSETRON 4 MG/2 ML (SDV) Z0FRAN IV PRN (14:00)
--- NOTE | 2023-01-05 14:13 | History & Physical-Hospitalist ---
History of Present Illness HPI/Chief Complaint Patient is a 77-year-old male with past medical history of coronary artery disease, atrial fibrillation, GI bleed status post colon resection who presented to the emergency department due to bright red blood per rectum. He states that this started 2 weeks ago and decided to come to the hospital today because it had not gotten any better. He describes it as bright red and that there are no brown or black components. He states he only came in today because it didn't get any better. He is also having some lower abd pain and feels his abdomen is distended. He jokes that he's and needs a c section. He denies any chest pain or SOB. He knows that he is on blood thinners but unsure what he takes. I called and spoke with Dr Andrea who states he is also on daily prednisone. Source: patient Date Seen 01/05/23 Time Seen by a Provider: 14:03 Attending Physician Nargis Andrea MD PCP Admitting Physician: Peggy Tipton MD Attending Physician: Peggy Tipton MD Referring Physician Date of Admission Jan 05, 2023 at 13:46 Home Medications & Allergies Home Medications Reviewed patient Home Medication Reconciliation performed by pharmacy medication reconciliations energy conservation technician and/or nursing. Patients Allergies have been reviewed. Allergies Allergies Coded Allergies No Known Drug Allergies (Ryluxmtket35/30/20) Past Gziibud-Ztsqai-Mfqkhs Hx Patient Social History Tobacco Use?: No Smoking Status: Former Smoker Smokeless Tobacco Frequency: Never a User Use of E-Cig and/or Vaping dev: No Use of E-Cig and/or Vaping Chon: Never a User Substance use?: No Alcohol Use?: No Pt feels they are or have been: No Immunizations Up To Date Date of Influenza Vaccine: Sep 02, 2021 First/Initial COVID19 Vaccinat: na Second COVID19 Vaccination Jose: na Tetanus Booster (TDap): Unknown Current Status Advance Directives: No Communicates: Verbally Primary Language: Syriac Preferred Spoken Language: Syriac Is interpretation needed?: No Sensory deficits: Vision impairment Implanted or Applied Medical D: Stents Past Medical History Surgeries: Coronary Stent COPD Currently Using CPAP: No Currently Using BIPAP: No Coronary Artery Disease, Heart Attack, High Cholesterol, Hypertension Stroke Arthritis Family Medical History No Pertinent Family Hx Review of Systems Constitutional: see HPI Physical Exam Physical Exam Vital Signs Vital Signs - First Documented 01/05/23 10:53 Temp 36.2 Pulse 88 Resp 16 B/P (MAP) 96/55 (69) Pulse Ox 98 O2 Delivery Nasal Cannula O2 Flow Rate 2.00 Capillary Refill : Less Than 3 Seconds Height, Weight, BMI Height: '" Weight: lbs. oz. kg; 19.00 BMI Method: General Appearance: No Apparent Distress, Chronically ill, Thin Respiratory: Lungs Clear, No Accessory Muscle Use; No Wheezing Cardiovascular: Regular Rate, Rhythm, No Edema, No Murmur Gastrointestinal: Normal Bowel Sounds, Soft, Distended; No Guarding; Tenderness (mild lower abd) Extremity: Normal Capillary Refill, No Calf Tenderness, No Pedal Edema Neurologic/Psychiatric: Alert, Oriented x3, Normal Mood/Affect Results Results/Procedures Labs Laboratory Tests 01/05/23 17:59 01/06/23 03:43 01/07/23 04:19 Patient resulted labs reviewed. Imaging: Reviewed Imaging Report Imaging [facility] [place] NAME: [facility] REC#: [id number] PT STATUS: REG ER : 1945 PHYSICIAN: GEOVANNY LEIJA ADMIT DATE: 01/05/23/ER Draft Date of Exam:01/05/23 CT ABDOMEN/PELVIS W PROCEDURE: CT abdomen and pelvis with contrast. TECHNIQUE: Multiple contiguous axial images were obtained through the abdomen and pelvis after administration of intravenous contrast. Auto Exposure Controls were utilized during the CT exam to meet ALARA standards for radiation dose reduction. All CT scans use one or more of the following dose optimizing techniques: automated exposure control, MA and/or KvP adjustment based on patient size and exam type or iterative reconstruction. INDICATION: Rectal bleeding. Recent colon surgery. COMPARISON: None FINDINGS: Included portions of the lung bases show interval resolution of bilateral pleural effusions. Small hiatal hernia is noted. CT ABDOMEN: Patient is status post previous partial left colon resection. Moderate amount of air and stool is noted scattered throughout the remainder of the colon. Normal appendix cannot be adequately identified, but there is no pericecal inflammation. The kidneys, adrenal glands, spleen, pancreas, and liver have a normal CT appearance. There is no loculated fluid collection, free fluid or free air within the abdomen. No abnormal mesenteric or retroperitoneal adenopathy is seen. Moderate scattered calcified aortic arch atherosclerosis is present. Osseous structures show no acute abnormalities. CT PELVIS: Urinary bladder is unopacified. No calculi are seen within urinary bladder. There is no loculated fluid collection, free fluid or free air. No abnormal lymph nodes are seen. Osseous structures show no acute abnormalities. IMPRESSION: 1. No acute abnormalities seen within the abdomen or pelvis. 2. Moderate colonic air and stool. Please correlate for constipation. Dictated on workstation # [id number] Dict: 01/05/23 1217 Trans: 01/05/23 1223 CVB [id number] Interpreted by: STEFANY SALEEM MD Electronically signed by: Assessment/Plan Admission Diagnosis GI Bleed Admission Status: Inpatient Order (span 2 midnights) Reason for Inpatient Admission: see below Assessment and Plan Lower GI Bleed Hypotension due to acute blood loss h/o gastric ulcer and esophagitis acute on chronic anemia 1 unit pRBCs ordered in the ER BP improved from with EMS Monitor in ICU Surgery consulted, Dr Alston made aware of patient by ER CAD A fib HLD Continue home meds as able but hold anticoagulation and antihypertensives COPD Continue home meds as able Will stress dose steroids since on daily prednisone DVT ppx: SCDs only Diagnosis/Problems Diagnosis/Problems (1) Severe anemia Status: Acute (2) Anticoagulated Status: Chronic (3) Afib Status: Chronic Qualifiers: Atrial fibrillation type: paroxysmal Qualified Codes: I48.0 - Paroxysmal atrial fibrillation (4) CAD (coronary artery disease) Status: Chronic Qualifiers: Coronary Disease-Associated Artery/Lesion type: unspecified vessel or lesion type [place] vs. transplanted heart: [place] heart Associated angina: without angina Qualified Codes: I25.10 - Atherosclerotic heart disease of [place] coronary artery without angina pectoris (5) COPD (chronic obstructive pulmonary disease) Status: Chronic Qualifiers: COPD type: unspecified COPD Qualified Codes: J44.9 - Chronic obstructive pulmonary disease, unspecified (6) GI bleed Status: Acute Qualifiers: GI bleed type/associated pathology: unspecified gastrointestinal hemorrhage type Qualified Codes: K92.2 - Gastrointestinal hemorrhage, unspecified (7) Hypotension PEGGY TIPTON MD Jan 05, 2023 14:13
[2023-01-05] MEDS ORDERED: LIDOCAINE UROJET 2% GEL 10 ML PKG TOP NR (14:30)
[2023-01-05 14:33] VITALS: BP 100/56
[2023-01-05] MEDS: HYDROCORTISONE 100 MG/2 ML (Solu-CORTEF) VIAL IV SCH ×2 (15:08→22:39)
[2023-01-05] MEDS: NS IV 1000 ML 1,000 ML IV SCH ×2 (15:08→22:39)
--- NOTE | 2023-01-05 16:19 | Occ Therapy Progress Note ---
Therapy Progress Note OT order received. RN request hold until tomorrow PARAMJIT FIERRO OT Jan 05, 2023 16:19
--- NOTE | 2023-01-05 17:44 | Tele-ICU Progress Note ---
Subjective Date Seen by a Provider: Jan 05, 2023 Time Seen by a Provider: 17:43 Subjective/Events-last exam (Tele-ICU Physician , consultation as per request of PCP Service provided via interactive audio and video telecommunications E-CARE system to a patient admitted to ICU bed in [facility]. Available chart/ vitals / labs / Images reviewed H&P is from ER notes Patient's information available about PMH, Shx, Fhx allergy reviewed inEMR. ROS as per chart and RN report Now in ICU, hemodynamically stable Video assessment done using teleICU camera, rest of exam as per RN Discussed with RN. 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 Colonoscopy 08/27/22 :chronic stage 2 ext and int hemorrhids, ---> perforation colon) - AC on hold , 1 u transfuses - Sx consulted - vitals improved with transfusion ABLA - 1 u PRNC transfused - follow HB Hypotension due to above - improved with transfusion - given stress dose steroids given chronic prednisone SC 100 q 8 ABD PIAN ( recently perforated colon during colonoscopy on August 27, 2022 with Emergency exploratory laparotomy, segmental sigmoid colon resection - CT A/P 01/05 - no acute pathology , Moderate colonic air and stool A fib , CAD ( Recent 08/30 - s/p attempt for cardiovesion 08/30 - amio - rate controlled - xarelto on hold COPD (on baseline 2L NC) - stable on 3 l - resume home inhalers , prn nebs - prednisone po 5 daily - on SC 100 q 8 now Lines : periph , (Central Line Necessity Reviewed) Rao: void OG: Nutrition: npo Analgesia: Anxiety/ delirium VTE Prophylaxis: scd Stress Ulcer Prophylaxis: ppi iv ( on high dose steroids ) Plans in collaboration with bedside consultants and IM MDs. Discussed with RN to reach out if any questions or concerns A total of 31 minutes of critical care time was devoted to this patient today, required to treat and/or prevent further deterioration of critical care condition ( as above ) . I am remotely monitoring this patient from another state. I am unable to do the bedside exam, and history/physical and pertinent information is taken from other notes in the computer and bedside staff. . Sepsis Event Evaluation Height, Weight, BMI Height: '" Weight: lbs. oz. kg; 21.73 BMI Method: Exam Exam Patient acknowledged, consented, and participated in this virtual visit which was conducted using real time audio/video Vital Signs Date Time Temp Pulse Resp B/P (MAP) Pulse Ox O2 Delivery O2 Flow Rate FiO2 01/05/23 16:50 36.2 01/05/23 16:00 89 27 98/58 (61) 100 Nasal Cannula 2.00 01/05/23 15:00 85 26 107/55 (73) 100 Nasal Cannula 2.00 01/05/23 14:40 100 Nasal Cannula 2.00 01/05/23 14:36 88 01/05/23 14:33 36.1 86 100 01/05/23 14:30 87 27 104/53 (70) 97 Nasal Cannula 2.00 01/05/23 13:57 36.1 86 16 100/56 100 Nasal Cannula 2.00 01/05/23 12:43 36.0 88 16 99/56 100 Nasal Cannula 01/05/23 12:38 36.2 88 16 94/58 100 Nasal Cannula 2.00 01/05/23 10:53 36.2 88 16 96/55 (69) 98 Nasal Cannula 2.00 Height & Weight Height: '" Weight: lbs. oz. kg; 21.73 BMI Method: General Appearance: No Apparent Distress, Chronically ill, Thin Respiratory: Lungs Clear, No Accessory Muscle Use; No Wheezing Cardiovascular: Regular Rate, Rhythm, No Edema, No Murmur Capillary Refill: Less Than 3 Seconds Gastrointestinal: normal bowel sounds, soft, other (Suprapubic tenderness with healed surgical scar.) Extremity: Normal Capillary Refill, No Calf Tenderness, No Pedal Edema Neurologic/Psychiatric: Alert, Oriented x3, Normal Mood/Affect Results Lab Laboratory Tests 01/05/23 10:58 Assessment/Plan Assessment/Plan 1 KEIRA YBARRA MD Jan 05, 2023 17:44
[2023-01-05 18:01] LABS: HEMATOCRIT 29 % (40-54); HEMOGLOBIN 8.5 g/dL (13.3-17.7); MEAN CORPUSCULAR HEMOGLOBIN 23 pg (25-34); MEAN CORPUSCULAR HGB CONC 30 g/dL (32-36); MEAN CORPUSCULAR VOLUME 78 fL (80-99); MEAN PLATELET VOLUME 9.7 fL (9.0-12.2); PLATELET COUNT 219 10^3/uL (130-400); WHITE BLOOD COUNT 6.9 10^3/uL (4.3-11.0)
[2023-01-05] MEDS ORDERED: ACETAMINOPHEN 500 MG TAB (TYLENOL) ONE (20:37)
[2023-01-05] MEDS: AMIODARONE 200 MG (CORDARONE) TAB PO SCH (20:52)
[2023-01-05] MEDS: inSUlin ASPART (NovoLOG) 1 UNIT/0.01 ML (CHARGE PER UNIT) SC SCH (20:52)
[2023-01-05] MEDS: PANTOPRAZOLE 40 MG (PROTONIX) VIAL IV SCH (20:52)
[2023-01-05] MEDS: guaiFENesin/DM (ROBITUSSIN DM) 10 ML UDC PO PRN (20:53)
[2023-01-05] MEDS: ACETAMINOPHEN 500 MG TAB (TYLENOL) PO PRN (20:53)
[2023-01-06 04:19] LABS: HEMATOCRIT 26 % (40-54); HEMOGLOBIN 7.8 g/dL (13.3-17.7); MEAN CORPUSCULAR HEMOGLOBIN 23 pg (25-34); MEAN CORPUSCULAR HGB CONC 30 g/dL (32-36); MEAN CORPUSCULAR VOLUME 78 fL (80-99); MEAN PLATELET VOLUME 10.4 fL (9.0-12.2); PLATELET COUNT 226 10^3/uL (130-400); WHITE BLOOD COUNT 5.1 10^3/uL (4.3-11.0)
[2023-01-06] MEDS: guaiFENesin/DM (ROBITUSSIN DM) 10 ML UDC PO PRN ×3 (04:34→21:07)
[2023-01-06 04:41] LABS: INR 1.1 (0.8-1.4); PROTHROMBIN TIME PATIENT 14.4 SEC (12.2-14.7)
[2023-01-06] MEDS ORDERED: RT-ALBUTEROL SULF 2.5 MG/3 ML PRE-MIX VIAL ONE (04:41)
[2023-01-06] MEDS: RT-ALBUTEROL SULF 2.5 MG/3 ML PRE-MIX VIAL INH PRN ×2 (04:44→14:48)
[2023-01-06 04:53] LABS: POTASSIUM 3.6 MMOL/L (3.6-5.0)
[2023-01-06 04:55] LABS: CALCIUM 8.2 MG/DL (8.5-10.1)
[2023-01-06 04:59] LABS: CREATININE SERUM 0.78 MG/DL (0.60-1.30)
[2023-01-06 05:00] LABS: PHOSPHORUS 3.1 MG/DL (2.3-4.7)
[2023-01-06] MEDS: inSUlin ASPART (NovoLOG) 1 UNIT/0.01 ML (CHARGE PER UNIT) SC SCH ×4 (05:00→20:57)
[2023-01-06] MEDS ORDERED: NS IV 500 ML 500 ML IV PRN (05:00)
[2023-01-06] MEDS: POTASSIUM CL 10MEQ/50ML IVPB 50 ML IV SCH ×4 (05:37→08:25)
[2023-01-06] MEDS: NS IV 1000 ML 1,000 ML IV SCH ×3 (05:38→21:07)
[2023-01-06] MEDS: HYDROCORTISONE 100 MG/2 ML (Solu-CORTEF) VIAL IV SCH ×3 (05:39→22:09)
[2023-01-06] MEDS ORDERED: MAGNESIUM 1 GM/100 ML IVPB 100 ML IV SCH (06:00)
[2023-01-06] MEDS ORDERED: KCL 20 MEQ TAB (K-DUR) PO SCH (06:00)
[2023-01-06] MEDS ORDERED: POTASSIUM CL 10MEQ/50ML IVPB 50 ML IV SCH (06:00)
--- NOTE | 2023-01-06 08:25 | Progress Note - Hospitalist ---
Subjective HPI/CC On Admission Date Seen by Provider: Jan 06, 2023 Patient is a 77-year-old male with past medical history of coronary artery disease, atrial fibrillation, GI bleed status post colon resection who presented to the emergency department due to bright red blood per rectum. He states that this started 2 weeks ago and decided to come to the hospital today because it had not gotten any better. He describes it as bright red and that there are no brown or black components. He states he only came in today because it didn't get any better. He is also having some lower abd pain and feels his abdomen is distended. He jokes that he's and needs a c section. He denies any chest pain or SOB. He knows that he is on blood thinners but unsure what he takes. I called and spoke with Dr Andrea who states he is also on daily prednisone. Subjective/Events-last exam Pt reports doing ok today. Was working with PT when I entered room and states he gets winded easily but had been out walking the [place]. Has not seen Dr Alston yet so will leave on CLD. No further BMs. Objective Exam Vital Signs Vital Signs Date Time Temp Pulse Resp B/P (MAP) Pulse Ox O2 Delivery O2 Flow Rate FiO2 01/06/23 08:00 75 24 103/68 (80) 100 Nasal Cannula 1.00 01/06/23 07:57 36.6 Capillary Refill : Less Than 3 Seconds General Appearance: No Apparent Distress, Thin Respiratory: Lungs Clear, No Accessory Muscle Use Cardiovascular: Regular Rate, Rhythm, No Murmur Neurologic/Psychiatric: Alert, Oriented x3 Results/Procedures Lab Laboratory Tests 01/05/23 10:58 01/05/23 17:59 01/06/23 03:43 Patient resulted labs reviewed. Imaging: Reviewed Imaging Report Assessment/Plan Assessment and Plan Assess & Plan/Chief Complaint Lower GI Bleed Hypotension due to acute blood loss h/o gastric ulcer and esophagitis acute on chronic anemia s/p 1 unit on admission Hgb 7.8 will give 1 more unit to keep >8 Monitor in ICU If BP stable and doing well may transfer to stepdown this afternoon Surgery consulted TeleICU consulted, appreciate recs CAD A fib HLD Continue home meds as able but hold anticoagulation and antihypertensives COPD Continue home meds as able Continue stress dose steroids DVT ppx: SCDs only Diagnosis/Problems Diagnosis/Problems (1) Severe anemia Status: Acute (2) Anticoagulated Status: Chronic (3) Afib Status: Chronic (4) CAD (coronary artery disease) Status: Chronic (5) COPD (chronic obstructive pulmonary disease) Status: Chronic (6) GI bleed (7) Hypotension PEGGY TIPTON MD Jan 06, 2023 08:25
[2023-01-06] MEDS: AMIODARONE 200 MG (CORDARONE) TAB PO SCH ×2 (08:29→20:48)
[2023-01-06] MEDS: PANTOPRAZOLE 40 MG (PROTONIX) VIAL IV SCH ×2 (08:29→20:49)
[2023-01-06] MEDS ORDERED: NS IV 500 ML 500 ML IV SCH ×2 (08:30)
[2023-01-06 09:44] VITALS: BP 107/62
[2023-01-06 10:02] VITALS: BP 114/72
[2023-01-06 10:17] VITALS: BP 103/70
[2023-01-06 10:31] VITALS: BP 108/67
--- NOTE | 2023-01-06 10:42 | Physical Therapy Evaluation ---
PT Evaluation-General Medical Diagnosis Admission Date Jan 05, 2023 at 13:46 Medical Diagnosis: GI Bleed Onset Date: Jan 05, 2023 Therapy Diagnosis Therapy Diagnosis: debility/weakness Precautions Precautions/Isolations: Standard Precautions Referral Physician: Keshav Reason for Referral: Evaluation/Treatment Medical History Pertinent Medical History: Atrial Fib, Alcoholism, CAD, COPD, Heart Failure, HTN Additional Medical History colon perforation Current History [place] secondary to rectal bleed x 2 weeks Reviewed History: Yes Social History Home: Assisted Living Prior Prior Level of Function SCALE: Activities may be completed with or without assistive devices. 7-Mnfxvvdxka-xextpfl completes the activity by him/herself with no assistance from a helper. 5-Set-up or Clean-up Assistance-helper sets up or cleans up; patient completes activity. [place] assists only prior to or following the activity. 4-Supervision or Touching Assistance-helper provides verbal cues and/or touching/steadying and/or contact guard assistance as patient completes activity. Assistance may be provided throughout the activity or intermittently. 3-Partial/Moderate Assistance-helper does LESS THAN HALF the effort. [place] lifts, holds or supports trunk or limbs, but provides less than half the effort. 2-Substantial/Maximal Assistance-helper does MORE THAN HALF the effort. [place] lifts or holds trunk or limbs and provides more than half the effort. 0-Oyzzmsrdk-wnpcrz does ALL the effort. Patient does none of the effort to complete the activity. Or, the assistance of 2 or more helpers is required for the patient to complete the activity. If activity was not attempted, code reason: 7-Patient Refused. 9-Not Applicable-not attempted and the patient did not perform the activity before the current illness, exacerbation or injury. 10-Not Attempted due to Environmental Limitations-(lack of equipment, weather restraints, etc.). 88-Not Attempted due to Medical Conditions or Safety Concerns. Bed Mobility: 4 Transfers (B,C,W/C): 4 Gait: 4 Indoor Mobility (Ambulation): Needed Some Help Prior Devices Use: Walker PT Evaluation-Current Subjective Patient states, "They help me when I need it where I live." Patient agrees to PT. Objective Patient Orientation: Person, Time, Situation Attachments: IV ROM/Strength ROM Lower Extremities bilateral LE WFL Strength Lower Extremities 3+/5 grossly bilateral LE all planes Sensory Vision: Functional Hearing: Functional Transfers Lying to Sitting/Side of Bed(Q: 4 Sit to Stand (QC): 4 Chair/Dyi-wc-Ohobn Xfer(QC): 4 Gait Mode of Locomotion: Walk Anticipated Mode of Locomotion: Walk Walk 10 feet (QC): 4 Walk 50 ft with 2 Turns(QC): 4 Walk 150 ft (QC): 4 Distance: 175' Gait Assistive Device: FWW Comments/Gait Description slow, steady, no deviation Balance Sitting Static: Normal Sitting Dynamic: Normal Standing Static: Normal Standing Dynamic: Normal Assessment/Needs Patient will be seen short term by skilled PT to address functional strength and mobility to improve current LOF to safely return to [place] at maximum LOF. Rehab Potential: Fair PT Half-Way Goals Half-Way Goals PT Half-Way Goals Time Frame: Jan 22, 2023 Roll Left & Right (QC): 6 Sit to Lying (QC): 6 Lying-Sitting on Side/Bed(QC): 6 Sit to Stand (QC): 4 Chair/Vnu-wa-Toctr Xfer(QC): 4 Toilet Transfer (QC): 4 Walk 10 feet (QC): 4 Walk 50ft with 2 Turns (QC): 4 Walk 150 ft (QC): 4 PT Plan Problem List Problem List: Activity Tolerance, Functional Strength, Safety, Gait, Transfer, Bed Mobility Treatment/Plan Treatment Plan: Continue Plan of Care Treatment Plan: Bed Mobility, Education, Functional Activity Betsy, Functional Strength, Gait, Safety, Therapeutic Exercise, Transfers Treatment Duration: Jan 22, 2023 Frequency: 6 times per week Estimated Hrs Per Day: .25 hour per day Patient and/or Family Agrees t: Yes Time Time In: 800 Time Out: 817 DATE: Jan 06, 2023 Total Billed Treatment Time: 17 [facility] G[facility] PT Jan 06, 2023 10:42
--- NOTE | 2023-01-06 10:42 | Tele-ICU Progress Note ---
Subjective Date Seen by a Provider: Jan 06, 2023 Time Seen by a Provider: 10:42 Subjective/Events-last exam (Tele-ICU Physician , Progress Note ) Service provided via interactive audio and video telecommunications E-CARE system to a patient admitted to ICU bed in [facility]. 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 Colonoscopy 08/27/22 :chronic stage 2 ext and int hemorrhids, ---> perforation colon) - AC on hold , 1 u transfuses - Sx consulted - vitals improved with transfusion - sx consulted , on clear liquids ABLA - 1 u PRNC transfused 01/05. anfd 1 U 01/06 - follow HB Hypotension due to above - improved with transfusion - given stress dose steroids given chronic prednisone , change SC 50 q 8 - decrease IVF ABD PIAN ( recently perforated colon during colonoscopy on August 27, 2022 with Emergency exploratory laparotomy, segmental sigmoid colon resection - CT A/P 01/05 - no acute pathology , Moderate colonic air and stool A fib , CAD ( Recent 08/30 - s/p attempt for cardiovesion 08/30 - amio - rate controlled IN SINUS - xarelto on hold COPD (on baseline 2L NC) - stable on 3 l - resume home inhalers , prn nebs - prednisone po 5 daily - on SC IV now Lines : periph , (Central Line Necessity Reviewed) Rao: void OG: Nutrition: npo Analgesia: Anxiety/ delirium VTE Prophylaxis: scd Stress Ulcer Prophylaxis: ppi iv ( on high dose steroids ) Plans in collaboration with bedside consultants and IM MDs. Discussed with RN to reach out if any questions or concerns A total of 31 minutes of critical care time was devoted to this patient today, required to treat and/or prevent further deterioration of critical care condition ( as above ) . I am remotely monitoring this patient from another state. I am unable to do the bedside exam, and history/physical and pertinent information is taken from other notes in the computer and bedside staff. . Sepsis Event Evaluation Height, Weight, BMI Height: '" Weight: lbs. oz. kg; 21.54 BMI Method: Exam Exam Patient acknowledged, consented, and participated in this virtual visit which was conducted using real time audio/video Vital Signs Date Time Temp Pulse Resp B/P (MAP) Pulse Ox O2 Delivery O2 Flow Rate FiO2 01/06/23 10:17 36.3 71 20 103/70 100 Nasal Cannula 2.00 01/06/23 10:02 36.5 74 18 114/72 100 Nasal Cannula 2.00 01/06/23 10:00 75 20 114/72 (86) 98 Nasal Cannula 1.00 01/06/23 09:44 36.4 71 18 107/62 100 Nasal Cannula 2.00 01/06/23 09:00 81 25 107/62 (77) 100 Nasal Cannula 1.00 01/06/23 08:00 75 24 103/68 (80) 100 Nasal Cannula 1.00 01/06/23 07:57 36.6 01/06/23 07:16 73 01/06/23 07:00 80 21 100/73 (82) 99 Nasal Cannula 1.00 01/06/23 06:00 79 20 107/64 (78) 99 Nasal Cannula 1.00 01/06/23 05:00 80 24 99/61 (74) 98 Nasal Cannula 1.00 01/06/23 04:45 99 Nasal Cannula 1.00 01/06/23 04:23 37.2 Nasal Cannula 1.00 01/06/23 04:00 85 21 107/56 (73) 99 Nasal Cannula 1.00 01/06/23 04:00 97 Nasal Cannula 1.00 01/06/23 03:00 76 19 87/47 (60) 98 Nasal Cannula 1.00 01/06/23 02:00 75 20 93/51 (65) 98 Nasal Cannula 1.00 01/06/23 01:00 71 01/06/23 01:00 69 22 105/62 (76) 97 Nasal Cannula 1.00 01/06/23 00:04 96 Nasal Cannula 1.00 01/06/23 00:00 72 20 98/61 (73) 97 Nasal Cannula 1.00 01/05/23 23:00 72 18 88/53 (65) 97 Nasal Cannula 1.00 01/05/23 22:43 37.0 Nasal Cannula 1.00 01/05/23 22:00 76 26 90/54 (66) 98 Nasal Cannula 2.00 01/05/23 21:56 99 Nasal Cannula 2.00 01/05/23 21:00 82 23 94/62 (73) 99 Nasal Cannula 2.00 01/05/23 20:17 37.4 01/05/23 20:00 97 Nasal Cannula 2.00 01/05/23 20:00 84 23 91/54 (66) 99 Nasal Cannula 2.00 01/05/23 19:00 88 01/05/23 19:00 67 26 107/55 (72) 98 Nasal Cannula 2.00 01/05/23 19:00 37.3 Nasal Cannula 2.00 01/05/23 18:00 88 23 86/68 (73) 99 Nasal Cannula 2.00 01/05/23 17:00 89 25 97/54 (69) 99 Nasal Cannula 2.00 01/05/23 16:50 36.2 01/05/23 16:00 89 27 98/58 (61) 100 Nasal Cannula 2.00 01/05/23 15:00 85 26 107/55 (73) 100 Nasal Cannula 2.00 01/05/23 14:40 100 Nasal Cannula 2.00 01/05/23 14:36 88 01/05/23 14:33 36.1 86 100 01/05/23 14:30 87 27 104/53 (70) 97 Nasal Cannula 2.00 01/05/23 13:57 36.1 86 16 100/56 100 Nasal Cannula 2.00 01/05/23 12:43 36.0 88 16 99/56 100 Nasal Cannula 01/05/23 12:38 36.2 88 16 94/58 100 Nasal Cannula 2.00 01/05/23 10:53 36.2 88 16 96/55 (69) 98 Nasal Cannula 2.00 I & O 01/06/23 07:00 Intake Total 2540 ml Output Total 1050 ml Balance 1490 ml Height & Weight Height: '" Weight: lbs. oz. kg; 21.54 BMI Method: General Appearance: No Apparent Distress, Thin Respiratory: Lungs Clear, No Accessory Muscle Use Cardiovascular: Regular Rate, Rhythm, No Murmur Capillary Refill: Less Than 3 Seconds Gastrointestinal: normal bowel sounds, soft, other (Suprapubic tenderness with healed surgical scar.) Extremity: Normal Capillary Refill, No Calf Tenderness, No Pedal Edema Neurologic/Psychiatric: Alert, Oriented x3 Results Lab Laboratory Tests 01/05/23 10:58 01/05/23 17:59 01/06/23 03:43 Assessment/Plan Assessment/Plan 1 KEIRA YBARRA MD Jan 06, 2023 10:42
[2023-01-06 10:45] VITALS: BP 117/73
[2023-01-06] MEDS ORDERED: SUCR1TAB36 PO (11:27)
[2023-01-06] MEDS ORDERED: CLOP75TA28 PO (11:27)
[2023-01-06] MEDS ORDERED: BUDE10.27 INH (11:27)
[2023-01-06] MEDS ORDERED: TR1C15 TOP (11:27)
[2023-01-06] MEDS ORDERED: TERA1CAP3 PO (11:27)
[2023-01-06] MEDS ORDERED: MULT-1136 PO (11:27)
[2023-01-06] MEDS ORDERED: POLY17PO6 PO (11:27)
[2023-01-06] MEDS ORDERED: NICO-587 TD (11:27)
[2023-01-06] MEDS: ACETAMINOPHEN 500 MG TAB (TYLENOL) PO PRN ×2 (12:49→21:07)
[2023-01-06 14:49] VITALS: BP 114/92
--- NOTE | 2023-01-06 15:21 | Occupational Therapy Eval ---
OT Evaluation-General/PLF Medical Diagnosis Admission Date Jan 05, 2023 at 13:46 Medical Diagnosis: GI Bleed Onset Date: Jan 05, 2023 Therapy Diagnosis Therapy Diagnosis: weakness Precautions Precautions/Isolations: Fall Prevention, Standard Precautions Referral Physician: Keshav Referral Reason: Evaluation/Treatment Medical History Pertinent Medical History: Atrial Fib, Alcoholism, CAD, COPD, Heart Failure, HTN Current History [place] from [place] secondary to rectal bleed x 2 weeks Social History Home: Assisted Living Current Living Status: Alone ADL-Prior Level of Function SCALE: Activities may be completed with or without assistive devices. 4-Lejoyehryt-qasvfay completes the activity by him/herself with no assistance from a helper. 5-Set-up or Clean-up Assistance-helper sets up or cleans up; patient completes activity. [place] assists only prior to or following the activity. 4-Supervision or Touching Assistance-helper provides verbal cues and/or touching/steadying and/or contact guard assistance as patient completes activity. Assistance may be provided throughout the activity or intermittently. 3-Partial/Moderate Assistance-helper does LESS THAN HALF the effort. [place] lifts, holds or supports trunk or limbs, but provides less than half the effort. 2-Substantial/Maximal Assistance-helper does MORE THAN HALF the effort. [place] lifts or holds trunk or limbs and provides more than half the effort. 2-Lcudwqhae-hgcssx does ALL the effort. Patient does none of the effort to complete the activity. Or, the assistance of 2 or more helpers is required for the patient to complete the activity. If activity was not attempted, code reason: 7-Patient Refused. 9-Not Applicable-not attempted and the patient did not perform the activity before the current illness, exacerbation or injury. 10-Not Attempted due to Environmental Limitations-(lack of equipment, weather restraints, etc.). 88-Not Attempted due to Medical Conditions or Safety Concerns. Self Care: Needed Some Help Functional Cognition: Independent Drive Self: No OT Current Status Subjective Up in bed, request jello and assistance w/ use of phone Mental Status/Objective Patient Orientation: Person, Place, Time, Situation Attachments: Oxygen, Telemetry Current Upper Extremity ROM BUE ROM WFLS Upper Extremity Strength +3/5 grossly ADL-Treatment Eating (QC): 6 Oral Hygiene (QC): 5 Shower/Bathe Self (QC): 3 Upper Body Dressing (QC): 4 Lower Body Dressing (QC): 3 On/Off Footwear (QC): 4 Toileting Hygiene (QC): 3 Education OT Patient Education: Correct positioning, Energy conservation, Modified ADL techniques, Progress toward Goal/Update tx plan, Purpose of tx/functional activities, Reviewed precautions, Rehab process, Safety issues, Transfer techniques, Use of adapted equipment Teaching Recipient: Patient Teaching Methods: Discussion Response to Teaching: Verbalize Understanding, Reinforcement Needed OT Fci Goals Petrologist Goals Eating (QC): 6 Oral Hygiene (QC): 6 Toileting Hygiene (QC): 5 Shower/Bathe Self (QC): 5 Upper Body Dressing (QC): 6 Lower Body Dressing (QC): 6 On/Off Footwear (QC): 6 1=Demonstrate adherence to instructed precautions during ADL tasks. 2=Patient will verbalize/demonstrate understanding of assistive devices/modifications for ADL. 3=Patient will improve strength/tolerance for activity to enable patient to pe rform ADL's. OT Education/Plan Problem List/Assessment Assessment: Decreased Activ Tolerance, Decreased Safety Aware, Decreased UE Strength, Impaired Self-Care Skills Discharge Recommendations Plan/Recommendations: Continue POC Treatment Plan/Plan of Care Treatment,Training & Education: Yes Patient would benefit from OT for education, treatment and training to promote independence in ADL's, mobility, safety and/or upper extremity function for ADL's. Plan of Care: ADL Retraining, Concurrent Therapy, Functional Mobility, Group Exercise/Act as Ind, UE Funct Exercise/Act, Visual/Perceptual Retrain Treatment Duration: Jan 22, 2023 Frequency: 3 times per week (3-5 times per week) Estimated Hrs Per Day: .25 hour per day Agreement: Yes Rehab Potential: Fair Time Start Time: 14:25 Stop Time: 14:40 DATE: Jan 06, 2023 Total Time Billed (hr/min): 15 Billed Treatment Time 1 visit EVM 1 15 min PARAMJIT FIERRO OT Jan 06, 2023 15:21
--- NOTE | 2023-01-06 16:54 | Progress Note-Pre Operative ---
Pre-Operative Progress Note Date of Available H&P: Jan 06, 2023 Date H&P Reviewed: Jan 06, 2023 Time H&P Reviewed: 17:00 History & Physical: No changes noted Pre-Operative Diagnosis: GI bleed GRACIELA MOCTEZUMA MD Jan 06, 2023 16:54
--- NOTE | 2023-01-06 16:59 | CONSULTATION REPORT ---
DATE OF SERVICE: 01/06/2023 ATTENDING PRIMARY CARE PHYSICIAN: Dr. Nargis Andrea. HISTORY OF PRESENT ILLNESS: The patient is a 77-year-old male who underwent colonoscopy 09/02/2022 where no significant abnormalities detected; however, he did develop iatrogenic colonic perforation and underwent a low anterior resection and anastomosis. He does have an extensive past medical history including gastroesophageal reflux disease, COPD, hypertension and atrial fibrillation. He presented with what he describes as red blood per rectum. Again, he is on anticoagulation with Plavix due to his atrial fibrillation. He was found to be anemic with a hemoglobin of 7.0. PAST MEDICAL HISTORY: Hypertension, hypercholesterolemia, COPD, coronary artery disease, history of stroke. PAST SURGICAL HISTORY: Low anterior colorectal resection. ALLERGIES: NO KNOWN DRUG ALLERGIES. MEDICATIONS: Ventolin inhaler 90 mcg 2 puffs q.6 hours, amiodarone 200 mg daily, atorvastatin 40 mg daily, benzonatate 200 mg t.i.d. p.r.n., budesonide/formoterol [ ] two puffs b.i.d., fluticasone spray 50 mcg daily, furosemide 20 mg daily, hydroxyzine 25 mg t.i.d. p.r.n., ipratropium bromide nebulizer q.i.d. p.r.n., levofloxacin 500 mg daily, Protonix 40 mg b.i.d., prednisone 5 mg daily, Carafate 1 gram p.o. b.i.d. SOCIAL HISTORY: Previous smoker, negative alcohol. FAMILY HISTORY: Noncontributory. PHYSICAL EXAMINATION: VITAL SIGNS: Temperature 36.3, blood pressure 111/58, pulse 74, respirations 19, pulse ox 90% on 1 litre nasal cannula. REVIEW OF SYSTEMS: Well-nourished male currently in no acute distress. He is not experiencing any shortness of breath or difficulty breathing. No chest pain, palpitations, diaphoresis. No nausea or vomiting, however states that he does have occasional episodes of reflux type of symptoms. He does not report any hematemesis, no coffee-ground emesis; however, has had some darker stools. No fever or chills. No recent inadvertent weight loss. All other review of systems negative. PHYSICAL EXAMINATION: CHEST: Distant breath sounds and scattered wheezes bilaterally. HEART: Regular. No murmurs. EXTREMITIES: No lower extremity edema. Negative Homans sign. HEENT: No scleral icterus. No cervical lymphadenopathy. GASTROINTESTINAL: Abdomen is soft, nontender, nondistended. SKIN: Warm, dry. LABORATORY DATA: WBC 5.1, hemoglobin 7.8, hematocrit 26, platelets 226, BUN 19, creatinine 0.78. ASSESSMENT AND PLAN: A 77-year-old male with some form of gastrointestinal bleeding. He had undergone a colonoscopy recently, which did not show any chronic stage II, external and internal hemorrhoids and no other abnormalities. However, he did develop an iatrogenic perforation of the colon, which was repaired. He also was found to have a reflux esophagitis, Ellington grade C as well as a large hiatal hernia and severe gastritis with a healed antral ulcer. Due to these findings on endoscopy on 08/27/2022 and his recent findings of anemia, we will repeat the EGD on this admission. Job ID: [id number] DocumentID: [id number] Dictated Date: 01/06/2023 16:23:46 Technical Project Coordinator Date: 01/06/2023 16:57:00 Dictated By: GRACIELA MOCTEZUMA MD
[2023-01-07 04:27] LABS: HEMATOCRIT 31 % (40-54); HEMOGLOBIN 9.3 g/dL (13.3-17.7); MEAN CORPUSCULAR HEMOGLOBIN 24 pg (25-34); MEAN CORPUSCULAR HGB CONC 31 g/dL (32-36); MEAN CORPUSCULAR VOLUME 78 fL (80-99); PLATELET COUNT 235 10^3/uL (130-400); WHITE BLOOD COUNT 4.8 10^3/uL (4.3-11.0)
[2023-01-07 04:46] LABS: POTASSIUM 3.7 MMOL/L (3.6-5.0)
[2023-01-07 04:48] LABS: CALCIUM 8.6 MG/DL (8.5-10.1)
[2023-01-07 04:52] LABS: CREATININE SERUM 0.81 MG/DL (0.60-1.30)
[2023-01-07] MEDS: RT-ALBUTEROL SULF 2.5 MG/3 ML PRE-MIX VIAL INH SCH ×4 (04:53→21:35)
[2023-01-07] MEDS: inSUlin ASPART (NovoLOG) 1 UNIT/0.01 ML (CHARGE PER UNIT) SC SCH ×4 (05:10→21:11)
[2023-01-07] MEDS: guaiFENesin/DM (ROBITUSSIN DM) 10 ML UDC PO PRN ×2 (06:07→20:20)
[2023-01-07] MEDS: HYDROCORTISONE 100 MG/2 ML (Solu-CORTEF) VIAL IV SCH ×3 (06:07→23:15)
[2023-01-07] MEDS: ACETAMINOPHEN 500 MG TAB (TYLENOL) PO PRN ×3 (06:20→21:12)
[2023-01-07] MEDS: PANTOPRAZOLE 40 MG (PROTONIX) VIAL IV SCH ×2 (08:07→20:15)
[2023-01-07] MEDS: AMIODARONE 200 MG (CORDARONE) TAB PO SCH ×2 (08:07→20:17)
--- NOTE | 2023-01-07 09:08 | Occ Therapy Progress Note ---
Therapy Progress Note Patient refused therapy today, NPO for schedule GI procedure. OT will continue POC as scheduled PARAMJIT FIERRO OT Jan 07, 2023 09:08
--- NOTE | 2023-01-07 09:59 | Progress Note - Hospitalist ---
Subjective HPI/CC On Admission Date Seen by Provider: Jan 07, 2023 Patient is a 77-year-old male with past medical history of coronary artery disease, atrial fibrillation, GI bleed status post colon resection who presented to the emergency department due to bright red blood per rectum. He states that this started 2 weeks ago and decided to come to the hospital today because it had not gotten any better. He describes it as bright red and that there are no brown or black components. He states he only came in today because it didn't get any better. He is also having some lower abd pain and feels his abdomen is distended. He jokes that he's and needs a c section. He denies any chest pain or SOB. He knows that he is on blood thinners but unsure what he takes. I called and spoke with Dr Andrea who states he is also on daily prednisone. Subjective/Events-last exam Pt reports doing well today. No further blood BMs. Planning for EGD today per surgery. Rn reports no other concerns. Objective Exam Vital Signs Vital Signs Date Time Temp Pulse Resp B/P (MAP) Pulse Ox O2 Delivery O2 Flow Rate FiO2 01/07/23 12:45 [id number] 84 18 100 Room Air 01/07/23 08:00 1.00 01/07/23 03:35 94/54 (67) Capillary Refill : Less Than 3 Seconds General Appearance: No Apparent Distress, Chronically ill, Thin Respiratory: Lungs Clear, No Respiratory Distress Cardiovascular: Regular Rate, Rhythm, No Murmur Gastrointestinal: Normal Bowel Sounds, Non Tender, Soft Neurologic/Psychiatric: Alert, Oriented x3 Results/Procedures Lab Laboratory Tests 01/07/23 04:19 Patient resulted labs reviewed. Imaging: Reviewed Imaging Report Assessment/Plan Assessment and Plan Assess & Plan/Chief Complaint Lower GI Bleed Hypotension due to acute blood loss h/o gastric ulcer and esophagitis acute on chronic anemia s/p 1 unit on admission Hgb 9.3 this AM s/p 2 units pRBC goal to keep >8 Surgery consulted EGD planned for today Continue PPI CAD A fib HLD Continue home meds as able but hold anticoagulation and antihypertensives COPD Continue home meds as able Will resume normal dose steroids tomorrow when can take PO DVT ppx: SCDs only Diagnosis/Problems Diagnosis/Problems (1) Severe anemia Status: Acute (2) Anticoagulated Status: Chronic (3) Afib Status: Chronic Qualifiers: Atrial fibrillation type: paroxysmal Qualified Codes: I48.0 - Paroxysmal atrial fibrillation (4) CAD (coronary artery disease) Status: Chronic Qualifiers: Coronary Disease-Associated Artery/Lesion type: unspecified vessel or lesion type [place] vs. transplanted heart: [place] heart Associated angina: without angina Qualified Codes: I25.10 - Atherosclerotic heart disease of [place] coronary artery without angina pectoris (5) COPD (chronic obstructive pulmonary disease) Status: Chronic Qualifiers: COPD type: unspecified COPD Qualified Codes: J44.9 - Chronic obstructive pulmonary disease, unspecified (6) GI bleed Status: Acute Qualifiers: GI bleed type/associated pathology: unspecified gastrointestinal hemorrhage type Qualified Codes: K92.2 - Gastrointestinal hemorrhage, unspecified (7) Hypotension PEGGY TIPTON MD Jan 07, 2023 09:59
--- NOTE | 2023-01-07 10:21 | Physical Therapy Progress Note ---
Therapy Progress Note Patient adamantly declined PT stating, "I'm not doing anything today and you can go." RN notified. Will attempt tomorrow a.m. 1 ref GEMA CALDERON PT Jan 07, 2023 10:21
[2023-01-07] MEDS ORDERED: LACTATED RINGERS 1,000 ML IV STA (11:32)
[2023-01-07] MEDS ORDERED: LIDOCAINE JELLY 2% 6 ML SYRINGE MM PRN (11:45)
[2023-01-07] MEDS ORDERED: HURRICAINE EXT TUBE (BENZOCAINE) XX PRN (11:45)
[2023-01-07] MEDS ORDERED: proPOfol 200 MG/20 ML (DIPRIVAN) VIAL IV ONE (12:22)
[2023-01-07] MEDS ORDERED: LIDOCAINE JELLY 2% 6 ML SYRINGE ONE ×2 (12:26→12:27)
[2023-01-07 12:40] VITALS: BP 100/59
--- NOTE | 2023-01-07 12:40 | Anesthesia-General Post-Op ---
MAC Patient Condition Mental Status/LOC: Same as Preop Cardiovascular: Satisfactory Nausea/Vomiting: Absent Respiratory: Satisfactory Pain: Controlled Complications: Absent Post Op Complications Complications None Follow Up Care/Instructions Patient Instructions None needed. Anesthesiology Discharge Order Discharge Order Patient is doing well, no complaints, stable vital signs, no apparent adverse anesthesia problems. No complications reported per nursing. TESSIE GEE CRNA Jan 07, 2023 12:40
[2023-01-07 12:45] VITALS: BP 90/53
[2023-01-07] MEDS ORDERED: PANT40TA2 PO (13:02)
[2023-01-07] MEDS ORDERED: NON-FORMULARY MEDICATION 1 EA EA (Hydroxyzine HCl 25 MG) PO PRN (13:15)
[2023-01-07] MEDS ORDERED: SUCRALFATE 1 GM (CARAFATE) TAB PO PRN (13:15)
--- NOTE | 2023-01-07 13:40 | OPERATIVE REPORT ---
DATE OF SERVICE: 01/07/2023 ADMITTING PHYSICIAN: Dr. Parr. PREOPERATIVE DIAGNOSIS: Symptomatic anemia with history of gastric ulcer. POSTOPERATIVE DIAGNOSES: Reflux esophagitis, Huntington grade C; moderate-sized hiatal hernia, 3 cm in size; severe gastritis with small linear erosions, no active bleeding. No distal obstructions. PROCEDURE: EGD with biopsy. SURGEON: Graciela Moctezuma MD ANESTHESIA: Monitored anesthesia care. ESTIMATED BLOOD LOSS: Minimal. FINDINGS: Reflux esophagitis, Huntington grade C; moderate-sized hiatal hernia, 3 cm in size; severe gastritis with small linear erosions, no active bleeding. No distal obstructions. DISPOSITION: The patient tolerated the procedure well. INDICATIONS: The patient is a 77-year-old male known to us. He underwent an EGD and colonoscopy with us in August 2022. He have a colonoscopy and was found to have some mild diverticulosis; however, no active bleeding sources. An EGD did show that he did have a gastric ulceration with overlying fibrin clot and no active bleed as well as severe gastritis and hiatal hernia. He presented with symptomatic anemia and was given packed red blood cells and his hemoglobin levels did rise appropriately. He does not report any red blood per rectum, nor any dark tarry stools. DESCRIPTION OF PROCEDURE: The patient was brought to the endoscopy suite and laid in the left lateral decubitus position. After adequate IV pain and sedative medications and monitored anesthesia care, the mouthpiece was applied. The endoscope was placed in the mouth, visualizing the pharynx and hypopharyngeal region. Vocal cords, epiglottis and vallecula identified and appeared to be normal. The endoscope was then gently intubated through the esophageal opening and esophagus insufflated. The endoscope was then advanced into the first, second, third portions of esophagus at the level of the GE junction. Reflux esophagitis, Huntington grade C identified. There may have been a small ulcer in this region with no bleeding as well with no stricture. A biopsy was taken with forceps with visualization of good hemostasis. The endoscope was then advanced in the stomach and endoscope retroflexed visualizing a moderate-sized hiatal hernia approximately 3 cm in size. There was severe gastritis, more towards the stomach antrum with some areas of erosions with overlying fibrinous material. No active bleeding. A biopsy was taken of the antrum with forceps with visualization of good hemostasis. The endoscope was then advanced through the pylorus into the first and second portion of the duodenum, which appeared normal. The endoscope was then slowly withdrawn while taking a second look and suctioning of residual air with no additional findings. The patient tolerated the procedure well. We will recommend the necessary lifestyle and dietary accommodation including small and more frequent meals, avoidance of eating at night as well as head elevation while lying supine. 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 for the next 2 weeks, then on a p.r.n. basis. He may have a bland diet and may be discharged home when medically stable. Job ID: [id number] DocumentID: [id number] Dictated Date: 01/07/2023 12:55:18 Traveling Clerk Date: 01/07/2023 13:38:00 Dictated By: GRACIELA MOCTEZUMA MD
[2023-01-07] MEDS ORDERED: hydrOXYzine (VISTARIL/ATARAX) 25 MG capsule/tablet PO PRN (13:45)
[2023-01-07] MEDS: SUCRALFATE 1 GM (CARAFATE) TAB PO SCH ×2 (15:57→20:17)
[2023-01-07] MEDS ORDERED: NON-FORMULARY MEDICATION 1 EA EA (Budesonide/Formoterol Fumarate (Budesonide-Formoterol 16 INH SCH (21:00)
[2023-01-07] MEDS ORDERED: TERAZOSIN 1 MG CAP (HYTRIN) PO SCH (21:00)
[2023-01-07] MEDS: RT--FLUTICASONE/SALMETEROL 232-14 (AIRDUO RespiCLICK) IH SCH (21:35)
[2023-01-08] MEDS: inSUlin ASPART (NovoLOG) 1 UNIT/0.01 ML (CHARGE PER UNIT) SC SCH ×2 (05:46→10:52)
[2023-01-08 05:52] LABS: HEMATOCRIT 30 % (40-54); HEMOGLOBIN 8.9 g/dL (13.3-17.7); MEAN CORPUSCULAR HEMOGLOBIN 24 pg (25-34); MEAN CORPUSCULAR HGB CONC 30 g/dL (32-36); MEAN CORPUSCULAR VOLUME 79 fL (80-99); MEAN PLATELET VOLUME 10.2 fL (9.0-12.2); PLATELET COUNT 237 10^3/uL (130-400); WHITE BLOOD COUNT 5.2 10^3/uL (4.3-11.0)
[2023-01-08] MEDS: SUCRALFATE 1 GM (CARAFATE) TAB PO SCH ×2 (05:52→10:51)
[2023-01-08] MEDS: HYDROCORTISONE 100 MG/2 ML (Solu-CORTEF) VIAL IV SCH (05:52)
[2023-01-08 06:01] LABS: POTASSIUM 3.3 MMOL/L (3.6-5.0)
[2023-01-08 06:02] LABS: CALCIUM 8.4 MG/DL (8.5-10.1)
[2023-01-08 06:06] LABS: CREATININE SERUM 0.72 MG/DL (0.60-1.30)
[2023-01-08] MEDS ORDERED: predniSONE 5 MG TAB PO SCH (07:00)
[2023-01-08] MEDS: PANTOPRAZOLE 40 MG (PROTONIX) VIAL IV SCH (08:58)
[2023-01-08] MEDS: AMIODARONE 200 MG (CORDARONE) TAB PO SCH (08:58)
[2023-01-08] MEDS: NS IV 1000 ML 1,000 ML IV SCH (08:58)
[2023-01-08] MEDS ORDERED: CLOP75TA28 PO (10:07)
--- NOTE | 2023-01-08 10:08 | Discharge Summary ---
Diagnosis/Chief Complaint Date of Admission Jan 05, 2023 at 13:46 Date of Discharge Admission Diagnosis GI Bleed Primary Care Nargis Andrea MD Discharge Diagnosis (1) Severe anemia Status: Acute (2) Anticoagulated Status: Chronic (3) Afib Status: Chronic (4) CAD (coronary artery disease) Status: Chronic (5) COPD (chronic obstructive pulmonary disease) Status: Chronic (6) GI bleed Status: Acute (7) Hypotension Discharge Summary Discharge Physical Exam Allergies: Coded Allergies: No Known Drug Allergies (Unverified , 10/13/20) Vitals & I&Os General Appearance: No Apparent Distress, Chronically ill Cardiovascular: Regular Rate, Rhythm, No Murmur Neurologic/Psychiatric: Alert, Oriented x3 Hospital Course Patient was admitted to the hospital secondary to acute GI bleed. He received 3 units of packed red blood cells to supplement his hemoglobin. He underwent endoscopic evaluation with Dr. MOCTEZUMA and biopsies were taken. He was monitored following that had his hemoglobin stabilized and blood pressures improved. He was discharged home on the below listed medications to follow-up with his primary care physician, Dr. MOCTEZUMA. I did call in discuss his admission with his PCP, Dr. Andrea. Labs (last 24 hrs) Microbiology 01/05/23 MRSA Screen - Final, Complete MRSA not isolated Patient resulted labs reviewed. Pending Labs Imaging: Reviewed Imaging Report Discussion & Recommendations Discharge Planning: >30 minutes discharge planning Discharge Home Medications: Active Scripts Active Clopidogrel (Clopidogrel Bisulfate) 75 Mg Tablet 75 Mg PO DAILY 30 Days Please hold your Plavix until Tuesday and then resume. Protonix (Pantoprazole Sodium) 40 Mg Tablet. 40 Mg PO BID Reported Carafate (Sucralfate) 1 Gram Tablet 1 Gm PO ACHS Budesonide-Formoterol 80-4.5 (Budesonide/Formoterol Fumarate) 80 Mcg-4.5 Mcg/Actuation Hfa.aer.ad 2 Puff INH Q4H PRN Multivitamin 1 Each Tablet 1 Each PO DAILY Miralax (Polyethylene Glycol 3350) 17 Gram Powd.pack 17 Gm PO DAILY PRN Nicotine Patch (Nicotine) 14 Mg/24 Hour Patch.td24 14 Mg TD DAILY Terazosin HCl 1 Mg Capsule 1 Mg PO HS Triamcinolone Acetonide 0.1% Cream (Triamcinolone Acet) 0.1 % Cr 1 Applic TOP Q6H PRN Tylenol Extra Strength (Acetaminophen) 500 Mg Tablet 1,000 Mg PO Q6H PRN Sucralfate 1 Gram Tablet 1 Gm PO Q12H PRN Nitroglycerin 0.4 Mg Tab.subl 0.4 Mg SL UD PRN Furosemide 20 Mg Tablet 20 Mg PO DAILY Flonase Allergy Relief (Fluticasone Propionate) 50 Mcg/Actuation [place].susp 1 [place] NSEACH DAILY Benzonatate 200 Mg Capsule 200 Mg PO Q8H PRN Atorvastatin Calcium 40 Mg Tablet 40 Mg PO HS Amiodarone HCl 200 Mg Tablet 200 Mg PO DAILY Albuterol Sulfate 2.5 Mg/3 Ml (0.083 %) Vial.neb 3 Ml NEB Q6H PRN Ventolin Hfa (Albuterol Sulfate) 90 Mcg Hfa.aer.ad 2 Puff INH Q6H PRN Budesonide-Formoterol 160-4.5 (Budesonide/Formoterol Fumarate) 10.2 Gm Hfa.aer.ad 2 Puff INH BID Ipratropium [place] 0.2 Mg/Ml (0.02 %) Solution 0.2 Mg NEB Q6H PRN Prednisone 5 Mg Tablet 5 Mg PO DAILY Hydroxyzine HCl 25 Mg Tablet 25 Mg PO Q8H PRN Instructions to patient/family Please see electronic discharge instructions given to patient. Problem Qualifiers (1) Afib: Atrial fibrillation type: paroxysmal Qualified Codes: I48.0 - Paroxysmal atrial fibrillation (2) CAD (coronary artery disease): Coronary Disease-Associated Artery/Lesion type: unspecified vessel or lesion type [place] vs. transplanted heart: [place] heart Associated angina: without angina Qualified Codes: I25.10 - Atherosclerotic heart disease of [place] coronary artery without angina pectoris (3) COPD (chronic obstructive pulmonary disease): COPD type: unspecified COPD Qualified Codes: J44.9 - Chronic obstructive pulmonary disease, unspecified (4) GI bleed: GI bleed type/associated pathology: unspecified gastrointestinal hemorrhage type Qualified Codes: K92.2 - Gastrointestinal hemorrhage, unspecified PEGGY TIPTON MD Jan 08, 2023 10:08
--- NOTE | 2023-01-08 10:10 | Discharge Inst-Simple/Standard ---
Discharge Inst-Standard Discharge Medications New, Converted or Re-Newed RX: Transmitted to Pharmacy Patient Instructions/Follow Up Plan of Care/Instructions/FU: Please continue to take your medications as written. Please follow up with your primary care doctor to follow up this hospital stay. Activity as Tolerated: Yes Discharge Diet: Cardiac Diet Return to The Hospital For: Chest pain, dark or bloody stools, shortness of breath, fever, weakness, if you feel you are getting worse. PEGGY TIPTON MD Jan 08, 2023 10:09
[2023-01-08] MEDS: RT-ALBUTEROL SULF 2.5 MG/3 ML PRE-MIX VIAL INH SCH (10:21)
[2023-01-08] MEDS: RT--FLUTICASONE/SALMETEROL 232-14 (AIRDUO RespiCLICK) IH SCH (10:21)
[2023-01-08] MEDS ORDERED: NICOTINE 14 MG (NICODERM) PATCH TD NR (10:30)
--- NOTE | 2023-01-08 12:18 | Physical Therapy Progress Note ---
Therapy Progress Note Pt reports he's been up moving about the room today by himself. He requests not to take a long walk with therapy as he is planning to discharge at noon. Therapy held per patient request. MOY JEFF PT Jan 08, 2023 12:18
[2023-01-08 14:16] VITALS: BP 110/67
[2023-01-09] MEDS ORDERED: NICOTINE PATCH REMOVAL TP SCH (10:30)
== END 2023-01-08 14:21 ==
LOC: EDUNIT# 10:53 → ER 10:54 → ICU 13:46 → UNDOADMIN 13:46 → 4TH 01-07 12:47 → ICU 01-07 12:47 → UNDODISOB 01-08 14:21 → UNDODISIN 01-08 14:21
PROVIDERS: ADMIT Family Medicine; ATTEND Family Medicine
DX: K21.01 Gastro-esophageal reflux disease with esophagitis, with bleeding (principal); K29.71 Gastritis, unspecified, with bleeding; D62 Acute posthemorrhagic anemia; I48.20 Chronic atrial fibrillation, unspecified; I95.89 Other hypotension; J44.9 Chronic obstructive pulmonary disease, unspecified; I25.10 Atherosclerotic heart disease of native coronary artery without angina pectoris; K21.9 Gastro-esophageal reflux disease without esophagitis; Z87.891 Personal history of nicotine dependence; E78.00 Pure hypercholesterolemia, unspecified; I10 Essential (primary) hypertension; I25.2 Old myocardial infarction; Z95.5 Presence of coronary angioplasty implant and graft; Z86.73 Personal history of transient ischemic attack (TIA), and cerebral infarction without residual deficits; M19.90 Unspecified osteoarthritis, unspecified site; Z79.01 Long term (current) use of anticoagulants; I95.9 Hypotension, unspecified; K44.9 Diaphragmatic hernia without obstruction or gangrene
CPT/HCPCS: 36415; 36430; 74177; 80048; 80053; 81000; 82947; 83735; 84100; 85025; 85027; 85610; 85730; 86850; 86900; 86901; 86920; 87081; 88305; 94640; 96361; 96365; 96366; 96372; 96374; 96375; 96376; 99283; G0378